=== PATIENT | female | born 1950 | race Caucasian/White ===

== ENCOUNTER 2016-08-22 11:08 | Emergency (ER) | payer MEDICARE, OTHER ==
[~2016-08-22 11:08] MED LIST: ACET325T9 PO; ASPI81TA2 PO; BISA5TAB4 PO; CALC625T20 PO; CARB15DR3 EACHEYE; CHOL10003 PO; CYAN10002 IM; FLUO20CA8 PO; GABA-586 PO; LEVO112T4 PO; LOPE2TAB56 PO; MELA3TAB PO; MENT113G6 TP; ONDA4TAB7 PO; OXYC1TAB7 PO; OXYC1TAB8 PO; SENN8.6T3 PO; SIMV20TA PO; TRAZ100T12 PO
[2016-08-22 11:10] VITALS: BP 142/93
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
[2016-08-22 11:43] LABS: BASO % 1 % (0-3); EOS # 0.2 x10^3/uL (0.0-0.7); EOS % 4 % (0-3); HEMATOCRIT 38.2 % (36.0-47.0); HEMOGLOBIN 12.5 g/dL (12.0-15.5); LYMPH # 1.1 x10^3/uL (1.0-4.8); LYMPH % 18 % (24-48); MEAN CORPUSCULAR HEMOGLOBIN 27 pg (25-35); MEAN CORPUSCULAR HGB CONC 33 g/dL (31-37); MEAN CORPUSCULAR VOLUME 82 fL (79-100); MONO # 0.5 x10^3/uL (0.0-1.1); MONO % 8 % (0-9); NEUT # 4.1 x10^3uL (1.8-7.7); NEUT % 69 % (31-73); PLATELET COUNT 266 x10^3/uL (140-400); RED BLOOD COUNT 4.65 x10^6/uL (3.50-5.40); RED CELL DISTRIBUTION WIDTH 17.1 % (11.5-14.5); WHITE BLOOD COUNT 5.9 x10^3/uL (4.0-11.0)
[2016-08-22 11:50] LABS: CALCIUM 9.1 mg/dL (8.5-10.1); CREATININE 0.8 mg/dL (0.6-1.0); GFR 71.5
--- NOTE | 2016-08-22 12:31 | EKG ---
[facility] [address] [place] [address] Test Date: 2016-08-22 Test Time: 11:54:18 Pat Name: EDDY HILTON Department: Room: Gender: F Manager Machine: ELISSA : 1950 Requested By: ARI FRANCES Order Number: [id number] Reading MD: Walter English Measurements Intervals [place] Rate: 82 P: 63 CA: 154 QRS: -51 QRSD: 106 T: 64 QT: 386 QTc: 454 Interpretive Statements SINUS RHYTHM ABNORMAL LEFT AXIS DEVIATION LEFT ANTERIOR FASCICULAR BLOCK T ABNORMALITY IN ANTEROSEPTAL LEADS ABNORMAL ECG RI6.01 Unconfirmed report Electronically Signed On 08-31-2016 10:09:16 EQUIPMENT ANALYST by Walter English
[2016-08-22 12:51] LABS: AMPHETAMINE/METHAMPHETAMINE NEG (NEG); BARBITURATES NEG (NEG); BENZODIAZEPINES NEG (NEG); CANNABINOIDS NEG (NEG); COCAINE NEG (NEG); METHADONE NEG (NEG); OPIATES NEG (NEG); PHENCYCLIDINE NEG (NEG)
[2016-08-22 12:56] LABS: BILIRUBIN,URINE NEG (NEG); CLARITY,URINE CLEAR; COLOR,URINE YELLOW; GLUCOSE,URINE NEG (NEG); NITRITE,URINE NEG (NEG); UROBILINOGEN,URINE 1 mg/dL (0.2 mg/dL)
[2016-08-22 12:57] LABS: BACTERIA,URINE 0 /HPF (0-FEW); RBC,URINE RARE /HPF (0-2); WBC,URINE RARE /HPF (0-4)
== END 2016-08-22 14:36 | disposition home or self-care (01) ==
LOC: ER 11:08
DX: F39 Unspecified mood [affective] disorder (principal); E03.9 Hypothyroidism, unspecified; E78.5 Hyperlipidemia, unspecified; F32.9 Major depressive disorder, single episode, unspecified; G89.29 Other chronic pain; K21.9 Gastro-esophageal reflux disease without esophagitis; Z88.0 Allergy status to penicillin; Z88.2 Allergy status to sulfonamides; Z91.041 Radiographic dye allergy status; Z88.1 Allergy status to other antibiotic agents; Z88.4 Allergy status to anesthetic agent; Z88.8 Allergy status to other drugs, medicaments and biological substances
CPT/HCPCS: 36415; 51701; 80048; 80305; 81001; 84443; 84484; 85027; 93005; G0481; 99285-25

== ENCOUNTER 2016-09-14 15:26 | Inpatient (IN) | payer MEDICARE, OTHER ==
[~2016-09-14] VITALS: Ht 167.6 cm; Wt 70.5 kg
--- NOTE | 2016-09-14 16:08 | EKG ---
[address] [address] Test Date: 2016-09-14 Test Time: 16:07:13 Pat Name: EDDY HILTON Department: Room: Gender: F Books Binder: : 1950 Requested By: ARI FRANCES Order Number: [id number] Reading MD: Measurements Intervals [place] Rate: 79 P: 30 DE: 150 QRS: -43 QRSD: 92 T: 64 QT: 378 QTc: 434 Interpretive Statements SINUS RHYTHM ABNORMAL LEFT AXIS DEVIATION LEFT ANTERIOR FASCICULAR BLOCK ABNORMAL ECG RI6.01 Unconfirmed report Compared to ECG 08/22/2016 11:54:18 T-wave abnormality no longer present
[2016-09-14 16:27] LABS: BASO # 0.1 x10^3/uL (0.0-0.2); BASO % 1 % (0-3); EOS # 0.3 x10^3/uL (0.0-0.7); EOS % 5 % (0-3); HEMATOCRIT 34.6 % (36.0-47.0); HEMOGLOBIN 11.4 g/dL (12.0-15.5); LYMPH # 1.1 x10^3/uL (1.0-4.8); LYMPH % 17 % (24-48); MEAN CORPUSCULAR HEMOGLOBIN 28 pg (25-35); MEAN CORPUSCULAR HGB CONC 33 g/dL (31-37); MEAN CORPUSCULAR VOLUME 83 fL (79-100); MONO # 0.6 x10^3/uL (0.0-1.1); MONO % 9 % (0-9); NEUT # 4.7 x10^3uL (1.8-7.7); NEUT % 69 % (31-73); PLATELET COUNT 267 x10^3/uL (140-400); RED BLOOD COUNT 4.15 x10^6/uL (3.50-5.40); RED CELL DISTRIBUTION WIDTH 16.5 % (11.5-14.5); WHITE BLOOD COUNT 6.9 x10^3/uL (4.0-11.0)
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
[2016-09-14 16:45] LABS: ALBUMIN 3.2 g/dL (3.4-5.0); ALBUMIN/GLOBULIN RATIO 0.8 (1.0-1.7); CALCIUM 8.4 mg/dL (8.5-10.1); CREATININE 0.8 mg/dL (0.6-1.0); GFR 71.5; POTASSIUM 3.9 mmol/L (3.5-5.1); TOTAL BILIRUBIN 0.2 mg/dL (0.2-1.0); TOTAL PROTEIN 7.2 g/dL (6.4-8.2)
[2016-09-14 16:58] LABS: AMPHETAMINE/METHAMPHETAMINE NEG (NEG); BARBITURATES NEG (NEG); BENZODIAZEPINES NEG (NEG); CANNABINOIDS NEG (NEG); COCAINE NEG (NEG); METHADONE NEG (NEG); OPIATES NEG (NEG); PHENCYCLIDINE NEG (NEG)
[2016-09-14 17:00] LABS: BILIRUBIN,URINE NEG (NEG); CLARITY,URINE HAZY; COLOR,URINE YELLOW; GLUCOSE,URINE NEG (NEG); NITRITE,URINE NEG (NEG); UROBILINOGEN,URINE 0.2 mg/dL (0.2 mg/dL)
[2016-09-14] MEDS ORDERED: DIPHENHYDRAMINE 50 MG/ML VIAL IV ONE (17:00)
[2016-09-14 17:01] LABS: BACTERIA,URINE FEW /HPF (0-FEW); SQUAMOUS EPITHELIAL CELL,UR FEW /LPF
[2016-09-14 17:20] LABS: DIRECT BILIRUBIN 0.2 mg/dL (0.0-0.2); MAGNESIUM 1.9 mg/dL (1.8-2.4)
--- NOTE | 2016-09-14 17:35 | RAD ---
PROCEDURE CT head without contrast. HISTORY Mental status changes and confusion today. TECHNIQUE Noncontrast CT head was obtained. One or more of the following individualized dose reduction techniques were utilized for this exam: 1. Automated exposure control. 2. Adjustment of the mA and/or kV according to patient's size. 3. Use of iterative reconstruction technique. COMPARISON July 09, 2015. FINDINGS Suboccipital craniotomy defect is noted. There is decreased attenuation in the left cerebellum and left brachium pontis, an area were artifact is common although appears to be a true finding. There are areas of encephalomalacia in both occipital lobes, chronic in appearance. There are also chronic parietal infarcts, left greater than right. There is mild prominence of the ventricles and sulci. There is no acute intracranial hemorrhage or extra-axial fluid collection. There is no CT evidence of an acute infarct. Paranasal sinuses are clear. Postsurgical changes in both temporal bones are noted. IMPRESSION 1. Potential new area of infarct in the left cerebellum and left brachium pontis. This is well-defined and could be subacute. This is a change from prior. Consider MRI. 2. Infarcts in the occipital and parietal lobes appear chronic. 3. Brain parenchymal volume loss. Electronically signed by: Abdoulaye Plaza MD (Sep 14, 2016 17:34:04)
[2016-09-14] MEDS ORDERED: LORAZEPAM 2 MG/ML VIAL IV PRN (18:45)
[2016-09-14] MEDS ORDERED: ONDANSETRON PF 4 MG/2 ML VIAL. IV PRN (18:45)
[2016-09-14] MEDS ORDERED: ASPIRIN 81 MG TAB.CHEW PO ONE (19:00)
--- NOTE | 2016-09-14 21:10 | RAD ---
PROCEDURE Bilateral lower extremity venous duplex ultrasound. HISTORY Leg swelling. TECHNIQUE Grayscale, color flow, and spectral waveform analysis was performed. Exam was technically difficult, patient tolerated probe pressure minimally and was uncooperative. COMPARISON None. FINDINGS All visualized vein segments are compressible with normal phasicity of waveform and augmentation. Neither posterior tibial vein was visualized. No thrombus on grayscale or color imaging is apparent. There is subcutaneous edema. IMPRESSION No deep vein thrombosis in either lower extremity. Electronically signed by: Abdoulaye Plaza MD (Sep 14, 2016 21:09:32)
[2016-09-14 21:20] VITALS: BP 179/79
[2016-09-14] MEDS ORDERED: BUSP5TAB PO (22:37)
[2016-09-14] MEDS ORDERED: MULT-208 PO (22:38)
[2016-09-14] MEDS ORDERED: ESCI10TA PO (22:38)
[2016-09-14] MEDS ORDERED: CARB15DR3 EACHEYE (22:39)
[2016-09-14] MEDS ORDERED: PRED5DRO6 EACHEYE (22:40)
[2016-09-14] MEDS ORDERED: QUET100T4 PO (22:43)
[2016-09-14] MEDS ORDERED: QUET25TA5 PO (22:44)
[2016-09-14] MEDS ORDERED: ASCO500T PO (22:44)
[2016-09-14] MEDS ORDERED: BISACODYL TAB 5 MG TABLET.DR. PO PRN (22:45)
[2016-09-14] MEDS ORDERED: LOPERAMIDE 2 MG CAPSULE PO PRN (23:00)
[2016-09-14] MEDS: ACETAMINOPHEN 325 MG TABLET PO PRN (23:01)
[2016-09-14] MEDS: DIPHENHYDRAMINE HCL 25 MG CAPSULE PO PRN (23:01)
[2016-09-14] MEDS: busPIRone 5 MG TABLET. PO SCH (23:01)
[2016-09-14] MEDS: QUEtiapine 100 MG TABLET. PO SCH (23:01)
[2016-09-14] MEDS ORDERED: ONDANSETRON ODT 4 MG TAB.RAPDIS PO PRN (23:15)
[2016-09-14] MEDS: traZODone 50 MG TABLET. PO SCH (23:39)
[2016-09-15] VITALS (8 sets, daily range): BP systolic 110–160; BP diastolic 51–84
[2016-09-15] MEDS: LEVOTHYROXINE 88 MCG TABLET PO SCH (06:06)
--- NOTE | 2016-09-15 06:51 | ACF ---
Admission Criteria Forms MENTAL STATUS CHANGE Clinical Indications for Inpatient Care (Place 'X' for any and all applicable criteria): Ongoing inpatient care may be needed for ANY ONE of the following(1)(2)(3)(5)(6) : [X]I. Suspected serious etiology (eg, medical disorder, COMPLIANCE AUDITOR event) of mental status change [ ]II. Danger to self or others not manageable at lower level of care [ ]III. Grave disability (eg, inability to perform self care necessary at lower level of care) [ ]IV. Agitation or inappropriate behavior interfering with care for primary condition (eg, attempting to discontinue lines or drains prematurely, unable to cooperate with respiratory care) [ ]V. Delirium [A] [D][E] as described by ANY ONE of the following(26): [ ]a) Delirium due to alcohol or sedative [F] withdrawal [ ]b) Delirium of uncertain etiology that has not responded to appropriate empiric treatment [ ]c) Delirium that prevents performance of a life-sustaining function (eg, feeding or hydrating oneself) [ ]. General contraindications and/or Inappropriate clinical situations for Observational Care in patients with Mental Status Change, when ANY ONE of the following is required: [ ]a) Prediction of prolongation of LOS based on ANY ONE of the following may be considered as a contraindication for observational care 2, 3, 4, 5, 6, 7, 8, 9, 10, 11 [ ]i) Age > 65 yrs. [ ]ii) Patient arriving by ambulance [ ]iii) Patient with high acuity [ ]iv) Patient requiring vital sign monitoring [ ]v) Patient on IV medication [ ]b) Systolic blood pressures 180mmHg 3,12 [ ]c) Patient with altered mental status including delirium and other alteration of consciousness, (3) [ ]d) Patient whose discharge disposition will be to a senior care home or rehabilitation home should not be managed in Emergency Department Observation Unit. CMS rule requires 3 days hospital stay before such placement.3,13 [ ]e) Patient with failure to thrive due to broad array of etiologies 3,16,17 [ ]f) Inability to ambulate 3,14 Extended stay beyond goal length of stay for the primary condition may be needed until ALL of the following are present(3)(5): [ ]a) Underlying medical etiology of mental status change is absent, or has been established and adequately treated [ ]b) Danger to self or others is absent or manageable at lower level of care. [ ]c) Behavior crisis management, including physical or chemical restraints, is not required or available at lower level of car [ ]d) Substance or alcohol withdrawal is absent or manageable at lower level of care. [ ]e) Behavioral symptoms (eg, agitation, somnolence, inappropriate behavior) are absent, or are manageable at lower level of care. The original [facility] content created by [facility] has been revised. The portions of the content which have been revised are identified through the use of italic text or in bold, and [facility] has neither reviewed nor approved the modified material. All other unmodified content is copyright [facility]. Please see references footnoted in the original [facility] edition 2016 Admission Criteria Met?: Yes BRONSON FAJARDO Sep 15, 2016 06:51
[2016-09-15] MEDS: SENNOSIDES 8.6 MG TABLET PO SCH (08:11)
[2016-09-15] MEDS: busPIRone 5 MG TABLET. PO SCH ×3 (08:11→18:59)
[2016-09-15] MEDS: QUEtiapine 25 MG TABLET. PO SCH ×2 (08:11→14:50)
[2016-09-15] MEDS: CALCIUM POLYCARBOPHIL 625 MG TABLET PO SCH ×2 (08:11→19:49)
[2016-09-15] MEDS: ASCORBIC ACID 500 MG TABLET PO SCH (08:12)
[2016-09-15] MEDS: GABAPENTIN 300 MG CAPSULE. PO SCH ×3 (08:12→18:59)
[2016-09-15] MEDS: MULTIVITAMIN with MINERAL TABLET. PO SCH (08:12)
[2016-09-15] MEDS: ASPIRIN 81 MG TAB.CHEW PO SCH (08:12)
--- NOTE | 2016-09-15 08:23 | RAD ---
Indication cough and chest congestion. A single view of the chest was obtained and is compared to an exam 02/26/2016. There is unchanged elevation of the right hemidiaphragm. There is air below the right hemidiaphragm probably reflecting air in the right colon. Extraluminal air is felt less likely. If abdominal pathology is clinically suspect a CT examination should be considered. Cardiac pacing device is noted as well as a neural stimulator. Slightly tortuous thoracic aorta is noted. Heart size is at the upper limits of normal. There is no congestive heart failure. A focal infiltrate in either lung is not seen. IMPRESSION: No definite acute finding in the chest. Air below the right hemidiaphragm probably reflecting air in large bowel. See above discussion
[2016-09-15] MEDS ORDERED: ESCITALOPRAM 10 MG TABLET. PO SCH (09:00)
[2016-09-15 09:01] LABS: BASO % 0 % (0-3); EOS # 0.2 x10^3/uL (0.0-0.7); EOS % 2 % (0-3); HEMATOCRIT 35.9 % (36.0-47.0); HEMOGLOBIN 11.8 g/dL (12.0-15.5); LYMPH # 1.2 x10^3/uL (1.0-4.8); LYMPH % 15 % (24-48); MEAN CORPUSCULAR HEMOGLOBIN 27 pg (25-35); MEAN CORPUSCULAR HGB CONC 33 g/dL (31-37); MEAN CORPUSCULAR VOLUME 84 fL (79-100); MONO # 0.5 x10^3/uL (0.0-1.1); MONO % 6 % (0-9); NEUT # 6.2 x10^3uL (1.8-7.7); NEUT % 76 % (31-73); PLATELET COUNT 278 x10^3/uL (140-400); RED BLOOD COUNT 4.29 x10^6/uL (3.50-5.40); RED CELL DISTRIBUTION WIDTH 16.1 % (11.5-14.5); WHITE BLOOD COUNT 8.2 x10^3/uL (4.0-11.0)
[2016-09-15] MEDS ORDERED: IV NORMAL SALINE 250ML 250 ML ONE (09:17)
[2016-09-15] MEDS: CHOLECALCIFEROL (VITAMIN D3) 1,000 UNIT TABLET PO SCH (09:21)
[2016-09-15] MEDS: FLUOXETINE HCL 20 MG CAPSULE PO SCH (09:22)
[2016-09-15] MEDS: CLINDAMYCIN 600MG PREMIX 50 ML IV SCH ×3 (09:22→21:32)
[2016-09-15 09:26] LABS: ALBUMIN 3.3 g/dL (3.4-5.0); ALBUMIN/GLOBULIN RATIO 0.8 (1.0-1.7); CALCIUM 8.6 mg/dL (8.5-10.1); CREATININE 0.8 mg/dL (0.6-1.0); GFR 71.5; POTASSIUM 3.9 mmol/L (3.5-5.1); TOTAL BILIRUBIN 0.4 mg/dL (0.2-1.0); TOTAL PROTEIN 7.2 g/dL (6.4-8.2)
[2016-09-15] MEDS ORDERED: DIAZEPAM 5 MG TABLET PO ONE (09:30)
[2016-09-15] MEDS: POLYVINYL ALCOHOL 1.4% OPHTH SOLUTION 15ML BOTTLE. OU SCH ×3 (09:33→20:27)
[2016-09-15] MEDS ORDERED: VANCOMYCIN PER PHARMACY MC PRN (18:15)
[2016-09-15] MEDS ORDERED: VANCOMYCIN 1.75 GM in IV NORMAL SALINE 500ML 500 ML IV ONE (18:45)
[2016-09-15] MEDS: QUEtiapine 100 MG TABLET. PO SCH (18:59)
[2016-09-15] MEDS: traZODone 50 MG TABLET. PO SCH (18:59)
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
--- NOTE | 2016-09-15 20:46 | PDOC ---
Exam Tunde Demential Exam: Tunde Note: Please also refer to the separate dictated note~for this date of service dictated separately.~Patient seen individually. Discussed the patient with Nursing staff reviewed the chart.~Reviewed interim history and current functioning. Reviewed vital signs,~Labs/ Radiology~and current medications noted below. Continue current treatment with the changes noted in the dictated addendum note Assessment: Vital Signs: Vital Signs Date Time Temp Pulse Resp B/P Pulse Ox O2 Delivery O2 Flow Rate FiO2 09/15/16 20:34 Room Air 09/15/16 18:50 98.6 96 20 129/79 97 I&O Intake and Output 09/15/16 07:00 Intake Total 940 ml Balance 940 ml Intake Oral 940 ml # Voids 9 # Bowel Movements 2 Labs: Laboratory Tests Test 09/14/16 23:20 09/15/16 08:15 Nasal Screen MRSA (PCR) Positive (Negative) H White Blood Count 8.2x10^3/uL (4.0-11.0) Red Blood Count 4.29x10^6/uL (3.50-5.40) Hemoglobin 11.8g/dL (12.0-15.5) L Hematocrit 35.9% (36.0-47.0) L Mean Corpuscular Volume 84fL (79-100) Mean Corpuscular Hemoglobin 27pg (25-35) Mean Corpuscular Hemoglobin Concent 33g/dL (31-37) Red Cell Distribution Width 16.1% (11.5-14.5) H Platelet Count 278x10^3/uL (140-400) Neutrophils (%) (Auto) 76% (31-73) H Lymphocytes (%) (Auto) 15% (24-48) L Monocytes (%) (Auto) 6% (0-9) Eosinophils (%) (Auto) 2% (0-3) Basophils (%) (Auto) 0% (0-3) Neutrophils # (Auto) 6.2x10^3uL (1.8-7.7) Lymphocytes # (Auto) 1.2x10^3/uL (1.0-4.8) Monocytes # (Auto) 0.5x10^3/uL (0.0-1.1) Eosinophils # (Auto) 0.2x10^3/uL (0.0-0.7) Basophils # (Auto) 0.0x10^3/uL (0.0-0.2) Sodium Level 142mmol/L (136-145) Potassium Level 3.9mmol/L (3.5-5.1) Chloride Level 105mmol/L (98-107) Carbon Dioxide Level 28mmol/L (21-32) Anion Gap 9 (6-14) Blood Urea Nitrogen 17mg/dL (7-20) Creatinine 0.8mg/dL (0.6-1.0) Estimated GFR (Cockcroft-Gault) 71.5 BUN/Creatinine Ratio 21 (6-20) H Glucose Level 133mg/dL (70-99) H Calcium Level 8.6mg/dL (8.5-10.1) Total Bilirubin 0.4mg/dL (0.2-1.0) # Aspartate Amino Transferase (AST) 22U/L (15-37) Alanine Aminotransferase (ALT) 22U/L (14-59) Alkaline Phosphatase 82U/L (46-116) Total Protein 7.2g/dL (6.4-8.2) Albumin 3.3g/dL (3.4-5.0) L Albumin/Globulin Ratio 0.8 (1.0-1.7) L Current Medications: Meds: Current Medications Diphenhydramine HCl (Benadryl) 50 mg 1X ONCE IV ; Start 09/14/16 at 17:00; Stop 09/14/16 at 17:01; Status DC Ondansetron HCl (Zofran) 4 mg PRN Q4HRS PRN IV NAUSEA/VOMITING; Start 09/14/16 at 18:45; Stop 09/15/16 at 18:44; Status DC Lorazepam (Ativan) 2 mg 1X PRN PRN IV SEVERE AGITATION Last administered on 21:25; Start 09/14/16 at 18:45 Aspirin (Children'S Aspirin) 81 mg 1X ONCE PO Last administered on 09/14/16 19:00; Start 09/14/16 at 19:00; Stop 09/14/16 at 19:01; Status DC Acetaminophen (Tylenol) 325 mg PRN Q6HRS PRN PO MILD PAIN Last administered on 09/14/16 23:01; Start 09/14/16 at 22:45 Aspirin (Children'S Aspirin) 81 mg DAILY PO Last administered on 09/15/16 08: 12; Start 09/15/16 at 09:00 Bisacodyl (Dulcolax Tab) 5 mg PRN DAILY PRN PO CONSTIPATION; Start 09/14/16 at 22:45 Buspirone HCl (Buspar) 5 mg TID PO Last administered on 09/15/16 18:59; Start 09/14/16 at 23:00 Calcium Polycarbophil (Fibercon) 625 mg BID PO Last administered on 09/15/16 08:11; Start 09/15/16 at 09:00 Vitamin D (Vitamin D3) 4,000 unit DAILY PO Last administered on 09/15/16 09:21 ; Start 09/15/16 at 09:00 Escitalopram Oxalate (Lexapro) 10 mg DAILY PO Last administered on 09/15/16 08 :11; Start 09/15/16 at 09:00; Stop 09/15/16 at 19:29; Status DC Gabapentin (Neurontin) 300 mg TID PO Last administered on 09/15/16 18:59; Start 09/15/16 at 09:00 Levothyroxine Sodium (Synthroid) 88 mcg DAILY07 PO Last administered on 06:06; Start 09/15/16 at 07:00 Prednisolone Acetate (Pred Forte) 1 drop HS OU Last administered on 09/15/16 20:25; Start 09/15/16 at 21:00 Quetiapine Fumarate (SEROquel) 25 mg BID92 PO Last administered on 09/15/16 14 :50; Start 09/15/16 at 09:00 Quetiapine Fumarate (SEROquel) 100 mg QHS PO Last administered on 09/15/16 18: 59; Start 09/14/16 at 23:00 Sennosides (Senna) 8.6 mg DAILY PO Last administered on 09/15/16 08:11; Start 09/15/16 at 09:00 Simvastatin (Zocor) 10 mg QHS PO Last administered on 09/15/16 20:25; Start at 21:00 Trazodone HCl (Desyrel) 50 mg QHS PO Last administered on 09/15/16 18:59; Start 09/15/16 at 00:00 Ascorbic Acid (Vitamin C) 500 mg DAILY PO Last administered on 09/15/16 08:12 ; Start 09/15/16 at 09:00 Artificial Tears (Artificial Tears) 1 drop TID OU Last administered on 14:51; Start 09/15/16 at 09:00 Loperamide HCl (Imodium) 2 mg PRN Q4HRS PRN PO DIARRHEA; Start 09/14/16 at 23: 00 Multivitamins/ Calcium (Thera-M Plus) 1 tab DAILY PO Last administered on 08:12; Start 09/15/16 at 09:00 Ondansetron HCl (Zofran Odt) 4 mg PRN Q6HRS PRN PO NAUSEA; Start 09/14/16 at 23 :15 Diphenhydramine HCl (Benadryl) 25 mg PRN Q6HRS PRN PO ITCHING Last administered on 09/14/16 23:01; Start 09/14/16 at 23:00 Fluoxetine HCl (Prozac) 20 mg DAILY PO Last administered on 09/15/16 09:22; Start 09/15/16 at 09:00 Diazepam 2.5 mg 2.5 mg HS PO Last administered on 09/15/16 20:25; Start at 21:00 Clindamycin Phosphate 50 ml @ 100 mls/hr Q8HRS IV Last administered on 14:50; Start 09/15/16 at 09:00 Sodium Chloride (Iv Sodium Chloride 0.9% 250ml) 250 ml @ As Directed STK-MED ONCE .ROUTE Last administered on 09/15/16 09:27; Start 09/15/16 at 09:17; Stop 09/15/16 at 09:18; Status DC Diazepam (Valium) 2.5 mg 1X ONCE PO Last administered on 09/15/16 09:35; Start 09/15/16 at 09:30; Stop 09/15/16 at 09:31; Status DC Vancomycin HCl 1 each 1 each PRN DAILY PRN MC SEE COMMENTS Last administered on 09/15/16 19:24; Start 09/15/16 at 18:15 Vancomycin HCl 1.75 gm/Sodium Chloride 500 ml @ 250 mls/hr 1X ONCE IV Last administered on 09/15/16t 18:59; Start 09/15/16 at 18:45; Stop 09/15/16 at 20:44 ; Status DC Vancomycin HCl/ Sodium Chloride (Iv Sodium Chloride 0.9% 250ml) 250 ml @ 250 mls/hr Q24H IV ; Start 09/16/16 at 18:00 Vancomycin HCl 1 each 1X ONCE MC ; Start 09/17/16 at 17:30; Stop 09/17/16 at 17 :31 Active Scripts Active Reported Vitamin C (Ascorbic Acid) 500 Mg Tab.chew 500 Mg PO DAILY Seroquel (Quetiapine Fumarate) 25 Mg Tablet 1 Tab PO BID92 Seroquel (Quetiapine Fumarate) 100 Mg Tablet 1 Tab PO QHS Prednisolone Acetate 5 Ml Drops.susp 1 Drop EACHEYE HS Refresh Optive Eye Drops (Carboxymethylcellulos/Glycerin) 15 Ml Drops 1 Drop EACHEYE TID Multi-Day Vitamins (Multivitamin) 1 Each Tablet 1 Tab PO DAILY Escitalopram Oxalate 10 Mg Tablet 1 Tab PO DAILY Buspirone Hcl 5 Mg Tablet 1 Tab PO TID Zofran (Ondansetron Hcl) 4 Mg Tablet 1 Tab PO Q6HRS PRN Zocor (Simvastatin) 20 Mg Tablet 10 Mg PO HS Trazodone Hcl 100 Mg Tablet 50 Mg PO QHS Senna (Sennosides) 8.6 Mg Tablet 8.6 Mg PO DAILY Levothyroxine Sodium 112 Mcg Tablet 88 Mcg PO DAILY06 Anti-Diarrhea (Loperamide Hcl) 2 Mg Tablet 2 Mg PO PRN Q4HRS PRN Gabapentin 300 Mg Capsule 300 Mg PO TID Fiber Tabs (Calcium Polycarbophil) 625 Mg Tablet 625 Mg PO BID Vitamin D3 (Cholecalciferol (Vitamin D3)) 1,000 Unit Tablet 4,000 Unit PO DAILY Bisacodyl 5 Mg Tablet.dr 5 Mg PO PRN DAILY PRN Aspirin 81 Mg Tab.chew 81 Mg PO DAILY Tylenol (Acetaminophen) 325 Mg Tablet 325 Mg PO PRN Q6HRS PRN Diagnosis: Problems: (1) Mental status change RITA MARMOLEJO MD Sep 15, 2016 20:46
[2016-09-15] MEDS ORDERED: prednisoLONE ACETATE 1% OPHTH SUSPENSION 5ML BOTTLE. OU SCH (21:00)
[2016-09-15] MEDS ORDERED: DIAZEPAM 2 MG TABLET PO SCH (21:00)
[2016-09-15] MEDS ORDERED: SIMVASTATIN 10 MG TABLET PO SCH (21:00)
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
[2016-09-16] MEDS: DIPHENHYDRAMINE HCL 25 MG CAPSULE PO PRN (01:59)
[2016-09-16] MEDS: CLINDAMYCIN 600MG PREMIX 50 ML IV SCH ×2 (05:22→13:25)
[2016-09-16] MEDS: LEVOTHYROXINE 88 MCG TABLET PO SCH (05:23)
[2016-09-16 05:32] VITALS: BP 129/74
[2016-09-16] MEDS: ACETAMINOPHEN 325 MG TABLET PO PRN (06:23)
[2016-09-16] MEDS: POLYVINYL ALCOHOL 1.4% OPHTH SOLUTION 15ML BOTTLE. OU SCH ×2 (08:35→13:25)
[2016-09-16] MEDS: FLUOXETINE HCL 20 MG CAPSULE PO SCH (08:40)
[2016-09-16] MEDS: ASPIRIN 81 MG TAB.CHEW PO SCH (08:40)
[2016-09-16] MEDS: QUEtiapine 25 MG TABLET. PO SCH ×2 (08:40→13:30)
[2016-09-16] MEDS: MULTIVITAMIN with MINERAL TABLET. PO SCH (08:40)
[2016-09-16] MEDS: CALCIUM POLYCARBOPHIL 625 MG TABLET PO SCH (08:40)
[2016-09-16] MEDS: CHOLECALCIFEROL (VITAMIN D3) 1,000 UNIT TABLET PO SCH (08:40)
[2016-09-16] MEDS: ASCORBIC ACID 500 MG TABLET PO SCH (08:40)
[2016-09-16] MEDS: SENNOSIDES 8.6 MG TABLET PO SCH (08:40)
[2016-09-16] MEDS: busPIRone 5 MG TABLET. PO SCH ×2 (08:40→13:30)
[2016-09-16] MEDS: GABAPENTIN 300 MG CAPSULE. PO SCH ×2 (08:40→13:30)
[2016-09-16 11:32] VITALS: BP 120/72
[2016-09-16] MEDS ORDERED: VANCOMYCIN 1 GM in IV NORMAL SALINE 250ML 250 ML IV SCH (18:00)
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
== END 2016-09-16 15:55 | DRG 65 ==
LOC: ER 20:09 → ICU 20:39 → 1 SOUTH 09-15 18:29
PROVIDERS: ADMIT Family Medicine; ATTEND Family Medicine
DX: I63.9 Cerebral infarction, unspecified (principal); L03.116 Cellulitis of left lower limb; F33.9 Major depressive disorder, recurrent, unspecified; E44.0 Moderate protein-calorie malnutrition; L03.115 Cellulitis of right lower limb; E03.9 Hypothyroidism, unspecified; E78.5 Hyperlipidemia, unspecified; F03.90 Unspecified dementia, unspecified severity, without behavioral disturbance, psychotic disturbance, mood disturbance, and anxiety; F09 Unspecified mental disorder due to known physiological condition; F41.9 Anxiety disorder, unspecified; F60.3 Borderline personality disorder; F63.9 Impulse disorder, unspecified; G47.00 Insomnia, unspecified; G50.0 Trigeminal neuralgia; H81.09 Meniere's disease, unspecified ear; I25.10 Atherosclerotic heart disease of native coronary artery without angina pectoris; I50.9 Heart failure, unspecified; I11.0 Hypertensive heart disease with heart failure; I87.8 Other specified disorders of veins; K21.9 Gastro-esophageal reflux disease without esophagitis; R32 Unspecified urinary incontinence; Z79.899 Other long term (current) drug therapy; Z91.81 History of falling; Z95.0 Presence of cardiac pacemaker; Z98.2 Presence of cerebrospinal fluid drainage device; Z88.0 Allergy status to penicillin; Z88.8 Allergy status to other drugs, medicaments and biological substances; S06.9X0A Unspecified intracranial injury without loss of consciousness, initial encounter
CPT/HCPCS: 36415; 51701; 70450; 71010; 80053; 81001; 82248; 82553; 83690; 83735; 83880; 84443; 84484; 85027; 85610; 85730; 87641; 93005; 93970; 96374; G0480; G0481; J2060; J3370; J3490; J7040; J7050; Q0163; 99285-25

== ENCOUNTER 2017-07-05 22:11 | Inpatient (IN) | payer MEDICARE, OTHER ==
[~2017-07-05] VITALS: Ht 167.6 cm; Wt 70.4 kg
[~2017-07-05 22:11] MED LIST changes: +ASCO500T PO; +ASPI-630 PO; -ASPI81TA2 PO; +BUSP5TAB PO; +ESCITALOPRAM OX10 MG PO; -MELA3TAB PO; +MELA3TAB2 PO; +MULT-208 PO; +PRED5DRO16 EACHEYE; +QUET100T4 PO; +QUET25TA5 PO; +SENN-79 PO; -SENN8.6T3 PO; +TRAZ-90 PO; -TRAZ100T12 PO
[2017-07-05 23:27] LABS: ALBUMIN/GLOBULIN RATIO 0.7 (1.0-1.7); CALCIUM 8.8 mg/dL (8.5-10.1); CREATININE 1.4 mg/dL (0.6-1.0); GFR 37.4; MAGNESIUM 1.9 mg/dL (1.8-2.4); POTASSIUM 3.7 mmol/L (3.5-5.1); TOTAL BILIRUBIN 0.2 mg/dL (0.2-1.0); TOTAL PROTEIN 7.1 g/dL (6.4-8.2)
[2017-07-05 23:35] LABS: MEAN CORPUSCULAR HGB CONC 31 g/dL (31-37)
[2017-07-05 23:36] LABS: HEMATOCRIT 38.5 % (36.0-47.0); HEMOGLOBIN 12.1 g/dL (12.0-15.5); MEAN CORPUSCULAR HEMOGLOBIN 25 pg (25-35); MEAN CORPUSCULAR VOLUME 79 fL (79-100); RED BLOOD COUNT 4.91 x10^6/uL (3.50-5.40); RED CELL DISTRIBUTION WIDTH 17.5 % (11.5-14.5); WHITE BLOOD COUNT 7.8 x10^3/uL (4.0-11.0)
[2017-07-05 23:37] LABS: PLATELET COUNT 340 x10^3/uL (140-400)
[2017-07-05 23:48] LABS: % EOS 3 % (0-5); % LYMPHS 16 % (24-48); % MONOS 12 % (0-10); % SEGS 69 % (35-66); ANISOCYTOSIS SLIGHT; MICROCYTOSIS SLIGHT; PLT ESTIMATE ADEQUATE (ADEQUATE)
[2017-07-06] MEDS ORDERED: RIVA1PAT23 TD (00:08)
[2017-07-06] MEDS ORDERED: TRAM50TA PO (00:08)
[2017-07-06] MEDS ORDERED: DULO30CA2 PO (00:08)
[2017-07-06] MEDS ORDERED: QUET50TA PO (00:08)
[2017-07-06] MEDS ORDERED: BUSP10TA PO (00:08)
[2017-07-06] MEDS ORDERED: DULO60CA6 PO (00:08)
[2017-07-06] MEDS ORDERED: TRAZ50TA15 PO (00:08)
[2017-07-06] MEDS ORDERED: FERR-26 PO (00:14)
[2017-07-06] MEDS ORDERED: LATA2.5D3 EACHEYE (00:14)
[2017-07-06] MEDS ORDERED: OLAN5TAB5 PO (00:14)
[2017-07-06] MEDS ORDERED: CYAN10005 PO (00:14)
[2017-07-06] MEDS ORDERED: HALO2ORA PO (00:14)
[2017-07-06] MEDS ORDERED: MIRT15TA3 PO (00:14)
--- NOTE | 2017-07-06 00:17 | PHYS DOC ---
Past History Past Medical History: Cancer, Constipation, GERD, Hypertension, Hypothyroid, Migraines, Other Past Surgical History: Pacemaker Alcohol Use: None Drug Use: None Adult General Chief Complaint Chief Complaint: PSYCH EVALUATION HPI HPI Patient is a 67 year old patient who is in a intermediate secondary to psychiatric issues as well as others, is being sent to the ED for medical evaluation prior to going to the psychiatric unit. Patient is going to psychiatric unit due to of aggressive and violent behavior and intermediate. History, ROS, physical exam limited secondary to clinical condition. Review of Systems Review of Systems Constitutional: Denies fever or chills [] Eyes: Denies change in visual acuity, redness, or eye pain [] HENT: Denies nasal congestion or sore throat [] Respiratory: Denies cough or shortness of breath [] Cardiovascular: No additional information not addressed in HPI [] GI: Denies abdominal pain, nausea, vomiting, bloody stools or diarrhea [] : Denies dysuria or hematuria [] Musculoskeletal: Denies back pain or joint pain [] Integument: Denies rash or skin lesions [] Neurologic: Denies headache, focal weakness or sensory changes [] Endocrine: Denies polyuria or polydipsia [] All other systems were reviewed and found to be within normal limits, except as documented in this note. Allergies Allergies Allergies Coded Allergies Type Severity Reaction Last Updated Verified Penicillins Allergy Intermediate 12/26/15 Yes adhesive tape Allergy Intermediate 12/26/15 Yes cefdinir Allergy Intermediate 12/26/15 Yes midazolam Allergy Intermediate 12/26/15 Yes piperacillin Allergy Intermediate 12/26/15 Yes procaine Allergy Intermediate 12/26/15 Yes promethazine Allergy Intermediate 12/26/15 Yes sulfadiazine Allergy Intermediate 12/26/15 Yes tazobactam Allergy Intermediate 12/26/15 Yes I S O L A T I O N *CONTACT* Allergy Unknown 02/28/16 Yes Physical Exam Physical Exam Constitutional: Well developed, well nourished, no acute distress, non-toxic appearance. [] HENT: Normocephalic, atraumatic, bilateral external ears normal, oropharynx dry , no oral exudates, nose normal. [] Eyes: EOMI, conjunctiva normal, no discharge. [] Neck: Normal range of motion, no tenderness, supple, no stridor. No lad, no meningeal signs Cardiovascular:Heart rate regular rhythm, no murmur , equal pulses, normal perfusion Lungs & Thorax: Bilateral breath sounds clear to auscultation, no tachypnea Abdomen: Bowel sounds normal, soft, no tenderness, no masses, no pulsatile masses. [] Skin: Warm, dry, no erythema, no rash. Exception is lower extremities that were wrapped, went rapidly removed there are signs of chronic stasis dermatitis, no purulence discharge or bad odor Back: No tenderness, no CVA tenderness. [] Extremities: No tenderness, no DVT, ROM intact, no edema. [] Neurologic: Alert and oriented X 3, normal motor function, no focal deficits noted. [] Psychologic: hostile. [] Current Patient Data Vital Signs Vital Signs Date Time Temp Pulse Resp B/P (MAP) Pulse Ox O2 Delivery O2 Flow Rate FiO2 07/05/17 22:11 98.7 88 16 95 Room Air Lab Results Laboratory Tests Test 07/05/17 22:24 White Blood Count 7.8 x10^3/uL (4.0-11.0) Red Blood Count 4.91 x10^6/uL (3.50-5.40) Hemoglobin 12.1 g/dL (12.0-15.5) Hematocrit 38.5 % (36.0-47.0) Mean Corpuscular Volume 79 fL (79-100) Mean Corpuscular Hemoglobin 25 pg (25-35) Mean Corpuscular Hemoglobin Concent 31 g/dL (31-37) Red Cell Distribution Width 17.5 % (11.5-14.5) H Platelet Count 340 x10^3/uL (140-400) Segmented Neutrophils % 69 % (35-66) H Lymphocytes % 16 % (24-48) L Monocytes % 12 % (0-10) H Eosinophils % 3 % (0-5) Platelet Estimate Adequate (ADEQUATE) Anisocytosis Slight Microcytosis Slight Sodium Level 141 mmol/L (136-145) Potassium Level 3.7 mmol/L (3.5-5.1) Chloride Level 104 mmol/L (98-107) Carbon Dioxide Level 27 mmol/L (21-32) Anion Gap 10 (6-14) Blood Urea Nitrogen 10 mg/dL (7-20) Creatinine 1.4 mg/dL (0.6-1.0) H Estimated GFR (Cockcroft-Gault) 37.4 BUN/Creatinine Ratio 7 (6-20) Glucose Level 92 mg/dL (70-99) Calcium Level 8.8 mg/dL (8.5-10.1) Magnesium Level 1.9 mg/dL (1.8-2.4) Total Bilirubin 0.2 mg/dL (0.2-1.0) Aspartate Amino Transferase (AST) 16 U/L (15-37) Alanine Aminotransferase (ALT) 16 U/L (14-59) Alkaline Phosphatase 70 U/L (46-116) Total Protein 7.1 g/dL (6.4-8.2) Albumin 3.0 g/dL (3.4-5.0) L Albumin/Globulin Ratio 0.7 (1.0-1.7) L EKG EKG [] Radiology/Procedures Radiology/Procedures [] Course & Med Decision Making Course & Med Decision Making Pertinent Labs and Imaging studies reviewed. (See chart for details) [] Dragon Disclaimer Dragon Disclaimer This electronic medical record was generated, in whole or in part, using a voice recognition dictation system. Departure Departure: Impression: Primary Impression: Impulse control disorder Additional Impression: Venous stasis dermatitis Disposition: ADMITTED INPATIENT Admitting Physician: Other Condition: STABLE Referrals: BLAISE HOLLAND DO (PCP) Problem Qualifiers Jake HAMMER MD Jul 06, 2017 00:17
[2017-07-06 00:48] LABS: CLARITY,URINE CLEAR; COLOR,URINE YELLOW; GLUCOSE,URINE NEG (NEG)
[2017-07-06 00:49] LABS: BACTERIA,URINE 0 /HPF (0-FEW); BILIRUBIN,URINE NEG (NEG); NITRITE,URINE NEG (NEG); RBC,URINE OCC /HPF (0-2); SQUAMOUS EPITHELIAL CELL,UR OCC /LPF; UROBILINOGEN,URINE 1 mg/dL (0.2 mg/dL); WBC,URINE OCC /HPF (0-4)
[2017-07-06] MEDS ORDERED: DIAZ5TAB PO (02:01)
[2017-07-06 02:13] VITALS: BP 108/66
[2017-07-06] MEDS ORDERED: ACETAMINOPHEN 325 MG TABLET PO PRN (06:45)
[2017-07-06] MEDS ORDERED: traMADol 50 MG TABLET PO PRN (06:45)
[2017-07-06] MEDS ORDERED: LOPERAMIDE 2 MG CAPSULE PO PRN (06:45)
[2017-07-06] MEDS ORDERED: ONDANSETRON ODT 4 MG TAB.RAPDIS PO PRN (06:45)
[2017-07-06] MEDS ORDERED: BISACODYL TAB 5 MG TABLET.DR. PO PRN (06:45)
[2017-07-06] MEDS ORDERED: IV NORMAL SALINE 500ML 500 ML IV ONE (07:00)
[2017-07-06 07:26] VITALS: BP 92/64
[2017-07-06] MEDS: TIMOLOL 0.25% OPHTH SOLUTION 5ML BOTTLE. OU SCH ×2 (09:00→09:19)
[2017-07-06] MEDS: CHOLECALCIFEROL (VITAMIN D3) 1,000 UNIT TABLET PO SCH ×2 (09:00→09:18)
[2017-07-06] MEDS: FERROUS SULFATE 325 MG TABLET. PO SCH ×2 (09:00→09:18)
[2017-07-06] MEDS: CYANOCOBALAMIN (VITAMIN B-12) 1,000 MCG TABLET. PO SCH ×2 (09:00→09:18)
[2017-07-06] MEDS: ASCORBIC ACID 500 MG TABLET PO SCH ×2 (09:00→09:18)
[2017-07-06] MEDS: MULTIVITAMIN with MINERAL TABLET. PO SCH ×2 (09:00→09:18)
[2017-07-06] MEDS: CALCIUM POLYCARBOPHIL 625 MG TABLET PO SCH ×3 (09:00→19:26)
[2017-07-06] MEDS: SENNOSIDES 8.6 MG TABLET PO SCH ×2 (09:00→09:19)
[2017-07-06] MEDS: POLYVINYL ALCOHOL 1.4% OPHTH SOLUTION 15ML BOTTLE. OU SCH ×4 (09:00→19:26)
--- NOTE | 2017-07-06 09:05 | EKG ---
[address] [address] Test Date: 2017-07-05 Test Time: 22:22:03 Pat Name: EDDY HILTON Department: Room: [address] [place] [address] Gender: F Usability Strategist: ELVIN : 1950 Requested By: Jake HAMMER Order Number: [id number] Reading MD: Toni Smith MD Measurements Intervals [place] Rate: 87 P: IL: QRS: -52 QRSD: 90 T: 68 QT: 336 QTc: 405 Interpretive Statements SR NSST CHANGES Electronically Signed On 07-08-2017 12:44:44 FRONT DESK SUPERVISOR by Toni Smith MD
[2017-07-06] MEDS: ASPIRIN 81 MG TAB.CHEW PO SCH (09:18)
[2017-07-06] MEDS: QUEtiapine 50 MG TABLET. PO SCH ×3 (09:18→13:52)
[2017-07-06] MEDS: GABAPENTIN 300 MG CAPSULE. PO SCH ×4 (09:18→19:26)
[2017-07-06] MEDS: RIVASTIGMINE 9.5MG PATCH. TD SCH (09:19)
[2017-07-06] MEDS: busPIRone 10 MG TABLET. PO SCH ×4 (09:19→19:26)
[2017-07-06] MEDS ORDERED: HALOPERIDOL 10 MG/5 ML ORAL.CONC. PO PRN (13:00)
[2017-07-06 16:07] VITALS: BP 95/60
[2017-07-06] MEDS: CIPROFLOXACIN 0.3% OPHTH SOLUTION 2.5ML BOTTLE. OD SCH (18:28)
[2017-07-06] MEDS: LATANOPROST 0.005% OPHTH SOLUTION 2.5ML BOTTLE. OU SCH (19:26)
[2017-07-06] MEDS: MIRTAZAPINE 7.5 MG TABLET. PO SCH (19:33)
[2017-07-06] MEDS: SIMVASTATIN 20 MG TABLET PO SCH ×2 (19:33→21:00)
[2017-07-06] MEDS: QUEtiapine 100 MG TABLET. PO SCH ×2 (19:33→21:00)
--- NOTE | 2017-07-06 20:04 | PDOC ---
Exam Note: Tun[place] Note: Please also refer to the separate dictated note~for this date of service dictated separately.~Patient seen individually. Discussed the patient with Nursing staff reviewed the chart.~Reviewed interim history and current functioning. Reviewed vital signs,~Labs/ Radiology~and current medications noted below. Continue current treatment with the changes noted in the dictated addendum note Assessment: Vital Signs: Vital Signs Date Time Temp Pulse Resp B/P (MAP) Pulse Ox O2 Delivery O2 Flow Rate FiO2 07/06/17 16:07 98.6 84 19 95/60 (72) 94 07/06/17 02:13 Room Air Labs: Laboratory Tests Test 07/05/17 22:24 07/06/17 00:08 White Blood Count 7.8 x10^3/uL (4.0-11.0) Red Blood Count 4.91 x10^6/uL (3.50-5.40) Hemoglobin 12.1 g/dL (12.0-15.5) Hematocrit 38.5 % (36.0-47.0) Mean Corpuscular Volume 79 fL (79-100) Mean Corpuscular Hemoglobin 25 pg (25-35) Mean Corpuscular Hemoglobin Concent 31 g/dL (31-37) Red Cell Distribution Width 17.5 % (11.5-14.5) H Platelet Count 340 x10^3/uL (140-400) Segmented Neutrophils % 69 % (35-66) H Lymphocytes % 16 % (24-48) L Monocytes % 12 % (0-10) H Eosinophils % 3 % (0-5) Platelet Estimate Adequate (ADEQUATE) Anisocytosis Slight Microcytosis Slight Sodium Level 141 mmol/L (136-145) Potassium Level 3.7 mmol/L (3.5-5.1) Chloride Level 104 mmol/L (98-107) Carbon Dioxide Level 27 mmol/L (21-32) Anion Gap 10 (6-14) Blood Urea Nitrogen 10 mg/dL (7-20) Creatinine 1.4 mg/dL (0.6-1.0) H Estimated GFR (Cockcroft-Gault) 37.4 BUN/Creatinine Ratio 7 (6-20) Glucose Level 92 mg/dL (70-99) Calcium Level 8.8 mg/dL (8.5-10.1) Magnesium Level 1.9 mg/dL (1.8-2.4) Iron Level 37 ug/dL (50-170) L Total Iron Binding Capacity 353 ug/dL (250-450) Iron Saturation 10 % (15-34) L Total Bilirubin 0.2 mg/dL (0.2-1.0) Aspartate Amino Transferase (AST) 16 U/L (15-37) Alanine Aminotransferase (ALT) 16 U/L (14-59) Alkaline Phosphatase 70 U/L (46-116) Total Protein 7.1 g/dL (6.4-8.2) Albumin 3.0 g/dL (3.4-5.0) L Albumin/Globulin Ratio 0.7 (1.0-1.7) L Urine Collection Type U cath Urine Color Yellow Urine Clarity Clear Urine pH 6.0 Urine Specific Casa 1.020 Urine Protein Neg (NEG-TRACE) Urine Glucose (UA) Neg mg/dL (NEG) Urine Ketones (Stick) 40 mg/dL (NEG) Urine Blood Neg (NEG) Urine Nitrite Neg (NEG) Urine Bilirubin Neg (NEG) Urine Urobilinogen Dipstick 1 mg/dL (0.2 mg/dL) Urine Leukocyte Esterase Neg (NEG) Urine RBC Occ /HPF (0-2) Urine WBC Occ /HPF (0-4) Urine Squamous Epithelial Cells Occ /LPF Urine Bacteria 0 /HPF (0-FEW) Current Medications: Meds: Current Medications Buspirone HCl (Buspar) 10 mg TID PO Last administered on 07/06/17 19:26; Start 07/06/17 at 09:00 Mirtazapine (Remeron) 7.5 mg QHS PO Last administered on 07/06/17 19:33; Start 07/06/17 at 21:00 Olanzapine (ZyPREXA ZYDIS) 2.5 mg PRN Q2HR PRN PO ANXIETY / AGITATION; Start at 02:00 Quetiapine Fumarate (SEROquel) 50 mg BID92 PO Last administered on 07/06/17 13: 52; Start 07/06/17 at 09:00 Quetiapine Fumarate (SEROquel) 100 mg QHS PO Last administered on 07/06/17 19: 33; Start 07/06/17 at 21:00 Rivastigmine (Exelon) 1 patch DAILY TD Last administered on 1/9/18at 09:19; Start 07/06/17 at 09:00 Trazodone HCl (Desyrel) 75 mg QHS PO ; Start 07/06/17 at 21:00; Stop 07/06/17 at 21:00; Status DC Sodium Chloride 500 ml @ 500 mls/hr 1X ONCE IV Last administered on 07/06/17at 06:37; Start 07/06/17 at 07:00; Stop 07/06/17 at 07:59; Status DC Acetaminophen (Tylenol) 325 mg PRN Q6HRS PRN PO MILD PAIN; Start 07/06/17 at 06: 45 Aspirin (Children'S Aspirin) 81 mg DAILY PO Last administered on 07/06/17at 09:18 ; Start 07/06/17 at 09:00 Bisacodyl (Dulcolax Tab) 5 mg PRN DAILY PRN PO CONSTIPATION; Start 07/06/17 at 06:45 Calcium Polycarbophil (Fibercon) 625 mg BID PO Last administered on 07/06/17at 19 :26; Start 07/06/17 at 09:00 Vitamin D (Vitamin D3) 4,000 unit DAILY PO ; Start 07/06/17 at 09:00 Cyanocobalamin (Vitamin B-12) 1,000 mcg DAILY PO ; Start 07/06/17 at 09:00 Diazepam (Valium) 2.5 mg QHS PO ; Start 07/06/17 at 21:00; Stop 07/06/17 at 21:00 ; Status DC Ferrous Sulfate (Feosol) 325 mg DAILY PO ; Start 07/06/17 at 09:00 Gabapentin (Neurontin) 300 mg TID PO Last administered on 07/06/17at 19:26; Start 07/06/17 at 09:00 Latanoprost (Xalatan) 1 drop QHS OU Last administered on 07/06/17 19:26; Start 07/06/17 at 21:00 Levothyroxine Sodium (Synthroid) 88 mcg DAILY06 PO ; Start 07/07/17 at 06:00 Sennosides (Senna) 8.6 mg DAILY PO ; Start 07/06/17 at 09:00 Simvastatin (Zocor) 10 mg HS PO Last administered on 07/06/17at 19:33; Start 07/06 at 21:00 Tramadol HCl (Ultram) 50 mg PRN Q8HRS PRN PO MODERATE PAIN; Start 07/06/17 at 06 :45 Ascorbic Acid (Vitamin C) 500 mg DAILY PO ; Start 07/06/17 at 09:00 Artificial Tears (Artificial Tears) 1 drop TID OU Last administered on at 19:26; Start 07/06/17 at 09:00 Loperamide HCl (Imodium) 2 mg PRN Q4HRS PRN PO DIARRHEA; Start 07/06/17 at 06:45 Multivitamins/ Calcium (Thera-M Plus) 1 tab DAILY PO ; Start 07/06/17 at 09:00 Ondansetron HCl (Zofran Odt) 4 mg PRN Q6HRS PRN PO NAUSEA; Start 07/06/17 at 06: 45 Timolol Maleate (Timoptic 0.25% Oph) 1 drop DAILY OU ; Start 07/06/17 at 09:00 Duloxetine HCl (Cymbalta) 30 mg DAILY PO ; Start 07/07/17 at 09:00 Duloxetine HCl (Cymbalta) 60 mg DAILY PO ; Start 07/07/17 at 09:00 Haloperidol Lactate (Haldol Oral) 1 mg PRN Q6HRS PRN PO ANXIETY / AGITATION; Start 07/06/17 at 13:00 Ciprofloxacin 1 drop BID76 OD Last administered on 07/06/17at 18:28; Start at 18:00; Stop 07/13/17 at 17:59 Trazodone HCl (Desyrel) 100 mg QHS PO ; Start 07/06/17 at 21:00; Stop 07/06/17 at 21:00; Status DC Trazodone HCl (Desyrel) 100 mg QHS PO Last administered on 07/06/17at 19:33; Start 07/06/17 at 21:00; Stop 07/06/17 at 21:00; Status DC Trazodone HCl (Desyrel) 100 mg PRN QHS PRN PO INSOMNIA/MAY REPEAT X1; Start 07/06/17 at 21:00 Active Scripts Active Reported Valium (Diazepam) 5 Mg Tablet 2.5 Mg PO QHS Zyprexa Zydis (Olanzapine) 5 Mg Tab.rapdis 2.5 Mg PO PRN Q2HR PRN MDD 10mg MAX 10mg/24hrs Haloperidol Lactate 2 Mg/1 Ml Oral.conc 1 Mg PO PRN Q6HRS PRN Ferrous Sulfate 325 Mg Tablet 325 Mg PO DAILY Latanoprost 2.5 Ml Drops 1 Drop EACHEYE QHS Mirtazapine 15 Mg Tablet 7.5 Mg PO QHS Vitamin B-12 (Cyanocobalamin (Vitamin B-12)) 1,000 Mcg Tablet 1,000 Mcg PO DAILY Tramadol Hcl (Tramadol HCl) 50 Mg Tablet 50 Mg PO PRN Q8HRS PRN EXELON 9.5mg/24hr (Rivastigmine) 1 Each Patch.td24 1 Patch TD DAILY Cymbalta (Duloxetine Hcl) 60 Mg Capsule.dr 60 Mg PO DAILY Cymbalta (Duloxetine Hcl) 30 Mg Capsule.dr 30 Mg PO DAILY Quetiapine Fumarate 50 Mg Tablet 50 Mg PO BID@92 Buspirone Hcl 10 Mg Tablet 10 Mg PO TID Trazodone Hcl 50 Mg Tablet 75 Mg PO QHS Vitamin C (Ascorbic Acid) 500 Mg Tab.chew 500 Mg PO DAILY Seroquel (Quetiapine Fumarate) 100 Mg Tablet 1 Tab PO QHS Refresh Optive Eye Drops (Carboxymethylcellulos/Glycerin) 15 Ml Drops 1 Drop EACHEYE TID Multi-Day Vitamins (Multivitamin) 1 Each Tablet 1 Tab PO DAILY Zofran (Ondansetron Hcl) 4 Mg Tablet 1 Tab PO Q6HRS PRN Zocor (Simvastatin) 20 Mg Tablet 10 Mg PO HS Senna (Sennosides) 8.6 Mg Tablet 8.6 Mg PO DAILY Levothyroxine Sodium 112 Mcg Tablet 88 Mcg PO DAILY06 Anti-Diarrhea (Loperamide Hcl) 2 Mg Tablet 2 Mg PO PRN Q4HRS PRN Gabapentin 300 Mg Capsule 300 Mg PO TID Fiber Tabs (Calcium Polycarbophil) 625 Mg Tablet 625 Mg PO BID Vitamin D3 (Cholecalciferol (Vitamin D3)) 1,000 Unit Tablet 4,000 Unit PO DAILY Bisacodyl 5 Mg Tablet.dr 5 Mg PO PRN DAILY PRN Aspirin 81 Mg Tab.chew 81 Mg PO DAILY Tylenol (Acetaminophen) 325 Mg Tablet 325 Mg PO PRN Q6HRS PRN I have reviewed the current psychotropics carefully including drug interactions. Risk benefit ratio favors no change other than as noted in my dictated progress note. Diagnosis: Problems: (1) Cellulitis (2) Bilateral lower leg cellulitis (3) Mental status change (4) Major depressive disorder, recurrent episode (5) Anxiety disorder (6) Impulse control disorder RITA MARMOLEJO MD Jul 06, 2017 20:04
[2017-07-06 20:11] LABS: T3 TOTAL 95 ng/dL (71-180); THYROXINE 8.8 ug/dL (4.5-12.0)
[2017-07-06 20:26] LABS: THYROID STIM HORMONE (TSH) 1.376 uIU/mL (0.358-3.740)
[2017-07-06] MEDS ORDERED: traZODone 50 MG TABLET. PO SCH ×2 (21:00)
[2017-07-06] MEDS ORDERED: traZODone 100 MG TABLET. PO PRN (21:00)
[2017-07-06] MEDS ORDERED: traZODone 100 MG TABLET. PO SCH (21:00)
[2017-07-06] MEDS ORDERED: diazePAM 5 MG TABLET PO SCH (21:00)
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
--- NOTE | 2017-07-06 23:50 | HP ---
ADMIT DATE: 07/06/2017 This note covers elements not covered in my initial note of 07/06/2017. IDENTIFYING DATA: The patient is a 67-year-old female referred back to us from [facility] by her primary care physician on account of worsening combative behaviors with staff and other residents. She has been pulling resident's hair, throwing plates on the floor, refusing medications and cares. She has failed outpatient psychiatric interventions and recent inpatient stay of about 2-3 weeks at [facility]. CHIEF COMPLAINT: "I don't do those things. I have been here many days." The patient in fact was just admitted earlier this morning. HISTORY OF PRESENT ILLNESS: The patient has a history of depression, worsening irritability, mood lability, paranoia. She also appeared more confused recently with some sleep and appetite changes. No active suicidal or homicidal ideation. PAST PSYCHIATRIC HISTORY: As noted above and the additional diagnosis of mild cognitive impairment versus early symptoms of major neurocognitive disorder, Alzheimer, vascular with depression. PAST MEDICAL HISTORY: Positive for cellulitis, impaired ambulation and wheelchair, hypertension, hypothyroidism, muscle wasting, glaucoma, Meniere's disease, hyperlipidemia, borderline personality disorder, GERD. ACCU-CHEKS: None. CODE STATUS: DNR. ALLERGIES: PENICILLIN, SULFA, NOVOCAIN, ZOSYN, ADHESIVE TAPE, PROMETHAZINE, OMNICEF. DIET: Mechanical soft with thin liquids. CURRENT PSYCHOTROPICS: BuSpar 10 mg 3 times a day, duloxetine 90 mg a day, Exelon patch 9.5 mg a day, Remeron 7.5 mg at bedtime, Seroquel 50 mg b.i.d. and 100 mg at bedtime, trazodone 75 mg at bedtime, Valium 2.5 mg at bedtime, Zyprexa Zydis and Haldol p.r.n. FAMILY HISTORY: Noncontributory. SOCIAL HISTORY: The patient's resides at the same facility who is her DPOA. No alcohol or drug abuse, physical, sexual or elder abuse history is noted. Not known to be a perpetrator. MENTAL STATUS EXAMINATION: The patient was seen individually evening of 07/06/2017. She is anxious, restless, wheeling herself up and down the hallway. Oblivious of anyone she might run over. Speech has moderate latency of responses monosyllabic. Abstraction fair, computation impaired, language function intact. Mood and affect remain somewhat labile. She appears depressed, paranoid. Short-term memory is impaired. Reaction to hospitalization, the patient accepting of it. ASSETS: Stable living at the long-term. IMPRESSION: Major depressive disorder, recurrent with psychotic features; anxiety disorder, unspecified; impulse control disorder, unspecified; major neurocognitive disorder, early Alzheimer, vascular with delusion, depression. Rest unchanged as above. PLAN: Admit to Geropsychiatry Unit at [facility]. I will see the patient daily individually from a psychiatric standpoint. Medical followup per Dr. Chen/Dr. Welch. The patient slept just 1-1/2 hours previous evening. We will increase the trazodone schedule to 100 mg at bedtime, may repeat x 1 p.r.n. insomnia. While on the unit since this morning, the patient has been pinching staff, scratching staff, combative physically, blood pressure was low in the 80s/50s, an IV was started, but she has pulled it out, refused to answer any questions in the morning, agitated, aggressive with nursing staff and make further changes as clinically indicated. MAN Nupur MARMOLEJO MD DR: SORAYA/shaneka JOB#: [id number] / [id number]
[2017-07-07] MEDS: LEVOTHYROXINE 88 MCG TABLET PO SCH ×2 (06:00→09:59)
[2017-07-07 06:33] VITALS: BP 77/45
[2017-07-07 07:09] VITALS: BP 75/46
[2017-07-07] MEDS ORDERED: IV NORMAL SALINE 500ML 500 ML IV ONE (07:30)
[2017-07-07 07:56] VITALS: BP 121/78
[2017-07-07] MEDS: CHOLECALCIFEROL (VITAMIN D3) 1,000 UNIT TABLET PO SCH ×2 (09:00→09:59)
[2017-07-07] MEDS: ASCORBIC ACID 500 MG TABLET PO SCH ×2 (09:00→09:59)
[2017-07-07] MEDS: SENNOSIDES 8.6 MG TABLET PO SCH ×2 (09:00→09:59)
[2017-07-07] MEDS: ASPIRIN 81 MG TAB.CHEW PO SCH ×2 (09:00→09:59)
[2017-07-07] MEDS ORDERED: DULoxetine HCL 30 MG CAPSULE.DR PO SCH (09:00)
[2017-07-07] MEDS: MULTIVITAMIN with MINERAL TABLET. PO SCH ×2 (09:00→09:59)
[2017-07-07] MEDS: TIMOLOL 0.25% OPHTH SOLUTION 5ML BOTTLE. OU SCH ×2 (09:00→10:01)
[2017-07-07] MEDS: FERROUS SULFATE 325 MG TABLET. PO SCH ×2 (09:00→09:59)
[2017-07-07] MEDS: QUEtiapine 50 MG TABLET. PO SCH (09:00)
[2017-07-07] MEDS: POLYVINYL ALCOHOL 1.4% OPHTH SOLUTION 15ML BOTTLE. OU SCH ×5 (09:00→19:30)
[2017-07-07] MEDS: CYANOCOBALAMIN (VITAMIN B-12) 1,000 MCG TABLET. PO SCH ×2 (09:00→09:59)
[2017-07-07 09:44] VITALS: BP 101/59
[2017-07-07] MEDS: RIVASTIGMINE 9.5MG PATCH. TD SCH (09:58)
[2017-07-07] MEDS: GABAPENTIN 300 MG CAPSULE. PO SCH ×3 (09:59→19:23)
[2017-07-07] MEDS: CALCIUM POLYCARBOPHIL 625 MG TABLET PO SCH ×2 (09:59→19:23)
[2017-07-07] MEDS: busPIRone 10 MG TABLET. PO SCH ×3 (09:59→19:23)
[2017-07-07] MEDS: CIPROFLOXACIN 0.3% OPHTH SOLUTION 2.5ML BOTTLE. OD SCH ×2 (10:01→17:03)
[2017-07-07] MEDS: DULoxetine HCL 60 MG CAPSULE.DR PO SCH (10:01)
[2017-07-07 16:13] VITALS: BP 107/72
[2017-07-07] MEDS: MIRTAZAPINE 7.5 MG TABLET. PO SCH (19:23)
[2017-07-07] MEDS: SIMVASTATIN 20 MG TABLET PO SCH (19:23)
[2017-07-07] MEDS: LATANOPROST 0.005% OPHTH SOLUTION 2.5ML BOTTLE. OU SCH ×2 (19:23→19:30)
--- NOTE | 2017-07-07 19:46 | PDOC ---
Exam Note: Tunde Note: Please also refer to the separate dictated note~for this date of service dictated separately.~Patient seen individually. Discussed the patient with Nursing staff reviewed the chart.~Reviewed interim history and current functioning. Reviewed vital signs,~Labs/ Radiology~and current medications noted below. Continue current treatment with the changes noted in the dictated addendum note Assessment: Vital Signs: Vital Signs Date Time Temp Pulse Resp B/P (MAP) Pulse Ox O2 Delivery O2 Flow Rate FiO2 07/07/17 16:13 98.4 89 20 107/72 (84) 92 07/07/17 06:33 Room Air I&O Intake and Output 07/07/17 07:00 Intake Total 480 ml Balance 480 ml Intake Oral 480 ml Current Medications: Meds: Current Medications Buspirone HCl (Buspar) 10 mg TID PO Last administered on 07/07/17at 19:23; Start 07/06/17 at 09:00 Mirtazapine (Remeron) 7.5 mg QHS PO Last administered on 07/07/17at 19:23; Start 07/06/17 at 21:00 Olanzapine (ZyPREXA ZYDIS) 2.5 mg PRN Q2HR PRN PO ANXIETY / AGITATION; Start at 02:00 Quetiapine Fumarate (SEROquel) 50 mg BID92 PO Last administered on 07/06/17at 13: 52; Start 07/06/17 at 09:00; Stop 07/07/17 at 09:48; Status DC Quetiapine Fumarate (SEROquel) 100 mg QHS PO ; Start 07/06/17 at 21:00; Stop 04/14 at 09:48; Status DC Rivastigmine (Exelon) 1 patch DAILY TD Last administered on 07/07/17at 09:58; Start 07/06/17 at 09:00 Trazodone HCl (Desyrel) 75 mg QHS PO ; Start 07/06/17 at 21:00; Stop 07/06/17 at 21:00; Status DC Sodium Chloride 500 ml @ 500 mls/hr 1X ONCE IV Last administered on 07/06/17at 06:37; Start 07/06/17 at 07:00; Stop 07/06/17 at 07:59; Status DC Acetaminophen (Tylenol) 325 mg PRN Q6HRS PRN PO MILD PAIN; Start 07/06/17 at 06: 45 Aspirin (Children'S Aspirin) 81 mg DAILY PO Last administered on 07/06/17at 09:18 ; Start 07/06/17 at 09:00 Bisacodyl (Dulcolax Tab) 5 mg PRN DAILY PRN PO CONSTIPATION; Start 07/06/17 at 06:45 Calcium Polycarbophil (Fibercon) 625 mg BID PO Last administered on 07/07/17at 19:23; Start 07/06/17 at 09:00 Vitamin D (Vitamin D3) 4,000 unit DAILY PO ; Start 07/06/17 at 09:00 Cyanocobalamin (Vitamin B-12) 1,000 mcg DAILY PO ; Start 07/06/17 at 09:00 Diazepam (Valium) 2.5 mg QHS PO ; Start 07/06/17 at 21:00; Stop 07/06/17 at 21:00 ; Status DC Ferrous Sulfate (Feosol) 325 mg DAILY PO ; Start 07/06/17 at 09:00 Gabapentin (Neurontin) 300 mg TID PO Last administered on 07/07/17at 19:23; Start 07/06/17 at 09:00 Latanoprost (Xalatan) 1 drop QHS OU Last administered on 07/06/17 19:26; Start 07/06/17 at 21:00 Levothyroxine Sodium (Synthroid) 88 mcg DAILY06 PO ; Start 07/07/17 at 06:00 Sennosides (Senna) 8.6 mg DAILY PO ; Start 07/06/17 at 09:00 Simvastatin (Zocor) 10 mg HS PO Last administered on 07/07/17at 19:23; Start 07/06/17 at 21:00 Tramadol HCl (Ultram) 50 mg PRN Q8HRS PRN PO MODERATE PAIN; Start 07/06/17 at 06 :45; Stop 07/07/17 at 09:48; Status DC Ascorbic Acid (Vitamin C) 500 mg DAILY PO ; Start 07/06/17 at 09:00 Artificial Tears (Artificial Tears) 1 drop TID OU Last administered on at 19:26; Start 07/06/17 at 09:00 Loperamide HCl (Imodium) 2 mg PRN Q4HRS PRN PO DIARRHEA; Start 07/06/17 at 06:45 Multivitamins/ Calcium (Thera-M Plus) 1 tab DAILY PO ; Start 07/06/17 at 09:00 Ondansetron HCl (Zofran Odt) 4 mg PRN Q6HRS PRN PO NAUSEA; Start 07/06/17 at 06: 45 Timolol Maleate (Timoptic 0.25% Ophth) 1 drop DAILY OU ; Start 07/06/17 at 09:00 Duloxetine HCl (Cymbalta) 30 mg DAILY PO Last administered on 07/07/17at 10:01; Start 07/07/17 at 09:00; Stop 07/07/17 at 17:38; Status DC Duloxetine HCl (Cymbalta) 60 mg DAILY PO Last administered on 07/07/17at 10:01; Start 07/07/17 at 09:00 Haloperidol Lactate (Haldol Oral) 1 mg PRN Q6HRS PRN PO ANXIETY / AGITATION; Start 07/06/17 at 13:00 Ciprofloxacin 1 drop BID76 OD Last administered on 07/07/17at 17:03; Start at 18:00; Stop 07/13/17 at 17:59 Trazodone HCl (Desyrel) 100 mg QHS PO ; Start 07/06/17 at 21:00; Stop 07/06/17 at 21:00; Status DC Trazodone HCl (Desyrel) 100 mg QHS PO Last administered on 07/06/17at 19:33; Start 07/06/17 at 21:00; Stop 07/06/17 at 21:00; Status DC Trazodone HCl (Desyrel) 100 mg PRN QHS PRN PO INSOMNIA/MAY REPEAT X1; Start 07/06/17 at 21:00; Stop 07/07/17 at 09:48; Status DC Sodium Chloride 500 ml @ 0 mls/hr 1X ONCE IV ; Start 07/07/17 at 07:30; Stop at 07:58; Status DC Active Scripts Active Reported Valium (Diazepam) 5 Mg Tablet 2.5 Mg PO QHS Zyprexa Zydis (Olanzapine) 5 Mg Tab.rapdis 2.5 Mg PO PRN Q2HR PRN MDD 10mg MAX 10mg/24hrs Haloperidol Lactate 2 Mg/1 Ml Oral.conc 1 Mg PO PRN Q6HRS PRN Ferrous Sulfate 325 Mg Tablet 325 Mg PO DAILY Latanoprost 2.5 Ml Drops 1 Drop EACHEYE QHS Mirtazapine 15 Mg Tablet 7.5 Mg PO QHS Vitamin B-12 (Cyanocobalamin (Vitamin B-12)) 1,000 Mcg Tablet 1,000 Mcg PO DAILY Tramadol Hcl (Tramadol HCl) 50 Mg Tablet 50 Mg PO PRN Q8HRS PRN EXELON 9.5mg/24hr (Rivastigmine) 1 Each Patch.td24 1 Patch TD DAILY Cymbalta (Duloxetine Hcl) 60 Mg Capsule.dr 60 Mg PO DAILY Cymbalta (Duloxetine Hcl) 30 Mg Capsule.dr 30 Mg PO DAILY Quetiapine Fumarate 50 Mg Tablet 50 Mg PO BID@92 Buspirone Hcl 10 Mg Tablet 10 Mg PO TID Trazodone Hcl 50 Mg Tablet 75 Mg PO QHS Vitamin C (Ascorbic Acid) 500 Mg Tab.chew 500 Mg PO DAILY Seroquel (Quetiapine Fumarate) 100 Mg Tablet 1 Tab PO QHS Refresh Optive Eye Drops (Carboxymethylcellulos/Glycerin) 15 Ml Drops 1 Drop EACHEYE TID Multi-Day Vitamins (Multivitamin) 1 Each Tablet 1 Tab PO DAILY Zofran (Ondansetron Hcl) 4 Mg Tablet 1 Tab PO Q6HRS PRN Zocor (Simvastatin) 20 Mg Tablet 10 Mg PO HS Senna (Sennosides) 8.6 Mg Tablet 8.6 Mg PO DAILY Levothyroxine Sodium 112 Mcg Tablet 88 Mcg PO DAILY06 Anti-Diarrhea (Loperamide Hcl) 2 Mg Tablet 2 Mg PO PRN Q4HRS PRN Gabapentin 300 Mg Capsule 300 Mg PO TID Fiber Tabs (Calcium Polycarbophil) 625 Mg Tablet 625 Mg PO BID Vitamin D3 (Cholecalciferol (Vitamin D3)) 1,000 Unit Tablet 4,000 Unit PO DAILY Bisacodyl 5 Mg Tablet.dr 5 Mg PO PRN DAILY PRN Aspirin 81 Mg Tab.chew 81 Mg PO DAILY Tylenol (Acetaminophen) 325 Mg Tablet 325 Mg PO PRN Q6HRS PRN I have reviewed the current psychotropics carefully including drug interactions. Risk benefit ratio favors no change other than as noted in my dictated progress note. Diagnosis: Problems: (1) Mental status change (2) Major depressive disorder, recurrent episode (3) Anxiety disorder (4) Impulse control disorder RITA MARMOLEJO MD Jul 07, 2017 19:46
[2017-07-08] MEDS: LEVOTHYROXINE 88 MCG TABLET PO SCH (05:41)
[2017-07-08] MEDS: CIPROFLOXACIN 0.3% OPHTH SOLUTION 2.5ML BOTTLE. OD SCH ×2 (05:43→18:33)
[2017-07-08 05:59] VITALS: BP 101/66
[2017-07-08] MEDS: SENNOSIDES 8.6 MG TABLET PO SCH ×2 (09:00→09:12)
[2017-07-08] MEDS: MULTIVITAMIN with MINERAL TABLET. PO SCH ×2 (09:00→09:12)
[2017-07-08] MEDS: POLYVINYL ALCOHOL 1.4% OPHTH SOLUTION 15ML BOTTLE. OU SCH ×3 (09:00→20:39)
[2017-07-08] MEDS: ASCORBIC ACID 500 MG TABLET PO SCH ×3 (09:00→09:15)
[2017-07-08] MEDS: TIMOLOL 0.25% OPHTH SOLUTION 5ML BOTTLE. OU SCH ×2 (09:00→09:13)
[2017-07-08] MEDS: ASPIRIN 81 MG TAB.CHEW PO SCH ×2 (09:00→09:12)
[2017-07-08] MEDS: GABAPENTIN 300 MG CAPSULE. PO SCH ×3 (09:12→20:34)
[2017-07-08] MEDS: CYANOCOBALAMIN (VITAMIN B-12) 1,000 MCG TABLET. PO SCH (09:12)
[2017-07-08] MEDS: busPIRone 10 MG TABLET. PO SCH ×3 (09:12→20:34)
[2017-07-08] MEDS: CALCIUM POLYCARBOPHIL 625 MG TABLET PO SCH ×2 (09:12→20:34)
[2017-07-08] MEDS: FERROUS SULFATE 325 MG TABLET. PO SCH (09:12)
[2017-07-08] MEDS: DULoxetine HCL 60 MG CAPSULE.DR PO SCH (09:12)
[2017-07-08] MEDS: RIVASTIGMINE 9.5MG PATCH. TD SCH (09:13)
[2017-07-08] MEDS ORDERED: CHOLECALCIFEROL (VITAMIN D3) 50,000 UNIT CAPSULE PO SCH (09:15)
[2017-07-08] MEDS: DIVALPROEX 125 MG CAP.SPRINK PO SCH (13:50)
[2017-07-08 15:46] VITALS: BP 103/68
--- NOTE | 2017-07-08 19:55 | PDOC ---
Exam Note: Tunde Note: Please also refer to the separate dictated note~for this date of service dictated separately.~Patient seen individually. Discussed the patient with Nursing staff reviewed the chart.~Reviewed interim history and current functioning. Reviewed vital signs,~Labs/ Radiology~and current medications noted below. Continue current treatment with the changes noted in the dictated addendum note Assessment: Vital Signs: Vital Signs Date Time Temp Pulse Resp B/P (MAP) Pulse Ox O2 Delivery O2 Flow Rate FiO2 07/08/17 15:46 98.1 87 16 103/68 (80) 95 07/07/17 06:33 Room Air I&O Intake and Output 07/08/17 07:00 Intake Total 1740 ml Balance 1740 ml Intake Oral 1740 ml # Voids 2 # Bowel Movements 1 Current Medications: Meds: Current Medications Buspirone HCl (Buspar) 10 mg TID PO Last administered on 07/08/17at 13:50; Start 07/06/17 at 09:00 Mirtazapine (Remeron) 7.5 mg QHS PO Last administered on 07/07/17at 19:23; Start 07/06/17 at 21:00 Olanzapine (ZyPREXA ZYDIS) 2.5 mg PRN Q2HR PRN PO ANXIETY / AGITATION; Start at 02:00 Quetiapine Fumarate (SEROquel) 50 mg BID92 PO Last administered on 07/06/17at 13: 52; Start 07/06/17 at 09:00; Stop 07/07/17 at 09:48; Status DC Quetiapine Fumarate (SEROquel) 100 mg QHS PO ; Start 07/06/17 at 21:00; Stop 04/14 at 09:48; Status DC Rivastigmine (Exelon) 1 patch DAILY TD Last administered on 07/08/17at 09:13; Start 07/06/17 at 09:00 Trazodone HCl (Desyrel) 75 mg QHS PO ; Start 07/06/17 at 21:00; Stop 07/06/17 at 21:00; Status DC Sodium Chloride 500 ml @ 500 mls/hr 1X ONCE IV Last administered on 07/06/17at 06:37; Start 07/06/17 at 07:00; Stop 07/06/17 at 07:59; Status DC Acetaminophen (Tylenol) 325 mg PRN Q6HRS PRN PO MILD PAIN; Start 07/06/17 at 06: 45 Aspirin (Children'S Aspirin) 81 mg DAILY PO Last administered on 07/06/17at 09:18 ; Start 07/06/17 at 09:00 Bisacodyl (Dulcolax Tab) 5 mg PRN DAILY PRN PO CONSTIPATION; Start 07/06/17 at 06:45 Calcium Polycarbophil (Fibercon) 625 mg BID PO Last administered on 07/08/17at 09:12; Start 07/06/17 at 09:00 Vitamin D (Vitamin D3) 4,000 unit DAILY PO ; Start 07/06/17 at 09:00; Stop at 09:10; Status DC Cyanocobalamin (Vitamin B-12) 1,000 mcg DAILY PO Last administered on at 09:12; Start 07/06/17 at 09:00 Diazepam (Valium) 2.5 mg QHS PO ; Start 07/06/17 at 21:00; Stop 07/06/17 at 21:00 ; Status DC Ferrous Sulfate (Feosol) 325 mg DAILY PO Last administered on 07/08/17at 09:12; Start 07/06/17 at 09:00 Gabapentin (Neurontin) 300 mg TID PO Last administered on 07/08/17at 13:50; Start 07/06/17 at 09:00 Latanoprost (Xalatan) 1 drop QHS OU Last administered on 07/06/17at 19:26; Start 07/06/17 at 21:00 Levothyroxine Sodium (Synthroid) 88 mcg DAILY06 PO Last administered on at 05:41; Start 07/07/17 at 06:00 Sennosides (Senna) 8.6 mg DAILY PO ; Start 07/06/17 at 09:00 Simvastatin (Zocor) 10 mg HS PO Last administered on 07/07/17at 19:23; Start 07/06/17 at 21:00 Tramadol HCl (Ultram) 50 mg PRN Q8HRS PRN PO MODERATE PAIN; Start 07/06/17 at 06 :45; Stop 07/07/17 at 09:48; Status DC Ascorbic Acid (Vitamin C) 500 mg DAILY PO ; Start 07/06/17 at 09:00 Artificial Tears (Artificial Tears) 1 drop TID OU Last administered on at 19:26; Start 07/06/17 at 09:00 Loperamide HCl (Imodium) 2 mg PRN Q4HRS PRN PO DIARRHEA; Start 07/06/17 at 06:45 Multivitamins/ Calcium (Thera-M Plus) 1 tab DAILY PO ; Start 07/06/17 at 09:00 Ondansetron HCl (Zofran Odt) 4 mg PRN Q6HRS PRN PO NAUSEA; Start 07/06/17 at 06: 45 Timolol Maleate (Timoptic 0.25% Oph) 1 drop DAILY OU ; Start 07/06/17 at 09:00 Duloxetine HCl (Cymbalta) 30 mg DAILY PO Last administered on 07/07/17at 10:01; Start 07/07/17 at 09:00; Stop 07/07/17 at 17:38; Status DC Duloxetine HCl (Cymbalta) 60 mg DAILY PO Last administered on 07/08/17at 09:12; Start 07/07/17 at 09:00 Haloperidol Lactate (Haldol Oral) 1 mg PRN Q6HRS PRN PO ANXIETY / AGITATION; Start 07/06/17 at 13:00 Ciprofloxacin 1 drop BID76 OD Last administered on 07/08/17at 18:33; Start at 18:00; Stop 07/13/17 at 17:59 Trazodone HCl (Desyrel) 100 mg QHS PO ; Start 07/06/17 at 21:00; Stop 07/06/17 at 21:00; Status DC Trazodone HCl (Desyrel) 100 mg QHS PO Last administered on 07/06/17at 19:33; Start 07/06/17 at 21:00; Stop 07/06/17 at 21:00; Status DC Trazodone HCl (Desyrel) 100 mg PRN QHS PRN PO INSOMNIA/MAY REPEAT X1; Start 07/06/17 at 21:00; Stop 07/07/17 at 09:48; Status DC Sodium Chloride 500 ml @ 0 mls/hr 1X ONCE IV ; Start 07/07/17 at 07:30; Stop at 07:58; Status DC Vitamin D (Vitamin D3) 50,000 unit WEEKLY PO ; Start 07/08/17 at 09:15 Ascorbic Acid (Vitamin C) 500 mg DAILY PO ; Start 07/08/17 at 09:15 Divalproex Sodium (Depakote Sprinkles) 125 mg BID@0900,1400 PO Last administered on 07/08/17at 13:50; Start 07/08/17 at 14:00 Active Scripts Active Reported Valium (Diazepam) 5 Mg Tablet 2.5 Mg PO QHS Zyprexa Zydis (Olanzapine) 5 Mg Tab.rapdis 2.5 Mg PO PRN Q2HR PRN MDD 10mg MAX 10mg/24hrs Haloperidol Lactate 2 Mg/1 Ml Oral.conc 1 Mg PO PRN Q6HRS PRN Ferrous Sulfate 325 Mg Tablet 325 Mg PO DAILY Latanoprost 2.5 Ml Drops 1 Drop EACHEYE QHS Mirtazapine 15 Mg Tablet 7.5 Mg PO QHS Vitamin B-12 (Cyanocobalamin (Vitamin B-12)) 1,000 Mcg Tablet 1,000 Mcg PO DAILY Tramadol Hcl (Tramadol HCl) 50 Mg Tablet 50 Mg PO PRN Q8HRS PRN EXELON 9.5mg/24hr (Rivastigmine) 1 Each Patch.td24 1 Patch TD DAILY Cymbalta (Duloxetine Hcl) 60 Mg Capsule.dr 60 Mg PO DAILY Cymbalta (Duloxetine Hcl) 30 Mg Capsule.dr 30 Mg PO DAILY Quetiapine Fumarate 50 Mg Tablet 50 Mg PO BID@92 Buspirone Hcl 10 Mg Tablet 10 Mg PO TID Trazodone Hcl 50 Mg Tablet 75 Mg PO QHS Vitamin C (Ascorbic Acid) 500 Mg Tab.chew 500 Mg PO DAILY Seroquel (Quetiapine Fumarate) 100 Mg Tablet 1 Tab PO QHS Refresh Optive Eye Drops (Carboxymethylcellulos/Glycerin) 15 Ml Drops 1 Drop EACHEYE TID Multi-Day Vitamins (Multivitamin) 1 Each Tablet 1 Tab PO DAILY Zofran (Ondansetron Hcl) 4 Mg Tablet 1 Tab PO Q6HRS PRN Zocor (Simvastatin) 20 Mg Tablet 10 Mg PO HS Senna (Sennosides) 8.6 Mg Tablet 8.6 Mg PO DAILY Levothyroxine Sodium 112 Mcg Tablet 88 Mcg PO DAILY06 Anti-Diarrhea (Loperamide Hcl) 2 Mg Tablet 2 Mg PO PRN Q4HRS PRN Gabapentin 300 Mg Capsule 300 Mg PO TID Fiber Tabs (Calcium Polycarbophil) 625 Mg Tablet 625 Mg PO BID Vitamin D3 (Cholecalciferol (Vitamin D3)) 1,000 Unit Tablet 4,000 Unit PO DAILY Bisacodyl 5 Mg Tablet.dr 5 Mg PO PRN DAILY PRN Aspirin 81 Mg Tab.chew 81 Mg PO DAILY Tylenol (Acetaminophen) 325 Mg Tablet 325 Mg PO PRN Q6HRS PRN I have reviewed the current psychotropics carefully including drug interactions. Risk benefit ratio favors no change other than as noted in my dictated progress note. Diagnosis: Problems: (1) Mental status change (2) Major depressive disorder, recurrent episode (3) Anxiety disorder (4) Impulse control disorder RITA MARMOLEJO MD Jul 08, 2017 19:55
[2017-07-08] MEDS: MIRTAZAPINE 7.5 MG TABLET. PO SCH (20:34)
[2017-07-08] MEDS: SIMVASTATIN 20 MG TABLET PO SCH (20:34)
[2017-07-08] MEDS: LATANOPROST 0.005% OPHTH SOLUTION 2.5ML BOTTLE. OU SCH (20:39)
[2017-07-09] MEDS: CIPROFLOXACIN 0.3% OPHTH SOLUTION 2.5ML BOTTLE. OD SCH ×3 (06:20→17:04)
[2017-07-09] MEDS: LEVOTHYROXINE 88 MCG TABLET PO SCH (06:20)
[2017-07-09 06:23] VITALS: BP 103/81
[2017-07-09] MEDS: busPIRone 10 MG TABLET. PO SCH ×3 (08:47→19:11)
[2017-07-09] MEDS: DIVALPROEX 125 MG CAP.SPRINK PO SCH ×2 (08:48→13:27)
[2017-07-09] MEDS: ASPIRIN 81 MG TAB.CHEW PO SCH (08:48)
[2017-07-09] MEDS: RIVASTIGMINE 9.5MG PATCH. TD SCH (08:48)
[2017-07-09] MEDS: DULoxetine HCL 60 MG CAPSULE.DR PO SCH (08:48)
[2017-07-09] MEDS: GABAPENTIN 300 MG CAPSULE. PO SCH ×3 (08:48→19:11)
[2017-07-09] MEDS: ASCORBIC ACID 500 MG TABLET PO SCH ×2 (09:00)
[2017-07-09] MEDS: TIMOLOL 0.25% OPHTH SOLUTION 5ML BOTTLE. OU SCH (09:00)
[2017-07-09] MEDS: CYANOCOBALAMIN (VITAMIN B-12) 1,000 MCG TABLET. PO SCH (09:00)
[2017-07-09] MEDS: FERROUS SULFATE 325 MG TABLET. PO SCH (09:00)
[2017-07-09] MEDS: MULTIVITAMIN with MINERAL TABLET. PO SCH (09:00)
[2017-07-09] MEDS: POLYVINYL ALCOHOL 1.4% OPHTH SOLUTION 15ML BOTTLE. OU SCH ×3 (09:00→19:12)
[2017-07-09] MEDS: CALCIUM POLYCARBOPHIL 625 MG TABLET PO SCH ×2 (09:00→19:11)
[2017-07-09] MEDS: SENNOSIDES 8.6 MG TABLET PO SCH (09:00)
[2017-07-09 15:55] VITALS: BP 104/64
[2017-07-09] MEDS: MIRTAZAPINE 7.5 MG TABLET. PO SCH (19:12)
[2017-07-09] MEDS: SIMVASTATIN 20 MG TABLET PO SCH (19:12)
[2017-07-09] MEDS: LATANOPROST 0.005% OPHTH SOLUTION 2.5ML BOTTLE. OU SCH (19:13)
--- NOTE | 2017-07-09 19:57 | PDOC ---
Exam Note: Tunde Note: Please also refer to the separate dictated note~for this date of service dictated separately.~Patient seen individually. Discussed the patient with Nursing staff reviewed the chart.~Reviewed interim history and current functioning. Reviewed vital signs,~Labs/ Radiology~and current medications noted below. Continue current treatment with the changes noted in the dictated addendum note Assessment: Vital Signs: Vital Signs Date Time Temp Pulse Resp B/P (MAP) Pulse Ox O2 Delivery O2 Flow Rate FiO2 07/09/17 15:55 98.8 82 17 104/64 (77) 95 07/07/17 06:33 Room Air I&O Intake and Output 07/09/17 07:00 Intake Total 180 ml Balance 180 ml Intake Oral 180 ml # Voids 1 Current Medications: Meds: Current Medications Buspirone HCl (Buspar) 10 mg TID PO Last administered on 07/09/17at 19:11; Start 07/06/17 at 09:00 Mirtazapine (Remeron) 7.5 mg QHS PO Last administered on 07/09/17at 19:12; Start 07/06/17 at 21:00 Olanzapine (ZyPREXA ZYDIS) 2.5 mg PRN Q2HR PRN PO ANXIETY / AGITATION; Start at 02:00 Quetiapine Fumarate (SEROquel) 50 mg BID92 PO Last administered on 07/06/17at 13: 52; Start 07/06/17 at 09:00; Stop 07/07/17 at 09:48; Status DC Quetiapine Fumarate (SEROquel) 100 mg QHS PO ; Start 07/06/17 at 21:00; Stop 04/14 at 09:48; Status DC Rivastigmine (Exelon) 1 patch DAILY TD Last administered on 07/09/17at 08:48; Start 07/06/17 at 09:00 Trazodone HCl (Desyrel) 75 mg QHS PO ; Start 07/06/17 at 21:00; Stop 07/06/17 at 21:00; Status DC Sodium Chloride 500 ml @ 500 mls/hr 1X ONCE IV Last administered on 07/06/17at 06:37; Start 07/06/17 at 07:00; Stop 07/06/17 at 07:59; Status DC Acetaminophen (Tylenol) 325 mg PRN Q6HRS PRN PO MILD PAIN; Start 07/06/17 at 06: 45 Aspirin (Children'S Aspirin) 81 mg DAILY PO Last administered on 07/09/17at 08: 48; Start 07/06/17 at 09:00 Bisacodyl (Dulcolax Tab) 5 mg PRN DAILY PRN PO CONSTIPATION; Start 07/06/17 at 06:45 Calcium Polycarbophil (Fibercon) 625 mg BID PO Last administered on 07/09/17at 19:11; Start 07/06/17 at 09:00 Vitamin D (Vitamin D3) 4,000 unit DAILY PO ; Start 07/06/17 at 09:00; Stop at 09:10; Status DC Cyanocobalamin (Vitamin B-12) 1,000 mcg DAILY PO Last administered on at 09:12; Start 07/06/17 at 09:00 Diazepam (Valium) 2.5 mg QHS PO ; Start 07/06/17 at 21:00; Stop 07/06/17 at 21:00 ; Status DC Ferrous Sulfate (Feosol) 325 mg DAILY PO Last administered on 07/08/17at 09:12; Start 07/06/17 at 09:00 Gabapentin (Neurontin) 300 mg TID PO Last administered on 07/09/17at 19:11; Start 07/06/17 at 09:00 Latanoprost (Xalatan) 1 drop QHS OU Last administered on 07/06/17at 19:26; Start 07/06/17 at 21:00 Levothyroxine Sodium (Synthroid) 88 mcg DAILY06 PO Last administered on at 06:20; Start 07/07/17 at 06:00 Sennosides (Senna) 8.6 mg DAILY PO ; Start 07/06/17 at 09:00 Simvastatin (Zocor) 10 mg HS PO Last administered on 07/09/17at 19:12; Start 07/06/17 at 21:00 Tramadol HCl (Ultram) 50 mg PRN Q8HRS PRN PO MODERATE PAIN; Start 07/06/17 at 06 :45; Stop 07/07/17 at 09:48; Status DC Ascorbic Acid (Vitamin C) 500 mg DAILY PO ; Start 07/06/17 at 09:00 Artificial Tears (Artificial Tears) 1 drop TID OU Last administered on at 19:26; Start 07/06/17 at 09:00 Loperamide HCl (Imodium) 2 mg PRN Q4HRS PRN PO DIARRHEA; Start 07/06/17 at 06:45 Multivitamins/ Calcium (Thera-M Plus) 1 tab DAILY PO ; Start 07/06/17 at 09:00 Ondansetron HCl (Zofran Odt) 4 mg PRN Q6HRS PRN PO NAUSEA; Start 07/06/17 at 06: 45 Timolol Maleate (Timoptic 0.25% Oph) 1 drop DAILY OU ; Start 07/06/17 at 09:00 Duloxetine HCl (Cymbalta) 30 mg DAILY PO Last administered on 07/07/17at 10:01; Start 07/07/17 at 09:00; Stop 07/07/17 at 17:38; Status DC Duloxetine HCl (Cymbalta) 60 mg DAILY PO Last administered on 07/09/17at 08:48; Start 07/07/17 at 09:00 Haloperidol Lactate (Haldol Oral) 1 mg PRN Q6HRS PRN PO ANXIETY / AGITATION; Start 07/06/17 at 13:00 Ciprofloxacin 1 drop BID76 OD Last administered on 07/08/17at 18:33; Start at 18:00; Stop 07/13/17 at 17:59 Trazodone HCl (Desyrel) 100 mg QHS PO ; Start 07/06/17 at 21:00; Stop 07/06/17 at 21:00; Status DC Trazodone HCl (Desyrel) 100 mg QHS PO Last administered on 07/06/17at 19:33; Start 07/06/17 at 21:00; Stop 07/06/17 at 21:00; Status DC Trazodone HCl (Desyrel) 100 mg PRN QHS PRN PO INSOMNIA/MAY REPEAT X1; Start 07/06/17 at 21:00; Stop 07/07/17 at 09:48; Status DC Sodium Chloride 500 ml @ 0 mls/hr 1X ONCE IV ; Start 07/07/17 at 07:30; Stop at 07:58; Status DC Vitamin D (Vitamin D3) 50,000 unit WEEKLY PO ; Start 07/08/17 at 09:15 Ascorbic Acid (Vitamin C) 500 mg DAILY PO ; Start 07/08/17 at 09:15 Divalproex Sodium (Depakote Sprinkles) 125 mg BID@0900,1400 PO Last administered on 07/09/17at 13:27; Start 07/08/17 at 14:00 Quetiapine Fumarate (SEROquel) 12.5 mg BID92 PO ; Start 07/10/17 at 09:00 Active Scripts Active Reported Valium (Diazepam) 5 Mg Tablet 2.5 Mg PO QHS Zyprexa Zydis (Olanzapine) 5 Mg Tab.rapdis 2.5 Mg PO PRN Q2HR PRN MDD 10mg MAX 10mg/24hrs Haloperidol Lactate 2 Mg/1 Ml Oral.conc 1 Mg PO PRN Q6HRS PRN Ferrous Sulfate 325 Mg Tablet 325 Mg PO DAILY Latanoprost 2.5 Ml Drops 1 Drop EACHEYE QHS Mirtazapine 15 Mg Tablet 7.5 Mg PO QHS Vitamin B-12 (Cyanocobalamin (Vitamin B-12)) 1,000 Mcg Tablet 1,000 Mcg PO DAILY Tramadol Hcl (Tramadol HCl) 50 Mg Tablet 50 Mg PO PRN Q8HRS PRN EXELON 9.5mg/24hr (Rivastigmine) 1 Each Patch.td24 1 Patch TD DAILY Cymbalta (Duloxetine Hcl) 60 Mg Capsule.dr 60 Mg PO DAILY Cymbalta (Duloxetine Hcl) 30 Mg Capsule.dr 30 Mg PO DAILY Quetiapine Fumarate 50 Mg Tablet 50 Mg PO BID@92 Buspirone Hcl 10 Mg Tablet 10 Mg PO TID Trazodone Hcl 50 Mg Tablet 75 Mg PO QHS Vitamin C (Ascorbic Acid) 500 Mg Tab.chew 500 Mg PO DAILY Seroquel (Quetiapine Fumarate) 100 Mg Tablet 1 Tab PO QHS Refresh Optive Eye Drops (Carboxymethylcellulos/Glycerin) 15 Ml Drops 1 Drop EACHEYE TID Multi-Day Vitamins (Multivitamin) 1 Each Tablet 1 Tab PO DAILY Zofran (Ondansetron Hcl) 4 Mg Tablet 1 Tab PO Q6HRS PRN Zocor (Simvastatin) 20 Mg Tablet 10 Mg PO HS Senna (Sennosides) 8.6 Mg Tablet 8.6 Mg PO DAILY Levothyroxine Sodium 112 Mcg Tablet 88 Mcg PO DAILY06 Anti-Diarrhea (Loperamide Hcl) 2 Mg Tablet 2 Mg PO PRN Q4HRS PRN Gabapentin 300 Mg Capsule 300 Mg PO TID Fiber Tabs (Calcium Polycarbophil) 625 Mg Tablet 625 Mg PO BID Vitamin D3 (Cholecalciferol (Vitamin D3)) 1,000 Unit Tablet 4,000 Unit PO DAILY Bisacodyl 5 Mg Tablet.dr 5 Mg PO PRN DAILY PRN Aspirin 81 Mg Tab.chew 81 Mg PO DAILY Tylenol (Acetaminophen) 325 Mg Tablet 325 Mg PO PRN Q6HRS PRN I have reviewed the current psychotropics carefully including drug interactions. Risk benefit ratio favors no change other than as noted in my dictated progress note. Diagnosis: Problems: (1) Mental status change (2) Bilateral lower leg cellulitis (3) Major depressive disorder, recurrent episode (4) Anxiety disorder (5) Impulse control disorder RITA MARMOLEJO MD Jul 09, 2017 19:57
[2017-07-10] MEDS: LEVOTHYROXINE 88 MCG TABLET PO SCH (05:38)
[2017-07-10] MEDS: CIPROFLOXACIN 0.3% OPHTH SOLUTION 2.5ML BOTTLE. OD SCH ×3 (05:39→19:22)
[2017-07-10 05:53] VITALS: BP 94/58
[2017-07-10] MEDS: TIMOLOL 0.25% OPHTH SOLUTION 5ML BOTTLE. OU SCH (09:00)
[2017-07-10] MEDS: POLYVINYL ALCOHOL 1.4% OPHTH SOLUTION 15ML BOTTLE. OU SCH ×2 (09:00→14:00)
[2017-07-10] MEDS: ASCORBIC ACID 500 MG TABLET PO SCH ×3 (09:00→11:33)
[2017-07-10] MEDS: FERROUS SULFATE 325 MG TABLET. PO SCH ×2 (11:30→11:33)
[2017-07-10] MEDS: CYANOCOBALAMIN (VITAMIN B-12) 1,000 MCG TABLET. PO SCH ×2 (11:30→11:33)
[2017-07-10] MEDS: SENNOSIDES 8.6 MG TABLET PO SCH ×2 (11:30→11:34)
[2017-07-10] MEDS: MULTIVITAMIN with MINERAL TABLET. PO SCH ×2 (11:30→11:34)
[2017-07-10] MEDS: CALCIUM POLYCARBOPHIL 625 MG TABLET PO SCH ×2 (11:33→19:36)
[2017-07-10] MEDS: RIVASTIGMINE 9.5MG PATCH. TD SCH (11:33)
[2017-07-10] MEDS: busPIRone 10 MG TABLET. PO SCH ×3 (11:33→19:36)
[2017-07-10] MEDS: GABAPENTIN 300 MG CAPSULE. PO SCH ×3 (11:33→19:36)
[2017-07-10] MEDS: DULoxetine HCL 60 MG CAPSULE.DR PO SCH (11:33)
[2017-07-10] MEDS: DIVALPROEX 125 MG CAP.SPRINK PO SCH ×2 (11:34→14:13)
[2017-07-10] MEDS: ASPIRIN 81 MG TAB.CHEW PO SCH (11:34)
[2017-07-10] MEDS: QUEtiapine 25 MG TABLET. PO SCH ×2 (11:36→14:13)
[2017-07-10 15:39] VITALS: BP 92/56
--- NOTE | 2017-07-10 18:58 | PDOC ---
Exam Note: Tunde Note: Please also refer to the separate dictated note~for this date of service dictated separately.~Patient seen individually. Discussed the patient with Nursing staff reviewed the chart.~Reviewed interim history and current functioning. Reviewed vital signs,~Labs/ Radiology~and current medications noted below. Continue current treatment with the changes noted in the dictated addendum note Assessment: Vital Signs: Vital Signs Date Time Temp Pulse Resp B/P (MAP) Pulse Ox O2 Delivery O2 Flow Rate FiO2 07/10/17 15:39 97.8 78 18 92/56 (68) 95 07/07/17 06:33 Room Air I&O Intake and Output 07/10/17 07:00 Intake Total 480 ml Balance 480 ml Intake Oral 480 ml Current Medications: Meds: Current Medications Buspirone HCl (Buspar) 10 mg TID PO Last administered on 07/10/17at 14:13; Start 07/06/17 at 09:00 Mirtazapine (Remeron) 7.5 mg QHS PO Last administered on 07/09/17at 19:12; Start 07/06/17 at 21:00 Olanzapine (ZyPREXA ZYDIS) 2.5 mg PRN Q2HR PRN PO ANXIETY / AGITATION; Start at 02:00 Quetiapine Fumarate (SEROquel) 50 mg BID92 PO Last administered on 07/06/17at 13: 52; Start 07/06/17 at 09:00; Stop 07/07/17 at 09:48; Status DC Quetiapine Fumarate (SEROquel) 100 mg QHS PO ; Start 07/06/17 at 21:00; Stop 04/14 at 09:48; Status DC Rivastigmine (Exelon) 1 patch DAILY TD Last administered on 07/10/17at 11:33; Start 07/06/17 at 09:00 Trazodone HCl (Desyrel) 75 mg QHS PO ; Start 07/06/17 at 21:00; Stop 07/06/17 at 21:00; Status DC Sodium Chloride 500 ml @ 500 mls/hr 1X ONCE IV Last administered on 07/06/17at 06:37; Start 07/06/17 at 07:00; Stop 07/06/17 at 07:59; Status DC Acetaminophen (Tylenol) 325 mg PRN Q6HRS PRN PO MILD PAIN; Start 07/06/17 at 06: 45 Aspirin (Children'S Aspirin) 81 mg DAILY PO Last administered on 07/10/17at 11: 34; Start 07/06/17 at 09:00 Bisacodyl (Dulcolax Tab) 5 mg PRN DAILY PRN PO CONSTIPATION; Start 07/06/17 at 06:45 Calcium Polycarbophil (Fibercon) 625 mg BID PO Last administered on 07/10/17at 11:33; Start 07/06/17 at 09:00 Vitamin D (Vitamin D3) 4,000 unit DAILY PO ; Start 07/06/17 at 09:00; Stop at 09:10; Status DC Cyanocobalamin (Vitamin B-12) 1,000 mcg DAILY PO Last administered on at 09:12; Start 07/06/17 at 09:00 Diazepam (Valium) 2.5 mg QHS PO ; Start 07/06/17 at 21:00; Stop 07/06/17 at 21:00 ; Status DC Ferrous Sulfate (Feosol) 325 mg DAILY PO Last administered on 07/08/17at 09:12; Start 07/06/17 at 09:00 Gabapentin (Neurontin) 300 mg TID PO Last administered on 07/10/17at 14:13; Start 07/06/17 at 09:00 Latanoprost (Xalatan) 1 drop QHS OU Last administered on 07/06/17at 19:26; Start 07/06/17 at 21:00 Levothyroxine Sodium (Synthroid) 88 mcg DAILY06 PO Last administered on at 05:38; Start 07/07/17 at 06:00 Sennosides (Senna) 8.6 mg DAILY PO ; Start 07/06/17 at 09:00 Simvastatin (Zocor) 10 mg HS PO Last administered on 07/09/17at 19:12; Start 07/06/17 at 21:00 Tramadol HCl (Ultram) 50 mg PRN Q8HRS PRN PO MODERATE PAIN; Start 07/06/17 at 06 :45; Stop 07/07/17 at 09:48; Status DC Ascorbic Acid (Vitamin C) 500 mg DAILY PO ; Start 07/06/17 at 09:00 Artificial Tears (Artificial Tears) 1 drop TID OU Last administered on at 19:26; Start 07/06/17 at 09:00 Loperamide HCl (Imodium) 2 mg PRN Q4HRS PRN PO DIARRHEA; Start 07/06/17 at 06:45 Multivitamins/ Calcium (Thera-M Plus) 1 tab DAILY PO ; Start 07/06/17 at 09:00 Ondansetron HCl (Zofran Odt) 4 mg PRN Q6HRS PRN PO NAUSEA; Start 07/06/17 at 06: 45 Timolol Maleate (Timoptic 0.25% Oph) 1 drop DAILY OU ; Start 07/06/17 at 09:00 Duloxetine HCl (Cymbalta) 30 mg DAILY PO Last administered on 07/07/17at 10:01; Start 07/07/17 at 09:00; Stop 07/07/17 at 17:38; Status DC Duloxetine HCl (Cymbalta) 60 mg DAILY PO Last administered on 07/10/17at 11:33; Start 07/07/17 at 09:00 Haloperidol Lactate (Haldol Oral) 1 mg PRN Q6HRS PRN PO ANXIETY / AGITATION; Start 07/06/17 at 13:00 Ciprofloxacin 1 drop BID76 OD Last administered on 07/08/17at 18:33; Start at 18:00; Stop 07/13/17 at 17:59 Trazodone HCl (Desyrel) 100 mg QHS PO ; Start 07/06/17 at 21:00; Stop 07/06/17 at 21:00; Status DC Trazodone HCl (Desyrel) 100 mg QHS PO Last administered on 07/06/17at 19:33; Start 07/06/17 at 21:00; Stop 07/06/17 at 21:00; Status DC Trazodone HCl (Desyrel) 100 mg PRN QHS PRN PO INSOMNIA/MAY REPEAT X1; Start 07/06/17 at 21:00; Stop 07/07/17 at 09:48; Status DC Sodium Chloride 500 ml @ 0 mls/hr 1X ONCE IV ; Start 07/07/17 at 07:30; Stop at 07:58; Status DC Vitamin D (Vitamin D3) 50,000 unit WEEKLY PO ; Start 07/08/17 at 09:15 Ascorbic Acid (Vitamin C) 500 mg DAILY PO ; Start 07/08/17 at 09:15 Divalproex Sodium (Depakote Sprinkles) 125 mg BID@0900,1400 PO Last administered on 07/10/17at 14:13; Start 07/08/17 at 14:00 Quetiapine Fumarate (SEROquel) 12.5 mg BID92 PO Last administered on 07/10/17at 14:13; Start 07/10/17 at 09:00 Active Scripts Active Reported Valium (Diazepam) 5 Mg Tablet 2.5 Mg PO QHS Zyprexa Zydis (Olanzapine) 5 Mg Tab.rapdis 2.5 Mg PO PRN Q2HR PRN MDD 10mg MAX 10mg/24hrs Haloperidol Lactate 2 Mg/1 Ml Oral.conc 1 Mg PO PRN Q6HRS PRN Ferrous Sulfate 325 Mg Tablet 325 Mg PO DAILY Latanoprost 2.5 Ml Drops 1 Drop EACHEYE QHS Mirtazapine 15 Mg Tablet 7.5 Mg PO QHS Vitamin B-12 (Cyanocobalamin (Vitamin B-12)) 1,000 Mcg Tablet 1,000 Mcg PO DAILY Tramadol Hcl (Tramadol HCl) 50 Mg Tablet 50 Mg PO PRN Q8HRS PRN EXELON 9.5mg/24hr (Rivastigmine) 1 Each Patch.td24 1 Patch TD DAILY Cymbalta (Duloxetine Hcl) 60 Mg Capsule.dr 60 Mg PO DAILY Cymbalta (Duloxetine Hcl) 30 Mg Capsule.dr 30 Mg PO DAILY Quetiapine Fumarate 50 Mg Tablet 50 Mg PO BID@92 Buspirone Hcl 10 Mg Tablet 10 Mg PO TID Trazodone Hcl 50 Mg Tablet 75 Mg PO QHS Vitamin C (Ascorbic Acid) 500 Mg Tab.chew 500 Mg PO DAILY Seroquel (Quetiapine Fumarate) 100 Mg Tablet 1 Tab PO QHS Refresh Optive Eye Drops (Carboxymethylcellulos/Glycerin) 15 Ml Drops 1 Drop EACHEYE TID Multi-Day Vitamins (Multivitamin) 1 Each Tablet 1 Tab PO DAILY Zofran (Ondansetron Hcl) 4 Mg Tablet 1 Tab PO Q6HRS PRN Zocor (Simvastatin) 20 Mg Tablet 10 Mg PO HS Senna (Sennosides) 8.6 Mg Tablet 8.6 Mg PO DAILY Levothyroxine Sodium 112 Mcg Tablet 88 Mcg PO DAILY06 Anti-Diarrhea (Loperamide Hcl) 2 Mg Tablet 2 Mg PO PRN Q4HRS PRN Gabapentin 300 Mg Capsule 300 Mg PO TID Fiber Tabs (Calcium Polycarbophil) 625 Mg Tablet 625 Mg PO BID Vitamin D3 (Cholecalciferol (Vitamin D3)) 1,000 Unit Tablet 4,000 Unit PO DAILY Bisacodyl 5 Mg Tablet.dr 5 Mg PO PRN DAILY PRN Aspirin 81 Mg Tab.chew 81 Mg PO DAILY Tylenol (Acetaminophen) 325 Mg Tablet 325 Mg PO PRN Q6HRS PRN I have reviewed the current psychotropics carefully including drug interactions. Risk benefit ratio favors no change other than as noted in my dictated progress note. Diagnosis: Problems: (1) Impulse control disorder (2) Anxiety disorder (3) Major depressive disorder, recurrent episode RITA MARMOLEJO MD Jul 10, 2017 18:57
--- NOTE | 2017-07-10 19:27 | PDOC ---
PROGRESS NOTES Diagnosis Problem Problems Medical Problems: (1) Impulse control disorder Status: Acute (2) Venous stasis dermatitis Status: Acute Assessment 1. Venous stasis dermatitis: Pt's legs appear to be unchanged, based on pictures available in the medical record. We will continue to elevate PRN and monitor for skin ulcerations. Problems: Plan of Care: see other orders Subjective Pt's nurse asked me to see pt today over concern that her legs may have worsened. He states they looked very dark this morning. No fevers reported. No c/o increased pain. Objective Vital Signs Date Time Temp Pulse Resp B/P (MAP) Pulse Ox O2 Delivery O2 Flow Rate FiO2 07/10/17 15:39 97.8 78 18 92/56 (68) 95 07/07/17 06:33 Room Air Intake and Output 07/10/17 07:00 Intake Total 480 ml Balance 480 ml Intake Oral 480 ml General: Alert, Cooperative, No acute distress Lungs: Clear to auscultation Neck: No JVD Psych/Mental Status: Other (BLE examined, no ulcerations noted. There are stasis changes, R>L, appear very similar to admission photos. Pt's nurse states they are much less dark. Pt had had her legs down for a long period of time when they looked darker. ) Review of Relevant I have reviewed the following items angely (where applicable) has been applied. Medications Current Medications Buspirone HCl (Buspar) 10 mg TID PO Last administered on 07/10/17at 14:13; Start 07/06/17 at 09:00 Mirtazapine (Remeron) 7.5 mg QHS PO Last administered on 07/09/17at 19:12; Start 07/06/17 at 21:00 Olanzapine (ZyPREXA ZYDIS) 2.5 mg PRN Q2HR PRN PO ANXIETY / AGITATION; Start at 02:00 Quetiapine Fumarate (SEROquel) 50 mg BID92 PO Last administered on 07/06/17at 13: 52; Start 07/06/17 at 09:00; Stop 07/07/17 at 09:48; Status DC Quetiapine Fumarate (SEROquel) 100 mg QHS PO ; Start 07/06/17 at 21:00; Stop 04/14 at 09:48; Status DC Rivastigmine (Exelon) 1 patch DAILY TD Last administered on 07/10/17at 11:33; Start 07/06/17 at 09:00 Trazodone HCl (Desyrel) 75 mg QHS PO ; Start 07/06/17 at 21:00; Stop 07/06/17 at 21:00; Status DC Sodium Chloride 500 ml @ 500 mls/hr 1X ONCE IV Last administered on 07/06/17at 06:37; Start 07/06/17 at 07:00; Stop 07/06/17 at 07:59; Status DC Acetaminophen (Tylenol) 325 mg PRN Q6HRS PRN PO MILD PAIN; Start 07/06/17 at 06: 45 Aspirin (Children'S Aspirin) 81 mg DAILY PO Last administered on 07/10/17at 11: 34; Start 07/06/17 at 09:00 Bisacodyl (Dulcolax Tab) 5 mg PRN DAILY PRN PO CONSTIPATION; Start 07/06/17 at 06:45 Calcium Polycarbophil (Fibercon) 625 mg BID PO Last administered on 07/10/17at 11:33; Start 07/06/17 at 09:00 Vitamin D (Vitamin D3) 4,000 unit DAILY PO ; Start 07/06/17 at 09:00; Stop at 09:10; Status DC Cyanocobalamin (Vitamin B-12) 1,000 mcg DAILY PO Last administered on at 09:12; Start 07/06/17 at 09:00 Diazepam (Valium) 2.5 mg QHS PO ; Start 07/06/17 at 21:00; Stop 07/06/17 at 21:00 ; Status DC Ferrous Sulfate (Feosol) 325 mg DAILY PO Last administered on 07/08/17at 09:12; Start 07/06/17 at 09:00 Gabapentin (Neurontin) 300 mg TID PO Last administered on 07/10/17at 14:13; Start 07/06/17 at 09:00 Latanoprost (Xalatan) 1 drop QHS OU Last administered on 07/06/17at 19:26; Start 07/06/17 at 21:00 Levothyroxine Sodium (Synthroid) 88 mcg DAILY06 PO Last administered on at 05:38; Start 07/07/17 at 06:00 Sennosides (Senna) 8.6 mg DAILY PO ; Start 07/06/17 at 09:00 Simvastatin (Zocor) 10 mg HS PO Last administered on 07/09/17at 19:12; Start 07/06/17 at 21:00 Tramadol HCl (Ultram) 50 mg PRN Q8HRS PRN PO MODERATE PAIN; Start 07/06/17 at 06 :45; Stop 07/07/17 at 09:48; Status DC Ascorbic Acid (Vitamin C) 500 mg DAILY PO ; Start 07/06/17 at 09:00 Artificial Tears (Artificial Tears) 1 drop TID OU Last administered on at 19:26; Start 07/06/17 at 09:00 Loperamide HCl (Imodium) 2 mg PRN Q4HRS PRN PO DIARRHEA; Start 07/06/17 at 06:45 Multivitamins/ Calcium (Thera-M Plus) 1 tab DAILY PO ; Start 07/06/17 at 09:00 Ondansetron HCl (Zofran Odt) 4 mg PRN Q6HRS PRN PO NAUSEA; Start 07/06/17 at 06: 45 Timolol Maleate (Timoptic 0.25% [facility]) 1 drop DAILY OU ; Start 07/06/17 at 09:00 Duloxetine HCl (Cymbalta) 30 mg DAILY PO Last administered on 07/07/17at 10:01; Start 07/07/17 at 09:00; Stop 07/07/17 at 17:38; Status DC Duloxetine HCl (Cymbalta) 60 mg DAILY PO Last administered on 07/10/17at 11:33; Start 07/07/17 at 09:00 Haloperidol Lactate (Haldol Oral) 1 mg PRN Q6HRS PRN PO ANXIETY / AGITATION; Start 07/06/17 at 13:00 Ciprofloxacin 1 drop BID76 OD Last administered on 07/10/17at 19:22; Start at 18:00; Stop 07/13/17 at 17:59 Trazodone HCl (Desyrel) 100 mg QHS PO ; Start 07/06/17 at 21:00; Stop 07/06/17 at 21:00; Status DC Trazodone HCl (Desyrel) 100 mg QHS PO Last administered on 07/06/17at 19:33; Start 07/06/17 at 21:00; Stop 07/06/17 at 21:00; Status DC Trazodone HCl (Desyrel) 100 mg PRN QHS PRN PO INSOMNIA/MAY REPEAT X1; Start 07/06/17 at 21:00; Stop 07/07/17 at 09:48; Status DC Sodium Chloride 500 ml @ 0 mls/hr 1X ONCE IV ; Start 07/07/17 at 07:30; Stop at 07:58; Status DC Vitamin D (Vitamin D3) 50,000 unit WEEKLY PO ; Start 07/08/17 at 09:15 Ascorbic Acid (Vitamin C) 500 mg DAILY PO ; Start 07/08/17 at 09:15 Divalproex Sodium (Depakote Sprinkles) 125 mg BID@0900,1400 PO Last administered on 07/10/17at 14:13; Start 07/08/17 at 14:00 Quetiapine Fumarate (SEROquel) 12.5 mg BID92 PO Last administered on 07/10/17at 14:13; Start 07/10/17 at 09:00 Active Scripts Active Reported Valium (Diazepam) 5 Mg Tablet 2.5 Mg PO QHS Zyprexa Zydis (Olanzapine) 5 Mg Tab.rapdis 2.5 Mg PO PRN Q2HR PRN MDD 10mg MAX 10mg/24hrs Haloperidol Lactate 2 Mg/1 Ml Oral.conc 1 Mg PO PRN Q6HRS PRN Ferrous Sulfate 325 Mg Tablet 325 Mg PO DAILY Latanoprost 2.5 Ml Drops 1 Drop EACHEYE QHS Mirtazapine 15 Mg Tablet 7.5 Mg PO QHS Vitamin B-12 (Cyanocobalamin (Vitamin B-12)) 1,000 Mcg Tablet 1,000 Mcg PO DAILY Tramadol Hcl (Tramadol HCl) 50 Mg Tablet 50 Mg PO PRN Q8HRS PRN EXELON 9.5mg/24hr (Rivastigmine) 1 Each Patch.td24 1 Patch TD DAILY Cymbalta (Duloxetine Hcl) 60 Mg Capsule. 60 Mg PO DAILY Cymbalta (Duloxetine Hcl) 30 Mg Capsule.dr 30 Mg PO DAILY Quetiapine Fumarate 50 Mg Tablet 50 Mg PO BID@92 Buspirone Hcl 10 Mg Tablet 10 Mg PO TID Trazodone Hcl 50 Mg Tablet 75 Mg PO QHS Vitamin C (Ascorbic Acid) 500 Mg Tab.chew 500 Mg PO DAILY Seroquel (Quetiapine Fumarate) 100 Mg Tablet 1 Tab PO QHS Refresh Optive Eye Drops (Carboxymethylcellulos/Glycerin) 15 Ml Drops 1 Drop EACHEYE TID Multi-Day Vitamins (Multivitamin) 1 Each Tablet 1 Tab PO DAILY Zofran (Ondansetron Hcl) 4 Mg Tablet 1 Tab PO Q6HRS PRN Zocor (Simvastatin) 20 Mg Tablet 10 Mg PO HS Senna (Sennosides) 8.6 Mg Tablet 8.6 Mg PO DAILY Levothyroxine Sodium 112 Mcg Tablet 88 Mcg PO DAILY06 Anti-Diarrhea (Loperamide Hcl) 2 Mg Tablet 2 Mg PO PRN Q4HRS PRN Gabapentin 300 Mg Capsule 300 Mg PO TID Fiber Tabs (Calcium Polycarbophil) 625 Mg Tablet 625 Mg PO BID Vitamin D3 (Cholecalciferol (Vitamin D3)) 1,000 Unit Tablet 4,000 Unit PO DAILY Bisacodyl 5 Mg Tablet.dr 5 Mg PO PRN DAILY PRN Aspirin 81 Mg Tab.chew 81 Mg PO DAILY Tylenol (Acetaminophen) 325 Mg Tablet 325 Mg PO PRN Q6HRS PRN Vitals/I & O Vital Sign - Last 24 Hours 07/10/17 07/10/17 05:53 15:39 Temp 97.7 97.8 Pulse 63 78 Resp 18 18 B/P (MAP) 94/58 (70) 92/56 (68) Pulse Ox 93 95 Intake and Output 07/09/17 07/09/17 07/10/17 15:00 23:00 07:00 Intake Total 240 ml 240 ml Balance 240 ml 240 ml KATIA AYON MD Jul 10, 2017 19:27
[2017-07-10] MEDS ORDERED: POLYVINYL ALCOHOL 1.4% OPHTH SOLUTION 15ML BOTTLE. OU PRN (19:30)
[2017-07-10] MEDS: LATANOPROST 0.005% OPHTH SOLUTION 2.5ML BOTTLE. OU SCH (19:35)
[2017-07-10] MEDS: MIRTAZAPINE 7.5 MG TABLET. PO SCH (19:36)
[2017-07-10] MEDS: SIMVASTATIN 20 MG TABLET PO SCH (19:36)
--- NOTE | 2017-07-10 20:01 | PDOC ---
Exam Note: Tunde Note: Please also refer to the separate dictated note~for this date of service dictated separately.~Patient seen individually. Discussed the patient with Nursing staff reviewed the chart.~Reviewed interim history and current functioning. Reviewed vital signs,~Labs/ Radiology~and current medications noted below. Continue current treatment with the changes noted in the dictated addendum note Assessment: Vital Signs: Vital Signs Date Time Temp Pulse Resp B/P (MAP) Pulse Ox O2 Delivery O2 Flow Rate FiO2 07/10/17 15:39 97.8 78 18 92/56 (68) 95 07/07/17 06:33 Room Air I&O Intake and Output 07/10/17 07:00 Intake Total 480 ml Balance 480 ml Intake Oral 480 ml Current Medications: Meds: Current Medications Buspirone HCl (Buspar) 10 mg TID PO Last administered on 07/10/17at 19:36; Start 07/06/17 at 09:00 Mirtazapine (Remeron) 7.5 mg QHS PO Last administered on 07/10/17at 19:36; Start 07/06/17 at 21:00 Olanzapine (ZyPREXA ZYDIS) 2.5 mg PRN Q2HR PRN PO ANXIETY / AGITATION; Start at 02:00 Quetiapine Fumarate (SEROquel) 50 mg BID92 PO Last administered on 07/06/17at 13: 52; Start 07/06/17 at 09:00; Stop 07/07/17 at 09:48; Status DC Quetiapine Fumarate (SEROquel) 100 mg QHS PO ; Start 07/06/17 at 21:00; Stop 04/14 at 09:48; Status DC Rivastigmine (Exelon) 1 patch DAILY TD Last administered on 07/10/17at 11:33; Start 07/06/17 at 09:00 Trazodone HCl (Desyrel) 75 mg QHS PO ; Start 07/06/17 at 21:00; Stop 07/06/17 at 21:00; Status DC Sodium Chloride 500 ml @ 500 mls/hr 1X ONCE IV Last administered on 07/06/17at 06:37; Start 07/06/17 at 07:00; Stop 07/06/17 at 07:59; Status DC Acetaminophen (Tylenol) 325 mg PRN Q6HRS PRN PO MILD PAIN; Start 07/06/17 at 06: 45 Aspirin (Children'S Aspirin) 81 mg DAILY PO Last administered on 07/10/17at 11: 34; Start 07/06/17 at 09:00 Bisacodyl (Dulcolax Tab) 5 mg PRN DAILY PRN PO CONSTIPATION; Start 07/06/17 at 06:45 Calcium Polycarbophil (Fibercon) 625 mg BID PO Last administered on 07/10/17at 19:36; Start 07/06/17 at 09:00 Vitamin D (Vitamin D3) 4,000 unit DAILY PO ; Start 07/06/17 at 09:00; Stop at 09:10; Status DC Cyanocobalamin (Vitamin B-12) 1,000 mcg DAILY PO Last administered on at 09:12; Start 07/06/17 at 09:00 Diazepam (Valium) 2.5 mg QHS PO ; Start 07/06/17 at 21:00; Stop 07/06/17 at 21:00 ; Status DC Ferrous Sulfate (Feosol) 325 mg DAILY PO Last administered on 07/08/17at 09:12; Start 07/06/17 at 09:00 Gabapentin (Neurontin) 300 mg TID PO Last administered on 07/10/17at 19:36; Start 07/06/17 at 09:00 Latanoprost (Xalatan) 1 drop QHS OU Last administered on 07/10/17at 19:35; Start 07/06/17 at 21:00 Levothyroxine Sodium (Synthroid) 88 mcg DAILY06 PO Last administered on at 05:38; Start 07/07/17 at 06:00 Sennosides (Senna) 8.6 mg DAILY PO ; Start 07/06/17 at 09:00 Simvastatin (Zocor) 10 mg HS PO Last administered on 07/10/17at 19:36; Start 07/06/17 at 21:00 Tramadol HCl (Ultram) 50 mg PRN Q8HRS PRN PO MODERATE PAIN; Start 07/06/17 at 06 :45; Stop 07/07/17 at 09:48; Status DC Ascorbic Acid (Vitamin C) 500 mg DAILY PO ; Start 07/06/17 at 09:00 Artificial Tears (Artificial Tears) 1 drop TID OU Last administered on at 19:26; Start 07/06/17 at 09:00; Stop 07/10/17 at 19:28; Status DC Loperamide HCl (Imodium) 2 mg PRN Q4HRS PRN PO DIARRHEA; Start 07/06/17 at 06:45 Multivitamins/ Calcium (Thera-M Plus) 1 tab DAILY PO ; Start 07/06/17 at 09:00 Ondansetron HCl (Zofran Odt) 4 mg PRN Q6HRS PRN PO NAUSEA; Start 07/06/17 at 06: 45 Timolol Maleate (Timoptic 0.25% Oph) 1 drop DAILY OU ; Start 07/06/17 at 09:00 Duloxetine HCl (Cymbalta) 30 mg DAILY PO Last administered on 07/07/17at 10:01; Start 07/07/17 at 09:00; Stop 07/07/17 at 17:38; Status DC Duloxetine HCl (Cymbalta) 60 mg DAILY PO Last administered on 07/10/17at 11:33; Start 07/07/17 at 09:00 Haloperidol Lactate (Haldol Oral) 1 mg PRN Q6HRS PRN PO ANXIETY / AGITATION; Start 07/06/17 at 13:00 Ciprofloxacin 1 drop BID76 OD Last administered on 07/10/17at 19:22; Start at 18:00; Stop 07/13/17 at 17:59 Trazodone HCl (Desyrel) 100 mg QHS PO ; Start 07/06/17 at 21:00; Stop 07/06/17 at 21:00; Status DC Trazodone HCl (Desyrel) 100 mg QHS PO Last administered on 07/06/17at 19:33; Start 07/06/17 at 21:00; Stop 07/06/17 at 21:00; Status DC Trazodone HCl (Desyrel) 100 mg PRN QHS PRN PO INSOMNIA/MAY REPEAT X1; Start 07/06/17 at 21:00; Stop 07/07/17 at 09:48; Status DC Sodium Chloride 500 ml @ 0 mls/hr 1X ONCE IV ; Start 07/07/17 at 07:30; Stop at 07:58; Status DC Vitamin D (Vitamin D3) 50,000 unit WEEKLY PO ; Start 07/08/17 at 09:15 Ascorbic Acid (Vitamin C) 500 mg DAILY PO ; Start 07/08/17 at 09:15 Divalproex Sodium (Depakote Sprinkles) 125 mg BID@0900,1400 PO Last administered on 07/10/17at 14:13; Start 07/08/17 at 14:00 Quetiapine Fumarate (SEROquel) 12.5 mg BID92 PO Last administered on 07/10/17at 14:13; Start 07/10/17 at 09:00 Artificial Tears (Artificial Tears) 1 drop PRN TID PRN OU DRY EYE; Start at 19:30 Active Scripts Active Reported Valium (Diazepam) 5 Mg Tablet 2.5 Mg PO QHS Zyprexa Zydis (Olanzapine) 5 Mg Tab.rapdis 2.5 Mg PO PRN Q2HR PRN MDD 10mg MAX 10mg/24hrs Haloperidol Lactate 2 Mg/1 Ml Oral.conc 1 Mg PO PRN Q6HRS PRN Ferrous Sulfate 325 Mg Tablet 325 Mg PO DAILY Latanoprost 2.5 Ml Drops 1 Drop EACHEYE QHS Mirtazapine 15 Mg Tablet 7.5 Mg PO QHS Vitamin B-12 (Cyanocobalamin (Vitamin B-12)) 1,000 Mcg Tablet 1,000 Mcg PO DAILY Tramadol Hcl (Tramadol HCl) 50 Mg Tablet 50 Mg PO PRN Q8HRS PRN EXELON 9.5mg/24hr (Rivastigmine) 1 Each Patch.td24 1 Patch TD DAILY Cymbalta (Duloxetine Hcl) 60 Mg Capsule.dr 60 Mg PO DAILY Cymbalta (Duloxetine Hcl) 30 Mg Capsule.dr 30 Mg PO DAILY Quetiapine Fumarate 50 Mg Tablet 50 Mg PO BID@92 Buspirone Hcl 10 Mg Tablet 10 Mg PO TID Trazodone Hcl 50 Mg Tablet 75 Mg PO QHS Vitamin C (Ascorbic Acid) 500 Mg Tab.chew 500 Mg PO DAILY Seroquel (Quetiapine Fumarate) 100 Mg Tablet 1 Tab PO QHS Refresh Optive Eye Drops (Carboxymethylcellulos/Glycerin) 15 Ml Drops 1 Drop EACHEYE TID Multi-Day Vitamins (Multivitamin) 1 Each Tablet 1 Tab PO DAILY Zofran (Ondansetron Hcl) 4 Mg Tablet 1 Tab PO Q6HRS PRN Zocor (Simvastatin) 20 Mg Tablet 10 Mg PO HS Senna (Sennosides) 8.6 Mg Tablet 8.6 Mg PO DAILY Levothyroxine Sodium 112 Mcg Tablet 88 Mcg PO DAILY06 Anti-Diarrhea (Loperamide Hcl) 2 Mg Tablet 2 Mg PO PRN Q4HRS PRN Gabapentin 300 Mg Capsule 300 Mg PO TID Fiber Tabs (Calcium Polycarbophil) 625 Mg Tablet 625 Mg PO BID Vitamin D3 (Cholecalciferol (Vitamin D3)) 1,000 Unit Tablet 4,000 Unit PO DAILY Bisacodyl 5 Mg Tablet.dr 5 Mg PO PRN DAILY PRN Aspirin 81 Mg Tab.chew 81 Mg PO DAILY Tylenol (Acetaminophen) 325 Mg Tablet 325 Mg PO PRN Q6HRS PRN I have reviewed the current psychotropics carefully including drug interactions. Risk benefit ratio favors no change other than as noted in my dictated progress note. Diagnosis: Problems: (1) Mental status change (2) Bilateral lower leg cellulitis (3) Major depressive disorder, recurrent episode (4) Anxiety disorder (5) Impulse control disorder RITA MARMOLEJO MD Jul 10, 2017 20:01
[2017-07-11] MEDS: CIPROFLOXACIN 0.3% OPHTH SOLUTION 2.5ML BOTTLE. OD SCH ×3 (05:40→19:44)
[2017-07-11] MEDS: LEVOTHYROXINE 88 MCG TABLET PO SCH (05:40)
[2017-07-11 05:42] VITALS: BP 97/54
[2017-07-11 07:35] LABS: BASO # 0.1 x10^3/uL (0.0-0.2); BASO % 1 % (0-3); EOS # 0.2 x10^3/uL (0.0-0.7); EOS % 5 % (0-3); HEMATOCRIT 36.6 % (36.0-47.0); LYMPH % 22 % (24-48); MEAN CORPUSCULAR HEMOGLOBIN 26 pg (25-35); MEAN CORPUSCULAR HGB CONC 33 g/dL (31-37); MEAN CORPUSCULAR VOLUME 79 fL (79-100); MONO # 0.5 x10^3/uL (0.0-1.1); MONO % 10 % (0-9); NEUT # 2.8 x10^3uL (1.8-7.7); NEUT % 61 % (31-73); PLATELET COUNT 241 x10^3/uL (140-400); RED BLOOD COUNT 4.67 x10^6/uL (3.50-5.40); RED CELL DISTRIBUTION WIDTH 17.5 % (11.5-14.5); WHITE BLOOD COUNT 4.6 x10^3/uL (4.0-11.0)
[2017-07-11 07:49] LABS: ALBUMIN 2.9 g/dL (3.4-5.0); ALBUMIN/GLOBULIN RATIO 0.7 (1.0-1.7); ALK PHOS 66 U/L (46-116); ALT (SGPT) 16 U/L (14-59); ANION GAP 7 (6-14); AST (SGOT) 14 U/L (15-37); BLOOD UREA NITROGEN 16 mg/dL (7-20); BUN/CREATININE RATIO 23 (6-20); CALCIUM 8.7 mg/dL (8.5-10.1); CARBON DIOXIDE 28 mmol/L (21-32); CHLORIDE 109 mmol/L (98-107); CREATININE 0.7 mg/dL (0.6-1.0); GFR 83.2; GLUCOSE 88 mg/dL (70-99); POTASSIUM 4.1 mmol/L (3.5-5.1); SODIUM 144 mmol/L (136-145); TOTAL BILIRUBIN 0.2 mg/dL (0.2-1.0); TOTAL PROTEIN 6.9 g/dL (6.4-8.2)
[2017-07-11 07:51] LABS: VAL ACID 13 mcg/mL (50-100)
[2017-07-11] MEDS: ASPIRIN 81 MG TAB.CHEW PO SCH (08:22)
[2017-07-11] MEDS: DULoxetine HCL 60 MG CAPSULE.DR PO SCH (08:22)
[2017-07-11] MEDS: QUEtiapine 25 MG TABLET. PO SCH ×2 (08:22→13:40)
[2017-07-11] MEDS: DIVALPROEX 125 MG CAP.SPRINK PO SCH ×3 (08:22→21:00)
[2017-07-11] MEDS: busPIRone 10 MG TABLET. PO SCH ×3 (08:22→19:45)
[2017-07-11] MEDS: RIVASTIGMINE 9.5MG PATCH. TD SCH (08:23)
[2017-07-11] MEDS: SENNOSIDES 8.6 MG TABLET PO SCH (09:00)
[2017-07-11] MEDS: TIMOLOL 0.25% OPHTH SOLUTION 5ML BOTTLE. OU SCH (09:00)
[2017-07-11] MEDS: CALCIUM POLYCARBOPHIL 625 MG TABLET PO SCH ×2 (09:00→19:45)
[2017-07-11] MEDS: GABAPENTIN 300 MG CAPSULE. PO SCH ×3 (09:00→19:46)
[2017-07-11] MEDS: CYANOCOBALAMIN (VITAMIN B-12) 1,000 MCG TABLET. PO SCH (09:00)
[2017-07-11] MEDS: ASCORBIC ACID 500 MG TABLET PO SCH (09:00)
[2017-07-11] MEDS: FERROUS SULFATE 325 MG TABLET. PO SCH (09:00)
[2017-07-11] MEDS: MULTIVITAMIN with MINERAL TABLET. PO SCH (09:00)
[2017-07-11 16:41] VITALS: BP 93/64
[2017-07-11] MEDS: LATANOPROST 0.005% OPHTH SOLUTION 2.5ML BOTTLE. OU SCH (19:45)
--- NOTE | 2017-07-11 19:45 | PDOC ---
Exam Note: Tunde Note: Please also refer to the separate dictated note~for this date of service dictated separately.~Patient seen individually. Discussed the patient with Nursing staff reviewed the chart.~Reviewed interim history and current functioning. Reviewed vital signs,~Labs/ Radiology~and current medications noted below. Continue current treatment with the changes noted in the dictated addendum note Assessment: Vital Signs: Vital Signs Date Time Temp Pulse Resp B/P (MAP) Pulse Ox O2 Delivery O2 Flow Rate FiO2 07/11/17 16:41 97.8 82 20 93/64 (74) 96 07/07/17 06:33 Room Air I&O Intake and Output 07/11/17 07:00 Intake Total 240 ml Balance 240 ml Intake Oral 240 ml Labs: Laboratory Tests Test 07/11/17 07:20 White Blood Count 4.6 x10^3/uL (4.0-11.0) Red Blood Count 4.67 x10^6/uL (3.50-5.40) Hemoglobin 12.0 g/dL (12.0-15.5) Hematocrit 36.6 % (36.0-47.0) Mean Corpuscular Volume 79 fL (79-100) Mean Corpuscular Hemoglobin 26 pg (25-35) Mean Corpuscular Hemoglobin Concent 33 g/dL (31-37) Red Cell Distribution Width 17.5 % (11.5-14.5) H Platelet Count 241 x10^3/uL (140-400) Neutrophils (%) (Auto) 61 % (31-73) Lymphocytes (%) (Auto) 22 % (24-48) L Monocytes (%) (Auto) 10 % (0-9) H Eosinophils (%) (Auto) 5 % (0-3) H Basophils (%) (Auto) 1 % (0-3) Neutrophils # (Auto) 2.8 x10^3uL (1.8-7.7) Lymphocytes # (Auto) 1.0 x10^3/uL (1.0-4.8) Monocytes # (Auto) 0.5 x10^3/uL (0.0-1.1) Eosinophils # (Auto) 0.2 x10^3/uL (0.0-0.7) Basophils # (Auto) 0.1 x10^3/uL (0.0-0.2) Sodium Level 144 mmol/L (136-145) Potassium Level 4.1 mmol/L (3.5-5.1) Chloride Level 109 mmol/L (98-107) H Carbon Dioxide Level 28 mmol/L (21-32) Anion Gap 7 (6-14) Blood Urea Nitrogen 16 mg/dL (7-20) Creatinine 0.7 mg/dL (0.6-1.0) Estimated GFR (Cockcroft-Gault) 83.2 BUN/Creatinine Ratio 23 (6-20) H Glucose Level 88 mg/dL (70-99) Calcium Level 8.7 mg/dL (8.5-10.1) Total Bilirubin 0.2 mg/dL (0.2-1.0) Aspartate Amino Transferase (AST) 14 U/L (15-37) L Alanine Aminotransferase (ALT) 16 U/L (14-59) Alkaline Phosphatase 66 U/L (46-116) Total Protein 6.9 g/dL (6.4-8.2) Albumin 2.9 g/dL (3.4-5.0) L Albumin/Globulin Ratio 0.7 (1.0-1.7) L Valproic Acid Level 13 mcg/mL (50-100) L Valproic Acid Last Dose Date 07/10/17 Valproic Acid Last Dose Time 1400 Current Medications: Meds: Current Medications Buspirone HCl (Buspar) 10 mg TID PO Last administered on 07/11/17at 13:40; Start 07/06/17 at 09:00 Mirtazapine (Remeron) 7.5 mg QHS PO Last administered on 07/10/17at 19:36; Start 07/06/17 at 21:00 Olanzapine (ZyPREXA ZYDIS) 2.5 mg PRN Q2HR PRN PO ANXIETY / AGITATION; Start at 02:00 Quetiapine Fumarate (SEROquel) 50 mg BID92 PO Last administered on 07/06/17at 13: 52; Start 07/06/17 at 09:00; Stop 07/07/17 at 09:48; Status DC Quetiapine Fumarate (SEROquel) 100 mg QHS PO ; Start 07/06/17 at 21:00; Stop 04/14 at 09:48; Status DC Rivastigmine (Exelon) 1 patch DAILY TD Last administered on 07/11/17at 08:23; Start 07/06/17 at 09:00 Trazodone HCl (Desyrel) 75 mg QHS PO ; Start 07/06/17 at 21:00; Stop 07/06/17 at 21:00; Status DC Sodium Chloride 500 ml @ 500 mls/hr 1X ONCE IV Last administered on 07/06/17at 06:37; Start 07/06/17 at 07:00; Stop 07/06/17 at 07:59; Status DC Acetaminophen (Tylenol) 325 mg PRN Q6HRS PRN PO MILD PAIN; Start 07/06/17 at 06: 45 Aspirin (Children'S Aspirin) 81 mg DAILY PO Last administered on 07/11/17at 08: 22; Start 07/06/17 at 09:00 Bisacodyl (Dulcolax Tab) 5 mg PRN DAILY PRN PO CONSTIPATION; Start 07/06/17 at 06:45 Calcium Polycarbophil (Fibercon) 625 mg BID PO Last administered on 07/10/17at 19:36; Start 07/06/17 at 09:00 Vitamin D (Vitamin D3) 4,000 unit DAILY PO ; Start 07/06/17 at 09:00; Stop at 09:10; Status DC Cyanocobalamin (Vitamin B-12) 1,000 mcg DAILY PO Last administered on at 09:12; Start 07/06/17 at 09:00 Diazepam (Valium) 2.5 mg QHS PO ; Start 07/06/17 at 21:00; Stop 07/06/17 at 21:00 ; Status DC Ferrous Sulfate (Feosol) 325 mg DAILY PO Last administered on 07/08/17at 09:12; Start 07/06/17 at 09:00 Gabapentin (Neurontin) 300 mg TID PO Last administered on 07/10/17 19:36; Start 07/06/17 at 09:00 Latanoprost (Xalatan) 1 drop QHS OU Last administered on 07/10/17 19:35; Start 07/06/17 at 21:00 Levothyroxine Sodium (Synthroid) 88 mcg DAILY06 PO Last administered on at 05:40; Start 07/07/17 at 06:00 Sennosides (Senna) 8.6 mg DAILY PO ; Start 07/06/17 at 09:00 Simvastatin (Zocor) 10 mg HS PO Last administered on 07/10/17at 19:36; Start 07/06/17 at 21:00 Tramadol HCl (Ultram) 50 mg PRN Q8HRS PRN PO MODERATE PAIN; Start 07/06/17 at 06 :45; Stop 07/07/17 at 09:48; Status DC Ascorbic Acid (Vitamin C) 500 mg DAILY PO ; Start 07/06/17 at 09:00; Stop at 01:32; Status DC Artificial Tears (Artificial Tears) 1 drop TID OU Last administered on at 19:26; Start 07/06/17 at 09:00; Stop 07/10/17 at 19:28; Status DC Loperamide HCl (Imodium) 2 mg PRN Q4HRS PRN PO DIARRHEA; Start 07/06/17 at 06:45 Multivitamins/ Calcium (Thera-M Plus) 1 tab DAILY PO ; Start 07/06/17 at 09:00 Ondansetron HCl (Zofran Odt) 4 mg PRN Q6HRS PRN PO NAUSEA; Start 07/06/17 at 06: 45 Timolol Maleate (Timoptic 0.25% [facility]) 1 drop DAILY OU ; Start 07/06/17 at 09:00 Duloxetine HCl (Cymbalta) 30 mg DAILY PO Last administered on 07/07/17at 10:01; Start 07/07/17 at 09:00; Stop 07/07/17 at 17:38; Status DC Duloxetine HCl (Cymbalta) 60 mg DAILY PO Last administered on 07/11/17at 08:22; Start 07/07/17 at 09:00 Haloperidol Lactate (Haldol Oral) 1 mg PRN Q6HRS PRN PO ANXIETY / AGITATION; Start 07/06/17 at 13:00 Ciprofloxacin 1 drop BID76 OD Last administered on 07/11/17at 05:46; Start at 18:00; Stop 07/13/17 at 17:59 Trazodone HCl (Desyrel) 100 mg QHS PO ; Start 07/06/17 at 21:00; Stop 07/06/17 at 21:00; Status DC Trazodone HCl (Desyrel) 100 mg QHS PO Last administered on 07/06/17at 19:33; Start 07/06/17 at 21:00; Stop 07/06/17 at 21:00; Status DC Trazodone HCl (Desyrel) 100 mg PRN QHS PRN PO INSOMNIA/MAY REPEAT X1; Start 07/06/17 at 21:00; Stop 07/07/17 at 09:48; Status DC Sodium Chloride 500 ml @ 0 mls/hr 1X ONCE IV ; Start 07/07/17 at 07:30; Stop at 07:58; Status DC Vitamin D (Vitamin D3) 50,000 unit WEEKLY PO ; Start 07/08/17 at 09:15 Ascorbic Acid (Vitamin C) 500 mg DAILY PO ; Start 07/08/17 at 09:15 Divalproex Sodium (Depakote Sprinkles) 125 mg BID@0900,1400 PO Last administered on 07/11/17at 13:40; Start 07/08/17 at 14:00; Stop 07/11/17 at 18:23 ; Status DC Quetiapine Fumarate (SEROquel) 12.5 mg BID92 PO Last administered on 07/11/17at 13:40; Start 07/10/17 at 09:00 Artificial Tears (Artificial Tears) 1 drop PRN TID PRN OU DRY EYE; Start at 19:30 Divalproex Sodium (Depakote Sprinkles) 125 mg TID PO ; Start 07/11/17 at 21:00 Active Scripts Active Reported Valium (Diazepam) 5 Mg Tablet 2.5 Mg PO QHS Zyprexa Zydis (Olanzapine) 5 Mg Tab.rapdis 2.5 Mg PO PRN Q2HR PRN MDD 10mg MAX 10mg/24hrs Haloperidol Lactate 2 Mg/1 Ml Oral.conc 1 Mg PO PRN Q6HRS PRN Ferrous Sulfate 325 Mg Tablet 325 Mg PO DAILY Latanoprost 2.5 Ml Drops 1 Drop EACHEYE QHS Mirtazapine 15 Mg Tablet 7.5 Mg PO QHS Vitamin B-12 (Cyanocobalamin (Vitamin B-12)) 1,000 Mcg Tablet 1,000 Mcg PO DAILY Tramadol Hcl (Tramadol HCl) 50 Mg Tablet 50 Mg PO PRN Q8HRS PRN EXELON 9.5mg/24hr (Rivastigmine) 1 Each Patch.td24 1 Patch TD DAILY Cymbalta (Duloxetine Hcl) 60 Mg Capsule.dr 60 Mg PO DAILY Cymbalta (Duloxetine Hcl) 30 Mg Capsule.dr 30 Mg PO DAILY Quetiapine Fumarate 50 Mg Tablet 50 Mg PO BID@92 Buspirone Hcl 10 Mg Tablet 10 Mg PO TID Trazodone Hcl 50 Mg Tablet 75 Mg PO QHS Vitamin C (Ascorbic Acid) 500 Mg Tab.chew 500 Mg PO DAILY Seroquel (Quetiapine Fumarate) 100 Mg Tablet 1 Tab PO QHS Refresh Optive Eye Drops (Carboxymethylcellulos/Glycerin) 15 Ml Drops 1 Drop EACHEYE TID Multi-Day Vitamins (Multivitamin) 1 Each Tablet 1 Tab PO DAILY Zofran (Ondansetron Hcl) 4 Mg Tablet 1 Tab PO Q6HRS PRN Zocor (Simvastatin) 20 Mg Tablet 10 Mg PO HS Senna (Sennosides) 8.6 Mg Tablet 8.6 Mg PO DAILY Levothyroxine Sodium 112 Mcg Tablet 88 Mcg PO DAILY06 Anti-Diarrhea (Loperamide Hcl) 2 Mg Tablet 2 Mg PO PRN Q4HRS PRN Gabapentin 300 Mg Capsule 300 Mg PO TID Fiber Tabs (Calcium Polycarbophil) 625 Mg Tablet 625 Mg PO BID Vitamin D3 (Cholecalciferol (Vitamin D3)) 1,000 Unit Tablet 4,000 Unit PO DAILY Bisacodyl 5 Mg Tablet.dr 5 Mg PO PRN DAILY PRN Aspirin 81 Mg Tab.chew 81 Mg PO DAILY Tylenol (Acetaminophen) 325 Mg Tablet 325 Mg PO PRN Q6HRS PRN I have reviewed the current psychotropics carefully including drug interactions. Risk benefit ratio favors no change other than as noted in my dictated progress note. Diagnosis: Problems: (1) Mental status change (2) Major depressive disorder, recurrent episode (3) Anxiety disorder (4) Impulse control disorder RITA MARMOLEJO MD Jul 11, 2017 19:45
[2017-07-11] MEDS: SIMVASTATIN 20 MG TABLET PO SCH (19:46)
[2017-07-11] MEDS: MIRTAZAPINE 7.5 MG TABLET. PO SCH (19:46)
--- NOTE | 2017-07-11 23:16 | PN ---
DATE: 07/07/2017 This late entry, 07/07/2017 covers elements not covered in the initial note 07/07/2017, met with the patient evening of 07/07/2017. SUBJECTIVE: The patient was somewhat hypotensive morning of 07/07/2017. Seroquel and trazodone were discontinued as a consequence of this. She refused a.m. medications, now the medications are to the hand of the nursing staff, irritable, snarky per nursing report. Ambulation impaired, in wheelchair. REVIEW OF SYSTEMS: No CV, , pulmonary, eye, ENT system symptoms on review. Quite confused, paranoid, did not recognize Dr. Chen who has been her primary care physician at the group home for a long time until recently. MENTAL STATUS EXAM: Oriented to herself. Insight, judgment, recent memory is impaired. Language function intact. Attention span short. Mood and affect dysphoric, labile. LABORATORY DATA: Reviewed. IMPRESSION: Major neurocognitive disorder, Alzheimer's, vascular with depression, delusion, major depressive disorder with psychotic features. Rest unchanged. PLAN: Reduce Cymbalta additionally to 60 mg a day. Seroquel and trazodone were stopped. Make further adjustments as clinically indicated. Consider Depakote as a mood stabilizer. RITA MARMOLEJO MD DR: SORAYA/shaneka JOB#: [id number] / [id number]
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
[2017-07-12] MEDS: CIPROFLOXACIN 0.3% OPHTH SOLUTION 2.5ML BOTTLE. OD SCH ×2 (05:29→18:06)
[2017-07-12] MEDS: LEVOTHYROXINE 88 MCG TABLET PO SCH (05:31)
[2017-07-12 06:07] VITALS: BP 85/52
[2017-07-12 07:45] LABS: BASO % 1 % (0-3); EOS # 0.3 x10^3/uL (0.0-0.7); EOS % 8 % (0-3); HEMATOCRIT 33.4 % (36.0-47.0); HEMOGLOBIN 10.9 g/dL (12.0-15.5); LYMPH # 1.1 x10^3/uL (1.0-4.8); LYMPH % 33 % (24-48); MEAN CORPUSCULAR HEMOGLOBIN 26 pg (25-35); MEAN CORPUSCULAR HGB CONC 33 g/dL (31-37); MEAN CORPUSCULAR VOLUME 78 fL (79-100); MONO # 0.4 x10^3/uL (0.0-1.1); MONO % 11 % (0-9); NEUT # 1.6 x10^3uL (1.8-7.7); NEUT % 47 % (31-73); PLATELET COUNT 244 x10^3/uL (140-400); RED BLOOD COUNT 4.26 x10^6/uL (3.50-5.40); WHITE BLOOD COUNT 3.5 x10^3/uL (4.0-11.0)
[2017-07-12 08:06] LABS: ALBUMIN 2.6 g/dL (3.4-5.0); ALBUMIN/GLOBULIN RATIO 0.7 (1.0-1.7); CALCIUM 8.1 mg/dL (8.5-10.1); CREATININE 0.6 mg/dL (0.6-1.0); GFR 99.4; TOTAL BILIRUBIN 0.2 mg/dL (0.2-1.0); TOTAL PROTEIN 6.2 g/dL (6.4-8.2)
[2017-07-12] MEDS: SENNOSIDES 8.6 MG TABLET PO SCH ×2 (09:00→11:44)
[2017-07-12] MEDS: TIMOLOL 0.25% OPHTH SOLUTION 5ML BOTTLE. OU SCH (09:00)
[2017-07-12] MEDS: busPIRone 10 MG TABLET. PO SCH ×3 (11:43→19:36)
[2017-07-12] MEDS: CALCIUM POLYCARBOPHIL 625 MG TABLET PO SCH ×2 (11:44→19:36)
[2017-07-12] MEDS: DULoxetine HCL 60 MG CAPSULE.DR PO SCH (11:44)
[2017-07-12] MEDS: QUEtiapine 25 MG TABLET. PO SCH ×2 (11:44→14:23)
[2017-07-12] MEDS: ASCORBIC ACID 500 MG TABLET PO SCH ×2 (11:44→11:45)
[2017-07-12] MEDS: MULTIVITAMIN with MINERAL TABLET. PO SCH (11:44)
[2017-07-12] MEDS: DIVALPROEX 125 MG CAP.SPRINK PO SCH ×3 (11:44→19:35)
[2017-07-12] MEDS: ASPIRIN 81 MG TAB.CHEW PO SCH (11:44)
[2017-07-12] MEDS: CYANOCOBALAMIN (VITAMIN B-12) 1,000 MCG TABLET. PO SCH (11:44)
[2017-07-12] MEDS: FERROUS SULFATE 325 MG TABLET. PO SCH (11:44)
[2017-07-12] MEDS: GABAPENTIN 300 MG CAPSULE. PO SCH ×3 (11:45→19:35)
[2017-07-12] MEDS: RIVASTIGMINE 9.5MG PATCH. TD SCH (11:45)
[2017-07-12] MEDS ORDERED: IV NORMAL SALINE 500ML 500 ML IV ONE (16:15)
[2017-07-12] MEDS: SIMVASTATIN 20 MG TABLET PO SCH (19:35)
[2017-07-12] MEDS: MIRTAZAPINE 7.5 MG TABLET. PO SCH (19:35)
[2017-07-12] MEDS: LATANOPROST 0.005% OPHTH SOLUTION 2.5ML BOTTLE. OU SCH (19:36)
--- NOTE | 2017-07-12 20:04 | PDOC ---
Exam Note: Tunde Note: Please also refer to the separate dictated note~for this date of service dictated separately.~Patient seen individually. Discussed the patient with Nursing staff reviewed the chart.~Reviewed interim history and current functioning. Reviewed vital signs,~Labs/ Radiology~and current medications noted below. Continue current treatment with the changes noted in the dictated addendum note Assessment: Vital Signs: Vital Signs Date Time Temp Pulse Resp B/P (MAP) Pulse Ox O2 Delivery O2 Flow Rate FiO2 07/12/17 15:56 97.2 70 20 94 07/12/17 06:07 85/52 (63) Room Air I&O Intake and Output 07/12/17 07:00 Intake Total 600 ml Balance 600 ml Intake Oral 600 ml Labs: Laboratory Tests Test 07/12/17 07:18 White Blood Count 3.5 x10^3/uL (4.0-11.0) L Red Blood Count 4.26 x10^6/uL (3.50-5.40) Hemoglobin 10.9 g/dL (12.0-15.5) L Hematocrit 33.4 % (36.0-47.0) L Mean Corpuscular Volume 78 fL (79-100) L Mean Corpuscular Hemoglobin 26 pg (25-35) Mean Corpuscular Hemoglobin Concent 33 g/dL (31-37) Red Cell Distribution Width 17.0 % (11.5-14.5) H Platelet Count 244 x10^3/uL (140-400) Neutrophils (%) (Auto) 47 % (31-73) Lymphocytes (%) (Auto) 33 % (24-48) Monocytes (%) (Auto) 11 % (0-9) H Eosinophils (%) (Auto) 8 % (0-3) H Basophils (%) (Auto) 1 % (0-3) Neutrophils # (Auto) 1.6 x10^3uL (1.8-7.7) L Lymphocytes # (Auto) 1.1 x10^3/uL (1.0-4.8) Monocytes # (Auto) 0.4 x10^3/uL (0.0-1.1) Eosinophils # (Auto) 0.3 x10^3/uL (0.0-0.7) Basophils # (Auto) 0.0 x10^3/uL (0.0-0.2) Sodium Level 147 mmol/L (136-145) H Potassium Level 4.0 mmol/L (3.5-5.1) Chloride Level 111 mmol/L (98-107) H Carbon Dioxide Level 29 mmol/L (21-32) Anion Gap 7 (6-14) Blood Urea Nitrogen 12 mg/dL (7-20) Creatinine 0.6 mg/dL (0.6-1.0) Estimated GFR (Cockcroft-Gault) 99.4 BUN/Creatinine Ratio 20 (6-20) Glucose Level 87 mg/dL (70-99) Calcium Level 8.1 mg/dL (8.5-10.1) L Total Bilirubin 0.2 mg/dL (0.2-1.0) Aspartate Amino Transferase (AST) 14 U/L (15-37) L Alanine Aminotransferase (ALT) 13 U/L (14-59) L Alkaline Phosphatase 63 U/L (46-116) Total Protein 6.2 g/dL (6.4-8.2) L Albumin 2.6 g/dL (3.4-5.0) L Albumin/Globulin Ratio 0.7 (1.0-1.7) L Current Medications: Meds: Current Medications Buspirone HCl (Buspar) 10 mg TID PO Last administered on 07/12/17at 19:36; Start 07/06/17 at 09:00 Mirtazapine (Remeron) 7.5 mg QHS PO Last administered on 07/12/17at 19:35; Start 07/06/17 at 21:00 Olanzapine (ZyPREXA ZYDIS) 2.5 mg PRN Q2HR PRN PO ANXIETY / AGITATION; Start at 02:00 Quetiapine Fumarate (SEROquel) 50 mg BID92 PO Last administered on 07/06/17at 13: 52; Start 07/06/17 at 09:00; Stop 07/07/17 at 09:48; Status DC Quetiapine Fumarate (SEROquel) 100 mg QHS PO ; Start 07/06/17 at 21:00; Stop 04/14 at 09:48; Status DC Rivastigmine (Exelon) 1 patch DAILY TD Last administered on 07/12/17at 11:45; Start 07/06/17 at 09:00 Trazodone HCl (Desyrel) 75 mg QHS PO ; Start 07/06/17 at 21:00; Stop 07/06/17 at 21:00; Status DC Sodium Chloride 500 ml @ 500 mls/hr 1X ONCE IV Last administered on 07/06/17at 06:37; Start 07/06/17 at 07:00; Stop 07/06/17 at 07:59; Status DC Acetaminophen (Tylenol) 325 mg PRN Q6HRS PRN PO MILD PAIN; Start 07/06/17 at 06: 45 Aspirin (Children'S Aspirin) 81 mg DAILY PO Last administered on 07/12/17at 11: 44; Start 07/06/17 at 09:00 Bisacodyl (Dulcolax Tab) 5 mg PRN DAILY PRN PO CONSTIPATION; Start 07/06/17 at 06:45 Calcium Polycarbophil (Fibercon) 625 mg BID PO Last administered on 07/12/17at 19:36; Start 07/06/17 at 09:00 Vitamin D (Vitamin D3) 4,000 unit DAILY PO ; Start 07/06/17 at 09:00; Stop at 09:10; Status DC Cyanocobalamin (Vitamin B-12) 1,000 mcg DAILY PO Last administered on at 09:12; Start 07/06/17 at 09:00 Diazepam (Valium) 2.5 mg QHS PO ; Start 07/06/17 at 21:00; Stop 07/06/17 at 21:00 ; Status DC Ferrous Sulfate (Feosol) 325 mg DAILY PO Last administered on 07/08/17at 09:12; Start 07/06/17 at 09:00 Gabapentin (Neurontin) 300 mg TID PO Last administered on 07/12/17at 19:35; Start 07/06/17 at 09:00 Latanoprost (Xalatan) 1 drop QHS OU Last administered on 07/12/17at 19:36; Start 07/06/17 at 21:00 Levothyroxine Sodium (Synthroid) 88 mcg DAILY06 PO Last administered on at 05:31; Start 07/07/17 at 06:00 Sennosides (Senna) 8.6 mg DAILY PO ; Start 07/06/17 at 09:00 Simvastatin (Zocor) 10 mg HS PO Last administered on 07/12/17at 19:35; Start 07/06/17 at 21:00 Tramadol HCl (Ultram) 50 mg PRN Q8HRS PRN PO MODERATE PAIN; Start 07/06/17 at 06 :45; Stop 07/07/17 at 09:48; Status DC Ascorbic Acid (Vitamin C) 500 mg DAILY PO ; Start 07/06/17 at 09:00; Stop at 01:32; Status DC Artificial Tears (Artificial Tears) 1 drop TID OU Last administered on at 19:26; Start 07/06/17 at 09:00; Stop 07/10/17 at 19:28; Status DC Loperamide HCl (Imodium) 2 mg PRN Q4HRS PRN PO DIARRHEA; Start 07/06/17 at 06:45 Multivitamins/ Calcium (Thera-M Plus) 1 tab DAILY PO ; Start 07/06/17 at 09:00 Ondansetron HCl (Zofran Odt) 4 mg PRN Q6HRS PRN PO NAUSEA; Start 07/06/17 at 06: 45 Timolol Maleate (Timoptic 0.25% [facility]) 1 drop DAILY OU ; Start 07/06/17 at 09:00 Duloxetine HCl (Cymbalta) 30 mg DAILY PO Last administered on 07/07/17at 10:01; Start 07/07/17 at 09:00; Stop 07/07/17 at 17:38; Status DC Duloxetine HCl (Cymbalta) 60 mg DAILY PO Last administered on 07/12/17at 11:44; Start 07/07/17 at 09:00 Haloperidol Lactate (Haldol Oral) 1 mg PRN Q6HRS PRN PO ANXIETY / AGITATION; Start 07/06/17 at 13:00 Ciprofloxacin 1 drop BID76 OD Last administered on 07/12/17at 18:06; Start at 18:00; Stop 07/13/17 at 17:59 Trazodone HCl (Desyrel) 100 mg QHS PO ; Start 07/06/17 at 21:00; Stop 07/06/17 at 21:00; Status DC Trazodone HCl (Desyrel) 100 mg QHS PO Last administered on 07/06/17at 19:33; Start 07/06/17 at 21:00; Stop 07/06/17 at 21:00; Status DC Trazodone HCl (Desyrel) 100 mg PRN QHS PRN PO INSOMNIA/MAY REPEAT X1; Start 07/06/17 at 21:00; Stop 07/07/17 at 09:48; Status DC Sodium Chloride 500 ml @ 0 mls/hr 1X ONCE IV ; Start 07/07/17 at 07:30; Stop at 07:58; Status DC Vitamin D (Vitamin D3) 50,000 unit WEEKLY PO ; Start 07/08/17 at 09:15 Ascorbic Acid (Vitamin C) 500 mg DAILY PO ; Start 07/08/17 at 09:15 Divalproex Sodium (Depakote Sprinkles) 125 mg BID@0900,1400 PO Last administered on 07/11/17at 13:40; Start 07/08/17 at 14:00; Stop 07/11/17 at 18:23 ; Status DC Quetiapine Fumarate (SEROquel) 12.5 mg BID92 PO Last administered on 07/12/17at 14:23; Start 07/10/17 at 09:00 Artificial Tears (Artificial Tears) 1 drop PRN TID PRN OU DRY EYE; Start at 19:30 Divalproex Sodium (Depakote Sprinkles) 125 mg TID PO Last administered on at 19:35; Start 07/11/17 at 21:00 Sodium Chloride 500 ml @ 0 mls/hr 1X ONCE IV Last administered on 07/12/17at 19 :24; Start 07/12/17 at 16:15; Stop 07/12/17 at 16:17; Status DC Active Scripts Active Reported Valium (Diazepam) 5 Mg Tablet 2.5 Mg PO QHS Zyprexa Zydis (Olanzapine) 5 Mg Tab.rapdis 2.5 Mg PO PRN Q2HR PRN MDD 10mg MAX 10mg/24hrs Haloperidol Lactate 2 Mg/1 Ml Oral.conc 1 Mg PO PRN Q6HRS PRN Ferrous Sulfate 325 Mg Tablet 325 Mg PO DAILY Latanoprost 2.5 Ml Drops 1 Drop EACHEYE QHS Mirtazapine 15 Mg Tablet 7.5 Mg PO QHS Vitamin B-12 (Cyanocobalamin (Vitamin B-12)) 1,000 Mcg Tablet 1,000 Mcg PO DAILY Tramadol Hcl (Tramadol HCl) 50 Mg Tablet 50 Mg PO PRN Q8HRS PRN EXELON 9.5mg/24hr (Rivastigmine) 1 Each Patch.td24 1 Patch TD DAILY Cymbalta (Duloxetine Hcl) 60 Mg Capsule.dr 60 Mg PO DAILY Cymbalta (Duloxetine Hcl) 30 Mg Capsule.dr 30 Mg PO DAILY Quetiapine Fumarate 50 Mg Tablet 50 Mg PO BID@92 Buspirone Hcl 10 Mg Tablet 10 Mg PO TID Trazodone Hcl 50 Mg Tablet 75 Mg PO QHS Vitamin C (Ascorbic Acid) 500 Mg Tab.chew 500 Mg PO DAILY Seroquel (Quetiapine Fumarate) 100 Mg Tablet 1 Tab PO QHS Refresh Optive Eye Drops (Carboxymethylcellulos/Glycerin) 15 Ml Drops 1 Drop EACHEYE TID Multi-Day Vitamins (Multivitamin) 1 Each Tablet 1 Tab PO DAILY Zofran (Ondansetron Hcl) 4 Mg Tablet 1 Tab PO Q6HRS PRN Zocor (Simvastatin) 20 Mg Tablet 10 Mg PO HS Senna (Sennosides) 8.6 Mg Tablet 8.6 Mg PO DAILY Levothyroxine Sodium 112 Mcg Tablet 88 Mcg PO DAILY06 Anti-Diarrhea (Loperamide Hcl) 2 Mg Tablet 2 Mg PO PRN Q4HRS PRN Gabapentin 300 Mg Capsule 300 Mg PO TID Fiber Tabs (Calcium Polycarbophil) 625 Mg Tablet 625 Mg PO BID Vitamin D3 (Cholecalciferol (Vitamin D3)) 1,000 Unit Tablet 4,000 Unit PO DAILY Bisacodyl 5 Mg Tablet.dr 5 Mg PO PRN DAILY PRN Aspirin 81 Mg Tab.chew 81 Mg PO DAILY Tylenol (Acetaminophen) 325 Mg Tablet 325 Mg PO PRN Q6HRS PRN I have reviewed the current psychotropics carefully including drug interactions. Risk benefit ratio favors no change other than as noted in my dictated progress note. Diagnosis: Problems: (1) Mental status change (2) Major depressive disorder, recurrent episode (3) Anxiety disorder (4) Impulse control disorder RITA MARMOLEJO MD Jul 12, 2017 20:04
[2017-07-13] MEDS ORDERED: IV NORMAL SALINE 1,000ML 1,000 ML IV ONE (05:45)
[2017-07-13] MEDS: LEVOTHYROXINE 88 MCG TABLET PO SCH ×2 (06:00→06:15)
[2017-07-13] MEDS ORDERED: CHOL500050 PO (06:01)
[2017-07-13 06:04] VITALS: BP 103/54
[2017-07-13 06:05] LABS: BASO % 1 % (0-3); EOS # 0.3 x10^3/uL (0.0-0.7); EOS % 7 % (0-3); HEMATOCRIT 32.3 % (36.0-47.0); HEMOGLOBIN 10.5 g/dL (12.0-15.5); LYMPH # 1.7 x10^3/uL (1.0-4.8); LYMPH % 45 % (24-48); MEAN CORPUSCULAR HEMOGLOBIN 25 pg (25-35); MEAN CORPUSCULAR HGB CONC 32 g/dL (31-37); MEAN CORPUSCULAR VOLUME 79 fL (79-100); MONO # 0.4 x10^3/uL (0.0-1.1); MONO % 9 % (0-9); NEUT # 1.4 x10^3uL (1.8-7.7); NEUT % 38 % (31-73); PLATELET COUNT 244 x10^3/uL (140-400); RED BLOOD COUNT 4.12 x10^6/uL (3.50-5.40); RED CELL DISTRIBUTION WIDTH 17.4 % (11.5-14.5); WHITE BLOOD COUNT 3.8 x10^3/uL (4.0-11.0)
[2017-07-13] MEDS ORDERED: DIVA125C PO (06:06)
[2017-07-13] MEDS ORDERED: CIPR2.5D EACHEYE (06:10)
[2017-07-13] MEDS ORDERED: SODI500I5 IV (06:13)
[2017-07-13] MEDS ORDERED: QUET25TA5 PO (06:15)
[2017-07-13] MEDS ORDERED: TIMO1DRO OU (06:17)
[2017-07-13 06:19] LABS: ALBUMIN 2.4 g/dL (3.4-5.0); ALBUMIN/GLOBULIN RATIO 0.7 (1.0-1.7); CALCIUM 7.9 mg/dL (8.5-10.1); CREATININE 0.7 mg/dL (0.6-1.0); GFR 83.2; POTASSIUM 4.2 mmol/L (3.5-5.1); TOTAL BILIRUBIN 0.1 mg/dL (0.2-1.0); TOTAL PROTEIN 5.8 g/dL (6.4-8.2)
--- NOTE | 2017-07-13 18:28 | PDOC ---
Exam Note: Tunde Note: Please also refer to the separate dictated note~for this date of service dictated separately.~Patient seen individually. Discussed the patient with Nursing staff reviewed the chart.~Reviewed interim history and current functioning. Reviewed vital signs,~Labs/ Radiology~and current medications noted below. Continue current treatment with the changes noted in the dictated addendum note Assessment: Vital Signs: Vital Signs Date Time Temp Pulse Resp B/P (MAP) Pulse Ox O2 Delivery O2 Flow Rate FiO2 07/13/17 06:04 98.1 61 16 103/54 (70) 97 07/12/17 06:07 Room Air I&O Intake and Output 07/13/17 07:00 Intake Total 1820 ml Balance 1820 ml Intake Oral 1320 ml IV Total 500 ml Labs: Laboratory Tests Test 07/13/17 05:54 White Blood Count 3.8 x10^3/uL (4.0-11.0) L Red Blood Count 4.12 x10^6/uL (3.50-5.40) Hemoglobin 10.5 g/dL (12.0-15.5) L Hematocrit 32.3 % (36.0-47.0) L Mean Corpuscular Volume 79 fL (79-100) Mean Corpuscular Hemoglobin 25 pg (25-35) Mean Corpuscular Hemoglobin Concent 32 g/dL (31-37) Red Cell Distribution Width 17.4 % (11.5-14.5) H Platelet Count 244 x10^3/uL (140-400) Neutrophils (%) (Auto) 38 % (31-73) Lymphocytes (%) (Auto) 45 % (24-48) Monocytes (%) (Auto) 9 % (0-9) Eosinophils (%) (Auto) 7 % (0-3) H Basophils (%) (Auto) 1 % (0-3) Neutrophils # (Auto) 1.4 x10^3uL (1.8-7.7) L Lymphocytes # (Auto) 1.7 x10^3/uL (1.0-4.8) Monocytes # (Auto) 0.4 x10^3/uL (0.0-1.1) Eosinophils # (Auto) 0.3 x10^3/uL (0.0-0.7) Basophils # (Auto) 0.0 x10^3/uL (0.0-0.2) Sodium Level 142 mmol/L (136-145) Potassium Level 4.2 mmol/L (3.5-5.1) Chloride Level 108 mmol/L (98-107) H Carbon Dioxide Level 27 mmol/L (21-32) Anion Gap 7 (6-14) Blood Urea Nitrogen 15 mg/dL (7-20) Creatinine 0.7 mg/dL (0.6-1.0) Estimated GFR (Cockcroft-Gault) 83.2 BUN/Creatinine Ratio 21 (6-20) H Glucose Level 87 mg/dL (70-99) Lactic Acid Level 1.5 mmol/L (0.4-2.0) Calcium Level 7.9 mg/dL (8.5-10.1) L Total Bilirubin 0.1 mg/dL (0.2-1.0) L Aspartate Amino Transferase (AST) 13 U/L (15-37) L Alanine Aminotransferase (ALT) 14 U/L (14-59) Alkaline Phosphatase 63 U/L (46-116) Total Protein 5.8 g/dL (6.4-8.2) L Albumin 2.4 g/dL (3.4-5.0) L Albumin/Globulin Ratio 0.7 (1.0-1.7) L Current Medications: Meds: Current Medications Buspirone HCl (Buspar) 10 mg TID PO Last administered on 07/12/17at 19:36; Start 07/06/17 at 09:00; Stop 07/13/17 at 06:22; Status DC Mirtazapine (Remeron) 7.5 mg QHS PO Last administered on 07/12/17at 19:35; Start 07/06/17 at 21:00; Stop 07/13/17 at 06:22; Status DC Olanzapine (ZyPREXA ZYDIS) 2.5 mg PRN Q2HR PRN PO ANXIETY / AGITATION; Start at 02:00; Stop 07/13/17 at 06:22; Status DC Quetiapine Fumarate (SEROquel) 50 mg BID92 PO Last administered on 07/06/17at 13: 52; Start 07/06/17 at 09:00; Stop 07/07/17 at 09:48; Status DC Quetiapine Fumarate (SEROquel) 100 mg QHS PO ; Start 07/06/17 at 21:00; Stop 04/14 at 09:48; Status DC Rivastigmine (Exelon) 1 patch DAILY TD Last administered on 07/12/17at 11:45; Start 07/06/17 at 09:00; Stop 07/13/17 at 06:22; Status DC Trazodone HCl (Desyrel) 75 mg QHS PO ; Start 07/06/17 at 21:00; Stop 07/06/17 at 21:00; Status DC Sodium Chloride 500 ml @ 500 mls/hr 1X ONCE IV Last administered on 07/06/17at 06:37; Start 07/06/17 at 07:00; Stop 07/06/17 at 07:59; Status DC Acetaminophen (Tylenol) 325 mg PRN Q6HRS PRN PO MILD PAIN; Start 07/06/17 at 06: 45; Stop 07/13/17 at 06:22; Status DC Aspirin (Children'S Aspirin) 81 mg DAILY PO Last administered on 07/12/17at 11: 44; Start 07/06/17 at 09:00; Stop 07/13/17 at 06:22; Status DC Bisacodyl (Dulcolax Tab) 5 mg PRN DAILY PRN PO CONSTIPATION; Start 07/06/17 at 06:45; Stop 07/13/17 at 06:22; Status DC Calcium Polycarbophil (Fibercon) 625 mg BID PO Last administered on 07/12/17at 19:36; Start 07/06/17 at 09:00; Stop 07/13/17 at 06:22; Status DC Vitamin D (Vitamin D3) 4,000 unit DAILY PO ; Start 07/06/17 at 09:00; Stop at 09:10; Status DC Cyanocobalamin (Vitamin B-12) 1,000 mcg DAILY PO Last administered on at 09:12; Start 07/06/17 at 09:00; Stop 07/13/17 at 06:22; Status DC Diazepam (Valium) 2.5 mg QHS PO ; Start 07/06/17 at 21:00; Stop 07/06/17 at 21:00 ; Status DC Ferrous Sulfate (Feosol) 325 mg DAILY PO Last administered on 07/08/17at 09:12; Start 07/06/17 at 09:00; Stop 07/13/17 at 06:22; Status DC Gabapentin (Neurontin) 300 mg TID PO Last administered on 07/12/17at 19:35; Start 07/06/17 at 09:00; Stop 07/13/17 at 06:22; Status DC Latanoprost (Xalatan) 1 drop QHS OU Last administered on 07/12/17at 19:36; Start 07/06/17 at 21:00; Stop 07/13/17 at 06:22; Status DC Levothyroxine Sodium (Synthroid) 88 mcg DAILY06 PO Last administered on at 05:31; Start 07/07/17 at 06:00; Stop 07/13/17 at 06:22; Status DC Sennosides (Senna) 8.6 mg DAILY PO ; Start 07/06/17 at 09:00; Stop 07/13/17 at 06 :22; Status DC Simvastatin (Zocor) 10 mg HS PO Last administered on 07/12/17at 19:35; Start 07/06/17 at 21:00; Stop 07/13/17 at 06:22; Status DC Tramadol HCl (Ultram) 50 mg PRN Q8HRS PRN PO MODERATE PAIN; Start 07/06/17 at 06 :45; Stop 07/07/17 at 09:48; Status DC Ascorbic Acid (Vitamin C) 500 mg DAILY PO ; Start 07/06/17 at 09:00; Stop at 01:32; Status DC Artificial Tears (Artificial Tears) 1 drop TID OU Last administered on at 19:26; Start 07/06/17 at 09:00; Stop 07/10/17 at 19:28; Status DC Loperamide HCl (Imodium) 2 mg PRN Q4HRS PRN PO DIARRHEA; Start 07/06/17 at 06:45 ; Stop 07/13/17 at 06:22; Status DC Multivitamins/ Calcium (Thera-M Plus) 1 tab DAILY PO ; Start 07/06/17 at 09:00; Stop 07/13/17 at 06:22; Status DC Ondansetron HCl (Zofran Odt) 4 mg PRN Q6HRS PRN PO NAUSEA; Start 07/06/17 at 06: 45; Stop 07/13/17 at 06:22; Status DC Timolol Maleate (Timoptic 0.25% Oph) 1 drop DAILY OU ; Start 07/06/17 at 09:00 ; Stop 07/13/17 at 06:22; Status DC Duloxetine HCl (Cymbalta) 30 mg DAILY PO Last administered on 07/07/17at 10:01; Start 07/07/17 at 09:00; Stop 07/07/17 at 17:38; Status DC Duloxetine HCl (Cymbalta) 60 mg DAILY PO Last administered on 07/12/17at 11:44; Start 07/07/17 at 09:00; Stop 07/13/17 at 06:22; Status DC Haloperidol Lactate (Haldol Oral) 1 mg PRN Q6HRS PRN PO ANXIETY / AGITATION; Start 07/06/17 at 13:00; Stop 07/13/17 at 06:22; Status DC Ciprofloxacin 1 drop BID76 OD Last administered on 07/12/17at 18:06; Start at 18:00; Stop 07/13/17 at 06:22; Status DC Trazodone HCl (Desyrel) 100 mg QHS PO ; Start 07/06/17 at 21:00; Stop 07/06/17 at 21:00; Status DC Trazodone HCl (Desyrel) 100 mg QHS PO Last administered on 07/06/17at 19:33; Start 07/06/17 at 21:00; Stop 07/06/17 at 21:00; Status DC Trazodone HCl (Desyrel) 100 mg PRN QHS PRN PO INSOMNIA/MAY REPEAT X1; Start 07/06/17 at 21:00; Stop 07/07/17 at 09:48; Status DC Sodium Chloride 500 ml @ 0 mls/hr 1X ONCE IV ; Start 07/07/17 at 07:30; Stop at 07:58; Status DC Vitamin D (Vitamin D3) 50,000 unit WEEKLY PO ; Start 07/08/17 at 09:15; Stop at 06:22; Status DC Ascorbic Acid (Vitamin C) 500 mg DAILY PO ; Start 07/08/17 at 09:15; Stop at 06:22; Status DC Divalproex Sodium (Depakote Sprinkles) 125 mg BID@0900,1400 PO Last administered on 07/11/17at 13:40; Start 07/08/17 at 14:00; Stop 07/11/17 at 18:23 ; Status DC Quetiapine Fumarate (SEROquel) 12.5 mg BID92 PO Last administered on 07/12/17at 14:23; Start 07/10/17 at 09:00; Stop 07/13/17 at 06:22; Status DC Artificial Tears (Artificial Tears) 1 drop PRN TID PRN OU DRY EYE; Start at 19:30; Stop 07/13/17 at 06:22; Status DC Divalproex Sodium (Depakote Sprinkles) 125 mg TID PO Last administered on at 19:35; Start 07/11/17 at 21:00; Stop 07/13/17 at 06:22; Status DC Sodium Chloride 500 ml @ 0 mls/hr 1X ONCE IV Last administered on 07/12/17at 19 :24; Start 07/12/17 at 16:15; Stop 07/12/17 at 16:17; Status DC Sodium Chloride 1,000 ml @ 1,000 mls/hr 1X ONCE IV ; Start 07/13/17 at 05:45; Stop 07/13/17 at 06:22; Status DC Active Scripts Active Reported Timoptic 0.25% Ocudose Drop (Timolol Maleate/Pf) 1 Each Droperette 1 Drop OU DAILY Seroquel (Quetiapine Fumarate) 25 Mg Tablet 12.5 Mg PO BID92 Sodium Chloride (Sodium Chloride 5 %) 500 Ml Iv.soln 1,000 Ml IV 1X Ciprofloxacin Hcl 2.5 Ml Drops 1 Drop EACHEYE BID Depakote Sprinkle (Divalproex Sodium) 125 Mg Cap.sprink 125 Mg PO TID Vitamin D3 (Cholecalciferol (Vitamin D3)) 50,000 Unit Capsule 50,000 Unit PO WEEKLY Zyprexa Zydis (Olanzapine) 5 Mg Tab.rapdis 2.5 Mg PO PRN Q2HR PRN MDD 10mg MAX 10mg/24hrs Haloperidol Lactate 2 Mg/1 Ml Oral.conc 1 Mg PO PRN Q6HRS PRN Ferrous Sulfate 325 Mg Tablet 325 Mg PO DAILY Latanoprost 2.5 Ml Drops 1 Drop EACHEYE QHS Mirtazapine 15 Mg Tablet 7.5 Mg PO QHS Vitamin B-12 (Cyanocobalamin (Vitamin B-12)) 1,000 Mcg Tablet 1,000 Mcg PO DAILY EXELON 9.5mg/24hr (Rivastigmine) 1 Each Patch.td24 1 Patch TD DAILY Cymbalta (Duloxetine Hcl) 60 Mg Capsule.dr 60 Mg PO DAILY Buspirone Hcl 10 Mg Tablet 10 Mg PO TID Vitamin C (Ascorbic Acid) 500 Mg Tab.chew 500 Mg PO DAILY Refresh Optive Eye Drops (Carboxymethylcellulos/Glycerin) 15 Ml Drops 1 Drop EACHEYE TID Multi-Day Vitamins (Multivitamin) 1 Each Tablet 1 Tab PO DAILY Zofran (Ondansetron Hcl) 4 Mg Tablet 1 Tab PO Q6HRS PRN Senna (Sennosides) 8.6 Mg Tablet 8.6 Mg PO DAILY Levothyroxine Sodium 112 Mcg Tablet 88 Mcg PO DAILY06 Anti-Diarrhea (Loperamide Hcl) 2 Mg Tablet 2 Mg PO PRN Q4HRS PRN Gabapentin 300 Mg Capsule 300 Mg PO TID Fiber Tabs (Calcium Polycarbophil) 625 Mg Tablet 625 Mg PO BID Bisacodyl 5 Mg Tablet.dr 5 Mg PO PRN DAILY PRN Aspirin 81 Mg Tab.chew 81 Mg PO DAILY Tylenol (Acetaminophen) 325 Mg Tablet 325 Mg PO PRN Q6HRS PRN I have reviewed the current psychotropics carefully including drug interactions. Risk benefit ratio favors no change other than as noted in my dictated progress note. Diagnosis: Problems: (1) Impulse control disorder (2) Anxiety disorder (3) Major depressive disorder, recurrent episode (4) Mental status change RITA MARMOLEJO MD Jul 13, 2017 18:28
--- NOTE | 2017-07-14 02:44 | PN ---
DATE: 07/12/2017 PSYCHIATRIC PROGRESS NOTE This late entry, date of service 07/12/2017 covers elements not covered in my initial note 07/12/2017. The patient slept 7-1/2 hours previous evening. She has been irritable, sarcastic, withdrawn, attempting to scratch staff, called staff bitches. Refuses medications at times. Appetite is poor, throwing food. She is dehydrated. BP was low. Received 500 mL of bolus IV. REVIEW OF SYSTEMS: Ambulation impaired. No CV, , pulmonary, eye, ENT system symptoms on review. Reliability poor. MENTAL STATUS EXAM: Oriented to herself. Insight, judgment, recent and remote memory, attention, concentration, fund of knowledge poor, consistent with her diagnosis mentioned in my initial note. IMPRESSION: Major neurocognitive disorder, Alzheimer, vascular with depression, delusion, behavioral disturbance. Rest unchanged. Valproic acid level is subtherapeutic at 13, but despite low level, clinically it is adequate, especially given some of her sedation and hypotension. Make further adjustments as clinically indicated. MAN Nupur MARMOLEJO MD DR: SORAYA/shaneka JOB#: [id number] / [id number]
--- NOTE | 2017-07-14 06:07 | PN ---
DATE: 07/11/2017 This late entry, 07/11/2017 covers elements not covered in my initial note 07/11/2017, met with the patient evening of 07/11/2017. The patient slept 9-3/4 hours previous evening, refused her eyedrops. She has been agitated, anxious, restless, suspicious, referring to nursing staff as "bitch, bitch." She was somewhat hypotensive, suspicious, noncompliant with medications. REVIEW OF SYSTEMS: Ambulation impaired, in Broda chair. No CV, , pulmonary, eye, ENT system symptoms on review. Reliability poor. MENTAL STATUS EXAM: Oriented to herself. Insight, judgment, recent and remote memory, attention, concentration, fund of knowledge poor, consistent with her diagnosis mentioned in my initial note. PLAN: Continue current psychotropics. Repeat labs. Adjust as clinically indicated. Increase Depakote and follow labs. MAN Nupur MARMOLEJO MD DR: SORAYA/shaneka JOB#: [id number] / [id number]
--- NOTE | 2017-07-15 03:50 | DS ---
DATE OF DISCHARGE: 07/13/2017 REASON FOR ADMISSION: Please refer to the admission history for details. Briefly, the patient is a 67-year-old female referred to us from [facility] [place] by [place] primary care physician on account of being combative with staff and other residents, pulling resident's hair, throwing plates on the floor, refusing medications and cares. She had failed a recent inpatient psychiatric hospitalization at [place] in [place], [place]. SIGNIFICANT FINDINGS AND CLINICAL COURSE: Following admission, the patient was seen daily individually from a psychiatric standpoint by myself, followed medically per Dr. Chen/Dr. Welch. The patient remained extremely withdrawn with poor oral intake, irritable. Paranoia was quite evident and she was quite labile in her mood. Adjustments were made in her psychotropics. She seemed to be doing a little better with her irritability, mood lability, anxiety, even though she remained quite confused. She was on BuSpar 10 mg 3 times a day, Cymbalta 60 mg a day, Exelon patch 9.5 mg a day, Remeron 7.5 mg at bedtime, Zyprexa and Haldol p.r.n., Depakote Sprinkles 125 mg 3 times a day. At this stage, she was noted to be somewhat hypotensive and dehydrated and transferred to the ICU per Dr. Chen for medical stabilization. If her behaviors persist in the ICU post medical stabilization, we consider having her back on our unit for further psychiatric stabilization. Prior to discharge, ambulation impaired, in Broda chair. No CV, , pulmonary, eye system symptoms on review. MENTAL STATUS EXAM: Oriented to herself. Insight, judgment, recent and remote memory, attention, concentration, fund of knowledge poor, consistent with her diagnosis. IMPRESSION: Major neurocognitive disorder, Alzheimer, vascular with depression, delusion, behavioral disturbance, major depressive disorder, recurrent, severe with psychotic features; anxiety disorder, unspecified; impulse control disorder, unspecified; hypotension. Rest unchanged from admission DISCHARGE MEDICATIONS: Please refer to the MRAD. MAN Nupur MARMOLEJO MD DR: SORAYA/shaneka JOB#: [id number] / [id number]
--- NOTE | 2017-07-15 06:43 | PN ---
DATE: 07/09/2017 This late entry 07/09/2017 covers elements not covered in my initial note 07/09/2017. Met with the patient in the evening of 07/09/2017. The patient slept 7-1/2 hours previous evening, refusing medications. These had to be syringed the previous evening. Morning of 07/09/2017, she was quite aggressive, again meds had to be syringed. Refused her breakfast, refused lunch, had some Boost and evening meds had to be syringed again. She was punching at staff members, ate some dinner. REVIEW OF SYSTEMS: Ambulation impaired, in wheelchair. No CV, , pulmonary, eye, ENT system symptoms on review. Appears quite paranoid, suspicious. MENTAL STATUS EXAM: Oriented to herself. Insight, judgment, recent memory is impaired. Language function intact. Attention span short. Mood and affect remains labile, confused. LABORATORY DATA: Reviewed. IMPRESSION: Major neurocognitive disorder, Alzheimer, vascular with depression, delusion, major depressive disorder with psychotic features. PLAN: Start Seroquel 12.5 mg 9 a.m., 2:00 p.m. Continue rest unchanged for now. Hopefully, Seroquel will help with mood stabilization as an atypical antipsychotic. RITA MARMOLEJO MD DR: SORAYA/shaneka JOB#: [id number] / [id number]
--- NOTE | 2017-07-15 06:47 | PN ---
DATE: 07/10/2017 This note covers elements not covered in my initial note on 07/10/2017. SUBJECTIVE: I met with the patient evening of 07/10/2017. Per nursing report, the patient remains irritable, labile, noncompliant with medications, confused, refusing to eat. REVIEW OF SYSTEMS: Ambulation impaired, in wheelchair. No CV, , pulmonary, eye system symptoms on review. MENTAL STATUS EXAM: Oriented to herself. Insight, judgment, recent memory is impaired. Language function intact. Her attention span short. Mood and affect, remains withdrawn, quite paranoid. LABORATORY DATA: Reviewed. IMPRESSION: Major neurocognitive disorder, Alzheimer, vascular with delusion, depression, major depressive disorder with psychotic features. PLAN: Continue psychotropics mentioned in my initial note. Seroquel was added and may need to increase this gradually. MAN Nupur MARMOLEJO MD DR: SORAYA/shaneka JOB#: [id number] / [id number]
== END 2017-07-13 06:21 | disposition short-term general hospital (02) | DRG 884 ==
LOC: ER 22:11 → GEROPSY 07-06 01:24
PROVIDERS: ADMIT Psychiatry & Neurology Psychiatry; ATTEND Psychiatry & Neurology Psychiatry
DX: F01.51 Vascular dementia, unspecified severity, with behavioral disturbance (principal); I95.9 Hypotension, unspecified; F33.3 Major depressive disorder, recurrent, severe with psychotic symptoms; L03.115 Cellulitis of right lower limb; G30.9 Alzheimer's disease, unspecified; L03.116 Cellulitis of left lower limb; F02.81 Dementia in other diseases classified elsewhere, unspecified severity, with behavioral disturbance; E03.9 Hypothyroidism, unspecified; E78.5 Hyperlipidemia, unspecified; F41.9 Anxiety disorder, unspecified; F60.3 Borderline personality disorder; F63.9 Impulse disorder, unspecified; E86.0 Dehydration; H40.9 Unspecified glaucoma; H81.09 Meniere's disease, unspecified ear; I10 Essential (primary) hypertension; G43.909 Migraine, unspecified, not intractable, without status migrainosus; I87.2 Venous insufficiency (chronic) (peripheral); G47.00 Insomnia, unspecified; I89.0 Lymphedema, not elsewhere classified; K21.9 Gastro-esophageal reflux disease without esophagitis; Z66 Do not resuscitate; Z87.891 Personal history of nicotine dependence; Z91.81 History of falling; Z88.0 Allergy status to penicillin; Z88.2 Allergy status to sulfonamides; Z88.8 Allergy status to other drugs, medicaments and biological substances; Z91.048 Other nonmedicinal substance allergy status; Z87.820 Personal history of traumatic brain injury; Z91.14 Patient's other noncompliance with medication regimen
CPT/HCPCS: 36415; 80053; 80061; 80164; 81001; 82306; 82607; 83036; 83540; 83550; 83605; 83735; 84436; 84443; 84480; 85007; 85025; 86593; 93005; J7040; 99285-25

== ENCOUNTER 2017-07-13 06:22 | Inpatient (IN) | payer MEDICARE, OTHER ==
[~2017-07-13] VITALS: Ht 165.1 cm; Wt 64.4 kg
[2017-07-13] VITALS (8 sets, daily range): BP systolic 92–150; BP diastolic 49–73
[~2017-07-13 06:22] MED LIST changes: +BUSP10TA PO; +CHOL500050 PO; +CIPR2.5D EACHEYE; +CYAN10005 PO; +DIAZ5TAB PO; +DIVA125C PO; +DULO30CA2 PO; +DULO60CA6 PO; +FERR-26 PO; +HALO2ORA PO; +LATA2.5D3 EACHEYE; +MIRT15TA3 PO; +OLAN5TAB5 PO; +QUET50TA PO; +RIVA1PAT23 TD; +SODI500I5 IV; +TIMO1DRO OU; +TRAM50TA PO; +TRAZ50TA15 PO
[2017-07-13] MEDS: IV NORMAL SALINE 1,000ML 1,000 ML IV SCH ×3 (08:00→21:03)
--- NOTE | 2017-07-13 08:16 | NUR ---
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
[2017-07-13] MEDS ORDERED: HALOPERIDOL 10 MG/5 ML ORAL.CONC. PO PRN (11:45)
[2017-07-13] MEDS ORDERED: ACETAMINOPHEN 325 MG TABLET PO PRN (11:45)
[2017-07-13] MEDS ORDERED: OLANZapine 5 MG TABLET ONE (12:13)
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
[2017-07-13] MEDS ORDERED: HALOPERIDOL LACT 5 MG/ML VIAL. IVP PRN (12:30)
[2017-07-13] MEDS: QUEtiapine 25 MG TABLET. PO SCH (12:47)
[2017-07-13] MEDS: DIVALPROEX 125 MG CAP.SPRINK PO SCH ×2 (12:47→21:04)
[2017-07-13] MEDS: GABAPENTIN 300 MG CAPSULE. PO SCH ×2 (12:47→21:04)
[2017-07-13] MEDS: busPIRone 10 MG TABLET. PO SCH ×2 (12:47→21:07)
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
--- NOTE | 2017-07-13 20:00 | NUR ---
pt is being verbally and physically abusive to staff while trying to give cares. Pt is refusing to be monitored properly in ICU. She is refusing BP's, medications, snacks, bowel and bladder care (pt is incontinent)
--- NOTE | 2017-07-13 20:30 | NUR ---
pt's called for status update. Updated accordingly. Advised him that he is welcome to call back anytime for status update.
[2017-07-13] MEDS ORDERED: MIRTAZAPINE 7.5 MG TABLET. PO SCH (21:00)
[2017-07-13] MEDS: CIPROFLOXACIN 0.3% OPHTH SOLUTION 2.5ML BOTTLE. OU SCH (21:00)
--- NOTE | 2017-07-13 23:00 | NUR ---
pt is demanding her bedtime medications, requesting them in pudding. When meds brought to bedside, she is refusing them, and started being verbally abusive calling this nurse " stupid fucking bitching" several times. Finally the pt took her medications and settled down to go to sleep. Will CTM.
--- NOTE | 2017-07-14 01:50 | NUR ---
pt woke up and started screaming, throwing things across her room and banging on her bedside table and side rails. Tried to redirect pt and calm pt down, pt only got angrier, cursing this nurse, trying to hit and scratch this nurse. PRN Haldol was given IVP per orders.
[2017-07-14 02:00] VITALS: BP 130/56
[2017-07-14 03:00] VITALS: BP 105/58
[2017-07-14] MEDS: IV NORMAL SALINE 1,000ML 1,000 ML IV SCH ×2 (04:10→09:35)
[2017-07-14 06:00] VITALS: BP 106/50
[2017-07-14 06:19] LABS: HEMATOCRIT 30.3 % (36.0-47.0); HEMOGLOBIN 9.7 g/dL (12.0-15.5); RED BLOOD COUNT 3.86 x10^6/uL (3.50-5.40); RED CELL DISTRIBUTION WIDTH 17.6 % (11.5-14.5); WHITE BLOOD COUNT 3.9 x10^3/uL (4.0-11.0)
[2017-07-14 06:32] LABS: ALBUMIN 2.3 g/dL (3.4-5.0); ALBUMIN/GLOBULIN RATIO 0.7 (1.0-1.7); CALCIUM 7.9 mg/dL (8.5-10.1); CREATININE 0.5 mg/dL (0.6-1.0); GFR 122.7; POTASSIUM 3.6 mmol/L (3.5-5.1); TOTAL BILIRUBIN 0.2 mg/dL (0.2-1.0); TOTAL PROTEIN 5.5 g/dL (6.4-8.2)
[2017-07-14] MEDS ORDERED: LEVOTHYROXINE 88 MCG TABLET PO SCH (07:00)
[2017-07-14 07:52] VITALS: BP 112/62
[2017-07-14] MEDS: CIPROFLOXACIN 0.3% OPHTH SOLUTION 2.5ML BOTTLE. OU SCH (09:00)
[2017-07-14] MEDS ORDERED: ASPIRIN 81 MG TAB.CHEW PO SCH (09:00)
[2017-07-14] MEDS ORDERED: FERROUS SULFATE 325 MG TABLET. PO SCH (09:00)
[2017-07-14] MEDS ORDERED: CYANOCOBALAMIN (VITAMIN B-12) 1,000 MCG TABLET. PO SCH (09:00)
[2017-07-14] MEDS ORDERED: DULoxetine HCL 60 MG CAPSULE.DR PO SCH (09:00)
[2017-07-14] MEDS ORDERED: ASCORBIC ACID 500 MG TABLET PO SCH (09:00)
[2017-07-14] MEDS ORDERED: SENNOSIDES 8.6 MG TABLET PO SCH (09:00)
[2017-07-14] MEDS ORDERED: RIVASTIGMINE 9.5MG PATCH. TD SCH (09:00)
[2017-07-14] MEDS ORDERED: TIMOLOL 0.25% OPHTH SOLUTION 5ML BOTTLE. OU SCH (09:00)
[2017-07-14] MEDS: DIVALPROEX 125 MG CAP.SPRINK PO SCH (09:03)
[2017-07-14] MEDS: busPIRone 10 MG TABLET. PO SCH (09:03)
[2017-07-14] MEDS: QUEtiapine 25 MG TABLET. PO SCH (09:06)
[2017-07-14] MEDS: GABAPENTIN 300 MG CAPSULE. PO SCH (09:06)
--- NOTE | 2017-07-14 09:50 | NUR ---
PT sleeping this am. PT refuses to get up and eat breakfast. PT is non complaint with medications will try to reinforce that pt needs to take medications. Esther BELL
--- NOTE | 2017-07-14 11:30 | NUR ---
PT dc back to [facility]. When patient up to wheelchair to go upstairs, swollen eye on Right side was noted. May have been a delay in eye gtt because of transfer of care. PT is on numerous eye gtts. Report given to SARAH. Dr. Yuri cheema with transfer back to [facility]. PT has had no episode of hypotension lower than 90's in ICU. Esther BELL
== END 2017-07-14 11:30 | DRG 316 ==
LOC: ICU 06:22 → UNDOADMIN 06:55
PROVIDERS: ADMIT Internal Medicine; ATTEND Internal Medicine
DX: I95.9 Hypotension, unspecified (principal); E03.9 Hypothyroidism, unspecified; E78.5 Hyperlipidemia, unspecified; I10 Essential (primary) hypertension; K21.9 Gastro-esophageal reflux disease without esophagitis; H40.9 Unspecified glaucoma; I89.0 Lymphedema, not elsewhere classified; H81.09 Meniere's disease, unspecified ear; F32.9 Major depressive disorder, single episode, unspecified; Z87.820 Personal history of traumatic brain injury; Z88.0 Allergy status to penicillin; Z88.1 Allergy status to other antibiotic agents; Z91.048 Other nonmedicinal substance allergy status; Z88.8 Allergy status to other drugs, medicaments and biological substances
CPT/HCPCS: 36415; 80053; 85027; 87641; J1630; J7030

== ENCOUNTER 2017-07-14 11:31 | Inpatient (IN) | payer MEDICARE, OTHER ==
[~2017-07-14] VITALS: Ht 165.1 cm; Wt 68.1 kg
[2017-07-14 13:13] VITALS: BP 127/60
[2017-07-14] MEDS ORDERED: MAGNESIUM HYDROXIDE 2,400 MG/30 ML ORAL.SUSP. PO PRN (13:15)
[2017-07-14] MEDS ORDERED: METHYL SALICYLATE/MENTHOL TOPICAL OINTMENT 29GM TUBE. TP PRN (13:15)
[2017-07-14] MEDS ORDERED: ACETAMINOPHEN 325 MG TABLET PO PRN ×2 (13:15→14:00)
[2017-07-14] MEDS ORDERED: MAG HYDROX/AL HYDROX/SIMETH 30 ML ORAL.SUSP PO PRN (13:15)
[2017-07-14] MEDS ORDERED: BISACODYL TAB 5 MG TABLET.DR. PO PRN (14:00)
[2017-07-14] MEDS ORDERED: SODIUM CHLORIDE 5% IV SCH (14:00)
[2017-07-14] MEDS: DIVALPROEX 125 MG CAP.SPRINK PO SCH ×2 (15:06→19:56)
[2017-07-14] MEDS: QUEtiapine 25 MG TABLET. PO SCH (15:06)
[2017-07-14] MEDS: GABAPENTIN 300 MG CAPSULE. PO SCH ×2 (15:07→19:56)
[2017-07-14] MEDS: busPIRone 10 MG TABLET. PO SCH ×2 (15:07→19:56)
[2017-07-14] MEDS: POLYVINYL ALCOHOL 1.4% OPHTH SOLUTION 15ML BOTTLE. OU SCH ×3 (15:07→20:06)
[2017-07-14 15:52] VITALS: BP 124/69
[2017-07-14] MEDS: CALCIUM POLYCARBOPHIL 625 MG TABLET PO SCH (19:56)
[2017-07-14] MEDS: MIRTAZAPINE 15 MG TABLET PO SCH (19:56)
--- NOTE | 2017-07-14 19:56 | PDOC ---
Exam Note: Tunde Note: Please also refer to the separate dictated note~for this date of service dictated separately.~Patient seen individually. Discussed the patient with Nursing staff reviewed the chart.~Reviewed interim history and current functioning. Reviewed vital signs,~Labs/ Radiology~and current medications noted below. Continue current treatment with the changes noted in the dictated addendum note Assessment: Vital Signs: Vital Signs Date Time Temp Pulse Resp B/P (MAP) Pulse Ox O2 Delivery O2 Flow Rate FiO2 07/14/17 15:52 98.0 79 22 124/69 (87) 99 Room Air Current Medications: Meds: Current Medications Acetaminophen (Tylenol) 650 mg PRN Q6HRS PRN PO PAIN / TEMP; Start 07/14/17 at 13:15; Status Cancel Multi-Ingredient Ointment (Analgesic [place]) 1 cyril PRN QID PRN TP MUSCLE PAIN; Start 07/14/17 at 13:15 Al Hydroxide/Mg Hydroxide (Mylanta Plus Xs) 15 ml PRN AFTMEALHC PRN PO DYSPEPSIA; Start 07/14/17 at 13:15 Magnesium Hydroxide (Milk Of Magnesia) 2,400 mg PRN QHS PRN PO CONSTIPATION; Start 07/14/17 at 13:15 Acetaminophen (Tylenol) 325 mg PRN Q6HRS PRN PO PAIN; Start 07/14/17 at 14:00 Aspirin (Children'S Aspirin) 81 mg DAILY PO ; Start 07/15/17 at 09:00 Bisacodyl (Dulcolax Tab) 5 mg PRN DAILY PRN PO CONSTIPATION; Start 07/14/17 at 14:00 Buspirone HCl (Buspar) 10 mg TID PO Last administered on 07/14/17at 15:07; Start 07/14/17 at 14:30 Calcium Polycarbophil (Fibercon) 625 mg BID PO ; Start 07/14/17 at 21:00 Vitamin D (Vitamin D3) 50,000 unit WEEKLY PO ; Start 07/15/17 at 09:00 Cyanocobalamin (Vitamin B-12) 1,000 mcg DAILY PO ; Start 07/15/17 at 09:00 Divalproex Sodium (Depakote Sprinkles) 125 mg TID PO Last administered on at 15:06; Start 07/14/17 at 14:30 Duloxetine HCl (Cymbalta) 60 mg DAILY PO ; Start 07/15/17 at 09:00 Ferrous Sulfate (Feosol) 325 mg DAILY PO ; Start 07/15/17 at 09:00 Gabapentin (Neurontin) 300 mg TID PO Last administered on 07/14/17at 15:07; Start 07/14/17 at 14:30 Latanoprost (Xalatan) 1 drop QHS OU ; Start 07/14/17 at 21:00 Levothyroxine Sodium (Synthroid) 88 mcg DAILY06 PO ; Start 07/15/17 at 06:00 Mirtazapine (Remeron) 7.5 mg QHS PO ; Start 07/14/17 at 21:00 Olanzapine (ZyPREXA ZYDIS) 2.5 mg PRN Q2HR PRN PO ANXIETY / AGITATION; Start at 14:00 Quetiapine Fumarate (SEROquel) 12.5 mg BID92 PO Last administered on 07/14/17at 15:06; Start 07/14/17 at 14:30 Rivastigmine (Exelon) 1 patch DAILY TD ; Start 07/15/17 at 09:00 Sennosides (Senna) 8.6 mg DAILY PO ; Start 07/15/17 at 09:00 Sodium Chloride (Hypertonic Saline 5% Premix) 1,000 ml CONT IV ; Start 07/14/17 at 14:00; Status UNV Ascorbic Acid (Vitamin C) 500 mg DAILY PO ; Start 07/15/17 at 09:00 Artificial Tears (Artificial Tears) 1 drop TID OU Last administered on at 15:07; Start 07/14/17 at 14:45 Ciprofloxacin 1 drop BID OU ; Start 07/14/17 at 21:00 Multivitamins/ Calcium (Thera-M Plus) 1 tab DAILY PO ; Start 07/15/17 at 09:00 Timolol Maleate (Timoptic 0.25% Ophth) 1 drop DAILY OU ; Start 07/15/17 at 09:00 Active Scripts Active Reported Timoptic 0.25% Ocudose Drop (Timolol Maleate/Pf) 1 Each Droperette 1 Drop OU DAILY Seroquel (Quetiapine Fumarate) 25 Mg Tablet 12.5 Mg PO BID92 Sodium Chloride (Sodium Chloride 5 %) 500 Ml Iv.soln 1,000 Ml IV 1X Ciprofloxacin Hcl 2.5 Ml Drops 1 Drop EACHEYE BID Depakote Sprinkle (Divalproex Sodium) 125 Mg Cap.sprink 125 Mg PO TID Vitamin D3 (Cholecalciferol (Vitamin D3)) 50,000 Unit Capsule 50,000 Unit PO WEEKLY Zyprexa Zydis (Olanzapine) 5 Mg Tab.rapdis 2.5 Mg PO PRN Q2HR PRN MDD 10mg MAX 10mg/24hrs Haloperidol Lactate 2 Mg/1 Ml Oral.conc 5 Mg PO PRN Q6HRS PRN Ferrous Sulfate 325 Mg Tablet 325 Mg PO DAILY Latanoprost 2.5 Ml Drops 1 Drop EACHEYE QHS Mirtazapine 15 Mg Tablet 7.5 Mg PO QHS Vitamin B-12 (Cyanocobalamin (Vitamin B-12)) 1,000 Mcg Tablet 1,000 Mcg PO DAILY EXELON 9.5mg/24hr (Rivastigmine) 1 Each Patch.td24 1 Patch TD DAILY Cymbalta (Duloxetine Hcl) 60 Mg Capsule.dr 60 Mg PO DAILY Buspirone Hcl 10 Mg Tablet 10 Mg PO TID Vitamin C (Ascorbic Acid) 500 Mg Tab.chew 500 Mg PO DAILY Refresh Optive Eye Drops (Carboxymethylcellulos/Glycerin) 15 Ml Drops 1 Drop EACHEYE TID Multi-Day Vitamins (Multivitamin) 1 Each Tablet 1 Tab PO DAILY Zofran (Ondansetron Hcl) 4 Mg Tablet 1 Tab PO Q6HRS PRN Senna (Sennosides) 8.6 Mg Tablet 8.6 Mg PO DAILY Levothyroxine Sodium 112 Mcg Tablet 88 Mcg PO DAILY06 Anti-Diarrhea (Loperamide Hcl) 2 Mg Tablet 2 Mg PO PRN Q4HRS PRN Gabapentin 300 Mg Capsule 300 Mg PO TID Fiber Tabs (Calcium Polycarbophil) 625 Mg Tablet 625 Mg PO BID Bisacodyl 5 Mg Tablet.dr 5 Mg PO PRN DAILY PRN Aspirin 81 Mg Tab.chew 81 Mg PO DAILY Tylenol (Acetaminophen) 325 Mg Tablet 325 Mg PO PRN Q6HRS PRN I have reviewed the current psychotropics carefully including drug interactions. Risk benefit ratio favors no change other than as noted in my dictated progress note. Diagnosis: Problems: (1) Mental status change (2) Major depressive disorder, recurrent episode (3) Anxiety disorder (4) Impulse control disorder RITA MARMOLEJO MD Jul 14, 2017 19:56
[2017-07-14] MEDS: LATANOPROST 0.005% OPHTH SOLUTION 2.5ML BOTTLE. OU SCH ×2 (19:57→20:06)
[2017-07-14] MEDS: CIPROFLOXACIN 0.3% OPHTH SOLUTION 2.5ML BOTTLE. OU SCH (21:00)
[2017-07-15 05:50] VITALS: BP 128/77
[2017-07-15 07:45] LABS: BASO % 1 % (0-3); EOS # 0.3 x10^3/uL (0.0-0.7); EOS % 8 % (0-3); HEMATOCRIT 30.8 % (36.0-47.0); HEMOGLOBIN 10.2 g/dL (12.0-15.5); LYMPH # 1.3 x10^3/uL (1.0-4.8); LYMPH % 35 % (24-48); MEAN CORPUSCULAR HEMOGLOBIN 26 pg (25-35); MEAN CORPUSCULAR HGB CONC 33 g/dL (31-37); MEAN CORPUSCULAR VOLUME 78 fL (79-100); MONO # 0.3 x10^3/uL (0.0-1.1); MONO % 9 % (0-9); NEUT # 1.7 x10^3uL (1.8-7.7); NEUT % 47 % (31-73); PLATELET COUNT 231 x10^3/uL (140-400); RED BLOOD COUNT 3.95 x10^6/uL (3.50-5.40); RED CELL DISTRIBUTION WIDTH 17.1 % (11.5-14.5); WHITE BLOOD COUNT 3.6 x10^3/uL (4.0-11.0)
[2017-07-15 07:56] LABS: ALBUMIN 2.4 g/dL (3.4-5.0); ALBUMIN/GLOBULIN RATIO 0.8 (1.0-1.7); CALCIUM 8.1 mg/dL (8.5-10.1); CREATININE 0.5 mg/dL (0.6-1.0); GFR 122.7; MAGNESIUM 1.8 mg/dL (1.8-2.4); POTASSIUM 3.7 mmol/L (3.5-5.1); TOTAL BILIRUBIN 0.2 mg/dL (0.2-1.0); TOTAL PROTEIN 5.6 g/dL (6.4-8.2)
[2017-07-15 08:41] LABS: VAL ACID 26 mcg/mL (50-100)
[2017-07-15] MEDS: busPIRone 10 MG TABLET. PO SCH ×3 (08:48→19:36)
[2017-07-15] MEDS: GABAPENTIN 300 MG CAPSULE. PO SCH ×3 (08:48→19:36)
[2017-07-15] MEDS: CALCIUM POLYCARBOPHIL 625 MG TABLET PO SCH ×2 (08:48→19:35)
[2017-07-15] MEDS: DIVALPROEX 125 MG CAP.SPRINK PO SCH ×3 (08:48→19:36)
[2017-07-15] MEDS: TIMOLOL 0.25% OPHTH SOLUTION 5ML BOTTLE. OU SCH ×2 (08:49→19:36)
[2017-07-15] MEDS: QUEtiapine 25 MG TABLET. PO SCH ×2 (08:49→13:30)
[2017-07-15] MEDS: CIPROFLOXACIN 0.3% OPHTH SOLUTION 2.5ML BOTTLE. OU SCH ×2 (08:49→19:36)
[2017-07-15] MEDS: CYANOCOBALAMIN (VITAMIN B-12) 1,000 MCG TABLET. PO SCH (08:54)
[2017-07-15] MEDS: ASCORBIC ACID 500 MG TABLET PO SCH (08:54)
[2017-07-15] MEDS: MULTIVITAMIN with MINERAL TABLET. PO SCH (08:54)
[2017-07-15] MEDS: ASPIRIN 81 MG TAB.CHEW PO SCH (08:54)
[2017-07-15] MEDS: FERROUS SULFATE 325 MG TABLET. PO SCH (08:54)
[2017-07-15] MEDS: RIVASTIGMINE 9.5MG PATCH. TD SCH (08:54)
[2017-07-15] MEDS: DULoxetine HCL 60 MG CAPSULE.DR PO SCH (08:54)
[2017-07-15] MEDS: CHOLECALCIFEROL (VITAMIN D3) 50,000 UNIT CAPSULE PO SCH (08:54)
[2017-07-15] MEDS: SENNOSIDES 8.6 MG TABLET PO SCH (08:55)
[2017-07-15] MEDS: POLYVINYL ALCOHOL 1.4% OPHTH SOLUTION 15ML BOTTLE. OU SCH ×3 (08:55→19:36)
--- NOTE | 2017-07-15 13:41 | HP ---
ADMIT DATE: 07/14/2017 PSYCHIATRIC ADMISSION HISTORY AND EVALUATION This is a late entry, date of service 07/14, covers the elements not covered in my initial note of 07/14. The patient was seen individually evening of 07/14. Discussed with nursing staff, reviewed the chart. IDENTIFYING DATA: The patient is a 67-year-old female who initially was referred to us from [facility] in [place] on account of increased agitation, being combative, refusing medications, not eating, having failed inpatient psychiatric hospitalization at [facility] for an extended period of time. She appeared psychotic, unmanageable at the custodial and referred for restabilization. She was on our unit for a short period of time and then became medically compromised and was transferred to the ICU per Dr. Chen/Dr. Welch for medical stabilization of her hypotension and poor appetite. The patient has been medically stabilized, but remains combative, agitated, aggressive, even more confused and is referred back for inpatient psychiatric stabilization. CHIEF COMPLAINT: "No." The patient is in her wheelchair. HISTORY OF PRESENT ILLNESS: The patient has a history of major depressive disorder with psychotic features, but over the past several months, she has appeared even more confused, extremely disorganized, unable to recognize people she has known well in the past, all of which is quite a change. She has also appeared paranoid, delusional, refusing to eat, noncompliant with cares. No active suicidal or homicidal ideation. PAST PSYCHIATRIC HISTORY: As above. MEDICAL HISTORY: Cellulitis, chronic constipation, hypotension, improved; history of hypertension, muscle wasting, osteoarthritis, glaucoma, GERD, Meniere's disease, hyperlipidemia, pacemaker. ACCU-CHEKS: None. CODE STATUS: DNR. ALLERGIES: PENICILLIN, PROMETHAZINE, SULFA, NOVOCAIN, OMNICEF, VERSED, ZOSYN, ADHESIVE TAPE. DIET: Mechanical soft. CURRENT PSYCHOTROPICS: BuSpar 10 mg 3 times a day, Depakote 125 mg 3 times a day, Remeron 7.5 mg at bedtime, Cymbalta 60 mg a day, Seroquel 12.5 mg twice a day, Exelon patch 9.5 mg a day, Zyprexa p.r.n. FAMILY HISTORY: Noncontributory. SOCIAL HISTORY: The patient resides at [facility]. Her resides there as well and is her DPOA. No alcohol, drug abuse, physical, sexual or elder abuse history is noted. Not known to be a perpetrator. MENTAL STATUS EXAMINATION: The patient was seen individually on evening of 07/14. She is in a wheelchair, oriented to herself, not very verbal, withdrawn, appears paranoid. Insight, judgment, recent and remote memory, attention, concentration, fund of knowledge poor, consistent with her diagnosis. IMPRESSION: Major neurocognitive disorder, Alzheimer, vascular with delusion, depression, behavioral disturbance; anxiety disorder, unspecified; impulse control disorder, unspecified; major depressive disorder with psychotic features. Rest as above. PLAN: Admit to geropsychiatry unit at [facility]. I will see the patient daily individually from a psychiatric standpoint. Medical followup per Dr. Chen/Dr. Welch. Continue current psychotropics. Follow valproic acid level. We will defer to Dr. Chen/Dr. Welch whether patient needs hospice care or not. MAN Nupur MARMOLEJO MD DR: SORAYA/shaneka JOB#: [id number] / [id number]
[2017-07-15 15:54] VITALS: BP 122/71
[2017-07-15 19:08] LABS: THYROXINE 6.4 ug/dL (4.5-12.0)
[2017-07-15] MEDS: LATANOPROST 0.005% OPHTH SOLUTION 2.5ML BOTTLE. OU SCH (19:36)
[2017-07-15] MEDS: MIRTAZAPINE 15 MG TABLET PO SCH (19:37)
--- NOTE | 2017-07-15 20:12 | PDOC ---
Exam Note: Tunde Note: Please also refer to the separate dictated note~for this date of service dictated separately.~Patient seen individually. Discussed the patient with Nursing staff reviewed the chart.~Reviewed interim history and current functioning. Reviewed vital signs,~Labs/ Radiology~and current medications noted below. Continue current treatment with the changes noted in the dictated addendum note Assessment: Vital Signs: Vital Signs Date Time Temp Pulse Resp B/P (MAP) Pulse Ox O2 Delivery O2 Flow Rate FiO2 07/15/17 15:54 97.9 63 16 122/71 (88) 92 Room Air I&O Intake and Output 07/15/17 07:00 Intake Total 600 ml Balance 600 ml Intake Oral 600 ml # Voids 3 Labs: Laboratory Tests Test 07/15/17 07:08 White Blood Count 3.6 x10^3/uL (4.0-11.0) L Red Blood Count 3.95 x10^6/uL (3.50-5.40) Hemoglobin 10.2 g/dL (12.0-15.5) L Hematocrit 30.8 % (36.0-47.0) L Mean Corpuscular Volume 78 fL (79-100) L Mean Corpuscular Hemoglobin 26 pg (25-35) Mean Corpuscular Hemoglobin Concent 33 g/dL (31-37) Red Cell Distribution Width 17.1 % (11.5-14.5) H Platelet Count 231 x10^3/uL (140-400) Neutrophils (%) (Auto) 47 % (31-73) Lymphocytes (%) (Auto) 35 % (24-48) Monocytes (%) (Auto) 9 % (0-9) Eosinophils (%) (Auto) 8 % (0-3) H Basophils (%) (Auto) 1 % (0-3) Neutrophils # (Auto) 1.7 x10^3uL (1.8-7.7) L Lymphocytes # (Auto) 1.3 x10^3/uL (1.0-4.8) Monocytes # (Auto) 0.3 x10^3/uL (0.0-1.1) Eosinophils # (Auto) 0.3 x10^3/uL (0.0-0.7) Basophils # (Auto) 0.0 x10^3/uL (0.0-0.2) Sodium Level 145 mmol/L (136-145) Potassium Level 3.7 mmol/L (3.5-5.1) Chloride Level 111 mmol/L (98-107) H Carbon Dioxide Level 28 mmol/L (21-32) Anion Gap 6 (6-14) Blood Urea Nitrogen 6 mg/dL (7-20) L Creatinine 0.5 mg/dL (0.6-1.0) L Estimated GFR (Cockcroft-Gault) 122.7 BUN/Creatinine Ratio 12 (6-20) Glucose Level 82 mg/dL (70-99) Calcium Level 8.1 mg/dL (8.5-10.1) L Magnesium Level 1.8 mg/dL (1.8-2.4) Iron Level 21 ug/dL (50-170) L Total Iron Binding Capacity 277 ug/dL (250-450) Iron Saturation 8 % (15-34) L Total Bilirubin 0.2 mg/dL (0.2-1.0) Aspartate Amino Transferase (AST) 15 U/L (15-37) Alanine Aminotransferase (ALT) 13 U/L (14-59) L Alkaline Phosphatase 61 U/L (46-116) Total Protein 5.6 g/dL (6.4-8.2) L Albumin 2.4 g/dL (3.4-5.0) L Albumin/Globulin Ratio 0.8 (1.0-1.7) L Vitamin B12 Level 390 pg/mL (247-911) 25-Hydroxy Vitamin D Total 18.1 ng/mL (30-100) L Thyroid Stimulating Hormone (TSH) 1.311 uIU/mL (0.358-3.740) Thyroxine (T4) 6.4 ug/dL (4.5-12.0) Total Triiodothyronine (TT3) 91 ng/dL (71-180) Valproic Acid Level 26 mcg/mL (50-100) L Valproic Acid Last Dose Date 07/14/17 Valproic Acid Last Dose Time 2100 Current Medications: Meds: Current Medications Acetaminophen (Tylenol) 650 mg PRN Q6HRS PRN PO PAIN / TEMP; Start 07/14/17 at 13:15; Status Cancel Multi-Ingredient Ointment (Analgesic [place]) 1 cyril PRN QID PRN TP MUSCLE PAIN; Start 07/14/17 at 13:15 Al Hydroxide/Mg Hydroxide (Mylanta Plus Xs) 15 ml PRN AFTMEALHC PRN PO DYSPEPSIA; Start 07/14/17 at 13:15 Magnesium Hydroxide (Milk Of Magnesia) 2,400 mg PRN QHS PRN PO CONSTIPATION; Start 07/14/17 at 13:15 Acetaminophen (Tylenol) 325 mg PRN Q6HRS PRN PO PAIN; Start 07/14/17 at 14:00 Aspirin (Children'S Aspirin) 81 mg DAILY PO Last administered on 07/15/17at 08: 54; Start 07/15/17 at 09:00 Bisacodyl (Dulcolax Tab) 5 mg PRN DAILY PRN PO CONSTIPATION; Start 07/14/17 at 14:00 Buspirone HCl (Buspar) 10 mg TID PO Last administered on 07/15/17at 19:36; Start 07/14/17 at 14:30 Calcium Polycarbophil (Fibercon) 625 mg BID PO Last administered on 07/15/17at 19:35; Start 07/14/17 at 21:00 Vitamin D (Vitamin D3) 50,000 unit WEEKLY PO Last administered on 07/15/17at 08: 54; Start 07/15/17 at 09:00 Cyanocobalamin (Vitamin B-12) 1,000 mcg DAILY PO Last administered on at 08:54; Start 07/15/17 at 09:00 Divalproex Sodium (Depakote Sprinkles) 125 mg TID PO Last administered on at 19:36; Start 07/14/17 at 14:30 Duloxetine HCl (Cymbalta) 60 mg DAILY PO Last administered on 07/15/17at 08:54; Start 07/15/17 at 09:00 Ferrous Sulfate (Feosol) 325 mg DAILY PO Last administered on 07/15/17at 08:54; Start 07/15/17 at 09:00 Gabapentin (Neurontin) 300 mg TID PO Last administered on 07/15/17at 19:36; Start 07/14/17 at 14:30 Latanoprost (Xalatan) 1 drop QHS OU Last administered on 07/15/17at 19:36; Start 07/14/17 at 21:00 Levothyroxine Sodium (Synthroid) 88 mcg DAILY06 PO ; Start 07/15/17 at 06:00 Mirtazapine (Remeron) 7.5 mg QHS PO Last administered on 07/15/17at 19:37; Start 07/14/17 at 21:00 Olanzapine (ZyPREXA ZYDIS) 2.5 mg PRN Q2HR PRN PO ANXIETY / AGITATION; Start at 14:00 Quetiapine Fumarate (SEROquel) 12.5 mg BID92 PO Last administered on 07/15/17at 13:30; Start 07/14/17 at 14:30 Rivastigmine (Exelon) 1 patch DAILY TD Last administered on 07/15/17 08:54; Start 07/15/17 at 09:00 Sennosides (Senna) 8.6 mg DAILY PO Last administered on 07/15/17 08:55; Start 07/15/17 at 09:00 Sodium Chloride (Hypertonic Saline 5% Premix) 1,000 ml CONT IV ; Start 07/14/17 at 14:00; Status UNV Ascorbic Acid (Vitamin C) 500 mg DAILY PO Last administered on 07/15/17at 08:54 ; Start 07/15/17 at 09:00 Artificial Tears (Artificial Tears) 1 drop TID OU Last administered on 19:36; Start 07/14/17 at 14:45 Ciprofloxacin 1 drop BID OU Last administered on 07/15/17at 19:36; Start at 21:00 Multivitamins/ Calcium (Thera-M Plus) 1 tab DAILY PO Last administered on at 08:54; Start 07/15/17 at 09:00 Timolol Maleate (Timoptic 0.25% Oph) 1 drop DAILY OU Last administered on at 19:36; Start 07/15/17 at 09:00 Vitamin D (Vitamin D3) 50,000 unit WEEKLY PO ; Start 07/22/17 at 09:00; Status UNV Active Scripts Active Reported Timoptic 0.25% Ocudose Drop (Timolol Maleate/Pf) 1 Each Droperette 1 Drop OU DAILY Seroquel (Quetiapine Fumarate) 25 Mg Tablet 12.5 Mg PO BID92 Sodium Chloride (Sodium Chloride 5 %) 500 Ml Iv.soln 1,000 Ml IV 1X Ciprofloxacin Hcl 2.5 Ml Drops 1 Drop EACHEYE BID Depakote Sprinkle (Divalproex Sodium) 125 Mg Cap.sprink 125 Mg PO TID Vitamin D3 (Cholecalciferol (Vitamin D3)) 50,000 Unit Capsule 50,000 Unit PO WEEKLY Zyprexa Zydis (Olanzapine) 5 Mg Tab.rapdis 2.5 Mg PO PRN Q2HR PRN MDD 10mg MAX 10mg/24hrs Haloperidol Lactate 2 Mg/1 Ml Oral.conc 5 Mg PO PRN Q6HRS PRN Ferrous Sulfate 325 Mg Tablet 325 Mg PO DAILY Latanoprost 2.5 Ml Drops 1 Drop EACHEYE QHS Mirtazapine 15 Mg Tablet 7.5 Mg PO QHS Vitamin B-12 (Cyanocobalamin (Vitamin B-12)) 1,000 Mcg Tablet 1,000 Mcg PO DAILY EXELON 9.5mg/24hr (Rivastigmine) 1 Each Patch.td24 1 Patch TD DAILY Cymbalta (Duloxetine Hcl) 60 Mg Capsule.dr 60 Mg PO DAILY Buspirone Hcl 10 Mg Tablet 10 Mg PO TID Vitamin C (Ascorbic Acid) 500 Mg Tab.chew 500 Mg PO DAILY Refresh Optive Eye Drops (Carboxymethylcellulos/Glycerin) 15 Ml Drops 1 Drop EACHEYE TID Multi-Day Vitamins (Multivitamin) 1 Each Tablet 1 Tab PO DAILY Zofran (Ondansetron Hcl) 4 Mg Tablet 1 Tab PO Q6HRS PRN Senna (Sennosides) 8.6 Mg Tablet 8.6 Mg PO DAILY Levothyroxine Sodium 112 Mcg Tablet 88 Mcg PO DAILY06 Anti-Diarrhea (Loperamide Hcl) 2 Mg Tablet 2 Mg PO PRN Q4HRS PRN Gabapentin 300 Mg Capsule 300 Mg PO TID Fiber Tabs (Calcium Polycarbophil) 625 Mg Tablet 625 Mg PO BID Bisacodyl 5 Mg Tablet.dr 5 Mg PO PRN DAILY PRN Aspirin 81 Mg Tab.chew 81 Mg PO DAILY Tylenol (Acetaminophen) 325 Mg Tablet 325 Mg PO PRN Q6HRS PRN I have reviewed the current psychotropics carefully including drug interactions. Risk benefit ratio favors no change other than as noted in my dictated progress note. Diagnosis: Problems: (1) Mental status change (2) Major depressive disorder, recurrent episode (3) Anxiety disorder (4) Impulse control disorder RITA MARMOLEJO MD Jul 15, 2017 20:12
[2017-07-16 05:42] VITALS: BP 115/63
[2017-07-16] MEDS: LEVOTHYROXINE 88 MCG TABLET PO SCH ×2 (06:27→07:40)
[2017-07-16] MEDS: ASCORBIC ACID 500 MG TABLET PO SCH (08:38)
[2017-07-16] MEDS: CYANOCOBALAMIN (VITAMIN B-12) 1,000 MCG TABLET. PO SCH (08:38)
[2017-07-16] MEDS: CIPROFLOXACIN 0.3% OPHTH SOLUTION 2.5ML BOTTLE. OU SCH ×2 (08:38→19:55)
[2017-07-16] MEDS: GABAPENTIN 300 MG CAPSULE. PO SCH ×3 (08:38→19:53)
[2017-07-16] MEDS: DULoxetine HCL 60 MG CAPSULE.DR PO SCH (08:38)
[2017-07-16] MEDS: MULTIVITAMIN with MINERAL TABLET. PO SCH (08:38)
[2017-07-16] MEDS: POLYVINYL ALCOHOL 1.4% OPHTH SOLUTION 15ML BOTTLE. OU SCH ×3 (08:38→19:59)
[2017-07-16] MEDS: FERROUS SULFATE 325 MG TABLET. PO SCH (08:38)
[2017-07-16] MEDS: SENNOSIDES 8.6 MG TABLET PO SCH (08:39)
[2017-07-16] MEDS: busPIRone 10 MG TABLET. PO SCH ×3 (08:39→19:53)
[2017-07-16] MEDS: ASPIRIN 81 MG TAB.CHEW PO SCH (08:39)
[2017-07-16] MEDS: CALCIUM POLYCARBOPHIL 625 MG TABLET PO SCH ×2 (08:39→19:53)
[2017-07-16] MEDS: DIVALPROEX 125 MG CAP.SPRINK PO SCH ×3 (08:39→19:54)
[2017-07-16] MEDS: QUEtiapine 25 MG TABLET. PO SCH ×2 (08:39→13:26)
[2017-07-16] MEDS: RIVASTIGMINE 9.5MG PATCH. TD SCH (08:39)
--- NOTE | 2017-07-16 09:05 | PN ---
DATE: 07/15/2017 PSYCHIATRIC PROGRESS NOTE This note covers elements not covered in my initial note of 07/15/2017. I met with the patient on 07/15/2017 and staffed at a treatment team meeting with the entire team. The patient remains withdrawn, slept 3-1/4 hours previous evening, pulling out her IV previous evening and she is on continuous IV due to poor nutrition. She was biting, spitting, scratching at staff at night, and Dr. Welch is considering hospice care. REVIEW OF SYSTEMS: Ambulation impaired. No CV, , pulmonary, eye, ENT system symptoms on review. Reliability poor. MENTAL STATUS EXAM: Oriented to herself. Insight, judgment, recent and remote memory, attention, concentration, fund of knowledge poor, consistent with her diagnosis. She is not very verbal. IMPRESSION: Major neurocognitive disorder, Alzheimer, vascular with depression, delusion, behavioral disturbance. Rest unchanged. PLAN: Continue current psychotropics. Follow valproic acid level. Adjust further as clinically indicated. RITA MARMOLEJO MD DR: SORAYA/shaneka JOB#: [id number] / [id number]
[2017-07-16 16:09] VITALS: BP 109/74
[2017-07-16] MEDS: TIMOLOL 0.25% OPHTH SOLUTION 5ML BOTTLE. OU SCH (19:54)
[2017-07-16] MEDS: LATANOPROST 0.005% OPHTH SOLUTION 2.5ML BOTTLE. OU SCH (19:54)
[2017-07-16] MEDS: MIRTAZAPINE 15 MG TABLET PO SCH (19:54)
--- NOTE | 2017-07-16 20:09 | PDOC ---
Exam Note: Tunde Note: Please also refer to the separate dictated note~for this date of service dictated separately.~Patient seen individually. Discussed the patient with Nursing staff reviewed the chart.~Reviewed interim history and current functioning. Reviewed vital signs,~Labs/ Radiology~and current medications noted below. Continue current treatment with the changes noted in the dictated addendum note Assessment: Vital Signs: Vital Signs Date Time Temp Pulse Resp B/P (MAP) Pulse Ox O2 Delivery O2 Flow Rate FiO2 07/16/17 16:09 97.7 66 20 109/74 (86) 98 Room Air I&O Intake and Output 07/16/17 07:00 Intake Total 840 ml Balance 840 ml Intake Oral 840 ml Current Medications: Meds: Current Medications Acetaminophen (Tylenol) 650 mg PRN Q6HRS PRN PO PAIN / TEMP; Start 07/14/17 at 13:15; Status Cancel Multi-Ingredient Ointment (Analgesic [place]) 1 cyril PRN QID PRN TP MUSCLE PAIN; Start 07/14/17 at 13:15 Al Hydroxide/Mg Hydroxide (Mylanta Plus Xs) 15 ml PRN AFTMEALHC PRN PO DYSPEPSIA; Start 07/14/17 at 13:15 Magnesium Hydroxide (Milk Of Magnesia) 2,400 mg PRN QHS PRN PO CONSTIPATION; Start 07/14/17 at 13:15 Acetaminophen (Tylenol) 325 mg PRN Q6HRS PRN PO PAIN; Start 07/14/17 at 14:00 Aspirin (Children'S Aspirin) 81 mg DAILY PO Last administered on 07/16/17at 08: 39; Start 07/15/17 at 09:00 Bisacodyl (Dulcolax Tab) 5 mg PRN DAILY PRN PO CONSTIPATION; Start 07/14/17 at 14:00 Buspirone HCl (Buspar) 10 mg TID PO Last administered on 07/16/17at 19:53; Start 07/14/17 at 14:30 Calcium Polycarbophil (Fibercon) 625 mg BID PO Last administered on 07/16/17at 19:53; Start 07/14/17 at 21:00 Vitamin D (Vitamin D3) 50,000 unit WEEKLY PO Last administered on 07/15/17at 08: 54; Start 07/15/17 at 09:00 Cyanocobalamin (Vitamin B-12) 1,000 mcg DAILY PO Last administered on 08:38; Start 07/15/17 at 09:00 Divalproex Sodium (Depakote Sprinkles) 125 mg TID PO Last administered on 19:54; Start 07/14/17 at 14:30 Duloxetine HCl (Cymbalta) 60 mg DAILY PO Last administered on 07/16/17 08:38; Start 07/15/17 at 09:00 Ferrous Sulfate (Feosol) 325 mg DAILY PO Last administered on 07/16/17 08:38; Start 07/15/17 at 09:00 Gabapentin (Neurontin) 300 mg TID PO Last administered on 07/16/17 19:53; Start 07/14/17 at 14:30 Latanoprost (Xalatan) 1 drop QHS OU Last administered on 07/16/17 19:54; Start 07/14/17 at 21:00 Levothyroxine Sodium (Synthroid) 88 mcg DAILY06 PO Last administered on at 07:40; Start 07/15/17 at 06:00 Mirtazapine (Remeron) 7.5 mg QHS PO Last administered on 07/15/17 19:37; Start 07/14/17 at 21:00; Stop 07/16/17 at 19:18; Status DC Olanzapine (ZyPREXA ZYDIS) 2.5 mg PRN Q2HR PRN PO ANXIETY / AGITATION; Start at 14:00 Quetiapine Fumarate (SEROquel) 12.5 mg BID92 PO Last administered on 07/16/17at 13:26; Start 07/14/17 at 14:30 Rivastigmine (Exelon) 1 patch DAILY TD Last administered on 07/16/17 08:39; Start 07/15/17 at 09:00 Sennosides (Senna) 8.6 mg DAILY PO Last administered on 07/16/17at 08:39; Start 07/15/17 at 09:00 Sodium Chloride (Hypertonic Saline 5% Premix) 1,000 ml CONT IV ; Start 07/14/17 at 14:00; Status UNV Ascorbic Acid (Vitamin C) 500 mg DAILY PO Last administered on 07/16/17at 08:38 ; Start 07/15/17 at 09:00 Artificial Tears (Artificial Tears) 1 drop TID OU Last administered on 19:59; Start 07/14/17 at 14:45 Ciprofloxacin 1 drop BID OU Last administered on 07/16/17at 19:55; Start at 21:00 Multivitamins/ Calcium (Thera-M Plus) 1 tab DAILY PO Last administered on at 08:38; Start 07/15/17 at 09:00 Timolol Maleate (Timoptic 0.25% Ophth) 1 drop DAILY OU Last administered on at 19:54; Start 07/15/17 at 09:00 Vitamin D (Vitamin D3) 50,000 unit WEEKLY PO ; Start 07/22/17 at 09:00; Status UNV Mirtazapine (Remeron) 15 mg QHS PO Last administered on 07/16/17at 19:54; Start 07/16/17 at 21:00 Active Scripts Active Reported Timoptic 0.25% Ocudose Drop (Timolol Maleate/Pf) 1 Each Droperette 1 Drop OU DAILY Seroquel (Quetiapine Fumarate) 25 Mg Tablet 12.5 Mg PO BID92 Sodium Chloride (Sodium Chloride 5 %) 500 Ml Iv.soln 1,000 Ml IV 1X Ciprofloxacin Hcl 2.5 Ml Drops 1 Drop EACHEYE BID Depakote Sprinkle (Divalproex Sodium) 125 Mg Cap.sprink 125 Mg PO TID Vitamin D3 (Cholecalciferol (Vitamin D3)) 50,000 Unit Capsule 50,000 Unit PO WEEKLY Zyprexa Zydis (Olanzapine) 5 Mg Tab.rapdis 2.5 Mg PO PRN Q2HR PRN MDD 10mg MAX 10mg/24hrs Haloperidol Lactate 2 Mg/1 Ml Oral.conc 5 Mg PO PRN Q6HRS PRN Ferrous Sulfate 325 Mg Tablet 325 Mg PO DAILY Latanoprost 2.5 Ml Drops 1 Drop EACHEYE QHS Mirtazapine 15 Mg Tablet 7.5 Mg PO QHS Vitamin B-12 (Cyanocobalamin (Vitamin B-12)) 1,000 Mcg Tablet 1,000 Mcg PO DAILY EXELON 9.5mg/24hr (Rivastigmine) 1 Each Patch.td24 1 Patch TD DAILY Cymbalta (Duloxetine Hcl) 60 Mg Capsule.dr 60 Mg PO DAILY Buspirone Hcl 10 Mg Tablet 10 Mg PO TID Vitamin C (Ascorbic Acid) 500 Mg Tab.chew 500 Mg PO DAILY Refresh Optive Eye Drops (Carboxymethylcellulos/Glycerin) 15 Ml Drops 1 Drop EACHEYE TID Multi-Day Vitamins (Multivitamin) 1 Each Tablet 1 Tab PO DAILY Zofran (Ondansetron Hcl) 4 Mg Tablet 1 Tab PO Q6HRS PRN Senna (Sennosides) 8.6 Mg Tablet 8.6 Mg PO DAILY Levothyroxine Sodium 112 Mcg Tablet 88 Mcg PO DAILY06 Anti-Diarrhea (Loperamide Hcl) 2 Mg Tablet 2 Mg PO PRN Q4HRS PRN Gabapentin 300 Mg Capsule 300 Mg PO TID Fiber Tabs (Calcium Polycarbophil) 625 Mg Tablet 625 Mg PO BID Bisacodyl 5 Mg Tablet.dr 5 Mg PO PRN DAILY PRN Aspirin 81 Mg Tab.chew 81 Mg PO DAILY Tylenol (Acetaminophen) 325 Mg Tablet 325 Mg PO PRN Q6HRS PRN I have reviewed the current psychotropics carefully including drug interactions. Risk benefit ratio favors no change other than as noted in my dictated progress note. Diagnosis: Problems: (1) Mental status change (2) Major depressive disorder, recurrent episode (3) Anxiety disorder (4) Impulse control disorder RITA MARMOLEJO MD Jul 16, 2017 20:09
[2017-07-17] MEDS: LEVOTHYROXINE 88 MCG TABLET PO SCH (05:52)
[2017-07-17 05:53] VITALS: BP 117/78
[2017-07-17] MEDS: busPIRone 10 MG TABLET. PO SCH ×3 (08:31→21:10)
[2017-07-17] MEDS: CALCIUM POLYCARBOPHIL 625 MG TABLET PO SCH ×2 (08:31→21:10)
[2017-07-17] MEDS: ASPIRIN 81 MG TAB.CHEW PO SCH (08:31)
[2017-07-17] MEDS: CYANOCOBALAMIN (VITAMIN B-12) 1,000 MCG TABLET. PO SCH (08:31)
[2017-07-17] MEDS: SENNOSIDES 8.6 MG TABLET PO SCH (08:31)
[2017-07-17] MEDS: GABAPENTIN 300 MG CAPSULE. PO SCH ×3 (08:31→21:11)
[2017-07-17] MEDS: RIVASTIGMINE 9.5MG PATCH. TD SCH (08:32)
[2017-07-17] MEDS: QUEtiapine 25 MG TABLET. PO SCH ×2 (08:32→14:21)
[2017-07-17] MEDS: DULoxetine HCL 60 MG CAPSULE.DR PO SCH (08:32)
[2017-07-17] MEDS: FERROUS SULFATE 325 MG TABLET. PO SCH (08:32)
[2017-07-17] MEDS: MULTIVITAMIN with MINERAL TABLET. PO SCH (08:32)
[2017-07-17] MEDS: DIVALPROEX 125 MG CAP.SPRINK PO SCH ×3 (08:32→21:10)
[2017-07-17] MEDS: ASCORBIC ACID 500 MG TABLET PO SCH (08:32)
[2017-07-17] MEDS: CIPROFLOXACIN 0.3% OPHTH SOLUTION 2.5ML BOTTLE. OU SCH ×2 (08:33→21:11)
[2017-07-17] MEDS: POLYVINYL ALCOHOL 1.4% OPHTH SOLUTION 15ML BOTTLE. OU SCH ×3 (08:33→21:12)
--- NOTE | 2017-07-17 11:09 | PN ---
DATE: 07/15/2017 This late entry, 07/15/2017, covers elements not covered in my initial note of 07/15/2017. SUBJECTIVE: I met with the patient the evening of 07/15/2017 and staffed at treatment team meeting with the entire team morning of 07/15/2017. I reviewed the patient's history, diagnosis, possibility of hospice care. She slept 3-1/4 hours the previous evening. She pulled out her IV line, was biting, spitting, scratching at staff, unmanageable, labile. MAN Nupur MARMOLEJO MD DR: SORAYA/shaneka JOB#: [id number] / [id number]
[2017-07-17 16:14] VITALS: BP 116/75
--- NOTE | 2017-07-17 20:31 | PDOC ---
Exam Note: Tunde Note: Please also refer to the separate dictated note~for this date of service dictated separately.~Patient seen individually. Discussed the patient with Nursing staff reviewed the chart.~Reviewed interim history and current functioning. Reviewed vital signs,~Labs/ Radiology~and current medications noted below. Continue current treatment with the changes noted in the dictated addendum note Assessment: Vital Signs: Vital Signs Date Time Temp Pulse Resp B/P (MAP) Pulse Ox O2 Delivery O2 Flow Rate FiO2 07/17/17 16:14 97.6 71 16 116/75 (89) 95 07/16/17 16:09 Room Air I&O Intake and Output 07/17/17 07:00 Intake Total 240 ml Balance 240 ml Intake Oral 240 ml Current Medications: Meds: Current Medications Acetaminophen (Tylenol) 650 mg PRN Q6HRS PRN PO PAIN / TEMP; Start 07/14/17 at 13:15; Status Cancel Multi-Ingredient Ointment (Analgesic [place]) 1 cyril PRN QID PRN TP MUSCLE PAIN; Start 07/14/17 at 13:15 Al Hydroxide/Mg Hydroxide (Mylanta Plus Xs) 15 ml PRN AFTMEALHC PRN PO DYSPEPSIA; Start 07/14/17 at 13:15 Magnesium Hydroxide (Milk Of Magnesia) 2,400 mg PRN QHS PRN PO CONSTIPATION Last administered on 07/17/17at 14:20; Start 07/14/17 at 13:15 Acetaminophen (Tylenol) 325 mg PRN Q6HRS PRN PO PAIN; Start 07/14/17 at 14:00 Aspirin (Children'S Aspirin) 81 mg DAILY PO Last administered on 07/17/17at 08: 31; Start 07/15/17 at 09:00 Bisacodyl (Dulcolax Tab) 5 mg PRN DAILY PRN PO CONSTIPATION; Start 07/14/17 at 14:00 Buspirone HCl (Buspar) 10 mg TID PO Last administered on 07/17/17at 14:20; Start 07/14/17 at 14:30 Calcium Polycarbophil (Fibercon) 625 mg BID PO Last administered on 07/17/17at 08:31; Start 07/14/17 at 21:00 Vitamin D (Vitamin D3) 50,000 unit WEEKLY PO Last administered on 07/15/17at 08: 54; Start 07/15/17 at 09:00 Cyanocobalamin (Vitamin B-12) 1,000 mcg DAILY PO Last administered on 08:31; Start 07/15/17 at 09:00 Divalproex Sodium (Depakote Sprinkles) 125 mg TID PO Last administered on 14:21; Start 07/14/17 at 14:30 Duloxetine HCl (Cymbalta) 60 mg DAILY PO Last administered on 07/17/17 08:32; Start 07/15/17 at 09:00 Ferrous Sulfate (Feosol) 325 mg DAILY PO Last administered on 07/17/17 08:32; Start 07/15/17 at 09:00 Gabapentin (Neurontin) 300 mg TID PO Last administered on 07/17/17 14:21; Start 07/14/17 at 14:30 Latanoprost (Xalatan) 1 drop QHS OU Last administered on 07/16/17 19:54; Start 07/14/17 at 21:00 Levothyroxine Sodium (Synthroid) 88 mcg DAILY06 PO Last administered on 05:52; Start 07/15/17 at 06:00 Mirtazapine (Remeron) 7.5 mg QHS PO Last administered on 07/15/17at 19:37; Start 07/14/17 at 21:00; Stop 07/16/17 at 19:18; Status DC Olanzapine (ZyPREXA ZYDIS) 2.5 mg PRN Q2HR PRN PO ANXIETY / AGITATION; Start at 14:00 Quetiapine Fumarate (SEROquel) 12.5 mg BID92 PO Last administered on 07/17/17 14:21; Start 07/14/17 at 14:30 Rivastigmine (Exelon) 1 patch DAILY TD Last administered on 07/17/17 08:32; Start 07/15/17 at 09:00 Sennosides (Senna) 8.6 mg DAILY PO Last administered on 07/17/17 08:31; Start 07/15/17 at 09:00 Sodium Chloride (Hypertonic Saline 5% Premix) 1,000 ml CONT IV ; Start 07/14/17 at 14:00; Status UNV Ascorbic Acid (Vitamin C) 500 mg DAILY PO Last administered on 07/17/17at 08:32 ; Start 07/15/17 at 09:00 Artificial Tears (Artificial Tears) 1 drop TID OU Last administered on at 19:59; Start 07/14/17 at 14:45 Ciprofloxacin 1 drop BID OU Last administered on 07/17/17at 08:33; Start at 21:00 Multivitamins/ Calcium (Thera-M Plus) 1 tab DAILY PO Last administered on at 08:32; Start 07/15/17 at 09:00 Timolol Maleate (Timoptic 0.25% Ophth) 1 drop DAILY OU Last administered on at 19:54; Start 07/15/17 at 09:00 Vitamin D (Vitamin D3) 50,000 unit WEEKLY PO ; Start 07/22/17 at 09:00; Status UNV Mirtazapine (Remeron) 15 mg QHS PO Last administered on 07/16/17at 19:54; Start 07/16/17 at 21:00 Magnesium Citrate (Citroma) 148 ml 1X ONCE PO ; Start 07/17/17 at 21:00; Stop 07/17/17 at 21:01 Active Scripts Active Reported Timoptic 0.25% Ocudose Drop (Timolol Maleate/Pf) 1 Each Droperette 1 Drop OU DAILY Seroquel (Quetiapine Fumarate) 25 Mg Tablet 12.5 Mg PO BID92 Sodium Chloride (Sodium Chloride 5 %) 500 Ml Iv.soln 1,000 Ml IV 1X Ciprofloxacin Hcl 2.5 Ml Drops 1 Drop EACHEYE BID Depakote Sprinkle (Divalproex Sodium) 125 Mg Cap.sprink 125 Mg PO TID Vitamin D3 (Cholecalciferol (Vitamin D3)) 50,000 Unit Capsule 50,000 Unit PO WEEKLY Zyprexa Zydis (Olanzapine) 5 Mg Tab.rapdis 2.5 Mg PO PRN Q2HR PRN MDD 10mg MAX 10mg/24hrs Haloperidol Lactate 2 Mg/1 Ml Oral.conc 5 Mg PO PRN Q6HRS PRN Ferrous Sulfate 325 Mg Tablet 325 Mg PO DAILY Latanoprost 2.5 Ml Drops 1 Drop EACHEYE QHS Mirtazapine 15 Mg Tablet 7.5 Mg PO QHS Vitamin B-12 (Cyanocobalamin (Vitamin B-12)) 1,000 Mcg Tablet 1,000 Mcg PO DAILY EXELON 9.5mg/24hr (Rivastigmine) 1 Each Patch.td24 1 Patch TD DAILY Cymbalta (Duloxetine Hcl) 60 Mg Capsule.dr 60 Mg PO DAILY Buspirone Hcl 10 Mg Tablet 10 Mg PO TID Vitamin C (Ascorbic Acid) 500 Mg Tab.chew 500 Mg PO DAILY Refresh Optive Eye Drops (Carboxymethylcellulos/Glycerin) 15 Ml Drops 1 Drop EACHEYE TID Multi-Day Vitamins (Multivitamin) 1 Each Tablet 1 Tab PO DAILY Zofran (Ondansetron Hcl) 4 Mg Tablet 1 Tab PO Q6HRS PRN Senna (Sennosides) 8.6 Mg Tablet 8.6 Mg PO DAILY Levothyroxine Sodium 112 Mcg Tablet 88 Mcg PO DAILY06 Anti-Diarrhea (Loperamide Hcl) 2 Mg Tablet 2 Mg PO PRN Q4HRS PRN Gabapentin 300 Mg Capsule 300 Mg PO TID Fiber Tabs (Calcium Polycarbophil) 625 Mg Tablet 625 Mg PO BID Bisacodyl 5 Mg Tablet.dr 5 Mg PO PRN DAILY PRN Aspirin 81 Mg Tab.chew 81 Mg PO DAILY Tylenol (Acetaminophen) 325 Mg Tablet 325 Mg PO PRN Q6HRS PRN I have reviewed the current psychotropics carefully including drug interactions. Risk benefit ratio favors no change other than as noted in my dictated progress note. Diagnosis: Problems: (1) Mental status change (2) Major depressive disorder, recurrent episode (3) Anxiety disorder (4) Impulse control disorder RITA MARMOLEJO MD Jul 17, 2017 20:31
[2017-07-17] MEDS ORDERED: MAGNESIUM CITRATE 296 ML SOLUTION. PO ONE (21:00)
[2017-07-17] MEDS: TIMOLOL 0.25% OPHTH SOLUTION 5ML BOTTLE. OU SCH (21:11)
[2017-07-17] MEDS: LATANOPROST 0.005% OPHTH SOLUTION 2.5ML BOTTLE. OU SCH (21:11)
[2017-07-17] MEDS: MIRTAZAPINE 15 MG TABLET PO SCH (21:11)
[2017-07-18] MEDS: LEVOTHYROXINE 88 MCG TABLET PO SCH (05:13)
[2017-07-18 05:37] VITALS: BP 130/73
[2017-07-18] MEDS: DULoxetine HCL 60 MG CAPSULE.DR PO SCH (10:06)
[2017-07-18] MEDS: DIVALPROEX 125 MG CAP.SPRINK PO SCH ×3 (10:06→19:40)
[2017-07-18] MEDS: ASCORBIC ACID 500 MG TABLET PO SCH ×2 (10:06→11:00)
[2017-07-18] MEDS: MULTIVITAMIN with MINERAL TABLET. PO SCH ×2 (10:06→11:00)
[2017-07-18] MEDS: QUEtiapine 25 MG TABLET. PO SCH ×2 (10:06→13:42)
[2017-07-18] MEDS: busPIRone 10 MG TABLET. PO SCH ×4 (10:06→19:41)
[2017-07-18] MEDS: CYANOCOBALAMIN (VITAMIN B-12) 1,000 MCG TABLET. PO SCH ×2 (10:06→11:00)
[2017-07-18] MEDS: CALCIUM POLYCARBOPHIL 625 MG TABLET PO SCH ×3 (10:06→19:40)
[2017-07-18] MEDS: SENNOSIDES 8.6 MG TABLET PO SCH ×2 (10:07→11:00)
[2017-07-18] MEDS: FERROUS SULFATE 325 MG TABLET. PO SCH (10:07)
[2017-07-18] MEDS: GABAPENTIN 300 MG CAPSULE. PO SCH ×3 (10:07→19:41)
[2017-07-18] MEDS: ASPIRIN 81 MG TAB.CHEW PO SCH (10:07)
[2017-07-18] MEDS: RIVASTIGMINE 9.5MG PATCH. TD SCH (10:07)
[2017-07-18] MEDS: CIPROFLOXACIN 0.3% OPHTH SOLUTION 2.5ML BOTTLE. OU SCH ×3 (10:07→19:41)
[2017-07-18] MEDS: POLYVINYL ALCOHOL 1.4% OPHTH SOLUTION 15ML BOTTLE. OU SCH ×3 (10:07→13:42)
[2017-07-18] MEDS: TIMOLOL 0.25% OPHTH SOLUTION 5ML BOTTLE. OU SCH ×2 (10:08→11:00)
[2017-07-18 16:16] VITALS: BP 107/67
--- NOTE | 2017-07-18 18:35 | PN ---
DATE: 07/16/2017 This late entry 07/16/2017 covers elements not covered in my initial note 07/16/2017. SUBJECTIVE: I met with the patient in the evening of 07/16/2017. The patient slept 4 hours previous evening, compliant with medications. Appetite is better, which is quite an improvement. Fluid intake is improved as well. REVIEW OF SYSTEMS: Ambulation impaired, in a Broda chair. No CV, , pulmonary, eye, ENT system symptoms on review. MENTAL STATUS EXAM: Oriented to herself and situation. Speech moderate latency, often responses monosyllabic. Abstraction fair, computation impaired, language function intact. Mood and affect is improved. No active suicidal ideation. LABORATORY DATA: Reviewed. IMPRESSION: Major neurocognitive disorder, Alzheimer, vascular with depression; major depressive disorder, recurrent. PLAN: Increase Remeron to 15 mg p.o. at bedtime. Maintain the rest of the psychotropics mentioned in my initial note. RITA MARMOLEJO MD DR: SORAYA/shaneka JOB#: [id number] / [id number]
[2017-07-18] MEDS: MIRTAZAPINE 15 MG TABLET PO SCH (19:41)
[2017-07-18] MEDS: LATANOPROST 0.005% OPHTH SOLUTION 2.5ML BOTTLE. OU SCH (19:41)
--- NOTE | 2017-07-18 20:05 | PDOC ---
Exam Note: Tunde Note: Please also refer to the separate dictated note~for this date of service dictated separately.~Patient seen individually. Discussed the patient with Nursing staff reviewed the chart.~Reviewed interim history and current functioning. Reviewed vital signs,~Labs/ Radiology~and current medications noted below. Continue current treatment with the changes noted in the dictated addendum note Assessment: Vital Signs: Vital Signs Date Time Temp Pulse Resp B/P (MAP) Pulse Ox O2 Delivery O2 Flow Rate FiO2 07/18/17 16:16 98.3 69 18 107/67 (80) 92 07/16/17 16:09 Room Air I&O Intake and Output 07/18/17 07:00 Intake Total 480 ml Balance 480 ml Intake Oral 480 ml Current Medications: Meds: Current Medications Acetaminophen (Tylenol) 650 mg PRN Q6HRS PRN PO PAIN / TEMP; Start 07/14/17 at 13:15; Status Cancel Multi-Ingredient Ointment (Analgesic [place]) 1 cyril PRN QID PRN TP MUSCLE PAIN; Start 07/14/17 at 13:15 Al Hydroxide/Mg Hydroxide (Mylanta Plus Xs) 15 ml PRN AFTMEALHC PRN PO DYSPEPSIA; Start 07/14/17 at 13:15 Magnesium Hydroxide (Milk Of Magnesia) 2,400 mg PRN QHS PRN PO CONSTIPATION Last administered on 07/17/17at 14:20; Start 07/14/17 at 13:15 Acetaminophen (Tylenol) 325 mg PRN Q6HRS PRN PO PAIN; Start 07/14/17 at 14:00 Aspirin (Children'S Aspirin) 81 mg DAILY PO Last administered on 07/18/17at 10: 07; Start 07/15/17 at 09:00 Bisacodyl (Dulcolax Tab) 5 mg PRN DAILY PRN PO CONSTIPATION; Start 07/14/17 at 14:00 Buspirone HCl (Buspar) 10 mg TID PO Last administered on 07/18/17at 19:41; Start 07/14/17 at 14:30 Calcium Polycarbophil (Fibercon) 625 mg BID PO Last administered on 07/18/17at 19:40; Start 07/14/17 at 21:00 Vitamin D (Vitamin D3) 50,000 unit WEEKLY PO Last administered on 07/15/17at 08: 54; Start 07/15/17 at 09:00 Cyanocobalamin (Vitamin B-12) 1,000 mcg DAILY PO Last administered on 08:31; Start 07/15/17 at 09:00 Divalproex Sodium (Depakote Sprinkles) 125 mg TID PO Last administered on 19:40; Start 07/14/17 at 14:30 Duloxetine HCl (Cymbalta) 60 mg DAILY PO Last administered on 07/18/17at 10:06; Start 07/15/17 at 09:00 Ferrous Sulfate (Feosol) 325 mg DAILY PO Last administered on 07/18/17 10:07; Start 07/15/17 at 09:00 Gabapentin (Neurontin) 300 mg TID PO Last administered on 07/18/17 19:41; Start 07/14/17 at 14:30 Latanoprost (Xalatan) 1 drop QHS OU Last administered on 07/18/17 19:41; Start 07/14/17 at 21:00 Levothyroxine Sodium (Synthroid) 88 mcg DAILY06 PO Last administered on 05:13; Start 07/15/17 at 06:00 Mirtazapine (Remeron) 7.5 mg QHS PO Last administered on 07/15/17at 19:37; Start 07/14/17 at 21:00; Stop 07/16/17 at 19:18; Status DC Olanzapine (ZyPREXA ZYDIS) 2.5 mg PRN Q2HR PRN PO ANXIETY / AGITATION; Start at 14:00 Quetiapine Fumarate (SEROquel) 12.5 mg BID92 PO Last administered on 07/18/17at 13:42; Start 07/14/17 at 14:30 Rivastigmine (Exelon) 1 patch DAILY TD Last administered on 07/18/17 10:07; Start 07/15/17 at 09:00 Sennosides (Senna) 8.6 mg DAILY PO Last administered on 07/17/17at 08:31; Start 07/15/17 at 09:00 Sodium Chloride (Hypertonic Saline 5% Premix) 1,000 ml CONT IV ; Start 07/14/17 at 14:00; Status UNV Ascorbic Acid (Vitamin C) 500 mg DAILY PO Last administered on 07/17/17at 08:32 ; Start 07/15/17 at 09:00 Artificial Tears (Artificial Tears) 1 drop TID OU Last administered on at 21:12; Start 07/14/17 at 14:45; Stop 07/18/17 at 17:46; Status DC Ciprofloxacin 1 drop BID OU Last administered on 07/18/17at 19:41; Start at 21:00 Multivitamins/ Calcium (Thera-M Plus) 1 tab DAILY PO Last administered on at 08:32; Start 07/15/17 at 09:00 Timolol Maleate (Timoptic 0.25% Ophth) 1 drop DAILY OU Last administered on at 19:54; Start 07/15/17 at 09:00 Vitamin D (Vitamin D3) 50,000 unit WEEKLY PO ; Start 07/22/17 at 09:00; Status UNV Mirtazapine (Remeron) 15 mg QHS PO Last administered on 07/18/17at 19:41; Start 07/16/17 at 21:00 Magnesium Citrate (Citroma) 148 ml 1X ONCE PO Last administered on 07/17/17at 21:14; Start 07/17/17 at 21:00; Stop 07/17/17 at 21:01; Status DC Artificial Tears (Artificial Tears) 1 drop PRN TID PRN OU DRY EYE; Start at 09:00 Megestrol Acetate (Megace) 100 mg TIDAC PO ; Start 07/19/17 at 07:30 Active Scripts Active Reported Timoptic 0.25% Ocudose Drop (Timolol Maleate/Pf) 1 Each Droperette 1 Drop OU DAILY Seroquel (Quetiapine Fumarate) 25 Mg Tablet 12.5 Mg PO BID92 Sodium Chloride (Sodium Chloride 5 %) 500 Ml Iv.soln 1,000 Ml IV 1X Ciprofloxacin Hcl 2.5 Ml Drops 1 Drop EACHEYE BID Depakote Sprinkle (Divalproex Sodium) 125 Mg Cap.sprink 125 Mg PO TID Vitamin D3 (Cholecalciferol (Vitamin D3)) 50,000 Unit Capsule 50,000 Unit PO WEEKLY Zyprexa Zydis (Olanzapine) 5 Mg Tab.rapdis 2.5 Mg PO PRN Q2HR PRN MDD 10mg MAX 10mg/24hrs Haloperidol Lactate 2 Mg/1 Ml Oral.conc 5 Mg PO PRN Q6HRS PRN Ferrous Sulfate 325 Mg Tablet 325 Mg PO DAILY Latanoprost 2.5 Ml Drops 1 Drop EACHEYE QHS Mirtazapine 15 Mg Tablet 7.5 Mg PO QHS Vitamin B-12 (Cyanocobalamin (Vitamin B-12)) 1,000 Mcg Tablet 1,000 Mcg PO DAILY EXELON 9.5mg/24hr (Rivastigmine) 1 Each Patch.td24 1 Patch TD DAILY Cymbalta (Duloxetine Hcl) 60 Mg Capsule.dr 60 Mg PO DAILY Buspirone Hcl 10 Mg Tablet 10 Mg PO TID Vitamin C (Ascorbic Acid) 500 Mg Tab.chew 500 Mg PO DAILY Refresh Optive Eye Drops (Carboxymethylcellulos/Glycerin) 15 Ml Drops 1 Drop EACHEYE TID Multi-Day Vitamins (Multivitamin) 1 Each Tablet 1 Tab PO DAILY Zofran (Ondansetron Hcl) 4 Mg Tablet 1 Tab PO Q6HRS PRN Senna (Sennosides) 8.6 Mg Tablet 8.6 Mg PO DAILY Levothyroxine Sodium 112 Mcg Tablet 88 Mcg PO DAILY06 Anti-Diarrhea (Loperamide Hcl) 2 Mg Tablet 2 Mg PO PRN Q4HRS PRN Gabapentin 300 Mg Capsule 300 Mg PO TID Fiber Tabs (Calcium Polycarbophil) 625 Mg Tablet 625 Mg PO BID Bisacodyl 5 Mg Tablet.dr 5 Mg PO PRN DAILY PRN Aspirin 81 Mg Tab.chew 81 Mg PO DAILY Tylenol (Acetaminophen) 325 Mg Tablet 325 Mg PO PRN Q6HRS PRN I have reviewed the current psychotropics carefully including drug interactions. Risk benefit ratio favors no change other than as noted in my dictated progress note. Diagnosis: Problems: (1) Mental status change (2) Major depressive disorder, recurrent episode (3) Anxiety disorder (4) Impulse control disorder RITA MARMOLEJO MD Jul 18, 2017 20:05
[2017-07-19] MEDS: LEVOTHYROXINE 88 MCG TABLET PO SCH (05:07)
[2017-07-19 06:10] VITALS: BP 100/51
[2017-07-19] MEDS: FERROUS SULFATE 325 MG TABLET. PO SCH ×2 (08:44→09:00)
[2017-07-19] MEDS: SENNOSIDES 8.6 MG TABLET PO SCH ×2 (08:44→09:00)
[2017-07-19] MEDS: MULTIVITAMIN with MINERAL TABLET. PO SCH ×2 (08:45→09:00)
[2017-07-19] MEDS: CYANOCOBALAMIN (VITAMIN B-12) 1,000 MCG TABLET. PO SCH ×2 (08:45→09:00)
[2017-07-19] MEDS: DIVALPROEX 125 MG CAP.SPRINK PO SCH ×3 (08:45→19:24)
[2017-07-19] MEDS: busPIRone 10 MG TABLET. PO SCH ×3 (08:45→19:24)
[2017-07-19] MEDS: CALCIUM POLYCARBOPHIL 625 MG TABLET PO SCH ×2 (08:45→19:24)
[2017-07-19] MEDS: ASPIRIN 81 MG TAB.CHEW PO SCH (08:45)
[2017-07-19] MEDS: QUEtiapine 25 MG TABLET. PO SCH ×2 (08:45→14:24)
[2017-07-19] MEDS: RIVASTIGMINE 9.5MG PATCH. TD SCH (08:45)
[2017-07-19] MEDS: GABAPENTIN 300 MG CAPSULE. PO SCH ×3 (08:45→19:24)
[2017-07-19] MEDS: ASCORBIC ACID 500 MG TABLET PO SCH ×2 (08:45→09:00)
[2017-07-19] MEDS: DULoxetine HCL 60 MG CAPSULE.DR PO SCH (08:45)
[2017-07-19] MEDS: MEGESTROL 400 MG/10 ML ORAL.SUSP. PO SCH ×5 (08:47→16:30)
[2017-07-19] MEDS: TIMOLOL 0.25% OPHTH SOLUTION 5ML BOTTLE. OU SCH (08:48)
[2017-07-19] MEDS: CIPROFLOXACIN 0.3% OPHTH SOLUTION 2.5ML BOTTLE. OU SCH ×3 (08:48→19:32)
[2017-07-19] MEDS ORDERED: POLYVINYL ALCOHOL 1.4% OPHTH SOLUTION 15ML BOTTLE. OU PRN (09:00)
[2017-07-19 16:02] VITALS: BP 109/58
[2017-07-19] MEDS: LATANOPROST 0.005% OPHTH SOLUTION 2.5ML BOTTLE. OU SCH ×2 (19:24→19:32)
[2017-07-19] MEDS: MIRTAZAPINE 15 MG TABLET PO SCH (19:24)
--- NOTE | 2017-07-19 20:04 | PDOC ---
Exam Note: Tunde Note: Please also refer to the separate dictated note~for this date of service dictated separately.~Patient seen individually. Discussed the patient with Nursing staff reviewed the chart.~Reviewed interim history and current functioning. Reviewed vital signs,~Labs/ Radiology~and current medications noted below. Continue current treatment with the changes noted in the dictated addendum note Assessment: Vital Signs: Vital Signs Date Time Temp Pulse Resp B/P (MAP) Pulse Ox O2 Delivery O2 Flow Rate FiO2 07/19/17 16:02 98.2 81 16 109/58 (75) 94 07/16/17 16:09 Room Air I&O Intake and Output 07/19/17 07:00 Intake Total 600 ml Balance 600 ml Intake Oral 600 ml # Voids 2 # Bowel Movements 3 Current Medications: Meds: Current Medications Acetaminophen (Tylenol) 650 mg PRN Q6HRS PRN PO PAIN / TEMP; Start 07/14/17 at 13:15; Status Cancel Multi-Ingredient Ointment (Analgesic [place]) 1 cyril PRN QID PRN TP MUSCLE PAIN; Start 07/14/17 at 13:15 Al Hydroxide/Mg Hydroxide (Mylanta Plus Xs) 15 ml PRN AFTMEALHC PRN PO DYSPEPSIA; Start 07/14/17 at 13:15 Magnesium Hydroxide (Milk Of Magnesia) 2,400 mg PRN QHS PRN PO CONSTIPATION Last administered on 07/17/17at 14:20; Start 07/14/17 at 13:15 Acetaminophen (Tylenol) 325 mg PRN Q6HRS PRN PO PAIN; Start 07/14/17 at 14:00 Aspirin (Children'S Aspirin) 81 mg DAILY PO Last administered on 07/19/17at 08: 45; Start 07/15/17 at 09:00 Bisacodyl (Dulcolax Tab) 5 mg PRN DAILY PRN PO CONSTIPATION; Start 07/14/17 at 14:00 Buspirone HCl (Buspar) 10 mg TID PO Last administered on 07/19/17at 19:24; Start 07/14/17 at 14:30 Calcium Polycarbophil (Fibercon) 625 mg BID PO Last administered on 07/19/17at 19:24; Start 07/14/17 at 21:00 Vitamin D (Vitamin D3) 50,000 unit WEEKLY PO Last administered on 07/15/17 08: 54; Start 07/15/17 at 09:00 Cyanocobalamin (Vitamin B-12) 1,000 mcg DAILY PO Last administered on 08:31; Start 07/15/17 at 09:00 Divalproex Sodium (Depakote Sprinkles) 125 mg TID PO Last administered on 19:24; Start 07/14/17 at 14:30 Duloxetine HCl (Cymbalta) 60 mg DAILY PO Last administered on 07/19/17at 08:45; Start 07/15/17 at 09:00 Ferrous Sulfate (Feosol) 325 mg DAILY PO Last administered on 07/18/17 10:07; Start 07/15/17 at 09:00 Gabapentin (Neurontin) 300 mg TID PO Last administered on 07/19/17 19:24; Start 07/14/17 at 14:30 Latanoprost (Xalatan) 1 drop QHS OU Last administered on 07/18/17at 19:41; Start 07/14/17 at 21:00 Levothyroxine Sodium (Synthroid) 88 mcg DAILY06 PO Last administered on 05:07; Start 07/15/17 at 06:00 Mirtazapine (Remeron) 7.5 mg QHS PO Last administered on 07/15/17at 19:37; Start 07/14/17 at 21:00; Stop 07/16/17 at 19:18; Status DC Olanzapine (ZyPREXA ZYDIS) 2.5 mg PRN Q2HR PRN PO ANXIETY / AGITATION; Start at 14:00 Quetiapine Fumarate (SEROquel) 12.5 mg BID92 PO Last administered on 07/19/17 14:24; Start 07/14/17 at 14:30; Stop 07/19/17 at 18:42; Status DC Rivastigmine (Exelon) 1 patch DAILY TD Last administered on 07/19/17at 08:45; Start 07/15/17 at 09:00 Sennosides (Senna) 8.6 mg DAILY PO Last administered on 07/17/17at 08:31; Start 07/15/17 at 09:00 Sodium Chloride (Hypertonic Saline 5% Premix) 1,000 ml CONT IV ; Start 07/14/17 at 14:00; Status UNV Ascorbic Acid (Vitamin C) 500 mg DAILY PO Last administered on 07/17/17at 08:32 ; Start 07/15/17 at 09:00 Artificial Tears (Artificial Tears) 1 drop TID OU Last administered on at 21:12; Start 07/14/17 at 14:45; Stop 07/18/17 at 17:46; Status DC Ciprofloxacin 1 drop BID OU Last administered on 07/19/17at 08:48; Start at 21:00 Multivitamins/ Calcium (Thera-M Plus) 1 tab DAILY PO Last administered on at 08:32; Start 07/15/17 at 09:00 Timolol Maleate (Timoptic 0.25% Ophth) 1 drop DAILY OU Last administered on at 08:48; Start 07/15/17 at 09:00 Vitamin D (Vitamin D3) 50,000 unit WEEKLY PO ; Start 07/22/17 at 09:00; Status UNV Mirtazapine (Remeron) 15 mg QHS PO Last administered on 07/19/17at 19:24; Start 07/16/17 at 21:00 Magnesium Citrate (Citroma) 148 ml 1X ONCE PO Last administered on 07/17/17at 21:14; Start 07/17/17 at 21:00; Stop 07/17/17 at 21:01; Status DC Artificial Tears (Artificial Tears) 1 drop PRN TID PRN OU DRY EYE; Start at 09:00 Megestrol Acetate (Megace) 100 mg TIDAC PO Last administered on 07/19/17at 11:41 ; Start 07/19/17 at 07:30 Quetiapine Fumarate (SEROquel) 12.5 mg TID@0900,1300,1700 PO ; Start 07/20/17 at 09:00 Active Scripts Active Reported Timoptic 0.25% Ocudose Drop (Timolol Maleate/Pf) 1 Each Droperette 1 Drop OU DAILY Seroquel (Quetiapine Fumarate) 25 Mg Tablet 12.5 Mg PO BID92 Sodium Chloride (Sodium Chloride 5 %) 500 Ml Iv.soln 1,000 Ml IV 1X Ciprofloxacin Hcl 2.5 Ml Drops 1 Drop EACHEYE BID Depakote Sprinkle (Divalproex Sodium) 125 Mg Cap.sprink 125 Mg PO TID Vitamin D3 (Cholecalciferol (Vitamin D3)) 50,000 Unit Capsule 50,000 Unit PO WEEKLY Zyprexa Zydis (Olanzapine) 5 Mg Tab.rapdis 2.5 Mg PO PRN Q2HR PRN MDD 10mg MAX 10mg/24hrs Haloperidol Lactate 2 Mg/1 Ml Oral.conc 5 Mg PO PRN Q6HRS PRN Ferrous Sulfate 325 Mg Tablet 325 Mg PO DAILY Latanoprost 2.5 Ml Drops 1 Drop EACHEYE QHS Mirtazapine 15 Mg Tablet 7.5 Mg PO QHS Vitamin B-12 (Cyanocobalamin (Vitamin B-12)) 1,000 Mcg Tablet 1,000 Mcg PO DAILY EXELON 9.5mg/24hr (Rivastigmine) 1 Each Patch.td24 1 Patch TD DAILY Cymbalta (Duloxetine Hcl) 60 Mg Capsule.dr 60 Mg PO DAILY Buspirone Hcl 10 Mg Tablet 10 Mg PO TID Vitamin C (Ascorbic Acid) 500 Mg Tab.chew 500 Mg PO DAILY Refresh Optive Eye Drops (Carboxymethylcellulos/Glycerin) 15 Ml Drops 1 Drop EACHEYE TID Multi-Day Vitamins (Multivitamin) 1 Each Tablet 1 Tab PO DAILY Zofran (Ondansetron Hcl) 4 Mg Tablet 1 Tab PO Q6HRS PRN Senna (Sennosides) 8.6 Mg Tablet 8.6 Mg PO DAILY Levothyroxine Sodium 112 Mcg Tablet 88 Mcg PO DAILY06 Anti-Diarrhea (Loperamide Hcl) 2 Mg Tablet 2 Mg PO PRN Q4HRS PRN Gabapentin 300 Mg Capsule 300 Mg PO TID Fiber Tabs (Calcium Polycarbophil) 625 Mg Tablet 625 Mg PO BID Bisacodyl 5 Mg Tablet.dr 5 Mg PO PRN DAILY PRN Aspirin 81 Mg Tab.chew 81 Mg PO DAILY Tylenol (Acetaminophen) 325 Mg Tablet 325 Mg PO PRN Q6HRS PRN I have reviewed the current psychotropics carefully including drug interactions. Risk benefit ratio favors no change other than as noted in my dictated progress note. Diagnosis: Problems: (1) Mental status change (2) Major depressive disorder, recurrent episode (3) Anxiety disorder (4) Impulse control disorder RITA MARMOLEJO MD Jul 19, 2017 20:04
--- NOTE | 2017-07-20 00:19 | PN ---
DATE: 07/17/2017 This is a late entry 07/17/2017 covers elements not covered in my initial note 07/17/2017. I met with the patient in the evening of 07/17/2017. The patient remains somewhat withdrawn, resistive to meds and assessment gets a little irritable, labile at times, pulled one of the staff member's hair. REVIEW OF SYSTEMS: Ambulation impaired, in Broda chair. No CV, , pulmonary, eye, ENT system symptoms on review. Reliability poor, not very verbal. MENTAL STATUS EXAM: Oriented to herself. Insight, judgment, recent and remote memory, attention, concentration, fund of knowledge poor, consistent with her diagnosis mentioned in my initial note. IMPRESSION: Major neurocognitive disorder, Alzheimer vascular with depression, delusion, behavioral disturbance. PLAN: Continue current psychotropics mentioned in my initial note, may need to add Megace for appetite stimulation. MAN Nupur MARMOLEJO MD DR: SORAYA/shaneka JOB#: [id number] / [id number]
--- NOTE | 2017-07-20 00:31 | PN ---
DATE: 07/18/2017 PSYCHIATRIC PROGRESS NOTE This is a late entry for 07/18/2017, covers elements not covered in my initial note of 07/18/2017. SUBJECTIVE: I met with the patient the evening of 07/18/2017. The patient slept 6-1/2 hours previous evening, refused medications, takes it crushed at times, slept till 10:00 a.m., resistive, demanding, took her 2:00 p.m. medications, spit out the BuSpar. Oral intake is poor. REVIEW OF SYSTEMS: Ambulation impaired, in wheelchair. No CV, , pulmonary, eye system symptoms on review. Reliability poor. MENTAL STATUS EXAM: Oriented to herself. Insight, judgment, recent and remote memory, attention, concentration, fund of knowledge poor, consistent with her diagnosis mentioned in my initial note. IMPRESSION: Major neurocognitive disorder, Alzheimer, vascular with delusion, depression Rest unchanged. PLAN: Start Megace 100 mg 3 times a day with meals to help stimulate appetite. Rest unchanged per initial note. MAN Nupur MARMOLEJO MD DR: SORAYA/shaneka JOB#: [id number] / [id number]
[2017-07-20] MEDS: LEVOTHYROXINE 88 MCG TABLET PO SCH (06:04)
[2017-07-20 06:14] VITALS: BP 98/52
[2017-07-20] MEDS: FERROUS SULFATE 325 MG TABLET. PO SCH (09:15)
[2017-07-20] MEDS: DIVALPROEX 125 MG CAP.SPRINK PO SCH ×3 (09:15→20:08)
[2017-07-20] MEDS: DULoxetine HCL 60 MG CAPSULE.DR PO SCH (09:15)
[2017-07-20] MEDS: GABAPENTIN 300 MG CAPSULE. PO SCH ×3 (09:15→20:08)
[2017-07-20] MEDS: CALCIUM POLYCARBOPHIL 625 MG TABLET PO SCH ×2 (09:15→20:08)
[2017-07-20] MEDS: MULTIVITAMIN with MINERAL TABLET. PO SCH (09:15)
[2017-07-20] MEDS: ASPIRIN 81 MG TAB.CHEW PO SCH (09:15)
[2017-07-20] MEDS: busPIRone 10 MG TABLET. PO SCH ×3 (09:15→20:08)
[2017-07-20] MEDS: SENNOSIDES 8.6 MG TABLET PO SCH (09:15)
[2017-07-20] MEDS: MEGESTROL 400 MG/10 ML ORAL.SUSP. PO SCH ×3 (09:15→16:31)
[2017-07-20] MEDS: RIVASTIGMINE 9.5MG PATCH. TD SCH (09:16)
[2017-07-20] MEDS: ASCORBIC ACID 500 MG TABLET PO SCH (09:16)
[2017-07-20] MEDS: CYANOCOBALAMIN (VITAMIN B-12) 1,000 MCG TABLET. PO SCH (09:16)
[2017-07-20] MEDS: CIPROFLOXACIN 0.3% OPHTH SOLUTION 2.5ML BOTTLE. OU SCH ×2 (09:18→20:08)
[2017-07-20] MEDS: QUEtiapine 25 MG TABLET. PO SCH ×3 (09:18→16:32)
[2017-07-20] MEDS: TIMOLOL 0.25% OPHTH SOLUTION 5ML BOTTLE. OU SCH (09:19)
[2017-07-20 16:15] VITALS: BP 106/70
--- NOTE | 2017-07-20 19:57 | PDOC ---
Exam Note: Tunde Note: Please also refer to the separate dictated note~for this date of service dictated separately.~Patient seen individually. Discussed the patient with Nursing staff reviewed the chart.~Reviewed interim history and current functioning. Reviewed vital signs,~Labs/ Radiology~and current medications noted below. Continue current treatment with the changes noted in the dictated addendum note Assessment: Vital Signs: Vital Signs Date Time Temp Pulse Resp B/P (MAP) Pulse Ox O2 Delivery O2 Flow Rate FiO2 07/20/17 16:15 97.9 85 18 106/70 (82) 94 Room Air I&O Intake and Output 07/20/17 07:00 Intake Total 600 ml Balance 600 ml Intake Oral 600 ml # Voids 1 # Bowel Movements 2 Current Medications: Meds: Current Medications Acetaminophen (Tylenol) 650 mg PRN Q6HRS PRN PO PAIN / TEMP; Start 07/14/17 at 13:15; Status Cancel Multi-Ingredient Ointment (Analgesic [place]) 1 cyril PRN QID PRN TP MUSCLE PAIN; Start 07/14/17 at 13:15 Al Hydroxide/Mg Hydroxide (Mylanta Plus Xs) 15 ml PRN AFTMEALHC PRN PO DYSPEPSIA; Start 07/14/17 at 13:15 Magnesium Hydroxide (Milk Of Magnesia) 2,400 mg PRN QHS PRN PO CONSTIPATION Last administered on 07/17/17at 14:20; Start 07/14/17 at 13:15 Acetaminophen (Tylenol) 325 mg PRN Q6HRS PRN PO PAIN; Start 07/14/17 at 14:00 Aspirin (Children'S Aspirin) 81 mg DAILY PO Last administered on 07/20/17at 09: 15; Start 07/15/17 at 09:00 Bisacodyl (Dulcolax Tab) 5 mg PRN DAILY PRN PO CONSTIPATION; Start 07/14/17 at 14:00 Buspirone HCl (Buspar) 10 mg TID PO Last administered on 07/20/17at 13:40; Start 07/14/17 at 14:30 Calcium Polycarbophil (Fibercon) 625 mg BID PO Last administered on 07/20/17at 09:15; Start 07/14/17 at 21:00 Vitamin D (Vitamin D3) 50,000 unit WEEKLY PO Last administered on 07/15/17at 08: 54; Start 07/15/17 at 09:00 Cyanocobalamin (Vitamin B-12) 1,000 mcg DAILY PO Last administered on 09:16; Start 07/15/17 at 09:00 Divalproex Sodium (Depakote Sprinkles) 125 mg TID PO Last administered on 13:39; Start 07/14/17 at 14:30 Duloxetine HCl (Cymbalta) 60 mg DAILY PO Last administered on 07/20/17 09:15; Start 07/15/17 at 09:00 Ferrous Sulfate (Feosol) 325 mg DAILY PO Last administered on 07/20/17 09:15; Start 07/15/17 at 09:00 Gabapentin (Neurontin) 300 mg TID PO Last administered on 07/20/17 13:40; Start 07/14/17 at 14:30 Latanoprost (Xalatan) 1 drop QHS OU Last administered on 07/18/17 19:41; Start 07/14/17 at 21:00 Levothyroxine Sodium (Synthroid) 88 mcg DAILY06 PO Last administered on 06:04; Start 07/15/17 at 06:00 Mirtazapine (Remeron) 7.5 mg QHS PO Last administered on 07/15/17at 19:37; Start 07/14/17 at 21:00; Stop 07/16/17 at 19:18; Status DC Olanzapine (ZyPREXA ZYDIS) 2.5 mg PRN Q2HR PRN PO ANXIETY / AGITATION; Start at 14:00 Quetiapine Fumarate (SEROquel) 12.5 mg BID92 PO Last administered on 07/19/17 14:24; Start 07/14/17 at 14:30; Stop 07/19/17 at 18:42; Status DC Rivastigmine (Exelon) 1 patch DAILY TD Last administered on 07/20/17 09:16; Start 07/15/17 at 09:00 Sennosides (Senna) 8.6 mg DAILY PO Last administered on 07/20/17 09:15; Start 07/15/17 at 09:00 Sodium Chloride (Hypertonic Saline 5% Premix) 1,000 ml CONT IV ; Start 07/14/17 at 14:00; Status UNV Ascorbic Acid (Vitamin C) 500 mg DAILY PO Last administered on 07/20/17at 09:16 ; Start 07/15/17 at 09:00 Artificial Tears (Artificial Tears) 1 drop TID OU Last administered on at 21:12; Start 07/14/17 at 14:45; Stop 07/18/17 at 17:46; Status DC Ciprofloxacin 1 drop BID OU Last administered on 07/20/17at 09:18; Start at 21:00 Multivitamins/ Calcium (Thera-M Plus) 1 tab DAILY PO Last administered on at 09:15; Start 07/15/17 at 09:00 Timolol Maleate (Timoptic 0.25% Oph) 1 drop DAILY OU Last administered on at 09:19; Start 07/15/17 at 09:00 Vitamin D (Vitamin D3) 50,000 unit WEEKLY PO ; Start 07/22/17 at 09:00; Status UNV Mirtazapine (Remeron) 15 mg QHS PO Last administered on 07/19/17at 19:24; Start 07/16/17 at 21:00 Magnesium Citrate (Citroma) 148 ml 1X ONCE PO Last administered on 07/17/17at 21:14; Start 07/17/17 at 21:00; Stop 07/17/17 at 21:01; Status DC Artificial Tears (Artificial Tears) 1 drop PRN TID PRN OU DRY EYE; Start at 09:00 Megestrol Acetate (Megace) 100 mg TIDAC PO Last administered on 07/20/17at 16:31 ; Start 07/19/17 at 07:30 Quetiapine Fumarate (SEROquel) 12.5 mg TID@0900,1300,1700 PO Last administered on 07/20/17at 16:32; Start 07/20/17 at 09:00 Active Scripts Active Reported Timoptic 0.25% Ocudose Drop (Timolol Maleate/Pf) 1 Each Droperette 1 Drop OU DAILY Seroquel (Quetiapine Fumarate) 25 Mg Tablet 12.5 Mg PO BID92 Sodium Chloride (Sodium Chloride 5 %) 500 Ml Iv.soln 1,000 Ml IV 1X Ciprofloxacin Hcl 2.5 Ml Drops 1 Drop EACHEYE BID Depakote Sprinkle (Divalproex Sodium) 125 Mg Cap.sprink 125 Mg PO TID Vitamin D3 (Cholecalciferol (Vitamin D3)) 50,000 Unit Capsule 50,000 Unit PO WEEKLY Zyprexa Zydis (Olanzapine) 5 Mg Tab.rapdis 2.5 Mg PO PRN Q2HR PRN MDD 10mg MAX 10mg/24hrs Haloperidol Lactate 2 Mg/1 Ml Oral.conc 5 Mg PO PRN Q6HRS PRN Ferrous Sulfate 325 Mg Tablet 325 Mg PO DAILY Latanoprost 2.5 Ml Drops 1 Drop EACHEYE QHS Mirtazapine 15 Mg Tablet 7.5 Mg PO QHS Vitamin B-12 (Cyanocobalamin (Vitamin B-12)) 1,000 Mcg Tablet 1,000 Mcg PO DAILY EXELON 9.5mg/24hr (Rivastigmine) 1 Each Patch.td24 1 Patch TD DAILY Cymbalta (Duloxetine Hcl) 60 Mg Capsule.dr 60 Mg PO DAILY Buspirone Hcl 10 Mg Tablet 10 Mg PO TID Vitamin C (Ascorbic Acid) 500 Mg Tab.chew 500 Mg PO DAILY Refresh Optive Eye Drops (Carboxymethylcellulos/Glycerin) 15 Ml Drops 1 Drop EACHEYE TID Multi-Day Vitamins (Multivitamin) 1 Each Tablet 1 Tab PO DAILY Zofran (Ondansetron Hcl) 4 Mg Tablet 1 Tab PO Q6HRS PRN Senna (Sennosides) 8.6 Mg Tablet 8.6 Mg PO DAILY Levothyroxine Sodium 112 Mcg Tablet 88 Mcg PO DAILY06 Anti-Diarrhea (Loperamide Hcl) 2 Mg Tablet 2 Mg PO PRN Q4HRS PRN Gabapentin 300 Mg Capsule 300 Mg PO TID Fiber Tabs (Calcium Polycarbophil) 625 Mg Tablet 625 Mg PO BID Bisacodyl 5 Mg Tablet.dr 5 Mg PO PRN DAILY PRN Aspirin 81 Mg Tab.chew 81 Mg PO DAILY Tylenol (Acetaminophen) 325 Mg Tablet 325 Mg PO PRN Q6HRS PRN I have reviewed the current psychotropics carefully including drug interactions. Risk benefit ratio favors no change other than as noted in my dictated progress note. Diagnosis: Problems: (1) Mental status change (2) Major depressive disorder, recurrent episode (3) Anxiety disorder (4) Impulse control disorder RITA MARMOLEJO MD Jul 20, 2017 19:57
[2017-07-20] MEDS: LATANOPROST 0.005% OPHTH SOLUTION 2.5ML BOTTLE. OU SCH (20:08)
[2017-07-20] MEDS: MIRTAZAPINE 15 MG TABLET PO SCH (20:08)
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
[2017-07-21] MEDS: LEVOTHYROXINE 88 MCG TABLET PO SCH (05:27)
[2017-07-21 06:22] VITALS: BP 97/52
[2017-07-21] MEDS: MEGESTROL 400 MG/10 ML ORAL.SUSP. PO SCH ×4 (07:30→16:43)
[2017-07-21] MEDS: busPIRone 10 MG TABLET. PO SCH ×3 (09:24→19:16)
[2017-07-21] MEDS: RIVASTIGMINE 9.5MG PATCH. TD SCH (09:24)
[2017-07-21] MEDS: DIVALPROEX 125 MG CAP.SPRINK PO SCH ×3 (09:24→19:16)
[2017-07-21] MEDS: ASCORBIC ACID 500 MG TABLET PO SCH (09:24)
[2017-07-21] MEDS: FERROUS SULFATE 325 MG TABLET. PO SCH (09:24)
[2017-07-21] MEDS: CALCIUM POLYCARBOPHIL 625 MG TABLET PO SCH ×2 (09:24→19:16)
[2017-07-21] MEDS: DULoxetine HCL 60 MG CAPSULE.DR PO SCH (09:24)
[2017-07-21] MEDS: MULTIVITAMIN with MINERAL TABLET. PO SCH (09:24)
[2017-07-21] MEDS: GABAPENTIN 300 MG CAPSULE. PO SCH ×3 (09:24→19:16)
[2017-07-21] MEDS: ASPIRIN 81 MG TAB.CHEW PO SCH (09:24)
[2017-07-21] MEDS: CYANOCOBALAMIN (VITAMIN B-12) 1,000 MCG TABLET. PO SCH (09:25)
[2017-07-21] MEDS: SENNOSIDES 8.6 MG TABLET PO SCH (09:25)
[2017-07-21] MEDS: QUEtiapine 25 MG TABLET. PO SCH ×3 (09:26→16:43)
[2017-07-21] MEDS: TIMOLOL 0.25% OPHTH SOLUTION 5ML BOTTLE. OU SCH (09:27)
[2017-07-21] MEDS: CIPROFLOXACIN 0.3% OPHTH SOLUTION 2.5ML BOTTLE. OU SCH ×2 (09:27→19:16)
[2017-07-21 15:27] VITALS: BP 100/72
[2017-07-21] MEDS: MIRTAZAPINE 15 MG TABLET PO SCH (19:16)
[2017-07-21] MEDS: LATANOPROST 0.005% OPHTH SOLUTION 2.5ML BOTTLE. OU SCH (19:16)
--- NOTE | 2017-07-21 20:03 | PDOC ---
Exam Note: Tunde Note: Please also refer to the separate dictated note~for this date of service dictated separately.~Patient seen individually. Discussed the patient with Nursing staff reviewed the chart.~Reviewed interim history and current functioning. Reviewed vital signs,~Labs/ Radiology~and current medications noted below. Continue current treatment with the changes noted in the dictated addendum note Assessment: Vital Signs: Vital Signs Date Time Temp Pulse Resp B/P (MAP) Pulse Ox O2 Delivery O2 Flow Rate FiO2 07/21/17 15:50 98.1 18 94 07/21/17 15:27 100/72 (81) 07/21/17 06:22 62 07/20/17 16:15 Room Air I&O Intake and Output 07/21/17 07:00 Intake Total 820 ml Balance 820 ml Intake Oral 820 ml # Voids 1 Current Medications: Meds: Current Medications Acetaminophen (Tylenol) 650 mg PRN Q6HRS PRN PO PAIN / TEMP; Start 07/14/17 at 13:15; Status Cancel Multi-Ingredient Ointment (Analgesic [place]) 1 cyril PRN QID PRN TP MUSCLE PAIN; Start 07/14/17 at 13:15 Al Hydroxide/Mg Hydroxide (Mylanta Plus Xs) 15 ml PRN AFTMEALHC PRN PO DYSPEPSIA; Start 07/14/17 at 13:15 Magnesium Hydroxide (Milk Of Magnesia) 2,400 mg PRN QHS PRN PO CONSTIPATION Last administered on 07/17/17at 14:20; Start 07/14/17 at 13:15 Acetaminophen (Tylenol) 325 mg PRN Q6HRS PRN PO PAIN; Start 07/14/17 at 14:00 Aspirin (Children'S Aspirin) 81 mg DAILY PO Last administered on 07/21/17at 09: 24; Start 07/15/17 at 09:00 Bisacodyl (Dulcolax Tab) 5 mg PRN DAILY PRN PO CONSTIPATION; Start 07/14/17 at 14:00 Buspirone HCl (Buspar) 10 mg TID PO Last administered on 07/21/17at 19:16; Start 07/14/17 at 14:30 Calcium Polycarbophil (Fibercon) 625 mg BID PO Last administered on 07/21/17at 19:16; Start 07/14/17 at 21:00 Vitamin D (Vitamin D3) 50,000 unit WEEKLY PO Last administered on 07/15/17 08: 54; Start 07/15/17 at 09:00 Cyanocobalamin (Vitamin B-12) 1,000 mcg DAILY PO Last administered on 09:25; Start 07/15/17 at 09:00 Divalproex Sodium (Depakote Sprinkles) 125 mg TID PO Last administered on 19:16; Start 07/14/17 at 14:30 Duloxetine HCl (Cymbalta) 60 mg DAILY PO Last administered on 07/21/17 09:24; Start 07/15/17 at 09:00 Ferrous Sulfate (Feosol) 325 mg DAILY PO Last administered on 07/21/17 09:24; Start 07/15/17 at 09:00 Gabapentin (Neurontin) 300 mg TID PO Last administered on 07/21/17 19:16; Start 07/14/17 at 14:30 Latanoprost (Xalatan) 1 drop QHS OU Last administered on 07/18/17at 19:41; Start 07/14/17 at 21:00 Levothyroxine Sodium (Synthroid) 88 mcg DAILY06 PO Last administered on 05:27; Start 07/15/17 at 06:00 Mirtazapine (Remeron) 7.5 mg QHS PO Last administered on 07/15/17at 19:37; Start 07/14/17 at 21:00; Stop 07/16/17 at 19:18; Status DC Olanzapine (ZyPREXA ZYDIS) 2.5 mg PRN Q2HR PRN PO ANXIETY / AGITATION; Start at 14:00 Quetiapine Fumarate (SEROquel) 12.5 mg BID92 PO Last administered on 07/19/17 14:24; Start 07/14/17 at 14:30; Stop 07/19/17 at 18:42; Status DC Rivastigmine (Exelon) 1 patch DAILY TD Last administered on 07/21/17 09:24; Start 07/15/17 at 09:00 Sennosides (Senna) 8.6 mg DAILY PO Last administered on 07/21/17 09:25; Start 07/15/17 at 09:00 Sodium Chloride (Hypertonic Saline 5% Premix) 1,000 ml CONT IV ; Start 07/14/17 at 14:00; Status UNV Ascorbic Acid (Vitamin C) 500 mg DAILY PO Last administered on 07/21/17at 09:24 ; Start 07/15/17 at 09:00 Artificial Tears (Artificial Tears) 1 drop TID OU Last administered on at 21:12; Start 07/14/17 at 14:45; Stop 07/18/17 at 17:46; Status DC Ciprofloxacin 1 drop BID OU Last administered on 07/21/17 09:27; Start at 21:00 Multivitamins/ Calcium (Thera-M Plus) 1 tab DAILY PO Last administered on at 09:24; Start 07/15/17 at 09:00 Timolol Maleate (Timoptic 0.25% Ophth) 1 drop DAILY OU Last administered on 09:27; Start 07/15/17 at 09:00 Vitamin D (Vitamin D3) 50,000 unit WEEKLY PO ; Start 07/22/17 at 09:00; Status UNV Mirtazapine (Remeron) 15 mg QHS PO Last administered on 07/21/17at 19:16; Start 07/16/17 at 21:00 Magnesium Citrate (Citroma) 148 ml 1X ONCE PO Last administered on 07/17/17at 21:14; Start 07/17/17 at 21:00; Stop 07/17/17 at 21:01; Status DC Artificial Tears (Artificial Tears) 1 drop PRN TID PRN OU DRY EYE; Start at 09:00 Megestrol Acetate (Megace) 100 mg TIDAC PO Last administered on 07/21/17at 16:43 ; Start 07/19/17 at 07:30 Quetiapine Fumarate (SEROquel) 12.5 mg TID@0900,1300,1700 PO Last administered on 07/21/17at 16:43; Start 07/20/17 at 09:00 Active Scripts Active Reported Timoptic 0.25% Ocudose Drop (Timolol Maleate/Pf) 1 Each Droperette 1 Drop OU DAILY Seroquel (Quetiapine Fumarate) 25 Mg Tablet 12.5 Mg PO BID92 Sodium Chloride (Sodium Chloride 5 %) 500 Ml Iv.soln 1,000 Ml IV 1X Ciprofloxacin Hcl 2.5 Ml Drops 1 Drop EACHEYE BID Depakote Sprinkle (Divalproex Sodium) 125 Mg Cap.sprink 125 Mg PO TID Vitamin D3 (Cholecalciferol (Vitamin D3)) 50,000 Unit Capsule 50,000 Unit PO WEEKLY Zyprexa Zydis (Olanzapine) 5 Mg Tab.rapdis 2.5 Mg PO PRN Q2HR PRN MDD 10mg MAX 10mg/24hrs Haloperidol Lactate 2 Mg/1 Ml Oral.conc 5 Mg PO PRN Q6HRS PRN Ferrous Sulfate 325 Mg Tablet 325 Mg PO DAILY Latanoprost 2.5 Ml Drops 1 Drop EACHEYE QHS Mirtazapine 15 Mg Tablet 7.5 Mg PO QHS Vitamin B-12 (Cyanocobalamin (Vitamin B-12)) 1,000 Mcg Tablet 1,000 Mcg PO DAILY EXELON 9.5mg/24hr (Rivastigmine) 1 Each Patch.td24 1 Patch TD DAILY Cymbalta (Duloxetine Hcl) 60 Mg Capsule.dr 60 Mg PO DAILY Buspirone Hcl 10 Mg Tablet 10 Mg PO TID Vitamin C (Ascorbic Acid) 500 Mg Tab.chew 500 Mg PO DAILY Refresh Optive Eye Drops (Carboxymethylcellulos/Glycerin) 15 Ml Drops 1 Drop EACHEYE TID Multi-Day Vitamins (Multivitamin) 1 Each Tablet 1 Tab PO DAILY Zofran (Ondansetron Hcl) 4 Mg Tablet 1 Tab PO Q6HRS PRN Senna (Sennosides) 8.6 Mg Tablet 8.6 Mg PO DAILY Levothyroxine Sodium 112 Mcg Tablet 88 Mcg PO DAILY06 Anti-Diarrhea (Loperamide Hcl) 2 Mg Tablet 2 Mg PO PRN Q4HRS PRN Gabapentin 300 Mg Capsule 300 Mg PO TID Fiber Tabs (Calcium Polycarbophil) 625 Mg Tablet 625 Mg PO BID Bisacodyl 5 Mg Tablet.dr 5 Mg PO PRN DAILY PRN Aspirin 81 Mg Tab.chew 81 Mg PO DAILY Tylenol (Acetaminophen) 325 Mg Tablet 325 Mg PO PRN Q6HRS PRN I have reviewed the current psychotropics carefully including drug interactions. Risk benefit ratio favors no change other than as noted in my dictated progress note. Diagnosis: Problems: (1) Mental status change (2) Major depressive disorder, recurrent episode (3) Anxiety disorder (4) Impulse control disorder RITA MARMOLEJO MD Jul 21, 2017 20:03
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
[2017-07-22] MEDS: LEVOTHYROXINE 88 MCG TABLET PO SCH (05:06)
[2017-07-22 05:55] VITALS: BP 131/73
[2017-07-22 07:13] LABS: BASO % 1 % (0-3); EOS # 0.3 x10^3/uL (0.0-0.7); EOS % 4 % (0-3); HEMATOCRIT 32.6 % (36.0-47.0); HEMOGLOBIN 10.5 g/dL (12.0-15.5); LYMPH # 1.6 x10^3/uL (1.0-4.8); LYMPH % 26 % (24-48); MEAN CORPUSCULAR HEMOGLOBIN 25 pg (25-35); MEAN CORPUSCULAR HGB CONC 32 g/dL (31-37); MEAN CORPUSCULAR VOLUME 79 fL (79-100); MONO # 0.6 x10^3/uL (0.0-1.1); MONO % 9 % (0-9); NEUT # 3.8 x10^3uL (1.8-7.7); NEUT % 60 % (31-73); PLATELET COUNT 297 x10^3/uL (140-400); RED BLOOD COUNT 4.15 x10^6/uL (3.50-5.40); RED CELL DISTRIBUTION WIDTH 18.2 % (11.5-14.5); WHITE BLOOD COUNT 6.3 x10^3/uL (4.0-11.0)
[2017-07-22 07:20] LABS: ALBUMIN 2.5 g/dL (3.4-5.0); ALBUMIN/GLOBULIN RATIO 0.7 (1.0-1.7); ALK PHOS 70 U/L (46-116); ALT (SGPT) 15 U/L (14-59); ANION GAP 6 (6-14); AST (SGOT) 15 U/L (15-37); BLOOD UREA NITROGEN 18 mg/dL (7-20); BUN/CREATININE RATIO 30 (6-20); CALCIUM 8.3 mg/dL (8.5-10.1); CARBON DIOXIDE 27 mmol/L (21-32); CHLORIDE 110 mmol/L (98-107); CREATININE 0.6 mg/dL (0.6-1.0); GFR 99.4; GLUCOSE 96 mg/dL (70-99); MAGNESIUM 2.2 mg/dL (1.8-2.4); POTASSIUM 4.1 mmol/L (3.5-5.1); SODIUM 143 mmol/L (136-145); TOTAL BILIRUBIN 0.2 mg/dL (0.2-1.0)
[2017-07-22 07:27] LABS: VAL ACID 15 mcg/mL (50-100)
[2017-07-22] MEDS: MEGESTROL 400 MG/10 ML ORAL.SUSP. PO SCH ×3 (07:30→16:26)
[2017-07-22] MEDS: CYANOCOBALAMIN (VITAMIN B-12) 1,000 MCG TABLET. PO SCH (08:51)
[2017-07-22] MEDS: FERROUS SULFATE 325 MG TABLET. PO SCH (08:51)
[2017-07-22] MEDS: CHOLECALCIFEROL (VITAMIN D3) 50,000 UNIT CAPSULE PO SCH (08:51)
[2017-07-22] MEDS: TIMOLOL 0.25% OPHTH SOLUTION 5ML BOTTLE. OU SCH (08:51)
[2017-07-22] MEDS: DIVALPROEX 125 MG CAP.SPRINK PO SCH ×3 (08:51→20:27)
[2017-07-22] MEDS: CALCIUM POLYCARBOPHIL 625 MG TABLET PO SCH ×2 (08:51→20:27)
[2017-07-22] MEDS: RIVASTIGMINE 9.5MG PATCH. TD SCH (08:51)
[2017-07-22] MEDS: DULoxetine HCL 60 MG CAPSULE.DR PO SCH (08:51)
[2017-07-22] MEDS: ASPIRIN 81 MG TAB.CHEW PO SCH (08:51)
[2017-07-22] MEDS: CIPROFLOXACIN 0.3% OPHTH SOLUTION 2.5ML BOTTLE. OU SCH ×4 (08:51→22:54)
[2017-07-22] MEDS: GABAPENTIN 300 MG CAPSULE. PO SCH ×3 (08:52→20:27)
[2017-07-22] MEDS: SENNOSIDES 8.6 MG TABLET PO SCH (08:52)
[2017-07-22] MEDS: MULTIVITAMIN with MINERAL TABLET. PO SCH (08:52)
[2017-07-22] MEDS: busPIRone 10 MG TABLET. PO SCH ×3 (08:52→20:27)
[2017-07-22] MEDS: ASCORBIC ACID 500 MG TABLET PO SCH (08:52)
[2017-07-22] MEDS: QUEtiapine 25 MG TABLET. PO SCH ×3 (08:52→16:26)
[2017-07-22] MEDS ORDERED: CHOLECALCIFEROL (VITAMIN D3) 50,000 UNIT CAPSULE PO SCH (09:00)
[2017-07-22 15:58] VITALS: BP 97/65
--- NOTE | 2017-07-22 19:53 | PDOC ---
Exam Note: Tunde Note: Please also refer to the separate dictated note~for this date of service dictated separately.~Patient seen individually. Discussed the patient with Nursing staff reviewed the chart.~Reviewed interim history and current functioning. Reviewed vital signs,~Labs/ Radiology~and current medications noted below. Continue current treatment with the changes noted in the dictated addendum note Assessment: Vital Signs: Vital Signs Date Time Temp Pulse Resp B/P (MAP) Pulse Ox O2 Delivery O2 Flow Rate FiO2 07/22/17 15:58 99.2 80 16 97/65 (76) 94 07/20/17 16:15 Room Air I&O Intake and Output 07/22/17 07:00 Intake Total 820 ml Balance 820 ml Intake Oral 820 ml # Voids 1 Labs: Laboratory Tests Test 07/22/17 06:54 White Blood Count 6.3 x10^3/uL (4.0-11.0) # Red Blood Count 4.15 x10^6/uL (3.50-5.40) Hemoglobin 10.5 g/dL (12.0-15.5) L Hematocrit 32.6 % (36.0-47.0) L Mean Corpuscular Volume 79 fL (79-100) Mean Corpuscular Hemoglobin 25 pg (25-35) Mean Corpuscular Hemoglobin Concent 32 g/dL (31-37) Red Cell Distribution Width 18.2 % (11.5-14.5) H Platelet Count 297 x10^3/uL (140-400) Neutrophils (%) (Auto) 60 % (31-73) Lymphocytes (%) (Auto) 26 % (24-48) Monocytes (%) (Auto) 9 % (0-9) Eosinophils (%) (Auto) 4 % (0-3) H Basophils (%) (Auto) 1 % (0-3) Neutrophils # (Auto) 3.8 x10^3uL (1.8-7.7) Lymphocytes # (Auto) 1.6 x10^3/uL (1.0-4.8) Monocytes # (Auto) 0.6 x10^3/uL (0.0-1.1) Eosinophils # (Auto) 0.3 x10^3/uL (0.0-0.7) Basophils # (Auto) 0.0 x10^3/uL (0.0-0.2) Sodium Level 143 mmol/L (136-145) Potassium Level 4.1 mmol/L (3.5-5.1) Chloride Level 110 mmol/L (98-107) H Carbon Dioxide Level 27 mmol/L (21-32) Anion Gap 6 (6-14) Blood Urea Nitrogen 18 mg/dL (7-20) Creatinine 0.6 mg/dL (0.6-1.0) Estimated GFR (Cockcroft-Gault) 99.4 BUN/Creatinine Ratio 30 (6-20) H Glucose Level 96 mg/dL (70-99) Calcium Level 8.3 mg/dL (8.5-10.1) L Magnesium Level 2.2 mg/dL (1.8-2.4) Total Bilirubin 0.2 mg/dL (0.2-1.0) Aspartate Amino Transferase (AST) 15 U/L (15-37) Alanine Aminotransferase (ALT) 15 U/L (14-59) Alkaline Phosphatase 70 U/L (46-116) Total Protein 6.0 g/dL (6.4-8.2) L Albumin 2.5 g/dL (3.4-5.0) L Albumin/Globulin Ratio 0.7 (1.0-1.7) L Valproic Acid Level 15 mcg/mL (50-100) L Valproic Acid Last Dose Date 07/21/2017 Valproic Acid Last Dose Time 2100 Current Medications: Meds: Current Medications Acetaminophen (Tylenol) 650 mg PRN Q6HRS PRN PO PAIN / TEMP; Start 07/14/17 at 13:15; Status Cancel Multi-Ingredient Ointment (Analgesic [place]) 1 cyril PRN QID PRN TP MUSCLE PAIN; Start 07/14/17 at 13:15 Al Hydroxide/Mg Hydroxide (Mylanta Plus Xs) 15 ml PRN AFTMEALHC PRN PO DYSPEPSIA; Start 07/14/17 at 13:15 Magnesium Hydroxide (Milk Of Magnesia) 2,400 mg PRN QHS PRN PO CONSTIPATION Last administered on 07/17/17at 14:20; Start 07/14/17 at 13:15 Acetaminophen (Tylenol) 325 mg PRN Q6HRS PRN PO PAIN; Start 07/14/17 at 14:00 Aspirin (Children'S Aspirin) 81 mg DAILY PO Last administered on 07/22/17 08: 51; Start 07/15/17 at 09:00 Bisacodyl (Dulcolax Tab) 5 mg PRN DAILY PRN PO CONSTIPATION; Start 07/14/17 at 14:00 Buspirone HCl (Buspar) 10 mg TID PO Last administered on 07/22/17 13:35; Start 07/14/17 at 14:30 Calcium Polycarbophil (Fibercon) 625 mg BID PO Last administered on 07/22/17 08:51; Start 07/14/17 at 21:00 Vitamin D (Vitamin D3) 50,000 unit WEEKLY PO Last administered on 07/22/17 08: 51; Start 07/15/17 at 09:00 Cyanocobalamin (Vitamin B-12) 1,000 mcg DAILY PO Last administered on 08:51; Start 07/15/17 at 09:00 Divalproex Sodium (Depakote Sprinkles) 125 mg TID PO Last administered on 13:35; Start 07/14/17 at 14:30 Duloxetine HCl (Cymbalta) 60 mg DAILY PO Last administered on 07/22/17 08:51; Start 07/15/17 at 09:00 Ferrous Sulfate (Feosol) 325 mg DAILY PO Last administered on 07/22/17 08:51; Start 07/15/17 at 09:00 Gabapentin (Neurontin) 300 mg TID PO Last administered on 07/22/17at 13:35; Start 07/14/17 at 14:30 Latanoprost (Xalatan) 1 drop QHS OU Last administered on 07/18/17at 19:41; Start 07/14/17 at 21:00 Levothyroxine Sodium (Synthroid) 88 mcg DAILY06 PO Last administered on 05:06; Start 07/15/17 at 06:00 Mirtazapine (Remeron) 7.5 mg QHS PO Last administered on 07/15/17at 19:37; Start 07/14/17 at 21:00; Stop 07/16/17 at 19:18; Status DC Olanzapine (ZyPREXA ZYDIS) 2.5 mg PRN Q2HR PRN PO ANXIETY / AGITATION; Start at 14:00 Quetiapine Fumarate (SEROquel) 12.5 mg BID92 PO Last administered on 07/19/17at 14:24; Start 07/14/17 at 14:30; Stop 07/19/17 at 18:42; Status DC Rivastigmine (Exelon) 1 patch DAILY TD Last administered on 07/22/17 08:51; Start 07/15/17 at 09:00 Sennosides (Senna) 8.6 mg DAILY PO Last administered on 07/22/17 08:52; Start 07/15/17 at 09:00 Sodium Chloride (Hypertonic Saline 5% Premix) 1,000 ml CONT IV ; Start 07/14/17 at 14:00; Status UNV Ascorbic Acid (Vitamin C) 500 mg DAILY PO Last administered on 07/22/17 08:52 ; Start 07/15/17 at 09:00 Artificial Tears (Artificial Tears) 1 drop TID OU Last administered on at 21:12; Start 07/14/17 at 14:45; Stop 07/18/17 at 17:46; Status DC Ciprofloxacin 1 drop BID OU Last administered on 07/22/17 08:51; Start at 21:00 Multivitamins/ Calcium (Thera-M Plus) 1 tab DAILY PO Last administered on 08:52; Start 07/15/17 at 09:00 Timolol Maleate (Timoptic 0.25% Ophth) 1 drop DAILY OU Last administered on at 08:51; Start 07/15/17 at 09:00 Vitamin D (Vitamin D3) 50,000 unit WEEKLY PO ; Start 07/22/17 at 09:00; Status UNV Mirtazapine (Remeron) 15 mg QHS PO Last administered on 07/21/17at 19:16; Start 07/16/17 at 21:00 Magnesium Citrate (Citroma) 148 ml 1X ONCE PO Last administered on 07/17/17at 21:14; Start 07/17/17 at 21:00; Stop 07/17/17 at 21:01; Status DC Artificial Tears (Artificial Tears) 1 drop PRN TID PRN OU DRY EYE; Start at 09:00 Megestrol Acetate (Megace) 100 mg TIDAC PO Last administered on 07/22/17at 16:26 ; Start 07/19/17 at 07:30 Quetiapine Fumarate (SEROquel) 12.5 mg TID@0900,1300,1700 PO Last administered on 07/22/17at 16:26; Start 07/20/17 at 09:00 Active Scripts Active Reported Timoptic 0.25% Ocudose Drop (Timolol Maleate/Pf) 1 Each Droperette 1 Drop OU DAILY Seroquel (Quetiapine Fumarate) 25 Mg Tablet 12.5 Mg PO BID92 Sodium Chloride (Sodium Chloride 5 %) 500 Ml Iv.soln 1,000 Ml IV 1X Ciprofloxacin Hcl 2.5 Ml Drops 1 Drop EACHEYE BID Depakote Sprinkle (Divalproex Sodium) 125 Mg Cap.sprink 125 Mg PO TID Vitamin D3 (Cholecalciferol (Vitamin D3)) 50,000 Unit Capsule 50,000 Unit PO WEEKLY Zyprexa Zydis (Olanzapine) 5 Mg Tab.rapdis 2.5 Mg PO PRN Q2HR PRN MDD 10mg MAX 10mg/24hrs Haloperidol Lactate 2 Mg/1 Ml Oral.conc 5 Mg PO PRN Q6HRS PRN Ferrous Sulfate 325 Mg Tablet 325 Mg PO DAILY Latanoprost 2.5 Ml Drops 1 Drop EACHEYE QHS Mirtazapine 15 Mg Tablet 7.5 Mg PO QHS Vitamin B-12 (Cyanocobalamin (Vitamin B-12)) 1,000 Mcg Tablet 1,000 Mcg PO DAILY EXELON 9.5mg/24hr (Rivastigmine) 1 Each Patch.td24 1 Patch TD DAILY Cymbalta (Duloxetine Hcl) 60 Mg Capsule.dr 60 Mg PO DAILY Buspirone Hcl 10 Mg Tablet 10 Mg PO TID Vitamin C (Ascorbic Acid) 500 Mg Tab.chew 500 Mg PO DAILY Refresh Optive Eye Drops (Carboxymethylcellulos/Glycerin) 15 Ml Drops 1 Drop EACHEYE TID Multi-Day Vitamins (Multivitamin) 1 Each Tablet 1 Tab PO DAILY Zofran (Ondansetron Hcl) 4 Mg Tablet 1 Tab PO Q6HRS PRN Senna (Sennosides) 8.6 Mg Tablet 8.6 Mg PO DAILY Levothyroxine Sodium 112 Mcg Tablet 88 Mcg PO DAILY06 Anti-Diarrhea (Loperamide Hcl) 2 Mg Tablet 2 Mg PO PRN Q4HRS PRN Gabapentin 300 Mg Capsule 300 Mg PO TID Fiber Tabs (Calcium Polycarbophil) 625 Mg Tablet 625 Mg PO BID Bisacodyl 5 Mg Tablet.dr 5 Mg PO PRN DAILY PRN Aspirin 81 Mg Tab.chew 81 Mg PO DAILY Tylenol (Acetaminophen) 325 Mg Tablet 325 Mg PO PRN Q6HRS PRN I have reviewed the current psychotropics carefully including drug interactions. Risk benefit ratio favors no change other than as noted in my dictated progress note. Diagnosis: Problems: (1) Mental status change (2) Major depressive disorder, recurrent episode (3) Anxiety disorder (4) Impulse control disorder RITA MARMOLEJO MD Jul 22, 2017 19:53
[2017-07-22] MEDS: MIRTAZAPINE 15 MG TABLET PO SCH (20:27)
[2017-07-22] MEDS: LATANOPROST 0.005% OPHTH SOLUTION 2.5ML BOTTLE. OU SCH ×3 (20:29→22:54)
[2017-07-23 06:02] VITALS: BP 107/63
[2017-07-23] MEDS: LEVOTHYROXINE 88 MCG TABLET PO SCH (06:05)
[2017-07-23] MEDS: MEGESTROL 400 MG/10 ML ORAL.SUSP. PO SCH ×3 (07:55→16:30)
[2017-07-23] MEDS: RIVASTIGMINE 9.5MG PATCH. TD SCH (07:55)
[2017-07-23] MEDS: ASCORBIC ACID 500 MG TABLET PO SCH ×2 (07:56→09:00)
[2017-07-23] MEDS: DULoxetine HCL 60 MG CAPSULE.DR PO SCH (07:56)
[2017-07-23] MEDS: busPIRone 10 MG TABLET. PO SCH ×3 (07:56→20:22)
[2017-07-23] MEDS: MULTIVITAMIN with MINERAL TABLET. PO SCH ×2 (07:56→09:00)
[2017-07-23] MEDS: CALCIUM POLYCARBOPHIL 625 MG TABLET PO SCH ×3 (07:56→20:22)
[2017-07-23] MEDS: FERROUS SULFATE 325 MG TABLET. PO SCH ×2 (07:56→09:00)
[2017-07-23] MEDS: GABAPENTIN 300 MG CAPSULE. PO SCH ×3 (07:56→20:22)
[2017-07-23] MEDS: DIVALPROEX 125 MG CAP.SPRINK PO SCH ×3 (07:56→20:22)
[2017-07-23] MEDS: ASPIRIN 81 MG TAB.CHEW PO SCH (07:56)
[2017-07-23] MEDS: SENNOSIDES 8.6 MG TABLET PO SCH ×2 (07:56→09:00)
[2017-07-23] MEDS: CYANOCOBALAMIN (VITAMIN B-12) 1,000 MCG TABLET. PO SCH ×2 (07:56→09:00)
[2017-07-23] MEDS: TIMOLOL 0.25% OPHTH SOLUTION 5ML BOTTLE. OU SCH (07:58)
[2017-07-23] MEDS: CIPROFLOXACIN 0.3% OPHTH SOLUTION 2.5ML BOTTLE. OU SCH ×2 (07:58→20:27)
[2017-07-23] MEDS: QUEtiapine 25 MG TABLET. PO SCH ×3 (08:00→18:23)
[2017-07-23 16:19] VITALS: BP 103/68
[2017-07-23] MEDS: MIRTAZAPINE 15 MG TABLET PO SCH (20:22)
[2017-07-23] MEDS: LATANOPROST 0.005% OPHTH SOLUTION 2.5ML BOTTLE. OU SCH (20:27)
[2017-07-24 05:56] VITALS: BP 127/63
[2017-07-24] MEDS: LEVOTHYROXINE 88 MCG TABLET PO SCH (06:06)
--- NOTE | 2017-07-24 08:08 | PN ---
DATE: 07/21/2017 This is a late entry, covers the elements not covered in my initial note, 07/21/2017. SUBJECTIVE: I met with the patient in the evening of 07/21/2017. Overall, the patient has had a good day. Appetite is much improved on the Megace, eating 100% compliant with medications, still gets irritable, labile, intermittently aggressive, but much improved. REVIEW OF SYSTEMS: Ambulation impaired, in the wheelchair. No CV, , pulmonary, eye, ENT system symptoms on review. Reliability poor. MENTAL STATUS EXAM: Oriented to herself. Insight, judgment, recent and remote memory, attention, concentration, fund of knowledge poor, consistent with her diagnosis mentioned in my initial note. IMPRESSION: Major neurocognitive disorder, Alzheimer, vascular with depression, delusion, behavioral disturbance, major depressive disorder with psychotic features. Rest unchanged. PLAN: Continue current psychotropics. Adjust further as clinically indicated. MAN Nupur MARMOLEJO MD DR: SORAYA/shaneka JOB#: [id number] / [id number]
[2017-07-24] MEDS: MEGESTROL 400 MG/10 ML ORAL.SUSP. PO SCH ×3 (08:12→18:08)
[2017-07-24] MEDS: RIVASTIGMINE 9.5MG PATCH. TD SCH (08:12)
[2017-07-24] MEDS: ASCORBIC ACID 500 MG TABLET PO SCH ×2 (08:12→09:00)
[2017-07-24] MEDS: MULTIVITAMIN with MINERAL TABLET. PO SCH ×2 (08:13→09:00)
[2017-07-24] MEDS: ASPIRIN 81 MG TAB.CHEW PO SCH ×2 (08:13→09:00)
[2017-07-24] MEDS: TIMOLOL 0.25% OPHTH SOLUTION 5ML BOTTLE. OU SCH (08:13)
[2017-07-24] MEDS: GABAPENTIN 300 MG CAPSULE. PO SCH ×3 (08:13→19:48)
[2017-07-24] MEDS: CIPROFLOXACIN 0.3% OPHTH SOLUTION 2.5ML BOTTLE. OU SCH ×2 (08:13→19:50)
[2017-07-24] MEDS: CALCIUM POLYCARBOPHIL 625 MG TABLET PO SCH ×3 (08:13→19:48)
[2017-07-24] MEDS: FERROUS SULFATE 325 MG TABLET. PO SCH ×2 (08:14→09:00)
[2017-07-24] MEDS: CYANOCOBALAMIN (VITAMIN B-12) 1,000 MCG TABLET. PO SCH ×2 (08:14→09:00)
[2017-07-24] MEDS: SENNOSIDES 8.6 MG TABLET PO SCH ×2 (08:14→09:00)
[2017-07-24] MEDS: QUEtiapine 25 MG TABLET. PO SCH ×3 (08:15→18:08)
[2017-07-24] MEDS: DIVALPROEX 125 MG CAP.SPRINK PO SCH ×3 (08:15→19:48)
[2017-07-24] MEDS: DULoxetine HCL 60 MG CAPSULE.DR PO SCH (08:15)
[2017-07-24] MEDS: busPIRone 10 MG TABLET. PO SCH ×3 (08:15→19:48)
--- NOTE | 2017-07-24 08:33 | PN ---
DATE: 07/22/2017 This late entry, 07/22/2017, covers elements not covered in my initial note of 07/22/2017. SUBJECTIVE: The patient was staffed at treatment team meeting with the entire team morning of 07/22/2017, seen individually evening of 07/22/2017. Appetite 50%, sleeping 5-1/2 hours. Valproic acid level 26 on the . She has been somewhat withdrawn at times, drowsy. Ambulation impaired, in wheelchair. REVIEW OF SYSTEMS: No CV, , pulmonary, eye, ENT system symptoms on review. MENTAL STATUS EXAM: Oriented to herself. Insight, judgment, recent and remote memory, attention, concentration, fund of knowledge poor consistent with her diagnosis. ASSESSMENT: Major neurocognitive disorder, Alzheimer, vascular with delusion and depression; major depressive disorder with psychotic features. PLAN: Continue current psychotropics mentioned in my initial note. MAN Nupur MARMOLEJO MD DR: SORAYA/shaneka JOB#: [id number] / [id number]
--- NOTE | 2017-07-24 09:38 | PDOC ---
Exam Note: Tunde Note: Please also refer to the separate dictated note~for this date of service dictated separately.~Patient seen individually. Discussed the patient with Nursing staff reviewed the chart.~Reviewed interim history and current functioning. Reviewed vital signs,~Labs/ Radiology~and current medications noted below. Continue current treatment with the changes noted in the dictated addendum note. This is a late entry for date of service July 23, 2017. Assessment: Vital Signs: VS - Last 72 Hours, by Label Date Time Temp Pulse Resp B/P (MAP) Pulse Ox O2 Delivery O2 Flow Rate FiO2 07/24/17 05:56 99.5 65 18 127/63 (84) 92 07/23/17 16:19 98.3 72 18 103/68 (80) 95 07/23/17 06:02 98.7 63 18 107/63 (78) 94 07/22/17 15:58 99.2 80 16 97/65 (76) 94 07/22/17 05:55 98.4 66 18 131/73 (92) 93 07/21/17 15:50 98.1 18 94 07/21/17 15:27 100/72 (81) Vital Signs Date Time Temp Pulse Resp B/P (MAP) Pulse Ox O2 Delivery O2 Flow Rate FiO2 07/24/17 05:56 99.5 65 18 127/63 (84) 92 07/20/17 16:15 Room Air I&O Intake and Output 07/24/17 07:00 Intake Total 960 ml Balance 960 ml Intake Oral 960 ml # Bowel Movements 1 Current Medications: Meds: Current Medications Acetaminophen (Tylenol) 650 mg PRN Q6HRS PRN PO PAIN / TEMP; Start 07/14/17 at 13:15; Status Cancel Multi-Ingredient Ointment (Analgesic [place]) 1 cyril PRN QID PRN TP MUSCLE PAIN; Start 07/14/17 at 13:15 Al Hydroxide/Mg Hydroxide (Mylanta Plus Xs) 15 ml PRN AFTMEALHC PRN PO DYSPEPSIA; Start 07/14/17 at 13:15 Magnesium Hydroxide (Milk Of Magnesia) 2,400 mg PRN QHS PRN PO CONSTIPATION Last administered on 07/17/17at 14:20; Start 07/14/17 at 13:15 Acetaminophen (Tylenol) 325 mg PRN Q6HRS PRN PO PAIN Last administered on 22:50; Start 07/14/17 at 14:00 Aspirin (Children'S Aspirin) 81 mg DAILY PO Last administered on 07/24/17 08: 13; Start 07/15/17 at 09:00 Bisacodyl (Dulcolax Tab) 5 mg PRN DAILY PRN PO CONSTIPATION; Start 07/14/17 at 14:00 Buspirone HCl (Buspar) 10 mg TID PO Last administered on 07/24/17 08:15; Start 07/14/17 at 14:30 Calcium Polycarbophil (Fibercon) 625 mg BID PO Last administered on 07/24/17 08:13; Start 07/14/17 at 21:00 Vitamin D (Vitamin D3) 50,000 unit WEEKLY PO Last administered on 07/22/17 08: 51; Start 07/15/17 at 09:00 Cyanocobalamin (Vitamin B-12) 1,000 mcg DAILY PO Last administered on 08:14; Start 07/15/17 at 09:00 Divalproex Sodium (Depakote Sprinkles) 125 mg TID PO Last administered on 08:15; Start 07/14/17 at 14:30 Duloxetine HCl (Cymbalta) 60 mg DAILY PO Last administered on 07/24/17 08:15; Start 07/15/17 at 09:00 Ferrous Sulfate (Feosol) 325 mg DAILY PO Last administered on 07/24/17at 08:14; Start 07/15/17 at 09:00 Gabapentin (Neurontin) 300 mg TID PO Last administered on 07/24/17 08:13; Start 07/14/17 at 14:30 Latanoprost (Xalatan) 1 drop QHS OU Last administered on 07/23/17 20:27; Start 07/14/17 at 21:00 Levothyroxine Sodium (Synthroid) 88 mcg DAILY06 PO Last administered on 06:06; Start 07/15/17 at 06:00 Mirtazapine (Remeron) 7.5 mg QHS PO Last administered on 07/15/17at 19:37; Start 07/14/17 at 21:00; Stop 07/16/17 at 19:18; Status DC Olanzapine (ZyPREXA ZYDIS) 2.5 mg PRN Q2HR PRN PO ANXIETY / AGITATION; Start at 14:00 Quetiapine Fumarate (SEROquel) 12.5 mg BID92 PO Last administered on 07/19/17at 14:24; Start 07/14/17 at 14:30; Stop 07/19/17 at 18:42; Status DC Rivastigmine (Exelon) 1 patch DAILY TD Last administered on 07/24/17at 08:12; Start 07/15/17 at 09:00 Sennosides (Senna) 8.6 mg DAILY PO Last administered on 07/24/17 08:14; Start 07/15/17 at 09:00 Sodium Chloride (Hypertonic Saline 5% Premix) 1,000 ml CONT IV ; Start 07/14/17 at 14:00; Status UNV Ascorbic Acid (Vitamin C) 500 mg DAILY PO Last administered on 07/24/17at 08:12 ; Start 07/15/17 at 09:00 Artificial Tears (Artificial Tears) 1 drop TID OU Last administered on at 21:12; Start 07/14/17 at 14:45; Stop 07/18/17 at 17:46; Status DC Ciprofloxacin 1 drop BID OU Last administered on 07/24/17at 08:13; Start at 21:00 Multivitamins/ Calcium (Thera-M Plus) 1 tab DAILY PO Last administered on at 08:13; Start 07/15/17 at 09:00 Timolol Maleate (Timoptic 0.25% Oph) 1 drop DAILY OU Last administered on at 08:13; Start 07/15/17 at 09:00 Vitamin D (Vitamin D3) 50,000 unit WEEKLY PO ; Start 07/22/17 at 09:00; Status UNV Mirtazapine (Remeron) 15 mg QHS PO Last administered on 07/23/17at 20:22; Start 07/16/17 at 21:00 Magnesium Citrate (Citroma) 148 ml 1X ONCE PO Last administered on 07/17/17at 21:14; Start 07/17/17 at 21:00; Stop 07/17/17 at 21:01; Status DC Artificial Tears (Artificial Tears) 1 drop PRN TID PRN OU DRY EYE; Start at 09:00 Megestrol Acetate (Megace) 100 mg TIDAC PO Last administered on 07/24/17at 08:12 ; Start 07/19/17 at 07:30 Quetiapine Fumarate (SEROquel) 12.5 mg TID@0900,1300,1700 PO Last administered on 07/24/17at 08:15; Start 07/20/17 at 09:00 Active Scripts Active Reported Timoptic 0.25% Ocudose Drop (Timolol Maleate/Pf) 1 Each Droperette 1 Drop OU DAILY Seroquel (Quetiapine Fumarate) 25 Mg Tablet 12.5 Mg PO BID92 Sodium Chloride (Sodium Chloride 5 %) 500 Ml Iv.soln 1,000 Ml IV 1X Ciprofloxacin Hcl 2.5 Ml Drops 1 Drop EACHEYE BID Depakote Sprinkle (Divalproex Sodium) 125 Mg Cap.sprink 125 Mg PO TID Vitamin D3 (Cholecalciferol (Vitamin D3)) 50,000 Unit Capsule 50,000 Unit PO WEEKLY Zyprexa Zydis (Olanzapine) 5 Mg Tab.rapdis 2.5 Mg PO PRN Q2HR PRN MDD 10mg MAX 10mg/24hrs Haloperidol Lactate 2 Mg/1 Ml Oral.conc 5 Mg PO PRN Q6HRS PRN Ferrous Sulfate 325 Mg Tablet 325 Mg PO DAILY Latanoprost 2.5 Ml Drops 1 Drop EACHEYE QHS Mirtazapine 15 Mg Tablet 7.5 Mg PO QHS Vitamin B-12 (Cyanocobalamin (Vitamin B-12)) 1,000 Mcg Tablet 1,000 Mcg PO DAILY EXELON 9.5mg/24hr (Rivastigmine) 1 Each Patch.td24 1 Patch TD DAILY Cymbalta (Duloxetine Hcl) 60 Mg Capsule.dr 60 Mg PO DAILY Buspirone Hcl 10 Mg Tablet 10 Mg PO TID Vitamin C (Ascorbic Acid) 500 Mg Tab.chew 500 Mg PO DAILY Refresh Optive Eye Drops (Carboxymethylcellulos/Glycerin) 15 Ml Drops 1 Drop EACHEYE TID Multi-Day Vitamins (Multivitamin) 1 Each Tablet 1 Tab PO DAILY Zofran (Ondansetron Hcl) 4 Mg Tablet 1 Tab PO Q6HRS PRN Senna (Sennosides) 8.6 Mg Tablet 8.6 Mg PO DAILY Levothyroxine Sodium 112 Mcg Tablet 88 Mcg PO DAILY06 Anti-Diarrhea (Loperamide Hcl) 2 Mg Tablet 2 Mg PO PRN Q4HRS PRN Gabapentin 300 Mg Capsule 300 Mg PO TID Fiber Tabs (Calcium Polycarbophil) 625 Mg Tablet 625 Mg PO BID Bisacodyl 5 Mg Tablet.dr 5 Mg PO PRN DAILY PRN Aspirin 81 Mg Tab.chew 81 Mg PO DAILY Tylenol (Acetaminophen) 325 Mg Tablet 325 Mg PO PRN Q6HRS PRN I have reviewed the current psychotropics carefully including drug interactions. Risk benefit ratio favors no change other than as noted in my dictated progress note. Diagnosis: Problems: (1) Cellulitis (2) Bilateral lower leg cellulitis (3) Mental status change (4) Major depressive disorder, recurrent episode (5) Anxiety disorder (6) Impulse control disorder RITA MARMOLEJO MD Jul 24, 2017 09:38
[2017-07-24 16:09] VITALS: BP 105/65
[2017-07-24] MEDS: MIRTAZAPINE 15 MG TABLET PO SCH (19:48)
[2017-07-24] MEDS: LATANOPROST 0.005% OPHTH SOLUTION 2.5ML BOTTLE. OU SCH (19:49)
--- NOTE | 2017-07-24 22:15 | PDOC ---
Exam Note: Tunde Note: Please also refer to the separate dictated note~for this date of service dictated separately.~Patient seen individually. Discussed the patient with Nursing staff reviewed the chart.~Reviewed interim history and current functioning. Reviewed vital signs,~Labs/ Radiology~and current medications noted below. Continue current treatment with the changes noted in the dictated addendum note Assessment: Vital Signs: Vital Signs Date Time Temp Pulse Resp B/P (MAP) Pulse Ox O2 Delivery O2 Flow Rate FiO2 07/24/17 16:09 98.6 82 20 105/65 (78) 94 07/20/17 16:15 Room Air I&O Intake and Output 07/24/17 07:00 Intake Total 960 ml Balance 960 ml Intake Oral 960 ml # Bowel Movements 1 Current Medications: Meds: Current Medications Acetaminophen (Tylenol) 650 mg PRN Q6HRS PRN PO PAIN / TEMP; Start 07/14/17 at 13:15; Status Cancel Multi-Ingredient Ointment (Analgesic [place]) 1 cyril PRN QID PRN TP MUSCLE PAIN; Start 07/14/17 at 13:15 Al Hydroxide/Mg Hydroxide (Mylanta Plus Xs) 15 ml PRN AFTMEALHC PRN PO DYSPEPSIA; Start 07/14/17 at 13:15 Magnesium Hydroxide (Milk Of Magnesia) 2,400 mg PRN QHS PRN PO CONSTIPATION Last administered on 07/17/17at 14:20; Start 07/14/17 at 13:15 Acetaminophen (Tylenol) 325 mg PRN Q6HRS PRN PO PAIN Last administered on at 22:50; Start 07/14/17 at 14:00 Aspirin (Children'S Aspirin) 81 mg DAILY PO Last administered on 07/23/17at 07: 56; Start 07/15/17 at 09:00 Bisacodyl (Dulcolax Tab) 5 mg PRN DAILY PRN PO CONSTIPATION; Start 07/14/17 at 14:00 Buspirone HCl (Buspar) 10 mg TID PO Last administered on 07/24/17at 19:48; Start 07/14/17 at 14:30 Calcium Polycarbophil (Fibercon) 625 mg BID PO Last administered on 07/24/17at 19:48; Start 07/14/17 at 21:00 Vitamin D (Vitamin D3) 50,000 unit WEEKLY PO Last administered on 07/22/17 08: 51; Start 07/15/17 at 09:00 Cyanocobalamin (Vitamin B-12) 1,000 mcg DAILY PO Last administered on 08:51; Start 07/15/17 at 09:00 Divalproex Sodium (Depakote Sprinkles) 125 mg TID PO Last administered on 19:48; Start 07/14/17 at 14:30 Duloxetine HCl (Cymbalta) 60 mg DAILY PO Last administered on 07/24/17 08:15; Start 07/15/17 at 09:00 Ferrous Sulfate (Feosol) 325 mg DAILY PO Last administered on 07/22/17 08:51; Start 07/15/17 at 09:00 Gabapentin (Neurontin) 300 mg TID PO Last administered on 07/24/17 19:48; Start 07/14/17 at 14:30 Latanoprost (Xalatan) 1 drop QHS OU Last administered on 07/24/17 19:49; Start 07/14/17 at 21:00 Levothyroxine Sodium (Synthroid) 88 mcg DAILY06 PO Last administered on 06:06; Start 07/15/17 at 06:00 Mirtazapine (Remeron) 7.5 mg QHS PO Last administered on 07/15/17at 19:37; Start 07/14/17 at 21:00; Stop 07/16/17 at 19:18; Status DC Olanzapine (ZyPREXA ZYDIS) 2.5 mg PRN Q2HR PRN PO ANXIETY / AGITATION; Start at 14:00 Quetiapine Fumarate (SEROquel) 12.5 mg BID92 PO Last administered on 07/19/17 14:24; Start 07/14/17 at 14:30; Stop 07/19/17 at 18:42; Status DC Rivastigmine (Exelon) 1 patch DAILY TD Last administered on 07/24/17 08:12; Start 07/15/17 at 09:00 Sennosides (Senna) 8.6 mg DAILY PO Last administered on 07/22/17 08:52; Start 07/15/17 at 09:00 Sodium Chloride (Hypertonic Saline 5% Premix) 1,000 ml CONT IV ; Start 07/14/17 at 14:00; Status UNV Ascorbic Acid (Vitamin C) 500 mg DAILY PO Last administered on 07/22/17 08:52 ; Start 07/15/17 at 09:00 Artificial Tears (Artificial Tears) 1 drop TID OU Last administered on at 21:12; Start 07/14/17 at 14:45; Stop 07/18/17 at 17:46; Status DC Ciprofloxacin 1 drop BID OU Last administered on 07/24/17at 19:50; Start at 21:00 Multivitamins/ Calcium (Thera-M Plus) 1 tab DAILY PO Last administered on 08:52; Start 07/15/17 at 09:00 Timolol Maleate (Timoptic 0.25% Ophth) 1 drop DAILY OU Last administered on 08:13; Start 07/15/17 at 09:00 Vitamin D (Vitamin D3) 50,000 unit WEEKLY PO ; Start 07/22/17 at 09:00; Status UNV Mirtazapine (Remeron) 15 mg QHS PO Last administered on 07/24/17at 19:48; Start 07/16/17 at 21:00 Magnesium Citrate (Citroma) 148 ml 1X ONCE PO Last administered on 07/17/17at 21:14; Start 07/17/17 at 21:00; Stop 07/17/17 at 21:01; Status DC Artificial Tears (Artificial Tears) 1 drop PRN TID PRN OU DRY EYE; Start at 09:00 Megestrol Acetate (Megace) 100 mg TIDAC PO Last administered on 07/24/17at 18:08 ; Start 07/19/17 at 07:30 Quetiapine Fumarate (SEROquel) 12.5 mg TID@0900,1300,1700 PO Last administered on 07/24/17at 18:08; Start 07/20/17 at 09:00 Active Scripts Active Reported Timoptic 0.25% Ocudose Drop (Timolol Maleate/Pf) 1 Each Droperette 1 Drop OU DAILY Seroquel (Quetiapine Fumarate) 25 Mg Tablet 12.5 Mg PO BID92 Sodium Chloride (Sodium Chloride 5 %) 500 Ml Iv.soln 1,000 Ml IV 1X Ciprofloxacin Hcl 2.5 Ml Drops 1 Drop EACHEYE BID Depakote Sprinkle (Divalproex Sodium) 125 Mg Cap.sprink 125 Mg PO TID Vitamin D3 (Cholecalciferol (Vitamin D3)) 50,000 Unit Capsule 50,000 Unit PO WEEKLY Zyprexa Zydis (Olanzapine) 5 Mg Tab.rapdis 2.5 Mg PO PRN Q2HR PRN MDD 10mg MAX 10mg/24hrs Haloperidol Lactate 2 Mg/1 Ml Oral.conc 5 Mg PO PRN Q6HRS PRN Ferrous Sulfate 325 Mg Tablet 325 Mg PO DAILY Latanoprost 2.5 Ml Drops 1 Drop EACHEYE QHS Mirtazapine 15 Mg Tablet 7.5 Mg PO QHS Vitamin B-12 (Cyanocobalamin (Vitamin B-12)) 1,000 Mcg Tablet 1,000 Mcg PO DAILY EXELON 9.5mg/24hr (Rivastigmine) 1 Each Patch.td24 1 Patch TD DAILY Cymbalta (Duloxetine Hcl) 60 Mg Capsule.dr 60 Mg PO DAILY Buspirone Hcl 10 Mg Tablet 10 Mg PO TID Vitamin C (Ascorbic Acid) 500 Mg Tab.chew 500 Mg PO DAILY Refresh Optive Eye Drops (Carboxymethylcellulos/Glycerin) 15 Ml Drops 1 Drop EACHEYE TID Multi-Day Vitamins (Multivitamin) 1 Each Tablet 1 Tab PO DAILY Zofran (Ondansetron Hcl) 4 Mg Tablet 1 Tab PO Q6HRS PRN Senna (Sennosides) 8.6 Mg Tablet 8.6 Mg PO DAILY Levothyroxine Sodium 112 Mcg Tablet 88 Mcg PO DAILY06 Anti-Diarrhea (Loperamide Hcl) 2 Mg Tablet 2 Mg PO PRN Q4HRS PRN Gabapentin 300 Mg Capsule 300 Mg PO TID Fiber Tabs (Calcium Polycarbophil) 625 Mg Tablet 625 Mg PO BID Bisacodyl 5 Mg Tablet.dr 5 Mg PO PRN DAILY PRN Aspirin 81 Mg Tab.chew 81 Mg PO DAILY Tylenol (Acetaminophen) 325 Mg Tablet 325 Mg PO PRN Q6HRS PRN I have reviewed the current psychotropics carefully including drug interactions. Risk benefit ratio favors no change other than as noted in my dictated progress note. Diagnosis: Problems: (1) Mental status change (2) Major depressive disorder, recurrent episode (3) Anxiety disorder (4) Impulse control disorder RITA MARMOLEJO MD Jul 24, 2017 22:15
[2017-07-25] MEDS: LEVOTHYROXINE 88 MCG TABLET PO SCH (05:23)
[2017-07-25 06:09] VITALS: BP 124/69
[2017-07-25] MEDS: CALCIUM POLYCARBOPHIL 625 MG TABLET PO SCH ×2 (07:44→19:57)
[2017-07-25] MEDS: SENNOSIDES 8.6 MG TABLET PO SCH (07:44)
[2017-07-25] MEDS: MEGESTROL 400 MG/10 ML ORAL.SUSP. PO SCH ×3 (07:44→17:19)
[2017-07-25] MEDS: DIVALPROEX 125 MG CAP.SPRINK PO SCH ×3 (07:44→19:57)
[2017-07-25] MEDS: DULoxetine HCL 60 MG CAPSULE.DR PO SCH (07:45)
[2017-07-25] MEDS: busPIRone 10 MG TABLET. PO SCH ×3 (07:45→19:57)
[2017-07-25] MEDS: QUEtiapine 25 MG TABLET. PO SCH ×3 (07:45→17:20)
[2017-07-25] MEDS: MULTIVITAMIN with MINERAL TABLET. PO SCH (07:45)
[2017-07-25] MEDS: FERROUS SULFATE 325 MG TABLET. PO SCH (07:45)
[2017-07-25] MEDS: RIVASTIGMINE 9.5MG PATCH. TD SCH (07:45)
[2017-07-25] MEDS: CYANOCOBALAMIN (VITAMIN B-12) 1,000 MCG TABLET. PO SCH (07:45)
[2017-07-25] MEDS: ASCORBIC ACID 500 MG TABLET PO SCH (07:45)
[2017-07-25] MEDS: GABAPENTIN 300 MG CAPSULE. PO SCH ×3 (07:45→19:57)
[2017-07-25] MEDS: ASPIRIN 81 MG TAB.CHEW PO SCH (07:45)
[2017-07-25] MEDS: CIPROFLOXACIN 0.3% OPHTH SOLUTION 2.5ML BOTTLE. OU SCH ×2 (09:00→19:57)
[2017-07-25] MEDS: TIMOLOL 0.25% OPHTH SOLUTION 5ML BOTTLE. OU SCH (09:00)
[2017-07-25] MEDS ORDERED: CYANOCOBALAMIN (VITAMIN B-12) 1,000 MCG/ML VIAL IM SCH (09:30)
[2017-07-25 10:28] LABS: VAL ACID 17 mcg/mL (50-100)
[2017-07-25 16:12] VITALS: BP 110/67
[2017-07-25] MEDS ORDERED: NYSTATIN TOPICAL POWDER 15GM BOTTLE. TP ONE (16:36)
[2017-07-25] MEDS: LATANOPROST 0.005% OPHTH SOLUTION 2.5ML BOTTLE. OU SCH (19:57)
[2017-07-25] MEDS: MIRTAZAPINE 15 MG TABLET PO SCH (19:57)
[2017-07-25] MEDS: NYSTATIN TOPICAL POWDER 15GM BOTTLE. TP SCH (20:00)
--- NOTE | 2017-07-25 20:03 | PDOC ---
Exam Note: Tunde Note: Please also refer to the separate dictated note~for this date of service dictated separately.~Patient seen individually. Discussed the patient with Nursing staff reviewed the chart.~Reviewed interim history and current functioning. Reviewed vital signs,~Labs/ Radiology~and current medications noted below. Continue current treatment with the changes noted in the dictated addendum note Assessment: Vital Signs: Vital Signs Date Time Temp Pulse Resp B/P (MAP) Pulse Ox O2 Delivery O2 Flow Rate FiO2 07/25/17 16:12 98.8 79 22 110/67 (81) 97 Room Air I&O Intake and Output 07/25/17 07:00 Intake Total 1500 ml Balance 1500 ml Intake Oral 1500 ml # Bowel Movements 1 Labs: Laboratory Tests Test 07/25/17 09:19 Valproic Acid Level 17 mcg/mL (50-100) L Valproic Acid Last Dose Date 07/24/17 Valproic Acid Last Dose Time 2100 Current Medications: Meds: Current Medications Acetaminophen (Tylenol) 650 mg PRN Q6HRS PRN PO PAIN / TEMP; Start 07/14/17 at 13:15; Status Cancel Multi-Ingredient Ointment (Analgesic [place]) 1 cyril PRN QID PRN TP MUSCLE PAIN; Start 07/14/17 at 13:15; Stop 07/25/17 at 09:04; Status DC Al Hydroxide/Mg Hydroxide (Mylanta Plus Xs) 15 ml PRN AFTMEALHC PRN PO DYSPEPSIA; Start 07/14/17 at 13:15; Stop 07/25/17 at 09:04; Status DC Magnesium Hydroxide (Milk Of Magnesia) 2,400 mg PRN QHS PRN PO CONSTIPATION Last administered on 07/17/17at 14:20; Start 07/14/17 at 13:15; Stop 07/25/17 at 09:04; Status DC Acetaminophen (Tylenol) 325 mg PRN Q6HRS PRN PO PAIN Last administered on at 22:50; Start 07/14/17 at 14:00 Aspirin (Children'S Aspirin) 81 mg DAILY PO Last administered on 07/25/17at 07: 45; Start 07/15/17 at 09:00 Bisacodyl (Dulcolax Tab) 5 mg PRN DAILY PRN PO CONSTIPATION; Start 07/14/17 at 14:00 Buspirone HCl (Buspar) 10 mg TID PO Last administered on 07/25/17 19:57; Start 07/14/17 at 14:30 Calcium Polycarbophil (Fibercon) 625 mg BID PO Last administered on 07/25/17 19:57; Start 07/14/17 at 21:00 Vitamin D (Vitamin D3) 50,000 unit WEEKLY PO Last administered on 07/22/17 08: 51; Start 07/15/17 at 09:00 Cyanocobalamin (Vitamin B-12) 1,000 mcg DAILY PO Last administered on 07:45; Start 07/15/17 at 09:00; Stop 07/25/17 at 09:04; Status DC Divalproex Sodium (Depakote Sprinkles) 125 mg TID PO Last administered on 19:57; Start 07/14/17 at 14:30 Duloxetine HCl (Cymbalta) 60 mg DAILY PO Last administered on 07/25/17 07:45; Start 07/15/17 at 09:00 Ferrous Sulfate (Feosol) 325 mg DAILY PO Last administered on 07/25/17 07:45; Start 07/15/17 at 09:00; Stop 07/25/17 at 09:04; Status DC Gabapentin (Neurontin) 300 mg TID PO Last administered on 07/25/17 19:57; Start 07/14/17 at 14:30 Latanoprost (Xalatan) 1 drop QHS OU Last administered on 07/25/17 19:57; Start 07/14/17 at 21:00 Levothyroxine Sodium (Synthroid) 88 mcg DAILY06 PO Last administered on 05:23; Start 07/15/17 at 06:00 Mirtazapine (Remeron) 7.5 mg QHS PO Last administered on 07/15/17 19:37; Start 07/14/17 at 21:00; Stop 07/16/17 at 19:18; Status DC Olanzapine (ZyPREXA ZYDIS) 2.5 mg PRN Q2HR PRN PO ANXIETY / AGITATION; Start at 14:00 Quetiapine Fumarate (SEROquel) 12.5 mg BID92 PO Last administered on 07/19/17 14:24; Start 07/14/17 at 14:30; Stop 07/19/17 at 18:42; Status DC Rivastigmine (Exelon) 1 patch DAILY TD Last administered on 07/25/17 07:45; Start 07/15/17 at 09:00 Sennosides (Senna) 8.6 mg DAILY PO Last administered on 07/25/17 07:44; Start 07/15/17 at 09:00 Sodium Chloride (Hypertonic Saline 5% Premix) 1,000 ml CONT IV ; Start 07/14/17 at 14:00; Status UNV Ascorbic Acid (Vitamin C) 500 mg DAILY PO Last administered on 07/25/17 07:45 ; Start 07/15/17 at 09:00; Stop 07/25/17 at 09:04; Status DC Artificial Tears (Artificial Tears) 1 drop TID OU Last administered on at 21:12; Start 07/14/17 at 14:45; Stop 07/18/17 at 17:46; Status DC Ciprofloxacin 1 drop BID OU Last administered on 07/25/17 19:57; Start at 21:00 Multivitamins/ Calcium (Thera-M Plus) 1 tab DAILY PO Last administered on 07:45; Start 07/15/17 at 09:00 Timolol Maleate (Timoptic 0.25% Ophth) 1 drop DAILY OU Last administered on at 09:00; Start 07/15/17 at 09:00 Vitamin D (Vitamin D3) 50,000 unit WEEKLY PO ; Start 07/22/17 at 09:00; Status UNV Mirtazapine (Remeron) 15 mg QHS PO Last administered on 07/25/17 19:57; Start 07/16/17 at 21:00 Magnesium Citrate (Citroma) 148 ml 1X ONCE PO Last administered on 07/17/17 21:14; Start 07/17/17 at 21:00; Stop 07/17/17 at 21:01; Status DC Artificial Tears (Artificial Tears) 1 drop PRN TID PRN OU DRY EYE; Start at 09:00 Megestrol Acetate (Megace) 100 mg TIDAC PO Last administered on 07/25/17at 17:19 ; Start 07/19/17 at 07:30 Quetiapine Fumarate (SEROquel) 12.5 mg TID@0900,1300,1700 PO Last administered on 07/25/17at 17:20; Start 07/20/17 at 09:00 Cyanocobalamin (Vitamin B-12) 1,000 mcg [id number] IM Last administered on at 09:30; Start 07/25/17 at 09:30 Nystatin (Nystop) 1 cyril BID TP Last administered on 07/25/17at 20:00; Start at 21:00 Nystatin (Nystop) 15 cyril STK-MED ONCE TP Last administered on 07/25/17at 16:36; Start 07/25/17 at 16:36; Stop 07/25/17 at 16:37; Status DC Active Scripts Active Reported Timoptic 0.25% Ocudose Drop (Timolol Maleate/Pf) 1 Each Droperette 1 Drop OU DAILY Seroquel (Quetiapine Fumarate) 25 Mg Tablet 12.5 Mg PO BID92 Sodium Chloride (Sodium Chloride 5 %) 500 Ml Iv.soln 1,000 Ml IV 1X Ciprofloxacin Hcl 2.5 Ml Drops 1 Drop EACHEYE BID Depakote Sprinkle (Divalproex Sodium) 125 Mg Cap.sprink 125 Mg PO TID Vitamin D3 (Cholecalciferol (Vitamin D3)) 50,000 Unit Capsule 50,000 Unit PO WEEKLY Zyprexa Zydis (Olanzapine) 5 Mg Tab.rapdis 2.5 Mg PO PRN Q2HR PRN MDD 10mg MAX 10mg/24hrs Haloperidol Lactate 2 Mg/1 Ml Oral.conc 5 Mg PO PRN Q6HRS PRN Ferrous Sulfate 325 Mg Tablet 325 Mg PO DAILY Latanoprost 2.5 Ml Drops 1 Drop EACHEYE QHS Mirtazapine 15 Mg Tablet 7.5 Mg PO QHS Vitamin B-12 (Cyanocobalamin (Vitamin B-12)) 1,000 Mcg Tablet 1,000 Mcg PO DAILY EXELON 9.5mg/24hr (Rivastigmine) 1 Each Patch.td24 1 Patch TD DAILY Cymbalta (Duloxetine Hcl) 60 Mg Capsule.dr 60 Mg PO DAILY Buspirone Hcl 10 Mg Tablet 10 Mg PO TID Vitamin C (Ascorbic Acid) 500 Mg Tab.chew 500 Mg PO DAILY Refresh Optive Eye Drops (Carboxymethylcellulos/Glycerin) 15 Ml Drops 1 Drop EACHEYE TID Multi-Day Vitamins (Multivitamin) 1 Each Tablet 1 Tab PO DAILY Zofran (Ondansetron Hcl) 4 Mg Tablet 1 Tab PO Q6HRS PRN Senna (Sennosides) 8.6 Mg Tablet 8.6 Mg PO DAILY Levothyroxine Sodium 112 Mcg Tablet 88 Mcg PO DAILY06 Anti-Diarrhea (Loperamide Hcl) 2 Mg Tablet 2 Mg PO PRN Q4HRS PRN Gabapentin 300 Mg Capsule 300 Mg PO TID Fiber Tabs (Calcium Polycarbophil) 625 Mg Tablet 625 Mg PO BID Bisacodyl 5 Mg Tablet.dr 5 Mg PO PRN DAILY PRN Aspirin 81 Mg Tab.chew 81 Mg PO DAILY Tylenol (Acetaminophen) 325 Mg Tablet 325 Mg PO PRN Q6HRS PRN I have reviewed the current psychotropics carefully including drug interactions. Risk benefit ratio favors no change other than as noted in my dictated progress note. Diagnosis: Problems: (1) Mental status change (2) Major depressive disorder, recurrent episode (3) Anxiety disorder (4) Impulse control disorder RITA MARMOLEJO MD Jul 25, 2017 20:03
--- NOTE | 2017-07-25 20:35 | PN ---
DATE: 07/23/2017 This late entry 07/23/2017 covers elements not covered in my initial note of 07/23/2017. SUBJECTIVE: I met with the patient evening of 07/23/2017. The patient took her important medications in the morning. Per nursing report, was cursing, agitated, threw her tray at lunchtime, quite labile, ate her supper. Valproic acid level on 07/22/2017 is 15 and we will repeat it on 07/25/2017. REVIEW OF SYSTEMS: Ambulation impaired, in wheelchair. No CV, , pulmonary, eye, ENT system symptoms on review. Reliability poor. MENTAL STATUS EXAM: Oriented to herself. Insight, judgment, recent and remote memory, attention, concentration, fund of knowledge poor, consistent with her diagnosis. IMPRESSION: Major neurocognitive disorder, Alzheimer, vascular with depression, delusion, behavioral disturbance. Rest unchanged. PLAN: Continue current psychotropics. Adjust further as clinically indicated. RITA MARMOLEJO MD DR: SORAYA/shaneka JOB#: [id number] / [id number]
--- NOTE | 2017-07-25 21:08 | PN ---
DATE: 07/24/2017 This note covers the elements not covered in my initial note, 07/24/2017. SUBJECTIVE: I met with the patient the evening of 07/24/2017. The patient has not been combative today, but was cursing at the staff. We will check a valproic acid level in the morning. REVIEW OF SYSTEMS: Ambulation impaired with a wheelchair. No CV, , pulmonary, eye, ENT system symptoms on review. MENTAL STATUS EXAM: Oriented to herself. Insight, judgment, recent and remote memory, attention, concentration, fund of knowledge poor, consistent with her diagnosis as mentioned in my initial note. IMPRESSION: Major neurocognitive disorder, Alzheimer, vascular with delusion, depression. Rest unchanged. PLAN: Continue current psychotropics. Check valproic acid level in the morning, adjust thereafter. MAN Nupur MARMOLEJO MD DR: SORAYA/shaneka JOB#: [id number] / [id number]
[2017-07-26] MEDS: LEVOTHYROXINE 88 MCG TABLET PO SCH (05:42)
[2017-07-26 06:00] VITALS: BP 130/70
[2017-07-26] MEDS: MEGESTROL 400 MG/10 ML ORAL.SUSP. PO SCH ×3 (09:08→16:33)
[2017-07-26] MEDS: busPIRone 10 MG TABLET. PO SCH ×3 (09:08→20:09)
[2017-07-26] MEDS: DULoxetine HCL 60 MG CAPSULE.DR PO SCH (09:08)
[2017-07-26] MEDS: CALCIUM POLYCARBOPHIL 625 MG TABLET PO SCH ×2 (09:08→20:09)
[2017-07-26] MEDS: DIVALPROEX 125 MG CAP.SPRINK PO SCH ×3 (09:08→20:09)
[2017-07-26] MEDS: GABAPENTIN 300 MG CAPSULE. PO SCH ×3 (09:08→20:09)
[2017-07-26] MEDS: SENNOSIDES 8.6 MG TABLET PO SCH (09:08)
[2017-07-26] MEDS: MULTIVITAMIN with MINERAL TABLET. PO SCH (09:08)
[2017-07-26] MEDS: QUEtiapine 25 MG TABLET. PO SCH ×3 (09:09→16:33)
[2017-07-26] MEDS: ASPIRIN 81 MG TAB.CHEW PO SCH (09:09)
[2017-07-26] MEDS: RIVASTIGMINE 9.5MG PATCH. TD SCH (09:09)
[2017-07-26] MEDS: NYSTATIN TOPICAL POWDER 15GM BOTTLE. TP SCH ×2 (09:11→20:10)
[2017-07-26] MEDS: TIMOLOL 0.25% OPHTH SOLUTION 5ML BOTTLE. OU SCH (09:11)
[2017-07-26] MEDS: CIPROFLOXACIN 0.3% OPHTH SOLUTION 2.5ML BOTTLE. OU SCH ×2 (09:11→20:11)
[2017-07-26 15:58] VITALS: BP 110/65
--- NOTE | 2017-07-26 19:59 | PDOC ---
Exam Note: Tunde Note: Please also refer to the separate dictated note~for this date of service dictated separately.~Patient seen individually. Discussed the patient with Nursing staff reviewed the chart.~Reviewed interim history and current functioning. Reviewed vital signs,~Labs/ Radiology~and current medications noted below. Continue current treatment with the changes noted in the dictated addendum note Assessment: Vital Signs: Vital Signs Date Time Temp Pulse Resp B/P (MAP) Pulse Ox O2 Delivery O2 Flow Rate FiO2 07/26/17 15:58 97.0 73 16 110/65 (80) 95 07/25/17 16:12 Room Air I&O Intake and Output 07/26/17 07:00 Intake Total 820 ml Balance 820 ml Intake Oral 820 ml # Voids 1 # Bowel Movements 3 Current Medications: Meds: Current Medications Acetaminophen (Tylenol) 650 mg PRN Q6HRS PRN PO PAIN / TEMP; Start 07/14/17 at 13:15; Status Cancel Multi-Ingredient Ointment (Analgesic [place]) 1 cyril PRN QID PRN TP MUSCLE PAIN; Start 07/14/17 at 13:15; Stop 07/25/17 at 09:04; Status DC Al Hydroxide/Mg Hydroxide (Mylanta Plus Xs) 15 ml PRN AFTMEALHC PRN PO DYSPEPSIA; Start 07/14/17 at 13:15; Stop 07/25/17 at 09:04; Status DC Magnesium Hydroxide (Milk Of Magnesia) 2,400 mg PRN QHS PRN PO CONSTIPATION Last administered on 07/17/17at 14:20; Start 07/14/17 at 13:15; Stop 07/25/17 at 09:04; Status DC Acetaminophen (Tylenol) 325 mg PRN Q6HRS PRN PO PAIN Last administered on at 22:50; Start 07/14/17 at 14:00 Aspirin (Children'S Aspirin) 81 mg DAILY PO Last administered on 07/26/17at 09: 09; Start 07/15/17 at 09:00 Bisacodyl (Dulcolax Tab) 5 mg PRN DAILY PRN PO CONSTIPATION; Start 07/14/17 at 14:00 Buspirone HCl (Buspar) 10 mg TID PO Last administered on 07/26/17at 13:55; Start 07/14/17 at 14:30 Calcium Polycarbophil (Fibercon) 625 mg BID PO Last administered on 07/26/17 09:08; Start 07/14/17 at 21:00 Vitamin D (Vitamin D3) 50,000 unit WEEKLY PO Last administered on 07/22/17 08: 51; Start 07/15/17 at 09:00 Cyanocobalamin (Vitamin B-12) 1,000 mcg DAILY PO Last administered on at 07:45; Start 07/15/17 at 09:00; Stop 07/25/17 at 09:04; Status DC Divalproex Sodium (Depakote Sprinkles) 125 mg TID PO Last administered on 13:55; Start 07/14/17 at 14:30 Duloxetine HCl (Cymbalta) 60 mg DAILY PO Last administered on 07/26/17 09:08; Start 07/15/17 at 09:00 Ferrous Sulfate (Feosol) 325 mg DAILY PO Last administered on 07/25/17at 07:45; Start 07/15/17 at 09:00; Stop 07/25/17 at 09:04; Status DC Gabapentin (Neurontin) 300 mg TID PO Last administered on 07/26/17 13:55; Start 07/14/17 at 14:30 Latanoprost (Xalatan) 1 drop QHS OU Last administered on 07/25/17 19:57; Start 07/14/17 at 21:00 Levothyroxine Sodium (Synthroid) 88 mcg DAILY06 PO Last administered on 05:42; Start 07/15/17 at 06:00 Mirtazapine (Remeron) 7.5 mg QHS PO Last administered on 07/15/17at 19:37; Start 07/14/17 at 21:00; Stop 07/16/17 at 19:18; Status DC Olanzapine (ZyPREXA ZYDIS) 2.5 mg PRN Q2HR PRN PO ANXIETY / AGITATION Last administered on 07/26/17at 12:43; Start 07/14/17 at 14:00 Quetiapine Fumarate (SEROquel) 12.5 mg BID92 PO Last administered on 07/19/17at 14:24; Start 07/14/17 at 14:30; Stop 07/19/17 at 18:42; Status DC Rivastigmine (Exelon) 1 patch DAILY TD Last administered on 07/26/17 09:09; Start 07/15/17 at 09:00 Sennosides (Senna) 8.6 mg DAILY PO Last administered on 07/26/17 09:08; Start 07/15/17 at 09:00 Sodium Chloride (Hypertonic Saline 5% Premix) 1,000 ml CONT IV ; Start 07/14/17 at 14:00; Status UNV Ascorbic Acid (Vitamin C) 500 mg DAILY PO Last administered on 07/25/17 07:45 ; Start 07/15/17 at 09:00; Stop 07/25/17 at 09:04; Status DC Artificial Tears (Artificial Tears) 1 drop TID OU Last administered on at 21:12; Start 07/14/17 at 14:45; Stop 07/18/17 at 17:46; Status DC Ciprofloxacin 1 drop BID OU Last administered on 07/26/17at 09:11; Start at 21:00 Multivitamins/ Calcium (Thera-M Plus) 1 tab DAILY PO Last administered on 09:08; Start 07/15/17 at 09:00 Timolol Maleate (Timoptic 0.25% Oph) 1 drop DAILY OU Last administered on 09:11; Start 07/15/17 at 09:00 Vitamin D (Vitamin D3) 50,000 unit WEEKLY PO ; Start 07/22/17 at 09:00; Status UNV Mirtazapine (Remeron) 15 mg QHS PO Last administered on 07/25/17at 19:57; Start 07/16/17 at 21:00 Magnesium Citrate (Citroma) 148 ml 1X ONCE PO Last administered on 07/17/17 21:14; Start 07/17/17 at 21:00; Stop 07/17/17 at 21:01; Status DC Artificial Tears (Artificial Tears) 1 drop PRN TID PRN OU DRY EYE; Start at 09:00 Megestrol Acetate (Megace) 100 mg TIDAC PO Last administered on 07/26/17at 16:33 ; Start 07/19/17 at 07:30 Quetiapine Fumarate (SEROquel) 12.5 mg TID@0900,1300,1700 PO Last administered on 07/26/17at 16:33; Start 07/20/17 at 09:00 Cyanocobalamin (Vitamin B-12) 1,000 mcg [id number] IM Last administered on at 09:30; Start 07/25/17 at 09:30 Nystatin (Nystop) 1 cyril BID TP Last administered on 07/26/17at 09:11; Start at 21:00 Nystatin (Nystop) 15 cyril STK-MED ONCE TP Last administered on 07/25/17at 16:36; Start 07/25/17 at 16:36; Stop 07/25/17 at 16:37; Status DC Active Scripts Active Reported Timoptic 0.25% Ocudose Drop (Timolol Maleate/Pf) 1 Each Droperette 1 Drop OU DAILY Seroquel (Quetiapine Fumarate) 25 Mg Tablet 12.5 Mg PO BID92 Sodium Chloride (Sodium Chloride 5 %) 500 Ml Iv.soln 1,000 Ml IV 1X Ciprofloxacin Hcl 2.5 Ml Drops 1 Drop EACHEYE BID Depakote Sprinkle (Divalproex Sodium) 125 Mg Cap.sprink 125 Mg PO TID Vitamin D3 (Cholecalciferol (Vitamin D3)) 50,000 Unit Capsule 50,000 Unit PO WEEKLY Zyprexa Zydis (Olanzapine) 5 Mg Tab.rapdis 2.5 Mg PO PRN Q2HR PRN MDD 10mg MAX 10mg/24hrs Haloperidol Lactate 2 Mg/1 Ml Oral.conc 5 Mg PO PRN Q6HRS PRN Ferrous Sulfate 325 Mg Tablet 325 Mg PO DAILY Latanoprost 2.5 Ml Drops 1 Drop EACHEYE QHS Mirtazapine 15 Mg Tablet 7.5 Mg PO QHS Vitamin B-12 (Cyanocobalamin (Vitamin B-12)) 1,000 Mcg Tablet 1,000 Mcg PO DAILY EXELON 9.5mg/24hr (Rivastigmine) 1 Each Patch.td24 1 Patch TD DAILY Cymbalta (Duloxetine Hcl) 60 Mg Capsule.dr 60 Mg PO DAILY Buspirone Hcl 10 Mg Tablet 10 Mg PO TID Vitamin C (Ascorbic Acid) 500 Mg Tab.chew 500 Mg PO DAILY Refresh Optive Eye Drops (Carboxymethylcellulos/Glycerin) 15 Ml Drops 1 Drop EACHEYE TID Multi-Day Vitamins (Multivitamin) 1 Each Tablet 1 Tab PO DAILY Zofran (Ondansetron Hcl) 4 Mg Tablet 1 Tab PO Q6HRS PRN Senna (Sennosides) 8.6 Mg Tablet 8.6 Mg PO DAILY Levothyroxine Sodium 112 Mcg Tablet 88 Mcg PO DAILY06 Anti-Diarrhea (Loperamide Hcl) 2 Mg Tablet 2 Mg PO PRN Q4HRS PRN Gabapentin 300 Mg Capsule 300 Mg PO TID Fiber Tabs (Calcium Polycarbophil) 625 Mg Tablet 625 Mg PO BID Bisacodyl 5 Mg Tablet.dr 5 Mg PO PRN DAILY PRN Aspirin 81 Mg Tab.chew 81 Mg PO DAILY Tylenol (Acetaminophen) 325 Mg Tablet 325 Mg PO PRN Q6HRS PRN I have reviewed the current psychotropics carefully including drug interactions. Risk benefit ratio favors no change other than as noted in my dictated progress note. Diagnosis: Problems: (1) Mental status change (2) Major depressive disorder, recurrent episode (3) Anxiety disorder (4) Impulse control disorder RITA MARMOLEJO MD Jul 26, 2017 19:59
[2017-07-26] MEDS: MIRTAZAPINE 15 MG TABLET PO SCH (20:09)
[2017-07-26] MEDS: LATANOPROST 0.005% OPHTH SOLUTION 2.5ML BOTTLE. OU SCH (20:11)
[2017-07-27] MEDS: LEVOTHYROXINE 88 MCG TABLET PO SCH (04:55)
[2017-07-27 06:11] VITALS: BP 109/63
[2017-07-27 07:44] LABS: BASO # 0.1 x10^3/uL (0.0-0.2); BASO % 1 % (0-3); EOS # 0.2 x10^3/uL (0.0-0.7); EOS % 4 % (0-3); HEMATOCRIT 33.1 % (36.0-47.0); HEMOGLOBIN 10.9 g/dL (12.0-15.5); LYMPH # 1.8 x10^3/uL (1.0-4.8); LYMPH % 29 % (24-48); MEAN CORPUSCULAR HEMOGLOBIN 26 pg (25-35); MEAN CORPUSCULAR HGB CONC 33 g/dL (31-37); MEAN CORPUSCULAR VOLUME 79 fL (79-100); MONO # 0.6 x10^3/uL (0.0-1.1); MONO % 10 % (0-9); NEUT # 3.5 x10^3uL (1.8-7.7); NEUT % 56 % (31-73); PLATELET COUNT 273 x10^3/uL (140-400); WHITE BLOOD COUNT 6.2 x10^3/uL (4.0-11.0)
[2017-07-27] MEDS: MEGESTROL 400 MG/10 ML ORAL.SUSP. PO SCH ×3 (07:51→16:56)
[2017-07-27] MEDS: RIVASTIGMINE 9.5MG PATCH. TD SCH (07:51)
[2017-07-27] MEDS: MULTIVITAMIN with MINERAL TABLET. PO SCH (07:52)
[2017-07-27] MEDS: GABAPENTIN 300 MG CAPSULE. PO SCH ×3 (07:52→20:01)
[2017-07-27] MEDS: QUEtiapine 25 MG TABLET. PO SCH ×3 (07:52→16:56)
[2017-07-27] MEDS: DIVALPROEX 125 MG CAP.SPRINK PO SCH ×3 (07:52→20:01)
[2017-07-27] MEDS: DULoxetine HCL 60 MG CAPSULE.DR PO SCH (07:52)
[2017-07-27] MEDS: SENNOSIDES 8.6 MG TABLET PO SCH (07:52)
[2017-07-27] MEDS: ASPIRIN 81 MG TAB.CHEW PO SCH (07:52)
[2017-07-27] MEDS: busPIRone 10 MG TABLET. PO SCH ×3 (07:52→20:01)
[2017-07-27] MEDS: TIMOLOL 0.25% OPHTH SOLUTION 5ML BOTTLE. OU SCH (07:54)
[2017-07-27] MEDS: CALCIUM POLYCARBOPHIL 625 MG TABLET PO SCH ×2 (07:54→20:01)
[2017-07-27] MEDS: NYSTATIN TOPICAL POWDER 15GM BOTTLE. TP SCH ×2 (07:54→20:02)
[2017-07-27] MEDS: CIPROFLOXACIN 0.3% OPHTH SOLUTION 2.5ML BOTTLE. OU SCH ×3 (07:54→20:10)
[2017-07-27 07:59] LABS: ALBUMIN 2.7 g/dL (3.4-5.0); ALBUMIN/GLOBULIN RATIO 0.8 (1.0-1.7); CALCIUM 8.4 mg/dL (8.5-10.1); CREATININE 0.6 mg/dL (0.6-1.0); GFR 99.4; POTASSIUM 4.3 mmol/L (3.5-5.1); TOTAL BILIRUBIN 0.2 mg/dL (0.2-1.0); TOTAL PROTEIN 6.3 g/dL (6.4-8.2)
[2017-07-27 10:10] LABS: BACTERIA,URINE 0 /HPF (0-FEW); BILIRUBIN,URINE NEG (NEG); CLARITY,URINE HAZY; COLOR,URINE YELLOW; GLUCOSE,URINE NEG (NEG); NITRITE,URINE NEG (NEG); RBC,URINE 20-40 /HPF (0-2); SQUAMOUS EPITHELIAL CELL,UR MOD /LPF; UROBILINOGEN,URINE 0.2 mg/dL (0.2 mg/dL); WBC,URINE OCC /HPF (0-4)
[2017-07-27 15:57] VITALS: BP 108/60
--- NOTE | 2017-07-27 19:06 | PN ---
DATE: SUBJECTIVE: The patient was seen today, met with the staff, chart reviewed. Staff reports increased behavior problems, demanding, resistive to care, and scratching. Staff also reports one of the staff here when she tried to help her with the ADLs. The patient is irritable, hostile, has difficulty holding a conversation. OBJECTIVE: VITAL SIGNS: Temperature 97.3, blood pressure 130/70, pulse 67, respirations 20, O2 sat 94%. GENERAL: Slept about 8 hours last night. The patient's appetite is fair. The patient is not presenting with any major medical issues, no falls. MEDICATIONS: The patient's current medications include Seroquel 12.5 mg t.i.d., mirtazapine 15 mg at night, Exelon patch 1 daily, Cymbalta 60 mg daily. She is also on gabapentin 300 mg t.i.d. and the Depakote 125 mg t.i.d., BuSpar 10 mg t.i.d., olanzapine 2.5 mg q. 2 hours p.r.n. LABORATORY DATA: The patient's lab reviewed. Hemoglobin level of 10.5. The patient's iron 121, iron saturation 8, BUN and creatinine ratio 30. the patient's Depakote level was 17. OBSERVATION: Major neurocognitive disorder, Alzheimer's, vascular, with the delusions. PLANS: Continue with the medications. Continue to encourage her to attend the activities. We will consider increase of Depakote if the behavior problems continues. CAITLIN DAVIS MD DR: CLAUDINE/shaneka JOB#: [id number] / [id number]
[2017-07-27] MEDS: MIRTAZAPINE 15 MG TABLET PO SCH (20:01)
[2017-07-27] MEDS: LATANOPROST 0.005% OPHTH SOLUTION 2.5ML BOTTLE. OU SCH ×2 (20:02→20:10)
--- NOTE | 2017-07-28 00:55 | PN ---
DATE: 07/25/2017 This is a late entry for 07/25/2017 covers elements not covered in my initial note of 07/25/2017. SUBJECTIVE: I met with the patient in the evening of 07/25/2017. She has been withdrawn, drowsy, calm and cooperative with meds and assessment and her oral intake, which in itself is an improvement. REVIEW OF SYSTEMS: Ambulation impaired, in wheelchair. No CV, , pulmonary, eye, ENT system symptoms on review. Reliability poor. MENTAL STATUS EXAM: Oriented to herself and situation. Speech coherent, has some latency. Abstraction fair, computation impaired. Mood and affect somewhat withdrawn, showing improvement. LABORATORY DATA: Reviewed. IMPRESSION: Unchanged from initial note. PLAN: Continue current psychotropics. MAN Nupur MARMOLEJO MD DR: SORAYA/shaneka JOB#: [id number] / [id number]
[2017-07-28 05:59] VITALS: BP 90/51
[2017-07-28] MEDS: LEVOTHYROXINE 88 MCG TABLET PO SCH (06:08)
[2017-07-28] MEDS: QUEtiapine 25 MG TABLET. PO SCH ×3 (08:33→16:39)
[2017-07-28] MEDS: GABAPENTIN 300 MG CAPSULE. PO SCH ×3 (08:33→19:34)
[2017-07-28] MEDS: busPIRone 10 MG TABLET. PO SCH ×3 (08:33→19:35)
[2017-07-28] MEDS: MEGESTROL 400 MG/10 ML ORAL.SUSP. PO SCH ×3 (08:33→16:39)
[2017-07-28] MEDS: RIVASTIGMINE 9.5MG PATCH. TD SCH (08:33)
[2017-07-28] MEDS: DIVALPROEX 125 MG CAP.SPRINK PO SCH ×3 (08:33→19:35)
[2017-07-28] MEDS: CALCIUM POLYCARBOPHIL 625 MG TABLET PO SCH ×2 (08:33→19:34)
[2017-07-28] MEDS: MULTIVITAMIN with MINERAL TABLET. PO SCH (08:33)
[2017-07-28] MEDS: SENNOSIDES 8.6 MG TABLET PO SCH (08:33)
[2017-07-28] MEDS: ASPIRIN 81 MG TAB.CHEW PO SCH (08:33)
[2017-07-28] MEDS: DULoxetine HCL 60 MG CAPSULE.DR PO SCH (08:33)
[2017-07-28] MEDS: NYSTATIN TOPICAL POWDER 15GM BOTTLE. TP SCH ×2 (08:35→19:36)
[2017-07-28] MEDS: CIPROFLOXACIN 0.3% OPHTH SOLUTION 2.5ML BOTTLE. OU SCH ×3 (08:35→19:35)
[2017-07-28] MEDS: TIMOLOL 0.25% OPHTH SOLUTION 5ML BOTTLE. OU SCH ×2 (08:35→08:51)
[2017-07-28 15:56] VITALS: BP 135/72
--- NOTE | 2017-07-28 19:17 | PN ---
DATE: 07/27/2017 SUBJECTIVE: The patient was seen today, met with the staff, chart reviewed. The patient continues to have behavioral problems, verbally abusive, tends to be combative at times, , not able to follow directions. OBSERVATION: VITAL SIGNS: Temperature 98.4, blood pressure 109/63, pulse 70, respirations 16, O2 sat 93%. Slept about 7 hours last night. CURRENT MEDICATIONS: Reviewed. Currently on Seroquel 25 mg t.i.d., mirtazapine 15 mg at night, Exelon patch 1 daily, Cymbalta 60 mg daily. The patient is also on Depakote 125 mg t.i.d., BuSpar 10 mg t.i.d. and gabapentin 300 mg t.i.d. LABORATORY DATA: The patient's lab reviewed except for a low hemoglobin level, which were all within normal range. OBSERVATION: Major neurocognitive disorder, Alzheimer's, vascular with delusions. PLAN: To continue with the medication. The patient continues to have behavior problems. We will explore discharge options and placement. CAITLIN DAVIS MD DR: CLAUDINE/shaneka JOB#: [id number] / [id number]
[2017-07-28] MEDS: MIRTAZAPINE 15 MG TABLET PO SCH (19:35)
[2017-07-28] MEDS: LATANOPROST 0.005% OPHTH SOLUTION 2.5ML BOTTLE. OU SCH (19:36)
[2017-07-29] MEDS: LEVOTHYROXINE 88 MCG TABLET PO SCH (05:46)
[2017-07-29 06:03] VITALS: BP 148/73
--- NOTE | 2017-07-29 07:05 | PN ---
DATE: 07/28/2017 SUBJECTIVE: The patient was seen today, met with the staff, chart reviewed. The patient continues to exhibit behavior problems, constantly demanding, combative, verbal, banging on the door, upsetting other residents, and also tried to scratch others. The patient is difficult to redirect. OBSERVATION: Vital signs are stable. The patient slept fairly well. Appetite fair. The patient is not having any side effects. She is on wheelchair. No falls. MEDICATIONS: The patient's current medications include Seroquel 12.5 mg t.i.d., mirtazapine 15 mg at night, ____ 1 daily, Cymbalta 60 mg daily. She is also on gabapentin 300 t.i.d., Depakote 125 mg t.i.d., BuSpar 10 mg t.i.d., and olanzapine 2.5 mg q.2 hours p.r.n. The patient's Depakote level was only 17. ASSESSMENT: Major neurocognitive disorder, Alzheimer's, vascular with the delusions. PLAN: The patient's Depakote to be increased to 250 mg t.i.d. and will repeat the Depakote level. Continue with other medications. CAITLIN DAVIS MD DR: LCAUDINE/shaneka JOB#: [id number] / [id number]
[2017-07-29] MEDS: GABAPENTIN 300 MG CAPSULE. PO SCH ×3 (07:50→20:06)
[2017-07-29] MEDS: MEGESTROL 400 MG/10 ML ORAL.SUSP. PO SCH ×3 (07:50→18:07)
[2017-07-29] MEDS: ASPIRIN 81 MG TAB.CHEW PO SCH (07:51)
[2017-07-29] MEDS: SENNOSIDES 8.6 MG TABLET PO SCH (07:51)
[2017-07-29] MEDS: CALCIUM POLYCARBOPHIL 625 MG TABLET PO SCH ×2 (07:51→20:05)
[2017-07-29] MEDS: DIVALPROEX 125 MG CAP.SPRINK PO SCH ×3 (07:51→20:05)
[2017-07-29] MEDS: DULoxetine HCL 60 MG CAPSULE.DR PO SCH (07:51)
[2017-07-29] MEDS: busPIRone 10 MG TABLET. PO SCH ×3 (07:52→20:06)
[2017-07-29] MEDS: MULTIVITAMIN with MINERAL TABLET. PO SCH (07:52)
[2017-07-29] MEDS: QUEtiapine 25 MG TABLET. PO SCH ×3 (07:52→18:07)
[2017-07-29] MEDS: RIVASTIGMINE 9.5MG PATCH. TD SCH (07:55)
[2017-07-29] MEDS: CHOLECALCIFEROL (VITAMIN D3) 50,000 UNIT CAPSULE PO SCH (07:57)
[2017-07-29] MEDS: CIPROFLOXACIN 0.3% OPHTH SOLUTION 2.5ML BOTTLE. OU SCH ×2 (09:00→20:08)
[2017-07-29] MEDS: NYSTATIN TOPICAL POWDER 15GM BOTTLE. TP SCH ×2 (09:00→20:09)
[2017-07-29] MEDS: TIMOLOL 0.25% OPHTH SOLUTION 5ML BOTTLE. OU SCH (09:00)
[2017-07-29 16:00] VITALS: BP 102/60
[2017-07-29] MEDS: MIRTAZAPINE 15 MG TABLET PO SCH (20:06)
[2017-07-29] MEDS: LATANOPROST 0.005% OPHTH SOLUTION 2.5ML BOTTLE. OU SCH (20:08)
--- NOTE | 2017-07-30 04:01 | PN ---
DATE: 07/29/2017 SUBJECTIVE: The patient was seen today, met with the staff, chart reviewed. Staff reports some improvement. Did not present with any major problems today. The patient's behavior improved slightly. She is no longer banging the doors or being combative. OBSERVATION: VITAL SIGNS: Temperature 98.9, blood pressure 148/73, pulse 85, respiration 18, O2 sat 92%. Slept about 7 hours last night. CURRENT MEDICATIONS: The patient's current medications include Depakote 250 mg t.i.d., Seroquel 12.5 mg t.i.d., mirtazapine 15 mg at night, Cymbalta 60 mg daily, gabapentin 300 mg t.i.d., BuSpar 10 mg t.i.d., olanzapine 2.5 mg q.2h. p.r.n. Also, on Exelon patch 1 daily. The patient is not having any side effects. Still irritable and alegria, tends to pace a lot. The patient's Depakote level will be checked. ASSESSMENT: Major neurocognitive disorder, Alzheimer's, vascular with delusions. PLAN: Continue with the treatment. CAITLIN DAVIS MD DR: CLAUDINE/shaneka JOB#: [id number] / [id number]
[2017-07-30 06:09] VITALS: BP 134/77
[2017-07-30] MEDS: LEVOTHYROXINE 88 MCG TABLET PO SCH (06:32)
[2017-07-30] MEDS: CALCIUM POLYCARBOPHIL 625 MG TABLET PO SCH ×2 (08:32→19:35)
[2017-07-30] MEDS: ASPIRIN 81 MG TAB.CHEW PO SCH (08:32)
[2017-07-30] MEDS: RIVASTIGMINE 9.5MG PATCH. TD SCH (08:32)
[2017-07-30] MEDS: MEGESTROL 400 MG/10 ML ORAL.SUSP. PO SCH ×3 (08:32→16:37)
[2017-07-30] MEDS: GABAPENTIN 300 MG CAPSULE. PO SCH ×3 (08:32→19:35)
[2017-07-30] MEDS: DIVALPROEX 125 MG CAP.SPRINK PO SCH ×3 (08:32→19:35)
[2017-07-30] MEDS: busPIRone 10 MG TABLET. PO SCH ×3 (08:32→19:34)
[2017-07-30] MEDS: MULTIVITAMIN with MINERAL TABLET. PO SCH (08:34)
[2017-07-30] MEDS: QUEtiapine 25 MG TABLET. PO SCH ×3 (08:34→16:37)
[2017-07-30] MEDS: DULoxetine HCL 60 MG CAPSULE.DR PO SCH (08:35)
[2017-07-30] MEDS: SENNOSIDES 8.6 MG TABLET PO SCH (08:35)
[2017-07-30] MEDS: NYSTATIN TOPICAL POWDER 15GM BOTTLE. TP SCH ×2 (08:37→21:47)
[2017-07-30] MEDS: CIPROFLOXACIN 0.3% OPHTH SOLUTION 2.5ML BOTTLE. OU SCH ×2 (08:38→19:35)
[2017-07-30] MEDS: TIMOLOL 0.25% OPHTH SOLUTION 5ML BOTTLE. OU SCH (08:38)
[2017-07-30] MEDS ORDERED: MAGNESIUM HYDROXIDE 2,400 MG/30 ML ORAL.SUSP. PO PRN (12:30)
[2017-07-30 15:25] VITALS: BP 105/67
[2017-07-30] MEDS: MIRTAZAPINE 15 MG TABLET PO SCH (19:35)
[2017-07-30] MEDS: LATANOPROST 0.005% OPHTH SOLUTION 2.5ML BOTTLE. OU SCH (19:35)
[2017-07-31 06:12] VITALS: BP 137/78
[2017-07-31] MEDS: LEVOTHYROXINE 88 MCG TABLET PO SCH (06:44)
[2017-07-31 08:15] LABS: BASO # 0.1 x10^3/uL (0.0-0.2); BASO % 1 % (0-3); EOS # 0.3 x10^3/uL (0.0-0.7); EOS % 5 % (0-3); HEMATOCRIT 34.7 % (36.0-47.0); HEMOGLOBIN 11.5 g/dL (12.0-15.5); LYMPH # 1.7 x10^3/uL (1.0-4.8); LYMPH % 24 % (24-48); MEAN CORPUSCULAR HEMOGLOBIN 26 pg (25-35); MEAN CORPUSCULAR HGB CONC 33 g/dL (31-37); MEAN CORPUSCULAR VOLUME 79 fL (79-100); MONO # 0.6 x10^3/uL (0.0-1.1); MONO % 9 % (0-9); NEUT # 4.5 x10^3uL (1.8-7.7); NEUT % 62 % (31-73); PLATELET COUNT 307 x10^3/uL (140-400); RED BLOOD COUNT 4.39 x10^6/uL (3.50-5.40); RED CELL DISTRIBUTION WIDTH 19.3 % (11.5-14.5); WHITE BLOOD COUNT 7.2 x10^3/uL (4.0-11.0)
[2017-07-31 08:20] LABS: ALBUMIN 2.9 g/dL (3.4-5.0); ALBUMIN/GLOBULIN RATIO 0.8 (1.0-1.7); ALK PHOS 63 U/L (46-116); ALT (SGPT) 15 U/L (14-59); ANION GAP 10 (6-14); AST (SGOT) 14 U/L (15-37); BLOOD UREA NITROGEN 25 mg/dL (7-20); BUN/CREATININE RATIO 42 (6-20); CALCIUM 8.4 mg/dL (8.5-10.1); CARBON DIOXIDE 24 mmol/L (21-32); CHLORIDE 108 mmol/L (98-107); CREATININE 0.6 mg/dL (0.6-1.0); GFR 99.4; GLUCOSE 87 mg/dL (70-99); MAGNESIUM 2.2 mg/dL (1.8-2.4); POTASSIUM 4.1 mmol/L (3.5-5.1); SODIUM 142 mmol/L (136-145); TOTAL BILIRUBIN 0.2 mg/dL (0.2-1.0); TOTAL PROTEIN 6.5 g/dL (6.4-8.2)
[2017-07-31 08:22] LABS: VAL ACID 31 mcg/mL (50-100)
[2017-07-31] MEDS: MEGESTROL 400 MG/10 ML ORAL.SUSP. PO SCH ×4 (08:22→16:52)
[2017-07-31] MEDS: TIMOLOL 0.25% OPHTH SOLUTION 5ML BOTTLE. OU SCH (08:22)
[2017-07-31] MEDS: busPIRone 10 MG TABLET. PO SCH ×3 (08:22→20:14)
[2017-07-31] MEDS: CIPROFLOXACIN 0.3% OPHTH SOLUTION 2.5ML BOTTLE. OU SCH ×3 (08:22→21:00)
[2017-07-31] MEDS: ASPIRIN 81 MG TAB.CHEW PO SCH (08:23)
[2017-07-31] MEDS: MULTIVITAMIN with MINERAL TABLET. PO SCH (08:23)
[2017-07-31] MEDS: GABAPENTIN 300 MG CAPSULE. PO SCH ×3 (08:23→20:14)
[2017-07-31] MEDS: QUEtiapine 25 MG TABLET. PO SCH ×3 (08:23→16:52)
[2017-07-31] MEDS: DIVALPROEX 125 MG CAP.SPRINK PO SCH ×3 (08:23→20:16)
[2017-07-31] MEDS: DULoxetine HCL 60 MG CAPSULE.DR PO SCH (08:23)
[2017-07-31] MEDS: SENNOSIDES 8.6 MG TABLET PO SCH (08:23)
[2017-07-31] MEDS: CALCIUM POLYCARBOPHIL 625 MG TABLET PO SCH ×2 (08:23→20:14)
[2017-07-31] MEDS: NYSTATIN TOPICAL POWDER 15GM BOTTLE. TP SCH ×2 (08:24→21:06)
[2017-07-31] MEDS: RIVASTIGMINE 9.5MG PATCH. TD SCH (08:24)
--- NOTE | 2017-07-31 14:39 | PN ---
DATE: 07/30/2017 SUBJECTIVE: The patient was seen today, met with the staff, chart reviewed. The patient is somewhat ____, gets angry easily, poor impulse control, low frustration tolerance and irritable and alegria, tends to become combative at times. OBSERVATION: VITAL SIGNS: Temperature 98.9, blood pressure 134/77, pulse 73, respirations 18, O2 sat 92%. Slept about 7 hours last night. Appetite has improved. CURRENT MEDICATIONS: Include Depakote 250 mg t.i.d., Seroquel 12.5 mg t.i.d., mirtazapine 15 mg at night, Cymbalta 60 mg daily, gabapentin 300 mg t.i.d., BuSpar 10 mg t.i.d., olanzapine 2.5 mg q. 2-4 hours p.r.n. and Exelon patch daily. The patient is not showing any side effects. The patient has not had any falls. The patient's appetite is fair. ASSESSMENT: Major neurocognitive disorder, Alzheimer's, vascular with delusions. PLAN: To continue with the treatment. CAITLIN DAVIS MD DR: CLAUDINE/shaneka JOB#: [id number] / [id number]
[2017-07-31 15:58] VITALS: BP 91/59
[2017-07-31] MEDS: MIRTAZAPINE 15 MG TABLET PO SCH (20:14)
[2017-07-31] MEDS: LATANOPROST 0.005% OPHTH SOLUTION 2.5ML BOTTLE. OU SCH ×2 (20:16→21:00)
[2017-08-01] MEDS: LEVOTHYROXINE 88 MCG TABLET PO SCH (05:52)
[2017-08-01 06:10] VITALS: BP 132/79
[2017-08-01] MEDS: MEGESTROL 400 MG/10 ML ORAL.SUSP. PO SCH ×3 (09:54→17:19)
[2017-08-01] MEDS: busPIRone 10 MG TABLET. PO SCH ×3 (09:54→20:41)
[2017-08-01] MEDS: TIMOLOL 0.25% OPHTH SOLUTION 5ML BOTTLE. OU SCH (09:54)
[2017-08-01] MEDS: CIPROFLOXACIN 0.3% OPHTH SOLUTION 2.5ML BOTTLE. OU SCH ×2 (09:54→20:42)
[2017-08-01] MEDS: ASPIRIN 81 MG TAB.CHEW PO SCH (09:55)
[2017-08-01] MEDS: CALCIUM POLYCARBOPHIL 625 MG TABLET PO SCH ×2 (09:55→20:41)
[2017-08-01] MEDS: DIVALPROEX 125 MG CAP.SPRINK PO SCH ×3 (09:55→20:41)
[2017-08-01] MEDS: GABAPENTIN 300 MG CAPSULE. PO SCH ×3 (09:55→20:41)
[2017-08-01] MEDS: DULoxetine HCL 60 MG CAPSULE.DR PO SCH (09:55)
[2017-08-01] MEDS: MULTIVITAMIN with MINERAL TABLET. PO SCH (09:56)
[2017-08-01] MEDS: SENNOSIDES 8.6 MG TABLET PO SCH (09:56)
[2017-08-01] MEDS: RIVASTIGMINE 9.5MG PATCH. TD SCH (09:56)
[2017-08-01] MEDS: QUEtiapine 25 MG TABLET. PO SCH ×3 (09:56→17:19)
[2017-08-01] MEDS: NYSTATIN TOPICAL POWDER 15GM BOTTLE. TP SCH ×2 (10:03→20:44)
[2017-08-01 16:20] VITALS: BP 101/60
--- NOTE | 2017-08-01 19:59 | PDOC ---
Exam Note: Tunde Note: Please also refer to the separate dictated note~for this date of service dictated separately.~Patient seen individually. Discussed the patient with Nursing staff reviewed the chart.~Reviewed interim history and current functioning. Reviewed vital signs,~Labs/ Radiology~and current medications noted below. Continue current treatment with the changes noted in the dictated addendum note Assessment: Vital Signs: Vital Signs Date Time Temp Pulse Resp B/P (MAP) Pulse Ox O2 Delivery O2 Flow Rate FiO2 08/01/17 16:20 99.1 84 18 101/60 (74) 95 08/01/17 06:10 Room Air I&O Intake and Output 08/01/17 07:00 Intake Total 720 ml Balance 720 ml Intake Oral 720 ml Current Medications: Meds: Current Medications Acetaminophen (Tylenol) 650 mg PRN Q6HRS PRN PO PAIN / TEMP; Start 07/14/17 at 13:15; Status Cancel Multi-Ingredient Ointment (Analgesic [place]) 1 cyril PRN QID PRN TP MUSCLE PAIN; Start 07/14/17 at 13:15; Stop 07/25/17 at 09:04; Status DC Al Hydroxide/Mg Hydroxide (Mylanta Plus Xs) 15 ml PRN AFTMEALHC PRN PO DYSPEPSIA; Start 07/14/17 at 13:15; Stop 07/25/17 at 09:04; Status DC Magnesium Hydroxide (Milk Of Magnesia) 2,400 mg PRN QHS PRN PO CONSTIPATION Last administered on 07/17/17at 14:20; Start 07/14/17 at 13:15; Stop 07/25/17 at 09:04; Status DC Acetaminophen (Tylenol) 325 mg PRN Q6HRS PRN PO PAIN Last administered on at 22:50; Start 07/14/17 at 14:00 Aspirin (Children'S Aspirin) 81 mg DAILY PO Last administered on 08/01/17at 09:55 ; Start 07/15/17 at 09:00 Bisacodyl (Dulcolax Tab) 5 mg PRN DAILY PRN PO CONSTIPATION Last administered on 07/30/17at 20:46; Start 07/14/17 at 14:00 Buspirone HCl (Buspar) 10 mg TID PO Last administered on 08/01/17at 13:08; Start 07/14/17 at 14:30 Calcium Polycarbophil (Fibercon) 625 mg BID PO Last administered on 08/01/17 09 :55; Start 07/14/17 at 21:00 Vitamin D (Vitamin D3) 50,000 unit WEEKLY PO Last administered on 07/29/17 07: 57; Start 07/15/17 at 09:00 Cyanocobalamin (Vitamin B-12) 1,000 mcg DAILY PO Last administered on at 07:45; Start 07/15/17 at 09:00; Stop 07/25/17 at 09:04; Status DC Divalproex Sodium (Depakote Sprinkles) 125 mg TID PO Last administered on 14:32; Start 07/14/17 at 14:30; Stop 07/28/17 at 15:04; Status DC Duloxetine HCl (Cymbalta) 60 mg DAILY PO Last administered on 08/01/17 09:55; Start 07/15/17 at 09:00 Ferrous Sulfate (Feosol) 325 mg DAILY PO Last administered on 07/25/17 07:45; Start 07/15/17 at 09:00; Stop 07/25/17 at 09:04; Status DC Gabapentin (Neurontin) 300 mg TID PO Last administered on 08/01/17 13:09; Start 07/14/17 at 14:30 Latanoprost (Xalatan) 1 drop QHS OU Last administered on 07/30/17 19:35; Start 07/14/17 at 21:00 Levothyroxine Sodium (Synthroid) 88 mcg DAILY06 PO Last administered on 05:52; Start 07/15/17 at 06:00 Mirtazapine (Remeron) 7.5 mg QHS PO Last administered on 07/15/17 19:37; Start 07/14/17 at 21:00; Stop 07/16/17 at 19:18; Status DC Olanzapine (ZyPREXA ZYDIS) 2.5 mg PRN Q2HR PRN PO ANXIETY / AGITATION Last administered on 07/28/17at 18:38; Start 07/14/17 at 14:00 Quetiapine Fumarate (SEROquel) 12.5 mg BID92 PO Last administered on 07/19/17at 14:24; Start 07/14/17 at 14:30; Stop 07/19/17 at 18:42; Status DC Rivastigmine (Exelon) 1 patch DAILY TD Last administered on 08/01/17 09:56; Start 07/15/17 at 09:00 Sennosides (Senna) 8.6 mg DAILY PO Last administered on 08/01/17 09:56; Start 07/15/17 at 09:00 Sodium Chloride (Hypertonic Saline 5% Premix) 1,000 ml CONT IV ; Start 07/14/17 at 14:00; Status UNV Ascorbic Acid (Vitamin C) 500 mg DAILY PO Last administered on 07/25/17 07:45 ; Start 07/15/17 at 09:00; Stop 07/25/17 at 09:04; Status DC Artificial Tears (Artificial Tears) 1 drop TID OU Last administered on 21:12; Start 07/14/17 at 14:45; Stop 07/18/17 at 17:46; Status DC Ciprofloxacin 1 drop BID OU Last administered on 07/31/17 08:22; Start at 21:00 Multivitamins/ Calcium (Thera-M Plus) 1 tab DAILY PO Last administered on 09:56; Start 07/15/17 at 09:00 Timolol Maleate (Timoptic 0.25% Ophth) 1 drop DAILY OU Last administered on 07/31 08:22; Start 07/15/17 at 09:00 Vitamin D (Vitamin D3) 50,000 unit WEEKLY PO ; Start 07/22/17 at 09:00; Status UNV Mirtazapine (Remeron) 15 mg QHS PO Last administered on 07/31/17 20:14; Start 07/16/17 at 21:00 Magnesium Citrate (Citroma) 148 ml 1X ONCE PO Last administered on 07/17/17 21:14; Start 07/17/17 at 21:00; Stop 07/17/17 at 21:01; Status DC Artificial Tears (Artificial Tears) 1 drop PRN TID PRN OU DRY EYE Last administered on 07/26/17at 20:10; Start 07/19/17 at 09:00 Megestrol Acetate (Megace) 100 mg TIDAC PO Last administered on 08/01/17 17:19 ; Start 07/19/17 at 07:30 Quetiapine Fumarate (SEROquel) 12.5 mg TID@0900,1300,1700 PO Last administered on 08/01/17 17:19; Start 07/20/17 at 09:00 Cyanocobalamin (Vitamin B-12) 1,000 mcg [id number] IM Last administered on 09:30; Start 07/25/17 at 09:30 Nystatin (Nystop) 1 cyril BID TP Last administered on 08/01/17 10:03; Start 07/25 at 21:00 Nystatin (Nystop) 15 cyril STK-MED ONCE TP Last administered on 07/25/17 16:36; Start 07/25/17 at 16:36; Stop 07/25/17 at 16:37; Status DC Divalproex Sodium (Depakote Sprinkles) 250 mg TID PO Last administered on 13:09; Start 07/28/17 at 21:00 Magnesium Hydroxide (Milk Of Magnesia) 2,400 mg PRN DAILY PRN PO CONSTIPATION Last administered on 07/30/17 13:31; Start 07/30/17 at 12:30 Prenat Multivit/ Double Needle Operator Lockstitch/Iron/Folic Ac (Multivitamin ) 1 tab DAILY PO ; Start 08/02/17 at 09:00 Active Scripts Active Reported Timoptic 0.25% Ocudose Drop (Timolol Maleate/Pf) 1 Each Droperette 1 Drop OU DAILY Seroquel (Quetiapine Fumarate) 25 Mg Tablet 12.5 Mg PO BID92 Sodium Chloride (Sodium Chloride 5 %) 500 Ml Iv.soln 1,000 Ml IV 1X Ciprofloxacin Hcl 2.5 Ml Drops 1 Drop EACHEYE BID Depakote Sprinkle (Divalproex Sodium) 125 Mg Cap.sprink 125 Mg PO TID Vitamin D3 (Cholecalciferol (Vitamin D3)) 50,000 Unit Capsule 50,000 Unit PO WEEKLY Zyprexa Zydis (Olanzapine) 5 Mg Tab.rapdis 2.5 Mg PO PRN Q2HR PRN MDD 10mg MAX 10mg/24hrs Haloperidol Lactate 2 Mg/1 Ml Oral.conc 5 Mg PO PRN Q6HRS PRN Ferrous Sulfate 325 Mg Tablet 325 Mg PO DAILY Latanoprost 2.5 Ml Drops 1 Drop EACHEYE QHS Mirtazapine 15 Mg Tablet 7.5 Mg PO QHS Vitamin B-12 (Cyanocobalamin (Vitamin B-12)) 1,000 Mcg Tablet 1,000 Mcg PO DAILY EXELON 9.5mg/24hr (Rivastigmine) 1 Each Patch.td24 1 Patch TD DAILY Cymbalta (Duloxetine Hcl) 60 Mg Capsule.dr 60 Mg PO DAILY Buspirone Hcl 10 Mg Tablet 10 Mg PO TID Vitamin C (Ascorbic Acid) 500 Mg Tab.chew 500 Mg PO DAILY Refresh Optive Eye Drops (Carboxymethylcellulos/Glycerin) 15 Ml Drops 1 Drop EACHEYE TID Multi-Day Vitamins (Multivitamin) 1 Each Tablet 1 Tab PO DAILY Zofran (Ondansetron Hcl) 4 Mg Tablet 1 Tab PO Q6HRS PRN Senna (Sennosides) 8.6 Mg Tablet 8.6 Mg PO DAILY Levothyroxine Sodium 112 Mcg Tablet 88 Mcg PO DAILY06 Anti-Diarrhea (Loperamide Hcl) 2 Mg Tablet 2 Mg PO PRN Q4HRS PRN Gabapentin 300 Mg Capsule 300 Mg PO TID Fiber Tabs (Calcium Polycarbophil) 625 Mg Tablet 625 Mg PO BID Bisacodyl 5 Mg Tablet.dr 5 Mg PO PRN DAILY PRN Aspirin 81 Mg Tab.chew 81 Mg PO DAILY Tylenol (Acetaminophen) 325 Mg Tablet 325 Mg PO PRN Q6HRS PRN I have reviewed the current psychotropics carefully including drug interactions. Risk benefit ratio favors no change other than as noted in my dictated progress note. Diagnosis: Problems: (1) Mental status change (2) Cellulitis (3) Bilateral lower leg cellulitis (4) Major depressive disorder, recurrent episode (5) Anxiety disorder (6) Impulse control disorder RITA MARMOLEJO MD Aug 01, 2017 19:59
[2017-08-01] MEDS: MIRTAZAPINE 15 MG TABLET PO SCH (20:41)
[2017-08-01] MEDS: LATANOPROST 0.005% OPHTH SOLUTION 2.5ML BOTTLE. OU SCH (20:42)
--- NOTE | 2017-08-01 22:52 | PN ---
DATE: 07/31/[address] Bonilla today. SUBJECTIVE: The patient has been quite today; however, she has been alegria, combative at times with poor impulse. She denies any new medical complaints. OBJECTIVE: GENERAL: Well-developed, well-nourished female, not in acute distress. VITAL SIGNS: Blood pressure is 137/78, respiratory rate 20, pulse is 73, temperature 99.1, oxygen saturation 93% on room air. HEENT: Normocephalic, atraumatic, otherwise unremarkable. NECK: Supple. Negative for carotid bruit, lymphadenopathy, or thyromegaly. LUNGS: Clear to A and P. CARDIOVASCULAR: Regular rhythm, normal S1, S2. ABDOMEN: Soft. Bowel sounds positive. EXTREMITIES: Negative for cyanosis, clubbing, or pitting edema. NEUROLOGIC: The patient is alert and oriented x 2. Speech is fluent. There is no language dysfunction. The patient recalls 1/3 ____ after 1 and 3 minutes. Judgment and abstract thinking are fair. IMPRESSION: 1. Dementia, probably of Alzheimer type; borderline personality disorders; major depression. 2. Multiple medical problems include osteoarthritis, glaucoma, gastroesophageal reflux disease, Meniere disease, hyperlipidemia, status post pacemaker placement, and hypertension. RECOMMENDATIONS: Continue with current management initiated by Dr. Bonilla. M Jake MINER MD DR: TORREY/shaneka JOB#: [id number] / [id number]
[2017-08-02] MEDS: LEVOTHYROXINE 88 MCG TABLET PO SCH (05:52)
[2017-08-02 06:05] VITALS: BP 103/57
[2017-08-02] MEDS: MULTIVITAMIN with MINERAL TABLET. PO SCH (09:44)
[2017-08-02] MEDS: ASPIRIN 81 MG TAB.CHEW PO SCH (09:44)
[2017-08-02] MEDS: DIVALPROEX 125 MG CAP.SPRINK PO SCH ×3 (09:44→20:26)
[2017-08-02] MEDS: GABAPENTIN 300 MG CAPSULE. PO SCH ×3 (09:45→20:26)
[2017-08-02] MEDS: MEGESTROL 400 MG/10 ML ORAL.SUSP. PO SCH ×3 (09:45→17:10)
[2017-08-02] MEDS: CALCIUM POLYCARBOPHIL 625 MG TABLET PO SCH ×2 (09:45→20:26)
[2017-08-02] MEDS: busPIRone 10 MG TABLET. PO SCH ×3 (09:45→20:26)
[2017-08-02] MEDS: RIVASTIGMINE 9.5MG PATCH. TD SCH (09:45)
[2017-08-02] MEDS: SENNOSIDES 8.6 MG TABLET PO SCH (09:45)
[2017-08-02] MEDS: QUEtiapine 25 MG TABLET. PO SCH ×3 (09:45→17:10)
[2017-08-02] MEDS: NYSTATIN TOPICAL POWDER 15GM BOTTLE. TP SCH ×2 (09:49→20:28)
[2017-08-02] MEDS: DULoxetine HCL 60 MG CAPSULE.DR PO SCH (09:49)
[2017-08-02] MEDS: PRENATAL MULTIVITAMIN TABLET. PO SCH (09:49)
[2017-08-02] MEDS: TIMOLOL 0.25% OPHTH SOLUTION 5ML BOTTLE. OU SCH ×2 (09:49→20:27)
[2017-08-02] MEDS: CIPROFLOXACIN 0.3% OPHTH SOLUTION 2.5ML BOTTLE. OU SCH ×2 (09:49→20:27)
[2017-08-02 16:24] VITALS: BP 120/75
[2017-08-02] MEDS: MIRTAZAPINE 15 MG TABLET PO SCH (20:26)
--- NOTE | 2017-08-02 21:16 | PDOC ---
Exam Note: Tunde Note: Please also refer to the separate dictated note~for this date of service dictated separately.~Patient seen individually. Discussed the patient with Nursing staff reviewed the chart.~Reviewed interim history and current functioning. Reviewed vital signs,~Labs/ Radiology~and current medications noted below. Continue current treatment with the changes noted in the dictated addendum note Assessment: Vital Signs: Vital Signs Date Time Temp Pulse Resp B/P (MAP) Pulse Ox O2 Delivery O2 Flow Rate FiO2 08/02/17 16:24 98.7 75 20 120/75 (90) 94 08/01/17 06:10 Room Air I&O Intake and Output 08/02/17 07:00 Intake Total 560 ml Balance 560 ml Intake Oral 560 ml # Voids 1 # Bowel Movements 2 Current Medications: Meds: Current Medications Acetaminophen (Tylenol) 650 mg PRN Q6HRS PRN PO PAIN / TEMP; Start 07/14/17 at 13:15; Status Cancel Multi-Ingredient Ointment (Analgesic [place]) 1 cyril PRN QID PRN TP MUSCLE PAIN; Start 07/14/17 at 13:15; Stop 07/25/17 at 09:04; Status DC Al Hydroxide/Mg Hydroxide (Mylanta Plus Xs) 15 ml PRN AFTMEALHC PRN PO DYSPEPSIA; Start 07/14/17 at 13:15; Stop 07/25/17 at 09:04; Status DC Magnesium Hydroxide (Milk Of Magnesia) 2,400 mg PRN QHS PRN PO CONSTIPATION Last administered on 07/17/17at 14:20; Start 07/14/17 at 13:15; Stop 07/25/17 at 09:04; Status DC Acetaminophen (Tylenol) 325 mg PRN Q6HRS PRN PO PAIN Last administered on at 22:50; Start 07/14/17 at 14:00 Aspirin (Children'S Aspirin) 81 mg DAILY PO Last administered on 08/02/17at 09:44 ; Start 07/15/17 at 09:00 Bisacodyl (Dulcolax Tab) 5 mg PRN DAILY PRN PO CONSTIPATION Last administered on 07/30/17at 20:46; Start 07/14/17 at 14:00 Buspirone HCl (Buspar) 10 mg TID PO Last administered on 08/02/17at 20:26; Start 07/14/17 at 14:30 Calcium Polycarbophil (Fibercon) 625 mg BID PO Last administered on 08/02/17 20 :26; Start 07/14/17 at 21:00 Vitamin D (Vitamin D3) 50,000 unit WEEKLY PO Last administered on 07/29/17 07: 57; Start 07/15/17 at 09:00 Cyanocobalamin (Vitamin B-12) 1,000 mcg DAILY PO Last administered on at 07:45; Start 07/15/17 at 09:00; Stop 07/25/17 at 09:04; Status DC Divalproex Sodium (Depakote Sprinkles) 125 mg TID PO Last administered on 14:32; Start 07/14/17 at 14:30; Stop 07/28/17 at 15:04; Status DC Duloxetine HCl (Cymbalta) 60 mg DAILY PO Last administered on 08/02/17 09:49; Start 07/15/17 at 09:00 Ferrous Sulfate (Feosol) 325 mg DAILY PO Last administered on 07/25/17 07:45; Start 07/15/17 at 09:00; Stop 07/25/17 at 09:04; Status DC Gabapentin (Neurontin) 300 mg TID PO Last administered on 08/02/17 20:26; Start 07/14/17 at 14:30 Latanoprost (Xalatan) 1 drop QHS OU Last administered on 08/01/17 20:42; Start 07/14/17 at 21:00 Levothyroxine Sodium (Synthroid) 88 mcg DAILY06 PO Last administered on 05:52; Start 07/15/17 at 06:00 Mirtazapine (Remeron) 7.5 mg QHS PO Last administered on 07/15/17 19:37; Start 07/14/17 at 21:00; Stop 07/16/17 at 19:18; Status DC Olanzapine (ZyPREXA ZYDIS) 2.5 mg PRN Q2HR PRN PO ANXIETY / AGITATION Last administered on 07/28/17at 18:38; Start 07/14/17 at 14:00 Quetiapine Fumarate (SEROquel) 12.5 mg BID92 PO Last administered on 07/19/17 14:24; Start 07/14/17 at 14:30; Stop 07/19/17 at 18:42; Status DC Rivastigmine (Exelon) 1 patch DAILY TD Last administered on 08/02/17 09:45; Start 07/15/17 at 09:00 Sennosides (Senna) 8.6 mg DAILY PO Last administered on 08/02/17 09:45; Start 07/15/17 at 09:00 Sodium Chloride (Hypertonic Saline 5% Premix) 1,000 ml CONT IV ; Start 07/14/17 at 14:00; Status UNV Ascorbic Acid (Vitamin C) 500 mg DAILY PO Last administered on 07/25/17 07:45 ; Start 07/15/17 at 09:00; Stop 07/25/17 at 09:04; Status DC Artificial Tears (Artificial Tears) 1 drop TID OU Last administered on 21:12; Start 07/14/17 at 14:45; Stop 07/18/17 at 17:46; Status DC Ciprofloxacin 1 drop BID OU Last administered on 08/02/17 20:27; Start at 21:00 Multivitamins/ Calcium (Thera-M Plus) 1 tab DAILY PO Last administered on 09:44; Start 07/15/17 at 09:00 Timolol Maleate (Timoptic 0.25% Ophth) 1 drop DAILY OU Last administered on 08/02 20:27; Start 07/15/17 at 09:00 Vitamin D (Vitamin D3) 50,000 unit WEEKLY PO ; Start 07/22/17 at 09:00; Status UNV Mirtazapine (Remeron) 15 mg QHS PO Last administered on 08/02/17 20:26; Start 07/16/17 at 21:00 Magnesium Citrate (Citroma) 148 ml 1X ONCE PO Last administered on 07/17/17 21:14; Start 07/17/17 at 21:00; Stop 07/17/17 at 21:01; Status DC Artificial Tears (Artificial Tears) 1 drop PRN TID PRN OU DRY EYE Last administered on 07/26/17at 20:10; Start 07/19/17 at 09:00 Megestrol Acetate (Megace) 100 mg TIDAC PO Last administered on 08/02/17 17:10 ; Start 07/19/17 at 07:30 Quetiapine Fumarate (SEROquel) 12.5 mg TID@0900,1300,1700 PO Last administered on 08/02/17 17:10; Start 07/20/17 at 09:00 Cyanocobalamin (Vitamin B-12) 1,000 mcg [id number] IM Last administered on 09:30; Start 07/25/17 at 09:30 Nystatin (Nystop) 1 cyril BID TP Last administered on 08/02/17 20:28; Start 07/25 at 21:00 Nystatin (Nystop) 15 cyril STK-MED ONCE TP Last administered on 07/25/17 16:36; Start 07/25/17 at 16:36; Stop 07/25/17 at 16:37; Status DC Divalproex Sodium (Depakote Sprinkles) 250 mg TID PO Last administered on 20:26; Start 07/28/17 at 21:00 Magnesium Hydroxide (Milk Of Magnesia) 2,400 mg PRN DAILY PRN PO CONSTIPATION Last administered on 07/30/17 13:31; Start 07/30/17 at 12:30 Prenat Multivit/ [place]/Iron/Folic Ac (Multivitamin ) 1 tab DAILY PO Last administered on 08/02/17 09:49; Start 08/02/17 at 09:00 Active Scripts Active Reported Timoptic 0.25% Ocudose Drop (Timolol Maleate/Pf) 1 Each Droperette 1 Drop OU DAILY Seroquel (Quetiapine Fumarate) 25 Mg Tablet 12.5 Mg PO BID92 Sodium Chloride (Sodium Chloride 5 %) 500 Ml Iv.soln 1,000 Ml IV 1X Ciprofloxacin Hcl 2.5 Ml Drops 1 Drop EACHEYE BID Depakote Sprinkle (Divalproex Sodium) 125 Mg Cap.sprink 125 Mg PO TID Vitamin D3 (Cholecalciferol (Vitamin D3)) 50,000 Unit Capsule 50,000 Unit PO WEEKLY Zyprexa Zydis (Olanzapine) 5 Mg Tab.rapdis 2.5 Mg PO PRN Q2HR PRN MDD 10mg MAX 10mg/24hrs Haloperidol Lactate 2 Mg/1 Ml Oral.conc 5 Mg PO PRN Q6HRS PRN Ferrous Sulfate 325 Mg Tablet 325 Mg PO DAILY Latanoprost 2.5 Ml Drops 1 Drop EACHEYE QHS Mirtazapine 15 Mg Tablet 7.5 Mg PO QHS Vitamin B-12 (Cyanocobalamin (Vitamin B-12)) 1,000 Mcg Tablet 1,000 Mcg PO DAILY EXELON 9.5mg/24hr (Rivastigmine) 1 Each Patch.td24 1 Patch TD DAILY Cymbalta (Duloxetine Hcl) 60 Mg Capsule.dr 60 Mg PO DAILY Buspirone Hcl 10 Mg Tablet 10 Mg PO TID Vitamin C (Ascorbic Acid) 500 Mg Tab.chew 500 Mg PO DAILY Refresh Optive Eye Drops (Carboxymethylcellulos/Glycerin) 15 Ml Drops 1 Drop EACHEYE TID Multi-Day Vitamins (Multivitamin) 1 Each Tablet 1 Tab PO DAILY Zofran (Ondansetron Hcl) 4 Mg Tablet 1 Tab PO Q6HRS PRN Senna (Sennosides) 8.6 Mg Tablet 8.6 Mg PO DAILY Levothyroxine Sodium 112 Mcg Tablet 88 Mcg PO DAILY06 Anti-Diarrhea (Loperamide Hcl) 2 Mg Tablet 2 Mg PO PRN Q4HRS PRN Gabapentin 300 Mg Capsule 300 Mg PO TID Fiber Tabs (Calcium Polycarbophil) 625 Mg Tablet 625 Mg PO BID Bisacodyl 5 Mg Tablet.dr 5 Mg PO PRN DAILY PRN Aspirin 81 Mg Tab.chew 81 Mg PO DAILY Tylenol (Acetaminophen) 325 Mg Tablet 325 Mg PO PRN Q6HRS PRN I have reviewed the current psychotropics carefully including drug interactions. Risk benefit ratio favors no change other than as noted in my dictated progress note. Diagnosis: Problems: (1) Mental status change (2) Major depressive disorder, recurrent episode (3) Anxiety disorder (4) Impulse control disorder RITA MARMOLEJO MD Aug 02, 2017 21:16
[2017-08-02] MEDS: LATANOPROST 0.005% OPHTH SOLUTION 2.5ML BOTTLE. OU SCH (22:31)
[2017-08-03] MEDS ORDERED: DIVA125C PO (01:02)
[2017-08-03] MEDS ORDERED: MAGN2400 PO (01:03)
[2017-08-03] MEDS ORDERED: MEGE625O PO (01:05)
[2017-08-03] MEDS ORDERED: POLY15DR27 OP (01:12)
[2017-08-03] MEDS ORDERED: NYST60PO TP (01:12)
[2017-08-03] MEDS ORDERED: CYAN10002 IM (01:17)
[2017-08-03] MEDS ORDERED: PREN-4 PO (01:22)
--- NOTE | 2017-08-03 04:56 | PN ---
DATE: 08/01/2017 PSYCHIATRIC PROGRESS NOTE This late entry 08/01/2017 covers elements not covered in my initial note of 08/01/2017. I met with the patient in the evening of 08/01/2017. Per nursing report, the patient remains somewhat labile, anxious, tries to bargain with staff, at times cooperative. She has been urinating in the hallways at times. Still somewhat depressed, anxious. REVIEW OF SYSTEMS: Ambulation impaired, in wheelchair. No CV, , pulmonary, eye system symptoms on review. MENTAL STATUS EXAM: Oriented to herself and situation. Speech has some latency, often responses monosyllabic. Abstraction fair, computation impaired, language function intact. Mood and affect still withdrawn, depressed. LABORATORY DATA: Reviewed. IMPRESSION: Major neurocognitive disorder, Alzheimer, vascular with depression, delusions; anxiety disorder, unspecified. PLAN: Continue psychotropics mentioned in my initial note. Reviewed information from Dr. Whitney who covered for me over the past 1 week. RITA MARMOLEJO MD DR: SORAYA/shaneka JOB#: [id number] / [id number]
[2017-08-03] MEDS: LEVOTHYROXINE 88 MCG TABLET PO SCH (05:43)
[2017-08-03 05:50] VITALS: BP 96/61
[2017-08-03] MEDS: CALCIUM POLYCARBOPHIL 625 MG TABLET PO SCH (09:07)
[2017-08-03] MEDS: ASPIRIN 81 MG TAB.CHEW PO SCH (09:07)
[2017-08-03] MEDS: GABAPENTIN 300 MG CAPSULE. PO SCH (09:07)
[2017-08-03] MEDS: QUEtiapine 25 MG TABLET. PO SCH (09:07)
[2017-08-03] MEDS: SENNOSIDES 8.6 MG TABLET PO SCH (09:07)
[2017-08-03] MEDS: DIVALPROEX 125 MG CAP.SPRINK PO SCH (09:07)
[2017-08-03] MEDS: MEGESTROL 400 MG/10 ML ORAL.SUSP. PO SCH ×2 (09:07→11:30)
[2017-08-03] MEDS: busPIRone 10 MG TABLET. PO SCH (09:07)
[2017-08-03] MEDS: DULoxetine HCL 60 MG CAPSULE.DR PO SCH (09:07)
[2017-08-03] MEDS: MULTIVITAMIN with MINERAL TABLET. PO SCH (09:07)
[2017-08-03] MEDS: PRENATAL MULTIVITAMIN TABLET. PO SCH (09:07)
[2017-08-03] MEDS: RIVASTIGMINE 9.5MG PATCH. TD SCH (09:09)
[2017-08-03] MEDS: NYSTATIN TOPICAL POWDER 15GM BOTTLE. TP SCH (09:11)
[2017-08-03] MEDS: CIPROFLOXACIN 0.3% OPHTH SOLUTION 2.5ML BOTTLE. OU SCH (09:11)
--- NOTE | 2017-08-03 20:09 | PDOC ---
Exam Note: Tunde Note: Please also refer to the separate dictated note~for this date of service dictated separately.~Patient seen individually. Discussed the patient with Nursing staff reviewed the chart.~Reviewed interim history and current functioning. Reviewed vital signs,~Labs/ Radiology~and current medications noted below. Continue current treatment with the changes noted in the dictated addendum note Assessment: Vital Signs: Vital Signs Date Time Temp Pulse Resp B/P (MAP) Pulse Ox O2 Delivery O2 Flow Rate FiO2 08/03/17 05:50 98.6 68 16 96/61 (73) 92 08/01/17 06:10 Room Air I&O Intake and Output 08/03/17 07:00 Intake Total 900 ml Balance 900 ml Intake Oral 900 ml Current Medications: Meds: Current Medications Acetaminophen (Tylenol) 650 mg PRN Q6HRS PRN PO PAIN / TEMP; Start 07/14/17 at 13:15; Status Cancel Multi-Ingredient Ointment (Analgesic [place]) 1 cyril PRN QID PRN TP MUSCLE PAIN; Start 07/14/17 at 13:15; Stop 07/25/17 at 09:04; Status DC Al Hydroxide/Mg Hydroxide (Mylanta Plus Xs) 15 ml PRN AFTMEALHC PRN PO DYSPEPSIA; Start 07/14/17 at 13:15; Stop 07/25/17 at 09:04; Status DC Magnesium Hydroxide (Milk Of Magnesia) 2,400 mg PRN QHS PRN PO CONSTIPATION Last administered on 07/17/17at 14:20; Start 07/14/17 at 13:15; Stop 07/25/17 at 09:04; Status DC Acetaminophen (Tylenol) 325 mg PRN Q6HRS PRN PO PAIN Last administered on at 22:50; Start 07/14/17 at 14:00; Stop 08/03/17 at 12:22; Status DC Aspirin (Children'S Aspirin) 81 mg DAILY PO Last administered on 08/03/17at 09:07 ; Start 07/15/17 at 09:00; Stop 08/03/17 at 12:22; Status DC Bisacodyl (Dulcolax Tab) 5 mg PRN DAILY PRN PO CONSTIPATION Last administered on 07/30/17at 20:46; Start 07/14/17 at 14:00; Stop 08/03/17 at 12:22; Status DC Buspirone HCl (Buspar) 10 mg TID PO Last administered on 08/03/17 09:07; Start 07/14/17 at 14:30; Stop 08/03/17 at 12:22; Status DC Calcium Polycarbophil (Fibercon) 625 mg BID PO Last administered on 08/03/17 09 :07; Start 07/14/17 at 21:00; Stop 08/03/17 at 12:22; Status DC Vitamin D (Vitamin D3) 50,000 unit WEEKLY PO Last administered on 07/29/17 07: 57; Start 07/15/17 at 09:00; Stop 08/03/17 at 12:22; Status DC Cyanocobalamin (Vitamin B-12) 1,000 mcg DAILY PO Last administered on 07:45; Start 07/15/17 at 09:00; Stop 07/25/17 at 09:04; Status DC Divalproex Sodium (Depakote Sprinkles) 125 mg TID PO Last administered on at 14:32; Start 07/14/17 at 14:30; Stop 07/28/17 at 15:04; Status DC Duloxetine HCl (Cymbalta) 60 mg DAILY PO Last administered on 08/03/17 09:07; Start 07/15/17 at 09:00; Stop 08/03/17 at 12:22; Status DC Ferrous Sulfate (Feosol) 325 mg DAILY PO Last administered on 07/25/17 07:45; Start 07/15/17 at 09:00; Stop 07/25/17 at 09:04; Status DC Gabapentin (Neurontin) 300 mg TID PO Last administered on 08/03/17 09:07; Start 07/14/17 at 14:30; Stop 08/03/17 at 12:22; Status DC Latanoprost (Xalatan) 1 drop QHS OU Last administered on 08/02/17at 22:31; Start 07/14/17 at 21:00; Stop 08/03/17 at 12:22; Status DC Levothyroxine Sodium (Synthroid) 88 mcg DAILY06 PO Last administered on at 05:43; Start 07/15/17 at 06:00; Stop 08/03/17 at 12:22; Status DC Mirtazapine (Remeron) 7.5 mg QHS PO Last administered on 07/15/17at 19:37; Start 07/14/17 at 21:00; Stop 07/16/17 at 19:18; Status DC Olanzapine (ZyPREXA ZYDIS) 2.5 mg PRN Q2HR PRN PO ANXIETY / AGITATION Last administered on 07/28/17at 18:38; Start 07/14/17 at 14:00; Stop 08/03/17 at 12:22 ; Status DC Quetiapine Fumarate (SEROquel) 12.5 mg BID92 PO Last administered on 07/19/17at 14:24; Start 07/14/17 at 14:30; Stop 07/19/17 at 18:42; Status DC Rivastigmine (Exelon) 1 patch DAILY TD Last administered on 08/03/17at 09:09; Start 07/15/17 at 09:00; Stop 08/03/17 at 12:22; Status DC Sennosides (Senna) 8.6 mg DAILY PO Last administered on 08/03/17 09:07; Start 07/15/17 at 09:00; Stop 08/03/17 at 12:22; Status DC Sodium Chloride (Hypertonic Saline 5% Premix) 1,000 ml CONT IV ; Start 07/14/17 at 14:00; Status UNV Ascorbic Acid (Vitamin C) 500 mg DAILY PO Last administered on 07/25/17at 07:45 ; Start 07/15/17 at 09:00; Stop 07/25/17 at 09:04; Status DC Artificial Tears (Artificial Tears) 1 drop TID OU Last administered on at 21:12; Start 07/14/17 at 14:45; Stop 07/18/17 at 17:46; Status DC Ciprofloxacin 1 drop BID OU Last administered on 08/03/17at 09:11; Start at 21:00; Stop 08/03/17 at 12:22; Status DC Multivitamins/ Calcium (Thera-M Plus) 1 tab DAILY PO Last administered on at 09:07; Start 07/15/17 at 09:00; Stop 08/03/17 at 12:22; Status DC Timolol Maleate (Timoptic 0.25% Oph) 1 drop DAILY OU Last administered on 08/02at 20:27; Start 07/15/17 at 09:00; Stop 08/03/17 at 12:22; Status DC Vitamin D (Vitamin D3) 50,000 unit WEEKLY PO ; Start 07/22/17 at 09:00; Status UNV Mirtazapine (Remeron) 15 mg QHS PO Last administered on 08/02/17at 20:26; Start 07/16/17 at 21:00; Stop 08/03/17 at 12:22; Status DC Magnesium Citrate (Citroma) 148 ml 1X ONCE PO Last administered on 07/17/17at 21:14; Start 07/17/17 at 21:00; Stop 07/17/17 at 21:01; Status DC Artificial Tears (Artificial Tears) 1 drop PRN TID PRN OU DRY EYE Last administered on 07/26/17at 20:10; Start 07/19/17 at 09:00; Stop 08/03/17 at 12:22 ; Status DC Megestrol Acetate (Megace) 100 mg TIDAC PO Last administered on 08/03/17at 11:30 ; Start 07/19/17 at 07:30; Stop 08/03/17 at 12:22; Status DC Quetiapine Fumarate (SEROquel) 12.5 mg TID@0900,1300,1700 PO Last administered on 08/03/17at 09:07; Start 07/20/17 at 09:00; Stop 08/03/17 at 12:22; Status DC Cyanocobalamin (Vitamin B-12) 1,000 mcg [id number] IM Last administered on at 09:30; Start 07/25/17 at 09:30; Stop 08/03/17 at 12:22; Status DC Nystatin (Nystop) 1 cyril BID TP Last administered on 08/03/17at 09:11; Start 07/25 at 21:00; Stop 08/03/17 at 12:22; Status DC Nystatin (Nystop) 15 cyril STK-MED ONCE TP Last administered on 07/25/17at 16:36; Start 07/25/17 at 16:36; Stop 07/25/17 at 16:37; Status DC Divalproex Sodium (Depakote Sprinkles) 250 mg TID PO Last administered on at 09:07; Start 07/28/17 at 21:00; Stop 08/03/17 at 12:22; Status DC Magnesium Hydroxide (Milk Of Magnesia) 2,400 mg PRN DAILY PRN PO CONSTIPATION Last administered on 07/30/17at 13:31; Start 07/30/17 at 12:30; Stop 08/03/17 at 12: 22; Status DC Prenat Multivit/ [place]/Iron/Folic Ac (Multivitamin ) 1 tab DAILY PO Last administered on 08/03/17at 09:07; Start 08/02/17 at 09:00; Stop 08/03/17 at 12: 22; Status DC Active Scripts Active Reported 19 Tablet ( Vit/Fe Fum/Lisbet/Fa) 1 Each Tablet 1 Each PO DAILY Cyanocobalamin Injection (Cyanocobalamin (Vitamin B-12)) 1,000 Mcg/1 Ml Vial 1, 000 Mcg IM MONTHLY Artificial Tears (Polyvinyl Alcohol) 15 Ml Drops 1 Drop OP PRN TID PRN Nystop (Nystatin) 60 Gm Powder 60 Gm TP PRN BID PRN Megace Es (Megestrol Acetate) 625 Mg/5 Ml Oral.susp 100 Mg PO TID Milk Of Magnesia (Magnesium Hydroxide) 2,400 Mg/10 Ml Oral.susp 2,400 Mg PO PRN DAILY PRN Depakote Sprinkle (Divalproex Sodium) 125 Mg Cap.sprink 250 Mg PO TID Timoptic 0.25% Ocudose Drop (Timolol Maleate/Pf) 1 Each Droperette 1 Drop OU DAILY Seroquel (Quetiapine Fumarate) 25 Mg Tablet 12.5 Mg PO TID 0900,1300,1700 Vitamin D3 (Cholecalciferol (Vitamin D3)) 50,000 Unit Capsule 50,000 Unit PO WEEKLY Zyprexa Zydis (Olanzapine) 5 Mg Tab.rapdis 2.5 Mg PO PRN Q2HR PRN MDD 10mg MAX 10mg/24hrs Latanoprost 2.5 Ml Drops 1 Drop EACHEYE QHS Mirtazapine 15 Mg Tablet 15 Mg PO QHS EXELON 9.5mg/24hr (Rivastigmine) 1 Each Patch.td24 1 Patch TD DAILY Cymbalta (Duloxetine Hcl) 60 Mg Capsule.dr 60 Mg PO DAILY Buspirone Hcl 10 Mg Tablet 10 Mg PO TID Senna (Sennosides) 8.6 Mg Tablet 8.6 Mg PO DAILY Levothyroxine Sodium 112 Mcg Tablet 88 Mcg PO DAILY06 Gabapentin 300 Mg Capsule 300 Mg PO TID Fiber Tabs (Calcium Polycarbophil) 625 Mg Tablet 625 Mg PO BID Bisacodyl 5 Mg Tablet.dr 5 Mg PO PRN DAILY PRN Aspirin 81 Mg Tab.chew 81 Mg PO DAILY Tylenol (Acetaminophen) 325 Mg Tablet 325 Mg PO PRN Q6HRS PRN I have reviewed the current psychotropics carefully including drug interactions. Risk benefit ratio favors no change other than as noted in my dictated progress note. Diagnosis: Problems: (1) Mental status change (2) Dementia (3) Major depressive disorder, recurrent episode (4) Anxiety disorder (5) Impulse control disorder RITA MARMOLEJO MD Aug 03, 2017 20:09
--- NOTE | 2017-08-03 22:53 | PN ---
DATE: 08/02/2017 PSYCHIATRIC PROGRESS NOTE This is a late entry 08/02/2017 covers elements not covered in my initial note of 08/02/2017. SUBJECTIVE: I met with the patient evening of 08/02/2017. The patient had a "decent day" per nursing report. She did get a little agitated, scratched a staff member, and ____ were placed on her hand then she did okay. REVIEW OF SYSTEMS: Ambulation impaired, in wheelchair. No CV, , pulmonary, eye, ENT system symptoms on review. Reliability poor. MENTAL STATUS EXAM: Oriented to herself. Insight, judgment, recent and remote memory, attention, concentration, fund of knowledge poor, consistent with her diagnosis mentioned in my initial note. IMPRESSION: Major depressive disorder, recurrent, in partial remission; major neurocognitive disorder, Alzheimer, vascular with delusion, depression, behavioral disturbance. Rest unchanged. PLAN: Continue psychotropics mentioned in my initial note. Valproic acid level slightly subtherapeutic, but adequate clinically for now. MAN Nupur MARMOLEJO MD DR: SORAYA/shaneka JOB#: [id number] / [id number]
--- NOTE | 2017-08-04 18:52 | DS ---
DATE OF DISCHARGE: 08/03/2017 DISCHARGE SUMMARY/PSYCHIATRIC PROGRESS NOTE ' This is late entry 08/03/2017 covers elements not covered in my initial note 08/03/2017. REASON FOR ADMISSION: Please refer to the admission history for details. Briefly, the patient is a 67-year-old female referred to us [place] [facility] [place] primary care physician on account of being combative with staff, agitated, refusing to eat, disruptive, more confused. She was initially hospitalized stabilized then was transferred to the ICU, medically stabilized and back again on our unit for this current hospitalization. SIGNIFICANT FINDINGS AND CLINICAL COURSE: Following admission, the patient was seen daily individually by myself; from a psychiatric standpoint medical followup per Dr. Chen/Dr. Welch. She remained quite confused, agitated, disruptive, throwing things on the floor including her meals, at times labile. Adjustments were made in her psychotropics. She seemed to respond to a combination of Exelon patch daily, Cymbalta 60 mg a day, Remeron 15 mg at bedtime, Seroquel 12.5 mg 3 times a day, Neurontin 300 mg 3 times a day, Depakote Sprinkles 250 t.i.d., BuSpar 10 mg 3 times a day, Zyprexa p.r.n. Megace was added for appetite stimulation 100 mg t.i.d. before meals. Gradually, mood appeared to improve, she was more interactive, less confused prior to discharge on 08/03/2017. REVIEW OF SYSTEMS: Ambulation impaired, in wheelchair. No CV, , pulmonary, eye, ENT system symptoms on review. MENTAL STATUS EXAM: Oriented to herself. Insight, judgment, recent and remote memory, attention, concentration, fund of knowledge poor, consistent with her diagnoses. Mood and affect were improved. No suicidal or homicidal ideation prior to discharge. CONDITION AT DISCHARGE: Improved. FINAL DIAGNOSES: Major depressive disorder, recurrent with psychotic features, in partial remission; major neurocognitive disorder, Alzheimer, vascular with depression, delusion, behavioral disturbance; anxiety disorder, unspecified; impulse control disorder, unspecified. Rest is unchanged from admission. DISCHARGE MEDICATIONS: Please refer to the EMRAD. DISCHARGE INSTRUCTIONS: Outpatient psychiatric and medical followup at the care home. Time for discharge day management is greater than 30 minutes. MAN Nupur MARMOLEJO MD DR: Veronica JOB#: [id number] / [id number]
== END 2017-08-03 12:22 | disposition home or self-care (01) | DRG 56 ==
LOC: GEROPSY 11:31
PROVIDERS: ADMIT Psychiatry & Neurology Psychiatry; ATTEND Psychiatry & Neurology Psychiatry
DX: G30.9 Alzheimer's disease, unspecified (principal); E41 Nutritional marasmus; I95.9 Hypotension, unspecified; F01.51 Vascular dementia, unspecified severity, with behavioral disturbance; F33.3 Major depressive disorder, recurrent, severe with psychotic symptoms; L03.115 Cellulitis of right lower limb; K21.9 Gastro-esophageal reflux disease without esophagitis; L03.116 Cellulitis of left lower limb; F02.81 Dementia in other diseases classified elsewhere, unspecified severity, with behavioral disturbance; E78.5 Hyperlipidemia, unspecified; F33.41 Major depressive disorder, recurrent, in partial remission; F41.9 Anxiety disorder, unspecified; F60.3 Borderline personality disorder; F63.9 Impulse disorder, unspecified; H40.9 Unspecified glaucoma; H81.09 Meniere's disease, unspecified ear; I10 Essential (primary) hypertension; M19.90 Unspecified osteoarthritis, unspecified site; K59.09 Other constipation; Z66 Do not resuscitate; Z79.899 Other long term (current) drug therapy; Z68.25 Body mass index [BMI] 25.0-25.9, adult; Z95.0 Presence of cardiac pacemaker; Z88.6 Allergy status to analgesic agent; Z88.1 Allergy status to other antibiotic agents; Z88.0 Allergy status to penicillin; Z88.8 Allergy status to other drugs, medicaments and biological substances; Z91.048 Other nonmedicinal substance allergy status
CPT/HCPCS: 36415; 80053; 80164; 81001; 82306; 82607; 83540; 83550; 83735; 84436; 84443; 84480; 85025; J3420